=== PATIENT | male | born 1945 | race African-American/Black ===

== ENCOUNTER 2017-07-07 23:46 | Inpatient (IN) | payer MEDICARE, MEDICAID ==
[~2017-07-07] VITALS: Ht 152.4 cm; Wt 49.9 kg
[~2017-07-07 23:46] MED LIST: ACET-868 GT; ACID1TAB12 GT; ALBU18HF2 IH; ASPI-605 GT; BETH25TA10 GT; CA C1TAB70 GT; CHOL4PAC9 PO; FLUT16SP2 NS; FLUT1DIS28 IH; IPRA3AMP23 IH; MAGN400O6 GT; MEGE400O GT; MIDO10TA6 GT; MULT1TAB11 GT; PANT40SU GT; SODI650T GT; TAMS-12 GT; [UNRECOGNIZED DRUG - CODE] PO
[2017-07-07 23:58] VITALS: BP 104/61
[2017-07-08] VITALS (10 sets, daily range): BP systolic 90–140; BP diastolic 50–83
--- NOTE | 2017-07-08 | NUR ---
RT IS AT THE BEDSIDE. PT IS ON VENT WITH THE FOLLOWING SETTINGS: AC14, TV400 FIO2 35% AND PEEP5
--- NOTE | 2017-07-08 | NUR ---
PT BIB [facility] WITH A C/O BRONCHITIS. EMT'S ARE BAGGING. PT IS A TRACH/VENT PT. RT WAS CALLED AND TRIAGE NURSE IS SPEAKING WITH EMS. PT IS AA&O X4. PT IS NON VERBAL DUE TO TRACH. PT HAS BUE AND BLE CONTRACTURES. PILLOWS PLACED BETWEEN BLE. PT HAS PILLOW UNDER LUE. PT IS TACHY ON THE MONITOR WITH HR 122. PT HAS ORAL TEMP OF 100.3F. DR. GARZA IS AWARE.
[2017-07-08] MEDS ORDERED: ACETAMINOPHEN 325 MG TABLET ONE (00:16)
--- NOTE | 2017-07-08 00:20 | NUR ---
CXR IN PROGRESS AT THE BEDSIDE.
--- NOTE | 2017-07-08 00:23 | NUR ---
IN & OUT CATH DONE WITH UROJET. APPROX 100 ML YELLOW URINE OUTPUT NOTED.
[2017-07-08] MEDS ORDERED: ACETAMINOPHEN 325 MG TABLET MC ONE (00:30)
[2017-07-08] MEDS ORDERED: LIDOCAINE 2% JEL UROJET 10 ML MM ONE (00:38)
--- NOTE | 2017-07-08 00:50 | NUR ---
RT AT THE BEDSIDE FOR ABG.
[2017-07-08 00:59] LABS: BASOPHILS # (AUTO) 0.1 /CMM (0.0-0.2); BASOPHILS % (AUTO) 0.8 % (0.0-2.0); EOSINOPHILS % (AUTO) 8.3 % (0.0-6.0); HEMATOCRIT 27 % (39-51); HEMOGLOBIN 9.1 g/dL (13.5-17.5); LYMPHOCYTES # (AUTO) 2.2 /CMM (0.8-4.8); LYMPHOCYTES % (AUTO) 11.9 % (20.0-44.0); MEAN CORPUSCULAR HGB CONC 34 g/dl (31.0-36.0); MEAN CORPUSCULAR VOLUME 81 fL (80-96); MONOCYTES # (AUTO) 0.7 /CMM (0.1-1.30); MONOCYTES % (AUTO) 3.6 % (2.0-12.0); NEUTROPHILS % (AUTO) 75.4 % (43.0-81.0); PLATELET COUNT (AUTO) 440 /CMM (150-450); RDW COEFFICIENT OF VARIATION 19.5 (11.5-15.0); RED BLOOD CELL COUNT(AUTO) 3.34 MIL/uL (4.5-6.0); WHITE BLOOD COUNT (AUTO) 18.5 K/uL (4.3-11.0)
[2017-07-08 01:05] LABS: APPEARANCE,URINE CLEAR (CLEAR); BILIRUBIN,URINE NEGATIVE (NEGATIVE); BLOOD, URINE TRACE Ery/uL (NEGATIVE); COLOR,URINE YELLOW (YELLOW); KETONES,URINE NEGATIVE (NEGATIVE); LEUKOCYTE ESTERASE ,URINE NEGATIVE (NEGATIVE); NITRITE, URINE NEGATIVE (NEGATIVE); PH,URINE 7.5 (5.0-8.0); PROTEIN,URINE TRACE mg/dl (NEGATIVE); UGLUCOSE NEGATIVE (NEGATIVE); UROBILINOGEN,URINE 0.2 EU/dL (0.2)
[2017-07-08 01:13] LABS: INR 1.07 (0.87-1.13)
[2017-07-08 01:15] LABS: ABG BASE EXCESS 4.5 mmol/L; ABG OXYGEN SATURATION 86.8 % (92.0-98.5); ABG PCO2 46.3 mmHg (35.0-45.0); ABG PH 7.423 (7.350-7.450); ABG PO2 55.1 mmHg (75.0-100.0); AaDO2 140.6 mmHg; COHb 0.2 % (0.5-1.5); MetHb 0.6 % (0.0-1.5); O2Hb 86.1 % (94.0-97.0); SITE, ABG Right Brachial
[2017-07-08 01:16] LABS: TROPONIN I < 0.017 ng/mL (0.00-0.056)
--- NOTE | 2017-07-08 01:19 | NUR ---
OFFLOADED PT'S BUTTOCK WITH A PILLOW.
[2017-07-08 01:20] LABS: BACTERIA,URINE Few /HPF (None Seen); SQUAMOUS EPITHELIAL CELL,UR Few /HPF (None Seen); WBC,URINE 0-2 /HPF (0-3)
--- NOTE | 2017-07-08 01:28 | NUR ---
SUCTIONED X3 KASANDRA BLOOD NOTED. DR. GARZA NOTIFIED.
[2017-07-08 01:37] LABS: CALCIUM, SERUM 9.3 mg/dL (8.5-10.1); CARBON DIOXIDE 31 mmol/L (21-32); CHLORIDE 97 mmol/L (98-107); CREATININE 0.9 mg/dL (0.6-1.3); GLUCOSE 109 mg/dL (74-106); POTASSIUM 4.5 mmol/L (3.5-5.1); SODIUM SERUM 133 mmol/L (136-145); UREA NITROGEN, BLOOD 32 mg/dL (7-18)
[2017-07-08 01:40] LABS: ALANINE AMINOTRANSFERASE 31 U/L (12-78); ALBUMIN 2.1 g/dL (3.4-5.0); ALKALINE PHOSPHATASE 86 U/L (46-116); ASPARTATE AMINOTRANSFERASE 22 U/L (15-37); BILIRUBIN,DIRECT 0.1 mg/dL (0.0-0.2); BILIRUBIN,TOTAL 0.3 mg/dL (0.2-1.0); TOTAL PROTEIN, SERUM 7.7 g/dL (6.4-8.2)
--- NOTE | 2017-07-08 01:48 | NUR ---
ORAL TEMP 98.9
[2017-07-08] MEDS ORDERED: PIPERACILLIN /TAZOBACTAM 3.375 G VIAL IV ONE (01:52)
[2017-07-08] MEDS ORDERED: VANCOMYCIN 1 GM VIAL ONE (01:52)
[2017-07-08] MEDS ORDERED: IV NS 0.9% 1,000 ML BAG IV ONE (02:00)
[2017-07-08] MEDS ORDERED: PIPERACILLIN /TAZOBACTAM 3.375 G in IV D5W 50 ML IV ONE (02:00)
[2017-07-08] MEDS ORDERED: VANCOMYCIN 1 GM in IV D5W 250 ML IV ONE ×2 (02:00→05:00)
--- NOTE | 2017-07-08 02:20 | NUR ---
SUCTIONED PT X2. KASANDRA BLOOD NOTED IN TRACH.
--- NOTE | 2017-07-08 02:45 | NUR ---
PT'S DAUGHTER AND ARE AT THE BEDSIDE. PT TO BE ADMITTED. PT'S FAMILY WILL LEAVE SOON.
--- NOTE | 2017-07-08 02:58 | NUR ---
GABRIEL, PT'S DAUGHTER, CAN BE REACHED AT [phone]. PLEASE CALL WITH UPDATES.
--- NOTE | 2017-07-08 03:00 | NUR ---
PT'S FAMILY WENT HOME. WILL CALL GABRIEL WHEN PT IS TRANSFERRED TO THE FLOOR.
--- NOTE | 2017-07-08 03:16 | NUR ---
CALLED [facility] RE: CXR. CXR TO BE READ SHORTLY.
--- NOTE | 2017-07-08 03:46 | NUR ---
PT ASSIGNED ON 103 [facility]
--- NOTE | 2017-07-08 03:46 | NUR ---
CALLED RT. PT TO GO TO [facility].
--- NOTE | 2017-07-08 03:47 | NUR ---
CALLING REPORT TO [facility] NURSE.
--- NOTE | 2017-07-08 04:00 | NUR ---
[facility] RN ADMITTING NOTE RECEIVED PT FROM ER, INITIALLY FROM 4 SEASONS CC BRONCHITIS UNABLE TO OBTAIN VANCO IV, ADMITING DIAGNOSIS; POSSIBLE SEPSIS, SIRS, STAGE 4 PS, TRACHIAL BLEEDING, ANEMIA, PNA AND ACUTE DEHYDRATION, PT GIVEN ZOSYN 3.375 AND VANCO 1GM AND BOLUSED 2000 LT OF NS. ON RH 20#G WELL ERICK NO INFILTRATION OR SIGN OF FLUID VOL EXCESS NOTED, VS STABLE NO EPISODE OF DISTRESS, NOTED WITH SKIN ISSUES PHOTOS TAKEN MD ARMIN URBANO AWARE, SUGGESTS TO SEE PT IN AM, ALL ADMITTING ORDERS ENTERED PER PROTOCOL, WOUND CONSULT, MILL LABORER CONSULT, [employer] MAT ORDERED. KEPT PT CLEAN AND DRY, WELL REPOSITIONED, PRODUCTIVE ENDORSED TO RT IN AM FOR SPUTUM CX COLLECTION. WILL ENDORSE PT TO AM SHIFT NURSE FOR CESAR., ALL SAFETY MEASURES MET.
--- NOTE | 2017-07-08 04:09 | NUR ---
ENDORSED REASSESSMENT OF PT AFTER FLUIDS TO HECTOR BLANCO
[2017-07-08] MEDS ORDERED: MORPHINE SULFATE INJ 2 MG/ML DISP.SYRIN IV PRN (05:00)
[2017-07-08] MEDS ORDERED: ACETAMINOPHEN 325 MG TABLET PO PRN (05:00)
[2017-07-08] MEDS ORDERED: HYDROCODONE/APAP 5/325MG 1 EACH TABLET PO PRN (05:00)
[2017-07-08] MEDS ORDERED: DEXTROSE 50%-WATER 50 ML DISP.SYRIN IV PRN (05:00)
[2017-07-08] MEDS ORDERED: CEFEPIME 1 GM in IV D5W 50 ML IV SCH ×2 (05:00→09:00)
[2017-07-08] MEDS ORDERED: ONDANSETRON HCL/PF 4 MG/2 ML VIAL IV PRN (05:00)
[2017-07-08] MEDS: BLOOD SUGAR DIAGNOSTIC 1 EACH STRIP IN SCH ×4 (07:01→23:49)
[2017-07-08] MEDS: GLYTROL 1,000 ML BAG GT PRN (07:08)
[2017-07-08] MEDS ORDERED: FEE PK DOSING 1 MIN EA MC ONE (08:00)
--- NOTE | 2017-07-08 08:00 | NUR ---
[facility]/RN AM SHIFT INITIAL NOTES RECEIVED PT AWAKE IN BED, NO ACUTE CHANGE OF CONDITION NOTED, PT ALERT, NON-VERBAL, NO GRIMACING NOTED. ON VENTILATOR WITH RATES SET PRESCRIBED, SATURATING @ 100%, CRACKLES NOTED THROUGHOUT, NOTED WITH BLEEDING ON TRACH SITE, SUCTIONED FOR AIRWAY CLEARANCE. ON TELE WITH SINUS TACHY, HR 105. IV SITE PATENT WITH NO S/S OF INFECTION. ON GOING GT FEEDING @ 55CC/HR, FLUSHED, PATENT WITH NO S/S OF INFECTION, SL. PT IS COMFORTABLE, SCHEDULED AM MEDS TO BE GIVEN. CL WITHIN REACHED AND SAFETY MAINTAINED. ON GOING MONITORING.
--- NOTE | 2017-07-08 08:06 | NUR ---
Received male vidya pt on mechanical vent. Pt vidya is secure. Blood tinged secretions noted, RN aware. Vent is plugged into a red outlet, alarms are set and audible, and BVM is at bedside. Addendum: 07/08/17 at 0808 by EDD QUIROS RT Amended: Links added.
[2017-07-08] MEDS ORDERED: FENTANYL PF 100MCG/2ML AMPUL IV PRN (08:30)
[2017-07-08] MEDS ORDERED: FERR325T23 GT (08:56)
[2017-07-08] MEDS ORDERED: NUTR250L61 GT (08:56)
[2017-07-08] MEDS ORDERED: ZINC220C8 GT (08:56)
[2017-07-08] MEDS ORDERED: MIDO2.5T GT ×2 (08:56)
[2017-07-08] MEDS ORDERED: LOPE2CAP GT (08:56)
[2017-07-08] MEDS ORDERED: HYDR-552 GT (08:56)
[2017-07-08] MEDS ORDERED: AMIN30LI4 GT (08:56)
[2017-07-08] MEDS ORDERED: LORA10TA7 GT (08:56)
[2017-07-08] MEDS ORDERED: CALC-494 GT (08:56)
[2017-07-08] MEDS ORDERED: PANT40SU2 GT (08:56)
[2017-07-08] MEDS ORDERED: LACT1CAP94 GT (08:56)
[2017-07-08] MEDS ORDERED: CHOL100044 GT (08:56)
[2017-07-08] MEDS ORDERED: ASCO500T9 GT (08:56)
[2017-07-08] MEDS ORDERED: ZINC SULFATE 220 MG CAPSULE PO SCH (09:00)
[2017-07-08] MEDS: CEFEPIME 1 GM in IV D5W 50 ML IV SCH ×4 (09:05→20:31)
[2017-07-08] MEDS: ASCORBIC ACID 500 MG TABLET PO SCH (09:06)
[2017-07-08] MEDS: MULTIVITAMINS,THERAGRAN 1 UDTAB TABLET PO SCH (09:06)
[2017-07-08] MEDS: PANTOPRAZOLE 40 MG/PACK PACK GT SCH (09:06)
--- NOTE | 2017-07-08 09:09 | NUR ---
WOUND CARE CONSULT: PT PRESENTS WITH INCONTINENCE, STAGE 4 SACRAL ULCER AND RT DORSAL FOOT ESCHAR, PRESENT ON ADMISSION. RECOMMENDATIONS MADE FOR WOUND CARE AND SKIN PROTECTION. DISCUSSED WITH NURSING STAFF. PT ON CORRINE ISOFLEX LOW AIRLOSS BED. CURRENT ADIN SCORE IS 8. WILL SEE PRN. LEON IN AGREEMENT WITH PLAN OF CARE. Addendum: 07/08/17 at 0911 by ESTEBAN DEJESUS WNDNU Amended: Links added.
[2017-07-08] MEDS ORDERED: IV NS 0.9% 250 ML BAG IV ONE (09:30)
[2017-07-08] MEDS: HYDROGEL DRESSING 90 GM TUBE TP SCH ×2 (11:01→20:31)
[2017-07-08] MEDS: Z GUARD REMEDY 2 OZ OINT TP SCH (11:01)
--- NOTE | 2017-07-08 12:00 | NUR ---
TELE1/RN NOON ROUNDS NO CHANGE OF CONDITION. MONITORING CONTINUED.
[2017-07-08] MEDS: VANCOMYCIN 0.75 GM in IV D5W 250 ML IV SCH (14:29)
[2017-07-08] MEDS: METOPROLOL TARTRATE 25 MG TABLET PO SCH ×2 (14:29→20:32)
[2017-07-08] MEDS: ALBUTEROL HALF STRENGTH 1.25 MG/3 ML VIAL.NEB NEB SCH ×4 (14:30→23:49)
[2017-07-08] MEDS ORDERED: LORAZEPAM INJ 2 MG/ML VIAL IVP PRN (14:30)
[2017-07-08] MEDS: PROSOURCE / PROSTAT (PYXIS) 30 ML UDC GT SCH ×2 (14:32→20:33)
[2017-07-08] MEDS: IPRATROPIUM NEB FS 0.5 MG/2.5 ML AMPUL.NEB NEB SCH ×3 (15:04→23:49)
[2017-07-08] MEDS: LACTOBACILLUS RHAMNOSUS GG 1 EACH CAP.SPRINK GT SCH (18:01)
--- NOTE | 2017-07-08 19:20 | NUR ---
BANBURY OPERATOR OPENING NOTES REPORT RECEIVED FROM INDIRA YOUNG. PATIENT A/A/O X1, UNABLE TO VERBALIZE NEEDS. TRACH INTACT W/ MINIMAL PINK TINGED SECRETIONS NOTED. SOME LABORED BREATHING NOTED W/ VENT SETTINGS AC 14, TV 400, FIO2 35%, PEEP 5 & O2 @ 100% & CURRENT O2 SAT 88%. HOB ELEVATED, PATIENT REPOSITIONED & SUCTIONED W/ IMPROVEMENT IN O2 SAT NOTED. ON TELE W/ SINUS RHYTHM-SINUS TACH, HR 130S. RIGHT FOREARM IV #20 INTACT & PATENT W/ DRESSING CDI, TKO. G-TUBE FLUSHING WELL & NO RESIDUAL NOTED W/ GTF GLYTROL @ 55 ML/HR. CONDOM CATH DRAINING YELLOW URINE. MEDICATION INTERVENTION TO BE GIVEN FOR S/S OF PAIN & INCREASED HR. SAFETY MEASURES MAINTAINED. WILL CONTINUE TO MONITOR CLOSELY.
--- NOTE | 2017-07-08 19:30 | NUR ---
TELE1/RN AM SHIFT END NOTES NO ACUTE CHANGE OF CONDITION NOTED DURING THE SHIFT. ALL NEEDS MET. PT ENDORSED TO PM NURSE TO CONTINUE CARE. CL WITHIN REACHED AND SAFETY MAINTAINED.
[2017-07-08] MEDS: FERROUS SULFATE (325 MG) 325 MG/TAB TABLET GT SCH (20:31)
[2017-07-08] MEDS: HYDROCODONE/APAP 5/325MG 1 EACH TABLET GT PRN (20:32)
--- NOTE | 2017-07-08 22:15 | NUR ---
INCOME TAX ANALYST NOTES RT TITRATED O2 TO 60%. O2 SAT CURRENTLY @ 95%. SUCTIONED & KEPT HOB ELEVATED. WILL CONTINUE TO MONITOR.
--- NOTE | 2017-07-08 22:30 | NUR ---
FISH FARMER NOTES PATIENT NOTED TO DESAT TO 88-90% @ 60% O2. CALLED DR FUNEZ W/ NO NEW ORDERS. PER MD, RELAY TO DR DOBBINS. WILL CONTINUE TO MONITOR CLOSELY.
[2017-07-08] MEDS: ACETAMINOPHEN 325 MG TABLET PO PRN (22:44)
--- NOTE | 2017-07-08 23:20 | NUR ---
PSYCHOLOGICAL TESTS SALES AGENT:RECEIVED CHRONIC TRACH TO VENT PT. FROM TELE, ALERT AND AWAKE. ABLE TO FOLLOW SIMPLE COMMANDS. VENT SETTINGS ORDERED WT RR IN THE 30s AND 02 SAT ABOVE 96%. TRACHEAL SITE MINIMAL BLEEDING NOTED. DENIES PAIN AND NO EVIDENCE OF DISCOMFORT. SR ON BLUE SPLIT TRIMMER. AFEBRILE. BP WNL. GT IN PLACE AND WILL CONTINUE TO RUN WT GLYTROL AT 55ML/HR. NO RESIDUAL NOTED. BILAT. HAND MITTENS IN PLACE UPON FOR EPISODES OF PULLING TRACH. SKIN AND CIRCULATION WNL. CONDOM CATH IN PLACE DRAINING YELLOW URINE TO GRAVITY. HOB AT 35 DEGREES. WILL CONTINUE TO MONITOR.
--- NOTE | 2017-07-08 23:40 | NUR ---
Due to respiratory distress pt was transferred to ICU, per DR DOBBINS PEEP was increased from +5 to +8.
--- NOTE | 2017-07-08 23:48 | NUR ---
SPECIAL FORCES OFFICER NOTES PATIENT CONTINUED TO DESAT @ 60% O2, FAMILY REFUSED ABG. SPOKE TO ON-CALL FREIGHT AND PASSENGER AGENT W/ NEW ORDERS TO TRANSFER TO ICU & INCREASE PEEP TO 8. PATIENT TRANSFERRED TO ICU ROOM 257 & BEDSIDE REPORT GIVEN TO ORVILLE YOUNG FOR CESAR.
--- NOTE | 2017-07-08 23:50 | NUR ---
DIRECTOR PRIVATE MUSIC THERAPY AGENCY: FI02 DECREASED TO 80%.
[2017-07-09] VITALS (49 sets, daily range): BP systolic 75–126; BP diastolic 42–70
--- NOTE | 2017-07-09 00:15 | NUR ---
SKID MAN: DAUGHTER AT BEDSIDE AND UPDATED PT CONDITION. PER DAUGHTER, PT NEVER HAD LUNG CA (WAS MISDIAGNOSED FOR LUNG CA AND HAD LUNG SX 5 YRS AGO; BIOPSY WAS DONE AFTER SX BUT WAS TOLD IT WAS JUST A SCAR BUT NOT CA.)
--- NOTE | 2017-07-09 02:00 | NUR ---
CONVERTER SUPERVISOR: FI02 DECREASED TO 60%. WILL CONTINUE TO MONITOR.
[2017-07-09] MEDS: VANCOMYCIN 0.75 GM in IV D5W 250 ML IV SCH ×3 (02:28→21:40)
[2017-07-09 04:39] LABS: BASOPHILS % (AUTO) 0.1 % (0.0-2.0); EOSINOPHILS % (AUTO) 0.7 % (0.0-6.0); HEMATOCRIT 27 % (39-51); HEMOGLOBIN 8.9 g/dL (13.5-17.5); LYMPHOCYTES # (AUTO) 1.2 /CMM (0.8-4.8); LYMPHOCYTES % (AUTO) 5.8 % (20.0-44.0); MEAN CORPUSCULAR HGB CONC 33 g/dl (31.0-36.0); MEAN CORPUSCULAR VOLUME 82 fL (80-96); MONOCYTES # (AUTO) 0.3 /CMM (0.1-1.30); MONOCYTES % (AUTO) 1.5 % (2.0-12.0); NEUTROPHILS # (AUTO) 18.8 /CMM (1.8-8.9); NEUTROPHILS % (AUTO) 91.9 % (43.0-81.0); PLATELET COUNT (AUTO) 389 /CMM (150-450); RDW COEFFICIENT OF VARIATION 20.9 (11.5-15.0); RED BLOOD CELL COUNT(AUTO) 3.33 MIL/uL (4.5-6.0); WHITE BLOOD COUNT (AUTO) 20.4 K/uL (4.3-11.0)
[2017-07-09 04:40] LABS: ABG BASE EXCESS 2.1 mmol/L; ABG OXYGEN SATURATION 91.4 % (92.0-98.5); ABG PO2 65.1 mmHg (75.0-100.0); AaDO2 317.6 mmHg; COHb 0.3 % (0.5-1.5); MetHb 0.6 % (0.0-1.5); O2Hb 90.6 % (94.0-97.0); SITE, ABG Right Brachial; VENT MODE, BG AC 14 400 +8
--- NOTE | 2017-07-09 04:45 | NUR ---
CHIEF ADMINISTRATIVE OFFICER: STAT ABG DONE DUE TO SOB AND HIGH HR IN THE 130s. RESULTED AND FI02 INCREASED BACK TO 80%. WILL CONTINUE TO MONITOR.
[2017-07-09 04:51] LABS: ALANINE AMINOTRANSFERASE 25 U/L (12-78); ALBUMIN 1.9 g/dL (3.4-5.0); ALKALINE PHOSPHATASE 83 U/L (46-116); ASPARTATE AMINOTRANSFERASE 21 U/L (15-37); BILIRUBIN,TOTAL 0.4 mg/dL (0.2-1.0); CALCIUM, SERUM 8.9 mg/dL (8.5-10.1); CARBON DIOXIDE 27 mmol/L (21-32); CHLORIDE 98 mmol/L (98-107); GLUCOSE 136 mg/dL (74-106); POTASSIUM 4.3 mmol/L (3.5-5.1); SODIUM SERUM 131 mmol/L (136-145); TOTAL PROTEIN, SERUM 7.4 g/dL (6.4-8.2); UREA NITROGEN, BLOOD 23 mg/dL (7-18)
[2017-07-09] MEDS: ALBUTEROL HALF STRENGTH 1.25 MG/3 ML VIAL.NEB NEB SCH ×6 (04:51→23:18)
[2017-07-09] MEDS: IPRATROPIUM NEB FS 0.5 MG/2.5 ML AMPUL.NEB NEB SCH ×6 (04:51→23:18)
[2017-07-09] MEDS: CEFEPIME 1 GM in IV D5W 50 ML IV SCH ×3 (05:09→21:01)
[2017-07-09] MEDS: HYDROCODONE/APAP 5/325MG 1 EACH TABLET GT PRN ×2 (05:10→10:46)
[2017-07-09] MEDS: BLOOD SUGAR DIAGNOSTIC 1 EACH STRIP IN SCH ×4 (05:24→23:38)
--- NOTE | 2017-07-09 05:39 | NUR ---
PATIENT RECEIVED ON MECHANICAL VENTILATOR PLUGGED INTO RED OUTLET. VENT ALARMS CHECKED & AUDIBLE THROUGHOUT ICU. CUFF PRESSURE CHECKED. BILATERAL BREATH SOUNDS AUSCULTATED. PT SUCTIONED Q2 + PRN FOR MODERATE AMOUNT OF PALE YELLOW SEMI-THICK SECRETIONS. AMBU BAG AT HOB. Addendum: 07/09/17 at 0539 by TRISHA NYE RT Amended: Links added.
--- NOTE | 2017-07-09 06:45 | NUR ---
DREDGE OR BARGE SHORE HAND: STILL ST WT HR NOW IMPROVED LESS THAN 115. 02 SAT AT 100%. NO EVIDENCE OF DISCOMFORT. ALL NEEDS MET. HOB AT 45 DEGREES AT ALL TIMES.
[2017-07-09] MEDS: GLYTROL 1,000 ML BAG GT PRN (06:53)
--- NOTE | 2017-07-09 08:00 | NUR ---
OVERHEAD WORKER: pt.is awake, with open eyes, eyes contact+, but unable to follow command, trach, rigid extremities, s/p CVA, on B.mittens, rest, no grimacing, O2 sat. over 94%, peep8, FiO2 80%, ABG done at 0500, pO2 65, suctioned/no blood, ST 100-110, T 99.3, SBP 90-100, GTF residual 10ml, got note from lab to get sputum, stool samples, updated RT, sputum sample taken, pt.daughter wants to speak with MD before/debridement consent was not done
--- NOTE | 2017-07-09 08:05 | NUR ---
JANITOR SUPERVISOR: no hemoptysis now, O2 sat. 100%, continue titrate FiO2 , WBC 72074/will s/w , pt.has one L.f/a 20G PIVL
[2017-07-09] MEDS: FERROUS SULFATE (325 MG) 325 MG/TAB TABLET GT SCH ×2 (08:50→21:02)
[2017-07-09] MEDS: ZINC SULFATE 220 MG CAPSULE GT SCH (08:50)
[2017-07-09] MEDS: LACTOBACILLUS RHAMNOSUS GG 1 EACH CAP.SPRINK GT SCH ×2 (08:50→16:48)
[2017-07-09] MEDS: MULTIVITAMINS,THERAGRAN 1 UDTAB TABLET PO SCH (08:50)
[2017-07-09] MEDS: LORATADINE 10 MG TABLET GT SCH (08:51)
[2017-07-09] MEDS: PANTOPRAZOLE 40 MG/PACK PACK GT SCH (08:51)
[2017-07-09] MEDS: ASCORBIC ACID 500 MG TABLET PO SCH (08:51)
[2017-07-09] MEDS: PROSOURCE / PROSTAT (PYXIS) 30 ML UDC GT SCH ×2 (08:53→21:00)
[2017-07-09] MEDS ORDERED: ASCORBIC ACID 500 MG TABLET PO SCH (09:00)
[2017-07-09] MEDS: METOPROLOL TARTRATE 25 MG TABLET PO SCH ×2 (09:00→21:00)
[2017-07-09] MEDS ORDERED: PANTOPRAZOLE 40 MG/PACK PACK GT SCH (09:00)
[2017-07-09] MEDS: CHOLECALCIFEROL 1,000 UNIT TABLET (VIT D3) GT SCH (09:03)
[2017-07-09] MEDS: Z GUARD REMEDY 2 OZ OINT TP PRN (09:04)
[2017-07-09] MEDS: HYDROGEL DRESSING 90 GM TUBE TP SCH ×3 (09:04→21:04)
[2017-07-09] MEDS: Z GUARD REMEDY 2 OZ OINT TP SCH (09:04)
--- NOTE | 2017-07-09 09:10 | NUR ---
LEAD CASE MANAGER: is in room, updated with pt.current condition, VS, ST 100-110, SBP 90-100, O2sat., vent setting FiO2 80%, peep8, last ABG, T, I/O, GTF, Na+131, WBC 20, wounds status, spoke with pt.daughter, ordered: Midodrine, see new orders
[2017-07-09] MEDS: MIDODRINE HCL (5MG) 5 MG TABLET PO SCH ×3 (09:37→16:48)
--- NOTE | 2017-07-09 10:49 | NUR ---
NON CATEGORICAL PRESCHOOL TEACHER: pt.is grimacing, like pain level 5-6/10, ST 110-115, RR 30-32, restless, [place] given
--- NOTE | 2017-07-09 11:00 | NUR ---
PACKING INSPECTOR: is in room, updated with pt.current condition, VS, O2sat. vent.setting, I/O, suction amount, ordered: ABG
--- NOTE | 2017-07-09 11:20 | NUR ---
FURNITURE DETAILER: placed in R.forearm 22G PIVL with good blood return, charge nurse is in room/updated, in AM spoke re pt.was candidate for PICC placement d/t low BP over night(SBP was 90-100), now pt.has 2xPIVLs, ordered Midodrine today, ST 100-115, elizabeth SBP over 100, pt.is generally is in little progress
--- NOTE | 2017-07-09 11:30 | NUR ---
TRIMMER OPERATOR: notified BRITTANI Negron: family wants to speak re debridement details before to sign consent
[2017-07-09 12:35] LABS: ABG BASE EXCESS 0.7 mmol/L; ABG PCO2 43.3 mmHg (35.0-45.0); ABG PH 7.392 (7.350-7.450); ABG PO2 76.9 mmHg (75.0-100.0); AaDO2 267.1 mmHg; COHb 0.3 % (0.5-1.5); MetHb 0.5 % (0.0-1.5); O2Hb 93.2 % (94.0-97.0); PEEP,BG 5 cm H2O; SITE, ABG Right Radial; VENT MODE, BG A/C; VT, ABG 400 mL
[2017-07-09] MEDS: INSULIN REGULAR, HUMAN 100 UNIT/ML 3 ML VIAL SQ PRN ×2 (12:39→23:35)
[2017-07-09] MEDS: ACETAMINOPHEN 325 MG TABLET PO PRN (16:48)
--- NOTE | 2017-07-09 17:30 | NUR ---
SAAS ARCHITECT: pt.is awake/sleepy, eyes contact+, rest now, unable to follow commands well, ST 100-115, SBP over 90, O2 sat. over 96%, FiO2 55%, suctioned well with large secretion amount, GTF residual WNL, keep HOB over 40, wound/PM/skin done, pt.daughter is in room, informed with detailed re pt.condition, VS, orders, POC, MDs visits, wounds condition
--- NOTE | 2017-07-09 20:00 | NUR ---
Received patient awake with eye contact.No signs of pain noted.SR 82.Patient on mechanical vent support via trach.Secretions suction and oral care done.Patient uncooperative with care. With bilateral mittens in place.GT feeding infusing.NO residual noted.Sheets to gravity with clear yellow urine.Bilateral SCD applied.Turned and reposition.Patient with MRSA nares.Contact isolation precaution initiated.
--- NOTE | 2017-07-09 20:06 | NUR ---
PT RECEIVED TRACHED ON THE VENT WITH NOTED SETTINGS. TRACH SIZE OF SHILEY 6. VENT ALARMS ARE SET AND AUDIBLE WITH AMBU BAG @ BEDSIDE. SENIOR INSTRUCTIONAL DESIGNER CUFF PRESSURE NOTED. VENT IS PLUGGED INTO RED OUTLET. BREATHING TX GIVEN, NO ADVERSE REACTION NOTED. PT SX YELLOW THICK SECRETIONS WITH TINGED BLOOD. WILL CONTINUE TO MONITOR.
[2017-07-09] MEDS: HYDROGEL DRESSING 90 GM TUBE TP PRN (21:01)
[2017-07-09] MEDS: MUPIROCIN OINT 2% 22 GM TUBE SCH (21:01)
--- NOTE | 2017-07-09 21:11 | NUR ---
Patient with hypotension BP 82/42 HR 89. notified of patient condition. Orders received and carried out.NS 500 ml bolus x 1 started.Continue to monitor.
[2017-07-09] MEDS ORDERED: IV NS 0.9% 500 ML IV ONE (21:30)
--- NOTE | 2017-07-09 22:10 | NUR ---
Patient BP still 86/51 post bolus. notified with order.To start Levophed gtt if SBP <85.
[2017-07-09] MEDS ORDERED: NOREPINEPHRINE 8 MG in IV D5W 500 ML IV PRN (22:30)
[2017-07-09] MEDS ORDERED: NOREPINEPHRINE 4 MG/4 ML AMPUL IV ONE (23:26)
--- NOTE | 2017-07-09 23:33 | NUR ---
Patient hemodynamically unstable.BP 75/47 Levophed gtt started and to titrate to keep SBP >85.
[2017-07-10] VITALS (113 sets, daily range): BP systolic 72–135; BP diastolic 41–78
[2017-07-10] MEDS: IPRATROPIUM NEB FS 0.5 MG/2.5 ML AMPUL.NEB NEB SCH ×6 (03:13→23:07)
[2017-07-10] MEDS: ALBUTEROL HALF STRENGTH 1.25 MG/3 ML VIAL.NEB NEB SCH ×8 (03:13→23:07)
[2017-07-10 04:33] LABS: BASOPHILS # (AUTO) 0.1 /CMM (0.0-0.2); BASOPHILS % (AUTO) 0.5 % (0.0-2.0); EOSINOPHILS % (AUTO) 5.8 % (0.0-6.0); HEMATOCRIT 23 % (39-51); HEMOGLOBIN 7.5 g/dL (13.5-17.5); LYMPHOCYTES # (AUTO) 1.3 /CMM (0.8-4.8); LYMPHOCYTES % (AUTO) 8.2 % (20.0-44.0); MEAN CORPUSCULAR HGB CONC 33 g/dl (31.0-36.0); MEAN CORPUSCULAR VOLUME 82 fL (80-96); MONOCYTES # (AUTO) 0.5 /CMM (0.1-1.30); MONOCYTES % (AUTO) 3.4 % (2.0-12.0); NEUTROPHILS # (AUTO) 12.7 /CMM (1.8-8.9); NEUTROPHILS % (AUTO) 82.1 % (43.0-81.0); PLATELET COUNT (AUTO) 354 /CMM (150-450); RDW COEFFICIENT OF VARIATION 21.3 (11.5-15.0); RED BLOOD CELL COUNT(AUTO) 2.79 MIL/uL (4.5-6.0); WHITE BLOOD COUNT (AUTO) 15.4 K/uL (4.3-11.0)
[2017-07-10] MEDS: GLYTROL 1,000 ML BAG GT PRN (04:33)
[2017-07-10] MEDS: CEFEPIME 1 GM in IV D5W 50 ML IV SCH ×3 (04:58→20:10)
[2017-07-10 05:00] LABS: CALCIUM, SERUM 8.8 mg/dL (8.5-10.1); CARBON DIOXIDE 27 mmol/L (21-32); CHLORIDE 100 mmol/L (98-107); GLUCOSE 114 mg/dL (74-106); MAGNESIUM 1.8 mg/dL (1.8-2.4); PHOSPHORUS 1.8 mg/dL (2.5-4.9); POTASSIUM 3.9 mmol/L (3.5-5.1); SODIUM SERUM 134 mmol/L (136-145); UREA NITROGEN, BLOOD 21 mg/dL (7-18)
[2017-07-10] MEDS ORDERED: IV NS 0.9% 100 ML BAG IV ONE (05:00)
[2017-07-10] MEDS: BLOOD SUGAR DIAGNOSTIC 1 EACH STRIP IN SCH ×3 (06:00→17:24)
--- NOTE | 2017-07-10 06:00 | NUR ---
Patient resting in no distress.SR/ST-118.BP labile.Tolerating gt feeding.AM care done.Turned and repositioned.FSBS done Q 6 hrs.All due meds given.
--- NOTE | 2017-07-10 07:49 | NUR ---
INITIAL OUTSIDE LABORER NOTE RCVD PT AWAKE AND ALERT TO SELF, ST ON TELE. TOLERATING ORDERED VENT SETTINGS WELL. NO S/O DISTRESS/PAIN OBSERVED. PEG PLACEMENT VERIFIED BY AUSCULTATION/ASPIRATION. NO RESIDUAL OBTAINED. RIZVI TO GRAVITY DRAINING CLOUDY, YELLOW URINE. STAT LOCK RIZVI DEVICE PLACED ON RIGHT THIGH. IV SITES C/D/I/PATENT. NO S/O INFILTRATION/PHLEBITIS OBSERVED UPON FLUSHING. WILL CONTINUE TO MONITOR PT FOR SAFETY AND COMFORT. CALL LIGHT WITHIN REACH. BED IN LOW AND LOCKED POSITION.
[2017-07-10] MEDS: ASCORBIC ACID 500 MG TABLET PO SCH (08:09)
[2017-07-10] MEDS: LACTOBACILLUS RHAMNOSUS GG 1 EACH CAP.SPRINK GT SCH ×2 (08:09→16:42)
[2017-07-10] MEDS: LORATADINE 10 MG TABLET GT SCH (08:09)
[2017-07-10] MEDS: PANTOPRAZOLE 40 MG/PACK PACK GT SCH (08:09)
[2017-07-10] MEDS: PROSOURCE / PROSTAT (PYXIS) 30 ML UDC GT SCH ×2 (08:09→20:10)
[2017-07-10] MEDS: ZINC SULFATE 220 MG CAPSULE GT SCH (08:09)
[2017-07-10] MEDS: MULTIVITAMINS,THERAGRAN 1 UDTAB TABLET PO SCH (08:09)
[2017-07-10] MEDS: MIDODRINE HCL (5MG) 5 MG TABLET PO SCH ×3 (08:10→16:42)
[2017-07-10] MEDS: CHOLECALCIFEROL 1,000 UNIT TABLET (VIT D3) GT SCH (08:10)
[2017-07-10] MEDS: FERROUS SULFATE (325 MG) 325 MG/TAB TABLET GT SCH ×2 (08:10→20:10)
[2017-07-10] MEDS: ACETAMINOPHEN 325 MG TABLET PO PRN (08:10)
[2017-07-10] MEDS: METOPROLOL TARTRATE 25 MG TABLET PO SCH ×2 (08:10→20:06)
[2017-07-10] MEDS: HYDROCODONE/APAP 5/325MG 1 EACH TABLET GT PRN (08:11)
[2017-07-10] MEDS: MUPIROCIN OINT 2% 22 GM TUBE SCH ×2 (08:19→20:12)
[2017-07-10] MEDS: Z GUARD REMEDY 2 OZ OINT TP SCH (08:19)
[2017-07-10] MEDS: HYDROGEL DRESSING 90 GM TUBE TP SCH ×3 (08:20→20:12)
--- NOTE | 2017-07-10 09:07 | NUR ---
BLOOD BANK COORDINATOR NOTE BP MEDICATION HELD THIS AM SINCE SBP 90s, PT ABLE TO COMMUNICATE NEEDS, BUT UPON ASKING HIM TO FOLLOW COMMANDS, PT DOES NOT FOLLOW SIMPLE COMMANDS.
--- NOTE | 2017-07-10 09:16 | NUR ---
MANAGER WATER WASTEWATER NOTE DR. FUNEZ IN UNIT INFORMED OF PT'S ELEVATED TEMP THIS AM, HGB TRENDING DOWN, AND PHOS BEING LOW. AT THIS TIME PT OFF LEVO BUT REQUIRED ON/OFF DURING MANAGER GENERAL. NO PICC LINE INSERTED, HE AGREES WITH PICC. NO STOOL FOR TESTS, AND NO MEDICATIONS ON BOARD. ACKNOWLEDGED AND WILL ORDER NEEDED.
[2017-07-10] MEDS ORDERED: ACETAMINOPHEN 325 MG TABLET PO ONE (10:30)
[2017-07-10] MEDS: Potassium Phosphate meq 11 MEQ in IV NS 0.9% 100 ML IV SCH ×2 (10:55→13:25)
[2017-07-10] MEDS: VANCOMYCIN 0.75 GM in IV D5W 250 ML IV SCH (14:51)
--- NOTE | 2017-07-10 17:21 | NUR ---
FOOTWEAR SALES COORDINATOR NOTE PRBC'S INFUSING NO S/O REACTION OBSERVED. VITAL SIGNS STABLE.
--- NOTE | 2017-07-10 18:55 | NUR ---
AD WRITER NOTE PT STABLE AT THIS TIME, SR ON TELE, PRBC INFUSING. PT ABLE TO FOLLOW COMMANDS AT THIS TIME AND APPEARS MORE COOPERATIVE. TOLERATING ORDERED VENT SETTINGS AND TUBE FEEDING RATE. BED IN LOW AND LOCKED POSITION. CALL LIGHT WITHIN REACH.
--- NOTE | 2017-07-10 19:07 | NUR ---
PT RECEIVED TRACHED ON THE VENT WITH NOTED SETTINGS. TRACH SIZE OF SHILEY 6. VENT ALARMS ARE SET AND AUDIBLE WITH AMBU BAG @ BEDSIDE. CUPOLA MELTER HELPER CUFF PRESSURE NOTED. VENT IS PLUGGED INTO RED OUTLET. BREATHING TX GIVEN, NO ADVERSE REACTION NOTED. SX MODERATE AMOUNT OF YELLOW THICK SECRETIONS WITH TINGED BLOOD.NO RESPIRATORY DISTRESS NOTED AT THIS TIME. WILL CONTINUE TO MONITOR.
[2017-07-11] VITALS (70 sets, daily range): BP systolic 88–137; BP diastolic 49–87
[2017-07-11] MEDS: BLOOD SUGAR DIAGNOSTIC 1 EACH STRIP IN SCH ×5 (00:11→23:29)
[2017-07-11] MEDS: ALBUTEROL HALF STRENGTH 1.25 MG/3 ML VIAL.NEB NEB SCH ×5 (03:42→20:07)
[2017-07-11] MEDS: IPRATROPIUM NEB FS 0.5 MG/2.5 ML AMPUL.NEB NEB SCH ×5 (03:42→20:07)
[2017-07-11 05:22] LABS: BASOPHILS % (AUTO) 0.1 % (0.0-2.0); EOSINOPHILS % (AUTO) 10.4 % (0.0-6.0); HEMATOCRIT 26 % (39-51); HEMOGLOBIN 8.5 g/dL (13.5-17.5); LYMPHOCYTES # (AUTO) 1.8 /CMM (0.8-4.8); LYMPHOCYTES % (AUTO) 13.2 % (20.0-44.0); MEAN CORPUSCULAR HGB CONC 33 g/dl (31.0-36.0); MEAN CORPUSCULAR VOLUME 83 fL (80-96); MONOCYTES # (AUTO) 0.5 /CMM (0.1-1.30); MONOCYTES % (AUTO) 3.7 % (2.0-12.0); NEUTROPHILS # (AUTO) 10.1 /CMM (1.8-8.9); NEUTROPHILS % (AUTO) 72.6 % (43.0-81.0); PLATELET COUNT (AUTO) 377 /CMM (150-450); RDW COEFFICIENT OF VARIATION 20.5 (11.5-15.0); RED BLOOD CELL COUNT(AUTO) 3.07 MIL/uL (4.5-6.0); WHITE BLOOD COUNT (AUTO) 13.9 K/uL (4.3-11.0)
[2017-07-11] MEDS: CEFEPIME 1 GM in IV D5W 50 ML IV SCH ×3 (05:35→21:09)
[2017-07-11 05:52] LABS: CALCIUM, SERUM 9.1 mg/dL (8.5-10.1); CARBON DIOXIDE 29 mmol/L (21-32); CHLORIDE 101 mmol/L (98-107); CREATININE 0.9 mg/dL (0.6-1.3); GLUCOSE 86 mg/dL (74-106); MAGNESIUM 1.9 mg/dL (1.8-2.4); PHOSPHORUS 2.5 mg/dL (2.5-4.9); POTASSIUM 4.4 mmol/L (3.5-5.1); SODIUM SERUM 136 mmol/L (136-145); UREA NITROGEN, BLOOD 24 mg/dL (7-18)
[2017-07-11] MEDS: GLYTROL 1,000 ML BAG GT PRN (06:06)
--- NOTE | 2017-07-11 07:22 | NUR ---
PT. RECEIVED ON [facility] VENT VIA TRACH SIZE 6 SHILEY WITH PARAMETERS BELLOW ORDER: AC 14 VT 400 FIO2 45% PEEP +5 B/S COARSE RHONCHI BILATERAL, SXN LARGE AMNT PINKISH SECRETIONS. VENT ALARMS IS ON AND FUNCTIONING WITH AMBU BAG @ HOB Addendum: 07/11/17 at 1055 by WILL SUNG RT Amended: Links added.
--- NOTE | 2017-07-11 07:41 | NUR ---
INITIAL GILL BOX OPERATOR NOTE RCVD PT AWAKE AND ALERT, SHOWING NO S/O DISTRESS. ST ON TELE. TOLERATING ORDERED VENT SETTINGS. PEG PLACEMENT VERIFIED BY AUSCULTATION/ASPIRATION. NO TUBE FEEDING RESIDUAL OBTAINED UPON ASPIRATING. RIZVI TO GRAVITY DRAINING CLOUDY YELLOW URINE. WILL CONTINUE TO MONITOR PT FOR SAFETY AND COMFORT. CALL LIGHT WITHIN REACH. BED IN LOW AND LOCKED POSITION.
[2017-07-11] MEDS: METOPROLOL TARTRATE 25 MG TABLET PO SCH ×2 (09:00→21:00)
[2017-07-11] MEDS: VANCOMYCIN 0.75 GM in IV D5W 250 ML IV SCH (09:00)
[2017-07-11] MEDS: PROSOURCE / PROSTAT (PYXIS) 30 ML UDC GT SCH ×2 (09:24→21:08)
[2017-07-11] MEDS: CHOLECALCIFEROL 1,000 UNIT TABLET (VIT D3) GT SCH (09:25)
[2017-07-11] MEDS: MULTIVITAMINS,THERAGRAN 1 UDTAB TABLET PO SCH (09:25)
[2017-07-11] MEDS: ASCORBIC ACID 500 MG TABLET PO SCH (09:25)
[2017-07-11] MEDS: FERROUS SULFATE (325 MG) 325 MG/TAB TABLET GT SCH ×2 (09:25→21:08)
[2017-07-11] MEDS: LACTOBACILLUS RHAMNOSUS GG 1 EACH CAP.SPRINK GT SCH ×2 (09:25→18:06)
[2017-07-11] MEDS: MIDODRINE HCL (5MG) 5 MG TABLET PO SCH ×3 (09:25→18:07)
[2017-07-11] MEDS: LORATADINE 10 MG TABLET GT SCH (09:25)
[2017-07-11] MEDS: ZINC SULFATE 220 MG CAPSULE GT SCH (09:25)
[2017-07-11] MEDS: PANTOPRAZOLE 40 MG/PACK PACK GT SCH (09:25)
[2017-07-11] MEDS: COLISTIMETHATE SODIUM 150 MG VIAL NEB SCH ×2 (09:27→21:31)
[2017-07-11] MEDS: MUPIROCIN OINT 2% 22 GM TUBE SCH ×2 (09:27→21:14)
[2017-07-11] MEDS: Z GUARD REMEDY 2 OZ OINT TP SCH (09:27)
[2017-07-11] MEDS: HYDROGEL DRESSING 90 GM TUBE TP SCH ×2 (09:27→21:13)
--- NOTE | 2017-07-11 11:43 | NUR ---
GAS TURBINE ASSEMBLER NOTE PT'S DAUGHTER, GABRIEL AT BEDSIDE UPDATED ON PT'S CONDITION. PER HER REQUEST CALLED WOUND CLINIC TO HAVE RODOLFO EXPLAIN RECOMMENDED DEBRIDEMENT TO HER. UNFORTUNATELY, DR. DIAZ AND RODOLFO DON'T START THE CLINIC UNTIL 1300. GABRIEL INFORMED.
--- NOTE | 2017-07-11 14:48 | NUR ---
CAR SALESPERSON NOTE BRITTANI REYNOLDS IN UNIT INFORMED THAT PT'S DAUGHTER WANTS TO SPEAK WITH HER REGARDING THE DEBRIDEMENT PRIOR TO CONSENTING FOR PROCEDURE.
[2017-07-11] MEDS: HYDROCODONE/APAP 5/325MG 1 EACH TABLET GT PRN (15:01)
[2017-07-11 15:17] LABS: OCCULT BLOOD STOOL NEGATIVE (NEGATIVE)
--- NOTE | 2017-07-11 15:24 | NUR ---
ELECTRICAL LINESWORKER NOTE DR. DIAZ IN UNIT CALLED PT'S DAUGHTER, GABRIEL TO EXPLAIN SACRAL DEBRIDEMENT PROCEDURE. RN SPOKE WITH GABRIEL WHO CONSENTED FOR PT TO PROCEED WITH SACRAL DEBRIDEMENT. PT WAS MEDICATED WITH NORCO ORDERED FOR PAIN POST-DEBRIDEMENT.
--- NOTE | 2017-07-11 18:29 | NUR ---
MARKETING DATABASE COORDINATOR NOTE PT REMAINS STABLE, SR ON TELE. TOLERATING ORDERED VENT SETTINGS AND TUBE FEEDING RATE. RIZVI TO GRAVITY DRAINING YELLOW URINE. IV SITE C/D/I/PATENT. NO S/O INFILTRATION/PHLEBITIS OBSERVED. PT'S CARE WILL BE ENDORSED TO SAUSAGE SMOKER RN FOR CONTINUITY OF CARE. CALL LIGHT WITHIN REACH. BED IN LOW AND LOCKED POSITION.
--- NOTE | 2017-07-11 20:00 | NUR ---
HORSE SHOW MANAGER - NOTES - RECEIVED PT AWAKE AND ALERT, SHOWING NO S/O DISTRESS. ST ON TELE. TOLERATING ORDERED VENT SETTINGS. PEG PLACEMENT VERIFIED BY AUSCULTATION/ASPIRATION. NO TUBE FEEDING RESIDUAL OBTAINED UPON ASPIRATING. RIZVI TO GRAVITY DRAINING CLOUDY YELLOW URINE. WILL CONTINUE TO MONITOR PT FOR SAFETY AND COMFORT. CALL LIGHT WITHIN REACH. BED IN LOW AND LOCKED POSITION.
[2017-07-11] MEDS ORDERED: VANCOMYCIN 0.75 GM in IV NS 0.9% 250 ML IV SCH (21:00)
--- NOTE | 2017-07-11 21:34 | NUR ---
PT RECEIVED ON VENT VIA CHARTED SETTINGS AND ROUTE. ALARMS SET AND AUDIBLE. DISCONNECT ALARMS CHECKED. VENT PLUGGED INTO RED OUTLET. AMBU BAG AT BEDSIDE. TOLERATING VENT SETTINGS AT THIS TIME Addendum: 07/11/17 at 2152 by AKOSUA PEARL RT Amended: Links added.
[2017-07-11] MEDS: INSULIN REGULAR, HUMAN 100 UNIT/ML 3 ML VIAL SQ PRN (23:39)
[2017-07-12] VITALS (12 sets, daily range): BP systolic 89–110; BP diastolic 44–75
[2017-07-12] MEDS: ALBUTEROL HALF STRENGTH 1.25 MG/3 ML VIAL.NEB NEB SCH ×7 (00:04→23:40)
[2017-07-12] MEDS: IPRATROPIUM NEB FS 0.5 MG/2.5 ML AMPUL.NEB NEB SCH ×7 (00:04→23:40)
--- NOTE | 2017-07-12 01:39 | NUR ---
REPORT GIVEN TO DAISY CASSIDY RN IN [facility]
--- NOTE | 2017-07-12 01:59 | NUR ---
PT TRANSFERRED TO [facility] 109-1 WITH RT AND RN VIA ACLS PROTOCOL, IN STABLE CONDITION, NAD, VSS.
--- NOTE | 2017-07-12 02:03 | NUR ---
PT TRANSFERRED TO ROOM 109 Addendum: 07/12/17 at 0204 by AKOSUA PEARL RT Amended: Links added.
--- NOTE | 2017-07-12 02:10 | NUR ---
RN TD NOTES, RECEIVED PATIENT FRO ICU VIA BED ACCOMPANIED BY 2STAFF AND RT, IN STABLE CONDITION AT THIS TIME, SAFELY PLACE PATIENT IN ROOM, ON MECHANICAL VENTILATOR, TOLERATING SETTINGS WELL, BED BATH GIVEN UPON ARRIVAL, ATTACH TO GTF RUNNING WELL PT TOLERATED WELL, F/C DRAINING YELLOW URINE BY GRAVITY, PATENCY INTACT, TX PROVIDED TO SKIN ORDERED, WILL CONTINUE TO MONITOR CLOSELY.
[2017-07-12] MEDS: BLOOD SUGAR DIAGNOSTIC 1 EACH STRIP IN SCH ×4 (05:35→23:40)
[2017-07-12] MEDS: CEFEPIME 1 GM in IV D5W 50 ML IV SCH ×3 (05:35→21:02)
[2017-07-12] MEDS: INSULIN REGULAR, HUMAN 100 UNIT/ML 3 ML VIAL SQ PRN ×2 (05:36→23:44)
[2017-07-12 06:44] LABS: BASOPHILS # (AUTO) 0.1 /CMM (0.0-0.2); BASOPHILS % (AUTO) 0.4 % (0.0-2.0); EOSINOPHILS % (AUTO) 10.8 % (0.0-6.0); HEMATOCRIT 25 % (39-51); HEMOGLOBIN 8.2 g/dL (13.5-17.5); LYMPHOCYTES % (AUTO) 14.7 % (20.0-44.0); MEAN CORPUSCULAR HGB CONC 33 g/dl (31.0-36.0); MEAN CORPUSCULAR VOLUME 83 fL (80-96); MONOCYTES # (AUTO) 0.6 /CMM (0.1-1.30); MONOCYTES % (AUTO) 4.6 % (2.0-12.0); NEUTROPHILS # (AUTO) 9.4 /CMM (1.8-8.9); NEUTROPHILS % (AUTO) 69.5 % (43.0-81.0); PLATELET COUNT (AUTO) 389 /CMM (150-450); RDW COEFFICIENT OF VARIATION 20.7 (11.5-15.0); RED BLOOD CELL COUNT(AUTO) 3.02 MIL/uL (4.5-6.0); WHITE BLOOD COUNT (AUTO) 13.5 K/uL (4.3-11.0)
[2017-07-12 06:48] LABS: CARBON DIOXIDE 28 mmol/L (21-32); CHLORIDE 103 mmol/L (98-107); CREATININE 0.8 mg/dL (0.6-1.3); GLUCOSE 107 mg/dL (74-106); PHOSPHORUS 2.5 mg/dL (2.5-4.9); POTASSIUM 4.9 mmol/L (3.5-5.1); SODIUM SERUM 137 mmol/L (136-145); UREA NITROGEN, BLOOD 23 mg/dL (7-18)
--- NOTE | 2017-07-12 07:30 | NUR ---
STRAWHAT INSPECTOR AND PACKER NOTES PATIENT VENT PER ORDER STABLE. IV SITE CLEAN DRY AND INTACT. FC TO DRAINAGE. PATIENT APPEARS STABLE AT THIS TIME. NO SOB, DIFFICULTY BREATHING AND FLACC 0. PATIENT NEEDS IN REACH AND NEEDS ASSESSED. TELE NSR- SINUS TACH 103. PATIENT SAFETY PRECAUTIONS IN PLACE. WILL ROUND PRN Addendum: 07/12/17 at 1819 by CHANTAL AGUILAR RN PATIENT PRESENTS WITH BILATERAL MITTENS. DAUGHTER AWARE AND AGREEABLE TO MITTENS. WITHOUT MITTENS PATIENT CONTINUES TO REMOVE VENT AND PULL AT TRACH SITE.
[2017-07-12] MEDS: METOPROLOL TARTRATE 25 MG TABLET PO SCH ×2 (08:33→21:00)
[2017-07-12] MEDS: PANTOPRAZOLE 40 MG/PACK PACK GT SCH (08:42)
[2017-07-12] MEDS: CHOLECALCIFEROL 1,000 UNIT TABLET (VIT D3) GT SCH (08:43)
[2017-07-12] MEDS: FERROUS SULFATE (325 MG) 325 MG/TAB TABLET GT SCH ×2 (08:43→21:09)
[2017-07-12] MEDS: Z GUARD REMEDY 2 OZ OINT TP SCH (08:43)
[2017-07-12] MEDS: HYDROGEL DRESSING 90 GM TUBE TP SCH ×2 (08:43→21:10)
[2017-07-12] MEDS: MIDODRINE HCL (5MG) 5 MG TABLET PO SCH ×3 (08:43→17:13)
[2017-07-12] MEDS: GLYTROL 1,000 ML BAG GT PRN ×2 (08:43→23:43)
[2017-07-12] MEDS: ASCORBIC ACID 500 MG TABLET PO SCH (08:43)
[2017-07-12] MEDS: LORATADINE 10 MG TABLET GT SCH (08:43)
[2017-07-12] MEDS: PROSOURCE / PROSTAT (PYXIS) 30 ML UDC GT SCH ×2 (08:43→21:22)
[2017-07-12] MEDS: MULTIVITAMINS,THERAGRAN 1 UDTAB TABLET PO SCH (08:43)
[2017-07-12] MEDS: LACTOBACILLUS RHAMNOSUS GG 1 EACH CAP.SPRINK GT SCH ×2 (08:43→17:12)
[2017-07-12] MEDS: ZINC SULFATE 220 MG CAPSULE GT SCH (08:43)
[2017-07-12] MEDS: MUPIROCIN OINT 2% 22 GM TUBE SCH ×2 (08:48→21:10)
[2017-07-12] MEDS: COLISTIMETHATE SODIUM 150 MG VIAL NEB SCH ×3 (09:19→21:36)
--- NOTE | 2017-07-12 09:21 | NUR ---
TD RN NOTES DR FUNEZ AT BEDSIDE. UPDATED ON PATIENT CONDITION. NO NEW ORDERS
[2017-07-12] MEDS: HYDROCODONE/APAP 5/325MG 1 EACH TABLET GT PRN (11:33)
[2017-07-12] MEDS: Z GUARD REMEDY 2 OZ OINT TP PRN (12:15)
[2017-07-12] MEDS: HYDROGEL DRESSING 90 GM TUBE TP PRN (12:15)
--- NOTE | 2017-07-12 18:34 | NUR ---
SOFTWARE ASSET MANAGER CLOSING PATIENT NEEDS MET ALL DUE MEDS GIVEN AND SAFETY PRECAUTIONS IN PLACE. PATIENT WITHOUT RESIDUAL TUBE FEEDING TOLERATED WELL. RIZVI CATH TO DRAINAGE AND IV SITE CLEAN DRY AND INTACT. HOB ELEVATED. VENT DEPENDENT STABLE. TURNED Q2H AND SKIN CARE ORDERED. CARE WILL BE ENDORSED TO RN FOR CESAR
--- NOTE | 2017-07-12 19:28 | NUR ---
RT NOTE PATIENT RECEIVED IN STABLE CONDITION ON MECHANICAL VENT. PATIENT IS TOLERATING CURRENT ORDERED VENT SETTINGS WELL. NO SIGNS OF RESPIRATORY DISTRESS NOTED. TRACH IS PATENT AND SECURE. ALARMS ARE SET AND AUDIBLE. VENT IS PLUGGED INTO RED OUTLET. EMERGENCY EQUIPMENT IS AT PATIENT BEDSIDE. WILL CONTINUE TO MONITOR. Addendum: 07/12/17 at 2043 by JASON THOMPSON RT Amended: Links added.
[2017-07-12] MEDS: DOXYCYCLINE HYCLATE (100 MG) 100 MG TABLET PO SCH (21:22)
[2017-07-13] VITALS (7 sets, daily range): BP systolic 93–113; BP diastolic 48–64
[2017-07-13] MEDS: ALBUTEROL HALF STRENGTH 1.25 MG/3 ML VIAL.NEB NEB SCH ×6 (03:39→23:49)
[2017-07-13] MEDS: IPRATROPIUM NEB FS 0.5 MG/2.5 ML AMPUL.NEB NEB SCH ×6 (03:39→23:49)
[2017-07-13] MEDS: CEFEPIME 1 GM in IV D5W 50 ML IV SCH ×3 (04:07→20:10)
[2017-07-13] MEDS: BLOOD SUGAR DIAGNOSTIC 1 EACH STRIP IN SCH ×4 (05:11→23:46)
[2017-07-13 06:40] LABS: BASOPHILS % (AUTO) 0.1 % (0.0-2.0); EOSINOPHILS % (AUTO) 9.8 % (0.0-6.0); HEMATOCRIT 27 % (39-51); HEMOGLOBIN 8.7 g/dL (13.5-17.5); LYMPHOCYTES # (AUTO) 2.3 /CMM (0.8-4.8); LYMPHOCYTES % (AUTO) 18.6 % (20.0-44.0); MEAN CORPUSCULAR HGB CONC 33 g/dl (31.0-36.0); MEAN CORPUSCULAR VOLUME 83 fL (80-96); MONOCYTES # (AUTO) 0.7 /CMM (0.1-1.30); MONOCYTES % (AUTO) 5.9 % (2.0-12.0); NEUTROPHILS # (AUTO) 8.1 /CMM (1.8-8.9); NEUTROPHILS % (AUTO) 65.6 % (43.0-81.0); PLATELET COUNT (AUTO) 416 /CMM (150-450); RDW COEFFICIENT OF VARIATION 20.9 (11.5-15.0); RED BLOOD CELL COUNT(AUTO) 3.19 MIL/uL (4.5-6.0); WHITE BLOOD COUNT (AUTO) 12.3 K/uL (4.3-11.0)
[2017-07-13 06:43] LABS: CALCIUM, SERUM 9.1 mg/dL (8.5-10.1); CARBON DIOXIDE 28 mmol/L (21-32); CHLORIDE 103 mmol/L (98-107); CREATININE 0.9 mg/dL (0.6-1.3); GLUCOSE 106 mg/dL (74-106); MAGNESIUM 2.1 mg/dL (1.8-2.4); PHOSPHORUS 2.8 mg/dL (2.5-4.9); POTASSIUM 4.4 mmol/L (3.5-5.1); SODIUM SERUM 138 mmol/L (136-145); UREA NITROGEN, BLOOD 23 mg/dL (7-18)
[2017-07-13] MEDS: ZINC SULFATE 220 MG CAPSULE GT SCH (08:46)
[2017-07-13] MEDS: FERROUS SULFATE (325 MG) 325 MG/TAB TABLET GT SCH ×2 (08:46→20:36)
[2017-07-13] MEDS: MIDODRINE HCL (5MG) 5 MG TABLET PO SCH ×3 (08:46→17:19)
[2017-07-13] MEDS: PROSOURCE / PROSTAT (PYXIS) 30 ML UDC GT SCH ×2 (08:46→20:10)
[2017-07-13] MEDS: ASCORBIC ACID 500 MG TABLET PO SCH (08:46)
[2017-07-13] MEDS: MULTIVITAMINS,THERAGRAN 1 UDTAB TABLET PO SCH (08:46)
[2017-07-13] MEDS: LACTOBACILLUS RHAMNOSUS GG 1 EACH CAP.SPRINK GT SCH ×2 (08:46→17:19)
[2017-07-13] MEDS: HYDROGEL DRESSING 90 GM TUBE TP SCH ×2 (08:46→20:10)
[2017-07-13] MEDS: LORATADINE 10 MG TABLET GT SCH (08:46)
[2017-07-13] MEDS: MUPIROCIN OINT 2% 22 GM TUBE SCH ×2 (08:46→20:10)
[2017-07-13] MEDS: CHOLECALCIFEROL 1,000 UNIT TABLET (VIT D3) GT SCH (08:46)
[2017-07-13] MEDS: Z GUARD REMEDY 2 OZ OINT TP SCH (08:46)
[2017-07-13] MEDS: DOXYCYCLINE HYCLATE (100 MG) 100 MG TABLET PO SCH ×2 (08:46→20:36)
[2017-07-13] MEDS: PANTOPRAZOLE 40 MG/PACK PACK GT SCH (08:46)
[2017-07-13] MEDS: METOPROLOL TARTRATE 25 MG TABLET PO SCH ×2 (08:49→20:36)
[2017-07-13] MEDS: COLISTIMETHATE SODIUM 150 MG VIAL NEB SCH ×2 (09:49→21:23)
[2017-07-13] MEDS: HYDROCODONE/APAP 5/325MG 1 EACH TABLET GT PRN (12:54)
--- NOTE | 2017-07-13 15:06 | NUR ---
PLANT PHYSIOLOGIST NOTES DR FUNEZ AT BEDSIDE. UPDATED ON PATIENT CONDITION, LABS, VS
--- NOTE | 2017-07-13 17:18 | NUR ---
PT MIHAI'D ON MECHANICAL VENT. TX'S GIVEN AND NO ADVERSE REACTION NOTED. SX DONE T/O SHIFT. TRACH PATENT AND SECURE. AMBU BAG AT BEDSIDE. VENT PLUGGED INTO RED OUTLET. ALARMS ARE ON AND AUDIBLE. Addendum: 07/13/17 at 1725 by TRAY HURTADO RT Amended: Links added.
[2017-07-13] MEDS: GLYTROL 1,000 ML BAG GT PRN (17:20)
[2017-07-13] MEDS: Z GUARD REMEDY 2 OZ OINT TP PRN (17:20)
[2017-07-13] MEDS: HYDROGEL DRESSING 90 GM TUBE TP PRN (17:20)
--- NOTE | 2017-07-13 18:55 | NUR ---
TAPERING MACHINE OPERATOR CLOSING PATIENT STABLE. ALL DUE MEDS GIVEN AND ALL NEEDS MET. NO SOB, DIFFICULTY BREATHING.TOLERATING VENT. TUBE FEEDINGS RUNNING ORDERED NO RESIDUAL NOTED. TURNED Q2H SKIN CARE ORDERED/PRN. PATIENT CARE ENDORSED TO RN FOR CESAR
[2017-07-13] MEDS: INSULIN REGULAR, HUMAN 100 UNIT/ML 3 ML VIAL SQ PRN (23:46)
[2017-07-14] VITALS (8 sets, daily range): BP systolic 106–142; BP diastolic 56–96
[2017-07-14] MEDS: IPRATROPIUM NEB FS 0.5 MG/2.5 ML AMPUL.NEB NEB SCH ×5 (03:27→19:24)
[2017-07-14] MEDS: ALBUTEROL HALF STRENGTH 1.25 MG/3 ML VIAL.NEB NEB SCH ×5 (03:27→19:24)
[2017-07-14] MEDS: CEFEPIME 1 GM in IV D5W 50 ML IV SCH ×3 (04:01→22:15)
--- NOTE | 2017-07-14 04:16 | NUR ---
RT NOTE PATIENT RECEIVED TRACHED ON MECHANICAL VENTILATION. SHILEY [address] AMBU BAG @ HOB. CUFF CHECKED VIA AMMUNITION AND EXPLOSIVES HANDLER. TX GIVEN, NO ADVERSE REACTIONS NOTED. SX DONE, MODERATE THICK YELLOW SECRETIONS NOTED. ALARMS ON AND AUDIBLE. HME REPLACED. PATIENT STABLE T/O SHIFT. Addendum: 07/14/17 at 0417 by JANNA MENDOZA RT Amended: Links added.
[2017-07-14] MEDS: BLOOD SUGAR DIAGNOSTIC 1 EACH STRIP IN SCH ×3 (05:38→17:08)
[2017-07-14] MEDS: INSULIN REGULAR, HUMAN 100 UNIT/ML 3 ML VIAL SQ PRN (05:39)
[2017-07-14 06:42] LABS: BASOPHILS # (AUTO) 0.1 /CMM (0.0-0.2); BASOPHILS % (AUTO) 0.4 % (0.0-2.0); EOSINOPHILS % (AUTO) 8.5 % (0.0-6.0); HEMATOCRIT 26 % (39-51); HEMOGLOBIN 8.6 g/dL (13.5-17.5); LYMPHOCYTES # (AUTO) 2.6 /CMM (0.8-4.8); LYMPHOCYTES % (AUTO) 17.1 % (20.0-44.0); MEAN CORPUSCULAR HGB CONC 33 g/dl (31.0-36.0); MEAN CORPUSCULAR VOLUME 82 fL (80-96); MONOCYTES # (AUTO) 0.8 /CMM (0.1-1.30); MONOCYTES % (AUTO) 5.3 % (2.0-12.0); NEUTROPHILS # (AUTO) 10.3 /CMM (1.8-8.9); NEUTROPHILS % (AUTO) 68.7 % (43.0-81.0); PLATELET COUNT (AUTO) 448 /CMM (150-450); RDW COEFFICIENT OF VARIATION 21.2 (11.5-15.0); RED BLOOD CELL COUNT(AUTO) 3.13 MIL/uL (4.5-6.0)
[2017-07-14 07:02] LABS: CALCIUM, SERUM 9.4 mg/dL (8.5-10.1); CARBON DIOXIDE 29 mmol/L (21-32); CHLORIDE 104 mmol/L (98-107); CREATININE 0.9 mg/dL (0.6-1.3); GLUCOSE 115 mg/dL (74-106); PHOSPHORUS 2.8 mg/dL (2.5-4.9); POTASSIUM 4.5 mmol/L (3.5-5.1); SODIUM SERUM 138 mmol/L (136-145); UREA NITROGEN, BLOOD 22 mg/dL (7-18)
--- NOTE | 2017-07-14 07:30 | NUR ---
TEA TASTER NOTES PT IN BED, AWAKE, ALERT TO SELF, ABLE TO NOD HEAD, NO FACIAL GRIMACING OR MOANING, RESPIRATIONS NORMAL, GT FEEDING INFUSING WELL, KEPT HOB ELEVATED, ISOLATION PRECAUTIONS MAINTAINED.
[2017-07-14] MEDS: PANTOPRAZOLE 40 MG/PACK PACK GT SCH (08:32)
[2017-07-14] MEDS: DOXYCYCLINE HYCLATE (100 MG) 100 MG TABLET PO SCH ×2 (08:35→22:14)
[2017-07-14] MEDS: MIDODRINE HCL (5MG) 5 MG TABLET PO SCH ×3 (08:35→17:00)
[2017-07-14] MEDS: MULTIVITAMINS,THERAGRAN 1 UDTAB TABLET PO SCH (08:35)
[2017-07-14] MEDS: CHOLECALCIFEROL 1,000 UNIT TABLET (VIT D3) GT SCH (08:35)
[2017-07-14] MEDS: ZINC SULFATE 220 MG CAPSULE GT SCH (08:35)
[2017-07-14] MEDS: LORATADINE 10 MG TABLET GT SCH (08:35)
[2017-07-14] MEDS: LACTOBACILLUS RHAMNOSUS GG 1 EACH CAP.SPRINK GT SCH ×2 (08:35→17:08)
[2017-07-14] MEDS: ASCORBIC ACID 500 MG TABLET PO SCH (08:35)
[2017-07-14] MEDS: FERROUS SULFATE (325 MG) 325 MG/TAB TABLET GT SCH ×2 (08:35→22:13)
[2017-07-14] MEDS: METOPROLOL TARTRATE 25 MG TABLET PO SCH ×2 (08:38→22:10)
[2017-07-14] MEDS: COLISTIMETHATE SODIUM 150 MG VIAL NEB SCH ×2 (08:41→21:31)
[2017-07-14] MEDS: PROSOURCE / PROSTAT (PYXIS) 30 ML UDC GT SCH ×2 (08:42→22:23)
[2017-07-14] MEDS: MUPIROCIN OINT 2% 22 GM TUBE SCH ×2 (08:43→22:11)
[2017-07-14] MEDS: HYDROGEL DRESSING 90 GM TUBE TP SCH ×2 (08:43→21:00)
[2017-07-14] MEDS: Z GUARD REMEDY 2 OZ OINT TP PRN (08:43)
[2017-07-14] MEDS: Z GUARD REMEDY 2 OZ OINT TP SCH (08:44)
--- NOTE | 2017-07-14 11:59 | NUR ---
DRY MAN NOTES PT IN BED, RESTING, NO SIGN OF PAIN OR DISTRESS, TOLERATING CURRENT DIET WELL, TURNED AND REPOSITIONED Q2 HOURS, KEPT MECHANICAL ASSEMBLY BED.
[2017-07-14] MEDS: GLYTROL 1,000 ML BAG GT PRN (13:13)
--- NOTE | 2017-07-14 17:00 | NUR ---
DIRECTOR OF MEDICAL SERVICES NOTES MIDODRINE HELD, BP 142/96.
--- NOTE | 2017-07-14 19:00 | NUR ---
IT APPLICATIONS DEVELOPER NOTES PT IN BED, ASLEEP, EASY TO AROUSE, ALERT TO SELF, NO SIGN OF PAIN OR DISTRESS, GT FEEDING INFUSING WELL, PM MEDS GIVEN ORDERED, CALL LIGHT WITHIN REACH, PM CARE RENDERED, TURNED AND REPOSITIONED Q2 HOURS, ALL NEEDS ATTENDED.
--- NOTE | 2017-07-14 20:35 | NUR ---
RN NOTES RECEIVED PATIENT AWAKE IN BED WITH NO RESPIRATORY DISTRESS OR SHORTNESS OF BREATH. BREATHING EVEN AND UNLABORED. VENT SETTING WELL TOLERATED. ALERT AND ORIENTED X 2. NOTED WITH EYE CONTACT. NO PHYSICAL MANIFESTTATION OF PAIN OR DISCOMFORT. VITAL SIGNS WNL. KEPT CLEAN AND DRY. WILL CONTINUE TO MONITOR.
[2017-07-14] MEDS: HYDROGEL DRESSING 90 GM TUBE TP PRN ×3 (22:16→22:18)
[2017-07-15] VITALS (8 sets, daily range): BP systolic 115–143; BP diastolic 68–83
[2017-07-15] MEDS: BLOOD SUGAR DIAGNOSTIC 1 EACH STRIP IN SCH ×4 (01:54→17:20)
[2017-07-15] MEDS: ALBUTEROL HALF STRENGTH 1.25 MG/3 ML VIAL.NEB NEB SCH ×7 (03:49→23:33)
[2017-07-15] MEDS: IPRATROPIUM NEB FS 0.5 MG/2.5 ML AMPUL.NEB NEB SCH ×7 (03:49→23:33)
--- NOTE | 2017-07-15 04:36 | NUR ---
RT NOTE PATIENT RECEIVED TRACHED ON MECHANICAL VENTILATION. AMBU BAG @ HOB. VENT PLUGGED INTO RED OUTLET. TX GIVEN, NO ADVERSE REACTIONS NOTED. SX DONE, MODERATE THICK YELLOW SECRETIONS NOTED. ALARMS ON AND AUDIBLE. CONTINUOUS PULSE OX @ BEDSIDE. PATIENT STABLE. MONITORED CLOSELY. Addendum: 07/15/17 at 0437 by JANNA MENDOZA RT Amended: Links added.
[2017-07-15] MEDS: GLYTROL 1,000 ML BAG GT PRN (06:03)
[2017-07-15] MEDS: CEFEPIME 1 GM in IV D5W 50 ML IV SCH ×3 (06:03→21:52)
[2017-07-15] MEDS: INSULIN REGULAR, HUMAN 100 UNIT/ML 3 ML VIAL SQ PRN (06:08)
--- NOTE | 2017-07-15 06:46 | NUR ---
RN CLOSING NOTES PATIENT SLEEPING COMFORTABLY IN BED WITH NO DISTRESS NOTED. NO PHYSICAL MANIFESTATION OF PAIN OR DISCOMFORT. ALERT AND RESPONSIVE. NOTED WITH EYE TRACKING. RIZVI CATH IN PLACE, PATENT DRAINING CLEAR YELLOW WITH NO FOUL ODOR URINE. NO SIGNIFICANT CHANGE OF CONDITION. VITAL SIGNS WNL. KEPT CLEAN AND DRY.
--- NOTE | 2017-07-15 07:30 | NUR ---
BEAD MACHINE OPERATOR INITIAL NOTES RECEIVED PATIENT AWAKE IN BED, AOX2, ABLE TO NOD AND OPEN EYES, ON VENT SETTINGS ORDERED, NO SIGNS OF DISTRESS, ON TELE MONITOR ST 104, GTUBE IN PLACE GLYTROL 55ML/HR, IV R FA 24G TKO, FC TO GRAVITY, LEFT ARM WITH MITTEN DUE TO PULLING OF THE LINES, BED IN LOW AND LOCKED POSITION, CALL LIGHT WITHIN REACH, WILL CONTINUE TO MONITOR AND ISOLATION PRECAUTIONS OBSERVED.
[2017-07-15] MEDS: ASCORBIC ACID 500 MG TABLET PO SCH (08:18)
[2017-07-15] MEDS: PANTOPRAZOLE 40 MG/PACK PACK GT SCH (08:18)
[2017-07-15] MEDS: DOXYCYCLINE HYCLATE (100 MG) 100 MG TABLET PO SCH ×2 (08:18→21:54)
[2017-07-15] MEDS: LACTOBACILLUS RHAMNOSUS GG 1 EACH CAP.SPRINK GT SCH ×2 (08:18→17:28)
[2017-07-15] MEDS: MULTIVITAMINS,THERAGRAN 1 UDTAB TABLET PO SCH (08:18)
[2017-07-15] MEDS: FERROUS SULFATE (325 MG) 325 MG/TAB TABLET GT SCH ×2 (08:18→21:54)
[2017-07-15] MEDS: ZINC SULFATE 220 MG CAPSULE GT SCH (08:18)
[2017-07-15] MEDS: CHOLECALCIFEROL 1,000 UNIT TABLET (VIT D3) GT SCH (08:19)
[2017-07-15] MEDS: MIDODRINE HCL (5MG) 5 MG TABLET PO SCH ×3 (08:19→17:28)
[2017-07-15] MEDS: LORATADINE 10 MG TABLET GT SCH (08:19)
[2017-07-15] MEDS: METOPROLOL TARTRATE 25 MG TABLET PO SCH ×2 (08:20→21:55)
[2017-07-15] MEDS: PROSOURCE / PROSTAT (PYXIS) 30 ML UDC GT SCH ×2 (08:20→21:54)
[2017-07-15] MEDS: HYDROGEL DRESSING 90 GM TUBE TP SCH ×2 (08:21→21:56)
[2017-07-15] MEDS: Z GUARD REMEDY 2 OZ OINT TP SCH (08:21)
[2017-07-15] MEDS: MUPIROCIN OINT 2% 22 GM TUBE SCH ×2 (08:22→21:56)
[2017-07-15] MEDS: COLISTIMETHATE SODIUM 150 MG VIAL NEB SCH ×2 (09:18→21:26)
--- NOTE | 2017-07-15 18:00 | NUR ---
RT NOTE PATIENT RECEIVED TRACHED ON MECHANICAL VENTILATION. SHILEY [address] AMBU BAG @ HOB. CUFF CHECKED VIA SPECIAL LIBRARIAN. TX GIVEN, NO ADVERSE REACTIONS NOTED. SX DONE, MODERATE THICK YELLOW SECRETIONS NOTED. ALARMS ON AND AUDIBLE. HME REPLACED. PATIENT STABLE T/O SHIFT.
--- NOTE | 2017-07-15 19:00 | NUR ---
MANAGER BUSINESS PLANNING END NOTES PATIENT RESTING IN BED, ALL NEEDS ATTENDED TO, CLEANED AND REPOSITIONED, SEEN BY DR FUNEZ. WILL ENDORSE TO CONTRACT PROJECT MANAGER FOR CONTINUITY OF CARE.
--- NOTE | 2017-07-15 20:00 | NUR ---
RN NOTES RECEIVED PATIENT AWAKE IN BED WITH RESPIRATORY DISTRESS OR SHORTNESS OF BREATH. BREATHING EVEN AND UNLABORED. NO PHYSICAL MANIFESTATION OF PAIN OR DISCOMFORT. NOTED WITH EYE TRACKING, ALERT AND RESPONSIVE. VITAL SIGNS WNL. KEPT CLEAN AND DRY. WILL CONTINUE TO MONITOR.
[2017-07-16] VITALS: BP 123/77
[2017-07-16] MEDS: BLOOD SUGAR DIAGNOSTIC 1 EACH STRIP IN SCH ×4 (00:23→17:08)
[2017-07-16] MEDS: INSULIN REGULAR, HUMAN 100 UNIT/ML 3 ML VIAL SQ PRN (00:24)
[2017-07-16] MEDS: GLYTROL 1,000 ML BAG GT PRN (01:48)
[2017-07-16 04:00] VITALS: BP 121/79
[2017-07-16] MEDS: IPRATROPIUM NEB FS 0.5 MG/2.5 ML AMPUL.NEB NEB SCH ×6 (04:02→23:48)
[2017-07-16] MEDS: ALBUTEROL HALF STRENGTH 1.25 MG/3 ML VIAL.NEB NEB SCH ×6 (04:03→23:48)
[2017-07-16] MEDS: CEFEPIME 1 GM in IV D5W 50 ML IV SCH ×3 (05:09→20:36)
[2017-07-16 07:17] LABS: ALANINE AMINOTRANSFERASE 24 U/L (12-78); ALKALINE PHOSPHATASE 74 U/L (46-116); ASPARTATE AMINOTRANSFERASE 20 U/L (15-37); BILIRUBIN,TOTAL 0.3 mg/dL (0.2-1.0); CALCIUM, SERUM 9.4 mg/dL (8.5-10.1); CARBON DIOXIDE 29 mmol/L (21-32); CHLORIDE 102 mmol/L (98-107); CREATININE 0.9 mg/dL (0.6-1.3); GLUCOSE 120 mg/dL (74-106); MAGNESIUM 2.6 mg/dL (1.8-2.4); PHOSPHORUS 2.9 mg/dL (2.5-4.9); POTASSIUM 4.5 mmol/L (3.5-5.1); SODIUM SERUM 136 mmol/L (136-145); TOTAL PROTEIN, SERUM 7.9 g/dL (6.4-8.2); UREA NITROGEN, BLOOD 24 mg/dL (7-18)
[2017-07-16 07:25] LABS: BASOPHILS # (AUTO) 0.1 /CMM (0.0-0.2); BASOPHILS % (AUTO) 0.6 % (0.0-2.0); EOSINOPHILS % (AUTO) 8.4 % (0.0-6.0); HEMATOCRIT 27 % (39-51); HEMOGLOBIN 8.9 g/dL (13.5-17.5); LYMPHOCYTES # (AUTO) 3.8 /CMM (0.8-4.8); LYMPHOCYTES % (AUTO) 29.9 % (20.0-44.0); MEAN CORPUSCULAR HGB CONC 33 g/dl (31.0-36.0); MEAN CORPUSCULAR VOLUME 83 fL (80-96); MONOCYTES # (AUTO) 0.6 /CMM (0.1-1.30); MONOCYTES % (AUTO) 5.1 % (2.0-12.0); PLATELET COUNT (AUTO) 406 /CMM (150-450); RDW COEFFICIENT OF VARIATION 20.8 (11.5-15.0); RED BLOOD CELL COUNT(AUTO) 3.29 MIL/uL (4.5-6.0); WHITE BLOOD COUNT (AUTO) 12.6 K/uL (4.3-11.0)
[2017-07-16 08:00] VITALS: BP 115/70
[2017-07-16] MEDS: LACTOBACILLUS RHAMNOSUS GG 1 EACH CAP.SPRINK GT SCH ×2 (08:24→17:08)
[2017-07-16] MEDS: ZINC SULFATE 220 MG CAPSULE GT SCH (08:25)
[2017-07-16] MEDS: MULTIVITAMINS,THERAGRAN 1 UDTAB TABLET PO SCH (08:25)
[2017-07-16] MEDS: PANTOPRAZOLE 40 MG/PACK PACK GT SCH (08:25)
[2017-07-16] MEDS: ASCORBIC ACID 500 MG TABLET PO SCH (08:25)
[2017-07-16] MEDS: CHOLECALCIFEROL 1,000 UNIT TABLET (VIT D3) GT SCH (08:25)
[2017-07-16] MEDS: FERROUS SULFATE (325 MG) 325 MG/TAB TABLET GT SCH ×2 (08:26→20:36)
[2017-07-16] MEDS: PROSOURCE / PROSTAT (PYXIS) 30 ML UDC GT SCH ×2 (08:26→20:36)
[2017-07-16] MEDS: MIDODRINE HCL (5MG) 5 MG TABLET PO SCH ×3 (08:27→17:08)
[2017-07-16] MEDS: METOPROLOL TARTRATE 25 MG TABLET PO SCH ×2 (08:28→20:36)
[2017-07-16] MEDS: LORATADINE 10 MG TABLET GT SCH (08:41)
[2017-07-16] MEDS: MUPIROCIN OINT 2% 22 GM TUBE SCH ×2 (08:48→20:39)
[2017-07-16] MEDS: Z GUARD REMEDY 2 OZ OINT TP SCH (08:49)
[2017-07-16] MEDS: HYDROGEL DRESSING 90 GM TUBE TP SCH ×2 (08:50→20:41)
[2017-07-16] MEDS: COLISTIMETHATE SODIUM 150 MG VIAL NEB SCH ×2 (09:45→21:00)
--- NOTE | 2017-07-16 10:00 | NUR ---
RN NOTES PT VOMITTED MODERATE AMOUNT OF GASTRIC CONTENT , TF HELD AT THIS TIME .
[2017-07-16] MEDS: DOXYCYCLINE HYCLATE (100 MG) 100 MG TABLET PO SCH ×2 (10:02→20:42)
[2017-07-16 12:00] VITALS: BP 90/60
[2017-07-16 16:00] VITALS: BP 101/66
--- NOTE | 2017-07-16 17:03 | NUR ---
SEEN BY ,MADE HIM AWARE THAT PATIENT HAD AN EPISODE OF VOMITING X1.PRN ZOFRAN GIVEN.NO RESIDUAL NOTICED.NO NEW ORDER AT THOS TIME.
--- NOTE | 2017-07-16 17:30 | NUR ---
RT NOTE PATIENT RECEIVED TRACHED ON MECHANICAL VENTILATION. VENT PLUGGED INTO RED OUTLET. AMBU BAG @ HOB. ALARMS ON AND AUDIBLE. SX DONE, TRACH SECURED AND PATENT AT ALL TIMES. TX GIVEN, NO ADVERSE REACTIONS NOTED. NO SOB NOTED T/O SHIFT. Addendum: 07/16/17 at 1730 by JANNA MENDOZA RT Amended: Links added.
--- NOTE | 2017-07-16 18:48 | NUR ---
TD/RN SHIFT END NOTES RESIDENT IS ALERT ,HAS BILATERAL HAND MITTENS.HE WAS PULLING THE VENT TUBES WITH RIGHT HAND .VITAL SIGNS STABLE .PATIENT HAS VENT TRACH WITH NO SIGNS AND SYMPTOMS OF SOB OR DISTRESS NOTICED.CALL LIGHT IN REACH.SAFETY MAINTAINED ,WILL ENDORSE TO PM NURSE FOR CONTINUITY OF CARE.
--- NOTE | 2017-07-16 19:59 | NUR ---
RN INITIAL NOTES RECEIVED PT ON BED, ALERT/ NONVERBAL , VENT/TRACH DEPENDENT , TRACH SUCTIONING DONE, NO SOB NOTED, TOLERATING CURRENT VENT SETTING WELL, ON TELE HR IN 100'S ST , RIZVI DRAINING TO GRAVITY WITH YELLOW URINE, GLYTROL AT 55CC/HR RUNNING VIA GT TOLERATING WELL, R FA IV SITE G 24 CDI, SR UP x3, CALL LIGHT WITHIN EASY REACH, BED LOCKED AND IN LOWEST POSITION , CONTINUE TO MONITOR.
[2017-07-16 20:00] VITALS: BP 100/58
--- NOTE | 2017-07-16 21:35 | NUR ---
LOPRESSOR 12.5 MG HELD BP LOW 100/58, 109, WILL CONT TO MONITOR.
[2017-07-17] VITALS (7 sets, daily range): BP systolic 95–112; BP diastolic 53–70
[2017-07-17] MEDS: BLOOD SUGAR DIAGNOSTIC 1 EACH STRIP IN SCH ×5 (00:26→23:10)
[2017-07-17] MEDS: GLYTROL 1,000 ML BAG GT PRN ×2 (00:42→20:19)
[2017-07-17] MEDS: ALBUTEROL HALF STRENGTH 1.25 MG/3 ML VIAL.NEB NEB SCH ×6 (03:55→23:48)
[2017-07-17] MEDS: IPRATROPIUM NEB FS 0.5 MG/2.5 ML AMPUL.NEB NEB SCH ×6 (03:55→23:48)
[2017-07-17] MEDS: CEFEPIME 1 GM in IV D5W 50 ML IV SCH ×3 (04:19→20:24)
--- NOTE | 2017-07-17 05:52 | NUR ---
RN CLOSING NOTES ENDORSED PT ON BED, ALERT/ NONVERBAL , VENT/TRACH DEPENDENT , TRACH SUCTIONING DONE, NO SOB NOTED, TOLERATING CURRENT VENT SETTING WELL, ON TELE HR IN 90'S'S ST , RIZVI DRAINING TO GRAVITY WITH YELLOW URINE, GLYTROL AT 55CC/HR RUNNING VIA GT TOLERATING WELL, R FA IV SITE G 24 CDI, SR UP x3, CALL LIGHT WITHIN EASY REACH, BED LOCKED AND IN LOWEST POSITION , CONTINUE TO MONITOR.
[2017-07-17 06:31] LABS: CALCIUM, SERUM 9.5 mg/dL (8.5-10.1); CARBON DIOXIDE 29 mmol/L (21-32); CHLORIDE 102 mmol/L (98-107); GLUCOSE 103 mg/dL (74-106); POTASSIUM 4.4 mmol/L (3.5-5.1); SODIUM SERUM 135 mmol/L (136-145); UREA NITROGEN, BLOOD 29 mg/dL (7-18)
[2017-07-17 07:14] LABS: BASOPHILS # (AUTO) 0.1 /CMM (0.0-0.2); BASOPHILS % (AUTO) 0.5 % (0.0-2.0); EOSINOPHILS % (AUTO) 7.8 % (0.0-6.0); HEMATOCRIT 28 % (39-51); HEMOGLOBIN 9.3 g/dL (13.5-17.5); LYMPHOCYTES # (AUTO) 3.2 /CMM (0.8-4.8); LYMPHOCYTES % (AUTO) 24.5 % (20.0-44.0); MEAN CORPUSCULAR HGB CONC 34 g/dl (31.0-36.0); MEAN CORPUSCULAR VOLUME 82 fL (80-96); MONOCYTES # (AUTO) 0.9 /CMM (0.1-1.30); MONOCYTES % (AUTO) 6.9 % (2.0-12.0); NEUTROPHILS % (AUTO) 60.3 % (43.0-81.0); PLATELET COUNT (AUTO) 454 /CMM (150-450); RDW COEFFICIENT OF VARIATION 19.4 (11.5-15.0); RED BLOOD CELL COUNT(AUTO) 3.38 MIL/uL (4.5-6.0); WHITE BLOOD COUNT (AUTO) 13.2 K/uL (4.3-11.0)
[2017-07-17] MEDS: METOPROLOL TARTRATE 25 MG TABLET PO SCH ×2 (09:00→20:25)
[2017-07-17] MEDS: MIDODRINE HCL (5MG) 5 MG TABLET PO SCH ×3 (09:12→17:35)
[2017-07-17] MEDS: ZINC SULFATE 220 MG CAPSULE GT SCH (09:12)
[2017-07-17] MEDS: LACTOBACILLUS RHAMNOSUS GG 1 EACH CAP.SPRINK GT SCH ×2 (09:12→17:34)
[2017-07-17] MEDS: FERROUS SULFATE (325 MG) 325 MG/TAB TABLET GT SCH ×2 (09:13→20:24)
[2017-07-17] MEDS: CHOLECALCIFEROL 1,000 UNIT TABLET (VIT D3) GT SCH (09:13)
[2017-07-17] MEDS: ASCORBIC ACID 500 MG TABLET PO SCH (09:13)
[2017-07-17] MEDS: MULTIVITAMINS,THERAGRAN 1 UDTAB TABLET PO SCH (09:13)
[2017-07-17] MEDS: DOXYCYCLINE HYCLATE (100 MG) 100 MG TABLET PO SCH ×2 (09:13→20:19)
[2017-07-17] MEDS: LORATADINE 10 MG TABLET GT SCH (09:13)
[2017-07-17] MEDS: PROSOURCE / PROSTAT (PYXIS) 30 ML UDC GT SCH ×2 (09:13→20:24)
[2017-07-17] MEDS: PANTOPRAZOLE 40 MG/PACK PACK GT SCH (09:13)
[2017-07-17] MEDS: MUPIROCIN OINT 2% 22 GM TUBE SCH ×2 (09:14→20:27)
[2017-07-17] MEDS: HYDROGEL DRESSING 90 GM TUBE TP SCH ×2 (09:16→20:26)
[2017-07-17] MEDS: Z GUARD REMEDY 2 OZ OINT TP SCH (09:16)
[2017-07-17] MEDS: COLISTIMETHATE SODIUM 150 MG VIAL NEB SCH ×2 (09:32→21:57)
--- NOTE | 2017-07-17 19:31 | NUR ---
BLOCK SAWYER NOTES RECEIVED PT ON BED. OBTUNDED. ON TELE MONITOR SR HR OF 95. ON [facility] VENT SETTING SATURATING WELL. IV ACCESS ON RIGHT HAND 22G PATENT AND INTACT. HEAD OF BED ELEVATED. SIDE RAILS UP. CALL LIGHT WITHIN REACH. WILL CONTINUE TO MONITOR PT CLOSELY.
[2017-07-18] VITALS: BP_SYST 109; BP_SYST 140; BP_DIAS 67; BP_DIAS 70
[2017-07-18] MEDS: ALBUTEROL HALF STRENGTH 1.25 MG/3 ML VIAL.NEB NEB SCH ×6 (03:24→23:25)
[2017-07-18] MEDS: IPRATROPIUM NEB FS 0.5 MG/2.5 ML AMPUL.NEB NEB SCH ×6 (03:24→23:25)
--- NOTE | 2017-07-18 03:25 | NUR ---
PBX TEACHER NOTES REPORT GIVEN TO ABIODUN YOUNG FOR CESAR.
[2017-07-18 04:00] VITALS: BP_SYST 108; BP_DIAS 53; BP_DIAS 55
[2017-07-18] MEDS: CEFEPIME 1 GM in IV D5W 50 ML IV SCH ×3 (05:20→21:26)
[2017-07-18] MEDS: BLOOD SUGAR DIAGNOSTIC 1 EACH STRIP IN SCH ×3 (05:20→17:35)
--- NOTE | 2017-07-18 05:31 | NUR ---
RT Pt trach remains on [facility] vent on ordered settings. svn treatment given inline. Addendum: 07/18/17 at 0532 by MANSI IBARRA RT Amended: Links added.
[2017-07-18] MEDS: COLISTIMETHATE SODIUM 150 MG VIAL NEB SCH ×2 (07:25→21:00)
--- NOTE | 2017-07-18 07:30 | NUR ---
CINDER BLOCK MASON AM NOTES RECEIVED PT IN BED. AO X 1-2, NON VERBAL, ON SHILEY 6, [facility] ORDERED. SATURATING WELL. TELEMETRY READS SR HR 99, NO SIGNS OF PAIN OR DISCOMFORT. IV ACCESS ON RIGHT HAND 22G PATENT AND INTACT. HEAD OF BED ELEVATED. WITH MITTEN ON LEFT HAND, RELEASED AND CHECKED FOR CIRCULATION, RIZVI CATH IN PLACE, WITH DARK YELLOW URINE OUTPUT, SIDE RAILS UP. ISOLATION PRECAUTION OBSERVED. CALL LIGHT WITHIN REACH. WILL CONTINUE TO MONITOR PT CLOSELY.
[2017-07-18 08:00] VITALS: BP 108/63
--- NOTE | 2017-07-18 08:35 | NUR ---
RT PATIENT REC'D TRACHED ON [facility] VENT WITH NOTED SETTINGS ERICK WELL. FIO2 TITRATED TO 40% ERICK WELL. VENT ALARMS CHECKED + AUDIBLE. CUFF PRESSURE CHECKED SAXOPHONE ASSEMBLER. SX'D WITH ARIANNE LOBOT OF PALE SEMITHICK SECRETIONS. AMBU BAG AT [facility]. Addendum: 07/18/17 at 0838 by IOANA LITTLE RT Amended: Links added.
[2017-07-18] MEDS: PANTOPRAZOLE 40 MG/PACK PACK GT SCH (09:22)
[2017-07-18] MEDS: PROSOURCE / PROSTAT (PYXIS) 30 ML UDC GT SCH ×2 (09:22→21:53)
[2017-07-18] MEDS: CHOLECALCIFEROL 1,000 UNIT TABLET (VIT D3) GT SCH (09:23)
[2017-07-18] MEDS: FERROUS SULFATE (325 MG) 325 MG/TAB TABLET GT SCH ×2 (09:23→21:29)
[2017-07-18] MEDS: LACTOBACILLUS RHAMNOSUS GG 1 EACH CAP.SPRINK GT SCH ×2 (09:23→17:34)
[2017-07-18] MEDS: ZINC SULFATE 220 MG CAPSULE GT SCH (09:24)
[2017-07-18] MEDS: METOPROLOL TARTRATE 25 MG TABLET PO SCH ×2 (09:24→21:00)
[2017-07-18] MEDS: LORATADINE 10 MG TABLET GT SCH (09:24)
[2017-07-18] MEDS: MIDODRINE HCL (5MG) 5 MG TABLET PO SCH ×3 (09:25→17:34)
[2017-07-18] MEDS: Z GUARD REMEDY 2 OZ OINT TP SCH (09:26)
[2017-07-18] MEDS: HYDROGEL DRESSING 90 GM TUBE TP SCH ×2 (09:26→21:00)
[2017-07-18] MEDS: ASCORBIC ACID 500 MG TABLET PO SCH (09:29)
[2017-07-18] MEDS: MULTIVITAMINS,THERAGRAN 1 UDTAB TABLET PO SCH (09:30)
[2017-07-18] MEDS: DOXYCYCLINE HYCLATE (100 MG) 100 MG TABLET PO SCH ×2 (09:30→21:29)
[2017-07-18] MEDS: MUPIROCIN OINT 2% 22 GM TUBE SCH ×2 (09:30→21:46)
--- NOTE | 2017-07-18 09:30 | NUR ---
SUPERVISOR MOTOR VEHICLE ASSEMBLY NOTES DUE MEDS GIVEN.
--- NOTE | 2017-07-18 11:42 | NUR ---
CLIENT SERVICES DIRECTOR NOTES ACCUCHECK DONE. BS 110 MG/DL. NO INSULIN COVERAGE GIVEN.
[2017-07-18 12:00] VITALS: BP 119/64
--- NOTE | 2017-07-18 12:58 | NUR ---
PHP ENGINEER NOTES STARTED MAXIPIME IV.
[2017-07-18 16:00] VITALS: BP 119/63
[2017-07-18] MEDS: GLYTROL 1,000 ML BAG GT PRN (16:02)
--- NOTE | 2017-07-18 17:35 | NUR ---
ASSISTANT PROFESSOR OF NURSING NOTES ACCUCHECK DONE. BS 92 MG/DL. NO INSULIN COVERAGE GIVEN.
--- NOTE | 2017-07-18 18:31 | NUR ---
LAUNCH CHECK OUT CLOSING NOTES PT IN BED. RESTING COMFORTABLY, AO X 1-2, NON VERBAL, ON SHILEY 6, ON MECH VENT SETTING ORDERED. SATURATING WELL. TELEMETRY READS ST HR 106, NO SIGNS OF PAIN OR DISCOMFORT. IV ACCESS ON RIGHT HAND 22G PATENT AND INTACT. HEAD OF BED ELEVATED. WITH MITTEN ON LEFT HAND, RELEASED AND CHECKED FOR CIRCULATION Q 2 HOURS, RIZVI CATH IN PLACE 450 ML OUTPUT, DARK YELLOW, SIDE RAILS UP. ISOLATION PRECAUTION OBSERVED. CALL LIGHT WITHIN REACH. TURNED AND REPOSITIONED Q 2 HOURS. PM CARE DONE. PERFORMED PRESCRIBED WOUND TREATMENT EARLIER. ALL NEEDS MET. NO OTHER SIGNIFICANT CHANGE IN CONDITION. WILL ENDORSE TO NEXT SHIFT FOR CESAR.
[2017-07-18 20:00] VITALS: BP 115/80
--- NOTE | 2017-07-18 20:09 | NUR ---
PT ON VENT A/C MODE PT ERICK VENT SETTINGS WELL WITH NO RESPIRATORY DISTRESS NOTED ATT. PT HAS A TRACH SHILEY 6 TRACH WHICH IS IN PLACE AND SECURE. BREATH SOUNDS COURSE SX PT PRN RETURNING SMALL TO MOD PALE YELLOW SECRETIONS. HHN TX MD ORDERED. VENT ALARMS CHECKED FOUND TO BE FUNCTIONAL, AUDIBLE AND WITHIN RANGE. VENT PLUGGED INOT RED OUTLET. BVM AT BEDSIDE.
--- NOTE | 2017-07-18 21:15 | NUR ---
RN NOTES PATIENT REC'D TRACHED ON [facility] VENT WITH NOTED SETTINGS ERICK WELL. FIO2 TITRATED TO 40% ERICK WELL WITH SUTURATION 100%. IV LINE RIGHT HANR AC #22. BED IN LOWEST, LOCKED POSITION, SIDE RAILS UP X2. RIGHT HAND MITTEN APPLIED,CALL LIGHT IN REACH. WILL CONT. MONITOR.
[2017-07-18] MEDS: HYDROGEL DRESSING 90 GM TUBE TP PRN ×4 (21:50→23:12)
[2017-07-19] VITALS (7 sets, daily range): BP systolic 105–140; BP diastolic 58–78
[2017-07-19] MEDS: BLOOD SUGAR DIAGNOSTIC 1 EACH STRIP IN SCH ×5 (00:49→23:38)
[2017-07-19] MEDS: IPRATROPIUM NEB FS 0.5 MG/2.5 ML AMPUL.NEB NEB SCH ×6 (03:36→23:04)
[2017-07-19] MEDS: ALBUTEROL HALF STRENGTH 1.25 MG/3 ML VIAL.NEB NEB SCH ×6 (03:36→23:04)
[2017-07-19] MEDS: CEFEPIME 1 GM in IV D5W 50 ML IV SCH ×3 (05:46→20:55)
[2017-07-19 06:19] LABS: BASOPHILS # (AUTO) 0.1 /CMM (0.0-0.2); BASOPHILS % (AUTO) 0.5 % (0.0-2.0); EOSINOPHILS % (AUTO) 8.5 % (0.0-6.0); HEMATOCRIT 28 % (39-51); LYMPHOCYTES % (AUTO) 20.7 % (20.0-44.0); MEAN CORPUSCULAR HGB CONC 33 g/dl (31.0-36.0); MEAN CORPUSCULAR VOLUME 82 fL (80-96); MONOCYTES # (AUTO) 0.7 /CMM (0.1-1.30); MONOCYTES % (AUTO) 4.7 % (2.0-12.0); NEUTROPHILS # (AUTO) 9.5 /CMM (1.8-8.9); NEUTROPHILS % (AUTO) 65.6 % (43.0-81.0); PLATELET COUNT (AUTO) 412 /CMM (150-450); RDW COEFFICIENT OF VARIATION 20.7 (11.5-15.0); RED BLOOD CELL COUNT(AUTO) 3.36 MIL/uL (4.5-6.0); WHITE BLOOD COUNT (AUTO) 14.4 K/uL (4.3-11.0)
--- NOTE | 2017-07-19 06:30 | NUR ---
RN NOTES NO ACUTE CHANGES DURING MY SHIFT. PT IS STABLE. ALL MEDS. ADMINISTERED IN TIMELY MANNERS. WILL ENDORSE CESAR TO AM NURSE.
[2017-07-19 06:41] LABS: CALCIUM, SERUM 9.4 mg/dL (8.5-10.1); CARBON DIOXIDE 29 mmol/L (21-32); CHLORIDE 101 mmol/L (98-107); CREATININE 0.9 mg/dL (0.6-1.3); GLUCOSE 108 mg/dL (74-106); POTASSIUM 4.5 mmol/L (3.5-5.1); SODIUM SERUM 136 mmol/L (136-145); UREA NITROGEN, BLOOD 28 mg/dL (7-18)
--- NOTE | 2017-07-19 07:55 | NUR ---
RN NOTE RECEIVED PATIENT IN BED. ALERT AND ORIENTED X 1-2, NON VERBAL BUT IS ABLE TO MOUTH HIS NEEDS, ON VENT/TRACH SHILEY 6 VENT SETTING ORDERED AND SATURATING WELL. NO DISCOMFORT OR DISTRESS NOTED. ON DIRECTOR IMAGING SINUS TACH OF 96, NO SIGNS OF PAIN NOTED. IV ACCESS ON RIGHT HAND INTACT AND PATENT. HEAD OF BED ELEVATED WITH ONGOING TUBE FEEDING WITH NO RESIDUAL NOTED. MITTEN ON LEFT HAND, RELEASED AND CHECKED FOR CIRCULATION, RIZVI CATH WITH ADEQUATE FLOW OF URINE. BED LOW AND LOCKED POSITION. ISOLATION PRECAUTION OBSERVED AND DONE. PLACED CALL LIGHT WITHIN REACH. WILL CONTINUE TO MONITOR
[2017-07-19] MEDS: CHOLECALCIFEROL 1,000 UNIT TABLET (VIT D3) GT SCH (08:43)
[2017-07-19] MEDS: ZINC SULFATE 220 MG CAPSULE GT SCH (08:43)
[2017-07-19] MEDS: MULTIVITAMINS,THERAGRAN 1 UDTAB TABLET PO SCH (08:43)
[2017-07-19] MEDS: DOXYCYCLINE HYCLATE (100 MG) 100 MG TABLET PO SCH ×2 (08:43→20:54)
[2017-07-19] MEDS: ASCORBIC ACID 500 MG TABLET PO SCH (08:43)
[2017-07-19] MEDS: FERROUS SULFATE (325 MG) 325 MG/TAB TABLET GT SCH ×2 (08:43→20:54)
[2017-07-19] MEDS: LORATADINE 10 MG TABLET GT SCH (08:43)
[2017-07-19] MEDS: LACTOBACILLUS RHAMNOSUS GG 1 EACH CAP.SPRINK GT SCH ×2 (08:45→16:33)
[2017-07-19] MEDS: PROSOURCE / PROSTAT (PYXIS) 30 ML UDC GT SCH ×2 (08:45→20:54)
[2017-07-19] MEDS: PANTOPRAZOLE 40 MG/PACK PACK GT SCH (08:45)
[2017-07-19] MEDS: HYDROGEL DRESSING 90 GM TUBE TP SCH ×2 (08:45→20:56)
[2017-07-19] MEDS: Z GUARD REMEDY 2 OZ OINT TP SCH (08:45)
[2017-07-19] MEDS: METOPROLOL TARTRATE 25 MG TABLET PO SCH ×2 (08:46→21:00)
[2017-07-19] MEDS: MIDODRINE HCL (5MG) 5 MG TABLET PO SCH ×3 (08:46→16:33)
[2017-07-19] MEDS: MUPIROCIN OINT 2% 22 GM TUBE SCH ×2 (08:50→20:56)
[2017-07-19] MEDS: COLISTIMETHATE SODIUM 150 MG VIAL NEB SCH ×2 (09:14→20:58)
[2017-07-19] MEDS: GLUCERNA 1.2 1,000 ML BOTTLE GT PRN (12:40)
--- NOTE | 2017-07-19 15:53 | NUR ---
PT RECEIVED TRACHED ON MECHANICAL VENT W/ SETTINGS PER MD ORDER. TRACH TUBE PATENT, CLEAN. BREATH SOUNDS EQUAL DIMINISHED. VENT IN RED OUTLET, VENT ALARMS CHECKED AND AUDIBLE, AMBUBAG AT BEDSIDE. HHN TX GIVEN INLINE PER MD ORDER. PT SX'ED AND LAVAGED PRN. NO RESP DISTRESS NOTED. PLAN IS TO CONTINUE CARE W/ CURRENT MD ORDERS AND MONITOR FOR CHANGE IN STATUS. Addendum: 07/19/17 at 1554 by JUSTO FLOYD RT Amended: Links added.
--- NOTE | 2017-07-19 19:00 | NUR ---
RN NOTE PATIENT REMAINED STABLE THROUGHOUT SHIFT. NO ACUTE CHANGES OR DISTRESS NOTED. WILL ENDORSE TO NEXT SHIFT TO CONTINUE CONTINUITY OF CARE
--- NOTE | 2017-07-19 20:22 | NUR ---
RECEIVED TRACHED PT ON VENT ON NOTED SETTINGS PER MD ORDERS. TUFTING MACHINE OPERATOR DONE AND TRACH IS PATENT AND SECURED. VENT ALARMS SET AND AUDIBLE. AMBU BAG AT BEDSIDE. VENT PLUGGED INTO RED OUTLET. PT GIVEN HHN BREATHING TX ORDERED PER MD. NO ADVERSE REACTION NOTED. SX SMALL AMOUNT OF PALE YELLOW SECRETIONS. WILL CONTINUE TO MONITOR.
[2017-07-19] MEDS: INSULIN REGULAR, HUMAN 100 UNIT/ML 3 ML VIAL SQ PRN (23:38)
[2017-07-20] VITALS: BP 112/61
[2017-07-20] MEDS: ALBUTEROL HALF STRENGTH 1.25 MG/3 ML VIAL.NEB NEB SCH ×6 (03:04→19:59)
[2017-07-20] MEDS: IPRATROPIUM NEB FS 0.5 MG/2.5 ML AMPUL.NEB NEB SCH ×5 (03:05→19:59)
[2017-07-20 04:00] VITALS: BP 121/71
[2017-07-20] MEDS: CEFEPIME 1 GM in IV D5W 50 ML IV SCH ×2 (04:39→12:06)
[2017-07-20] MEDS: BLOOD SUGAR DIAGNOSTIC 1 EACH STRIP IN SCH ×3 (05:29→18:24)
--- NOTE | 2017-07-20 07:40 | NUR ---
RN NOTE RECEIVED PATIENT IN BED. ALERT AND ORIENTED X 1-2, NON VERBAL BUT IS ABLE TO MOUTH HIS NEEDS, ON VENT/TRACH SETTING ORDERED AND SATURATING WELL. NO DISCOMFORT OR DISTRESS NOTED. ON RECORDS MANAGEMENT ENGINEER SINUS TACH OF 105, NO SIGNS OF PAIN NOTED. IV ACCESS ON RIGHT HAND INTACT AND PATENT. HEAD OF BED ELEVATED WITH ONGOING TUBE FEEDING AND WITH NO RESIDUAL NOTED. MITTEN ON LEFT HAND, RELEASED AND CHECKED FOR CIRCULATION, RIZVI CATH WITH ADEQUATE FLOW OF URINE. BED LOW AND LOCKED POSITION. ISOLATION PRECAUTION OBSERVED AND DONE. PLACED CALL LIGHT WITHIN REACH. WILL CONTINUE TO MONITOR
[2017-07-20 08:00] VITALS: BP 120/84
[2017-07-20] MEDS: COLISTIMETHATE SODIUM 150 MG VIAL NEB SCH ×2 (08:10→22:33)
[2017-07-20] MEDS: PANTOPRAZOLE 40 MG/PACK PACK GT SCH (08:27)
[2017-07-20] MEDS: FLUCONAZOLE (100 MG) 100 MG TABLET GT SCH (08:28)
[2017-07-20] MEDS: ASCORBIC ACID 500 MG TABLET PO SCH (08:28)
[2017-07-20] MEDS: LORATADINE 10 MG TABLET GT SCH (08:28)
[2017-07-20] MEDS: LACTOBACILLUS RHAMNOSUS GG 1 EACH CAP.SPRINK GT SCH ×2 (08:28→16:09)
[2017-07-20] MEDS: ZINC SULFATE 220 MG CAPSULE GT SCH (08:28)
[2017-07-20] MEDS: FERROUS SULFATE (325 MG) 325 MG/TAB TABLET GT SCH ×2 (08:28→20:48)
[2017-07-20] MEDS: DOXYCYCLINE HYCLATE (100 MG) 100 MG TABLET PO SCH ×2 (08:28→20:48)
[2017-07-20] MEDS: MULTIVITAMINS,THERAGRAN 1 UDTAB TABLET PO SCH (08:28)
[2017-07-20] MEDS: CHOLECALCIFEROL 1,000 UNIT TABLET (VIT D3) GT SCH (08:28)
[2017-07-20] MEDS: METOPROLOL TARTRATE 25 MG TABLET PO SCH ×2 (08:29→20:48)
[2017-07-20] MEDS: Z GUARD REMEDY 2 OZ OINT TP SCH (08:30)
[2017-07-20] MEDS: MUPIROCIN OINT 2% 22 GM TUBE SCH ×2 (08:30→20:50)
[2017-07-20] MEDS: PROSOURCE / PROSTAT (PYXIS) 30 ML UDC GT SCH ×2 (08:31→20:48)
[2017-07-20] MEDS: HYDROGEL DRESSING 90 GM TUBE TP SCH ×2 (08:31→20:50)
[2017-07-20] MEDS: MIDODRINE HCL (5MG) 5 MG TABLET PO SCH ×3 (09:00→16:09)
[2017-07-20] MEDS: GLUCERNA 1.2 1,000 ML BOTTLE GT PRN (09:53)
[2017-07-20 12:00] VITALS: BP 111/70
[2017-07-20 16:00] VITALS: BP 104/64
[2017-07-20] MEDS: MEROPENEM 1 G in IV NS 0.9% 100 ML IV SCH (16:59)
--- NOTE | 2017-07-20 19:05 | NUR ---
RN NOTE PATIENT REMAINED STABLE THROUGHOUT SHIFT. NO ACUTE CHANGES OR DISTRESS NOTED. WILL ENDORSE TO NEXT SHIFT TO CONTINUE CONTINUITY OF CARE
--- NOTE | 2017-07-20 19:30 | NUR ---
AIRCRAFT RESTORER INITIAL NOTE PT RECEIVED AWAKE IN BED. ON MECH VENT WITH SETTINGS WELL TOLERATED AND NOTED WITH A LOT OF THICK SECRETIONS. HOB ELEVATED AND ON ASPIRATION PRECAUTIONS. ISOLATION PRECAUTIONS OBSERVED. TELE- ST 114. GTF WELL TOLERATED AND NO RESIDUALS NOTED. RIZVI CATHETER IN PLACE AND DRAINING BY GRAVITY. IV R HAND #22 CLEAN, DRY AND FLUSHING WELL. WILL CONTINUE TO MONITOR.
[2017-07-20 20:00] VITALS: BP 126/62
--- NOTE | 2017-07-20 20:07 | NUR ---
ALBUTEROL NOT GIVEN DUE TO TACHYCARDIA. HECTOR MEYER NOTIFIED Addendum: 07/20/17 at 2008 by KATIUSKA MANZANARES RT Amended: Links added.
[2017-07-20] MEDS: HYDROCODONE/APAP 5/325MG 1 EACH TABLET GT PRN (21:47)
[2017-07-21] VITALS (7 sets, daily range): BP systolic 91–109; BP diastolic 48–71
[2017-07-21] MEDS: ALBUTEROL HALF STRENGTH 1.25 MG/3 ML VIAL.NEB NEB SCH ×7 (00:05→23:31)
[2017-07-21] MEDS: IPRATROPIUM NEB FS 0.5 MG/2.5 ML AMPUL.NEB NEB SCH ×7 (00:05→23:31)
[2017-07-21] MEDS: MEROPENEM 1 G in IV NS 0.9% 100 ML IV SCH ×3 (00:18→16:30)
[2017-07-21] MEDS: BLOOD SUGAR DIAGNOSTIC 1 EACH STRIP IN SCH ×4 (00:18→17:40)
[2017-07-21] MEDS: GLUCERNA 1.2 1,000 ML BOTTLE GT PRN ×2 (05:39→22:44)
[2017-07-21 06:43] LABS: CALCIUM, SERUM 9.6 mg/dL (8.5-10.1); CARBON DIOXIDE 29 mmol/L (21-32); CHLORIDE 102 mmol/L (98-107); CREATININE 1.1 mg/dL (0.6-1.3); GLUCOSE 110 mg/dL (74-106); POTASSIUM 4.6 mmol/L (3.5-5.1); SODIUM SERUM 137 mmol/L (136-145); UREA NITROGEN, BLOOD 34 mg/dL (7-18)
--- NOTE | 2017-07-21 07:01 | NUR ---
SALESFORCE CONSULTANT CLOSING NOTE PT REMAINED STABLE DURING SHIFT. NO ACUTE DISTRESS NOTED. VENT SETTINGS WELL TOLERATED. SUCTIONED NEEDED. REPOSITIONED Q2H. ISOLATION PRECAUTIONS OBSERVED. WILL ENDORSE TO NEXT SHIFT FOR CONTINUITY OF CARE.
[2017-07-21 07:03] LABS: BASOPHILS # (AUTO) 0.2 /CMM (0.0-0.2); EOSINOPHILS % (AUTO) 6.1 % (0.0-6.0); HEMATOCRIT 27 % (39-51); LYMPHOCYTES # (AUTO) 2.6 /CMM (0.8-4.8); LYMPHOCYTES % (AUTO) 16.8 % (20.0-44.0); MEAN CORPUSCULAR HGB CONC 33 g/dl (31.0-36.0); MEAN CORPUSCULAR VOLUME 82 fL (80-96); MONOCYTES # (AUTO) 0.7 /CMM (0.1-1.30); MONOCYTES % (AUTO) 4.5 % (2.0-12.0); NEUTROPHILS # (AUTO) 11.1 /CMM (1.8-8.9); NEUTROPHILS % (AUTO) 71.6 % (43.0-81.0); PLATELET COUNT (AUTO) 406 /CMM (150-450); RDW COEFFICIENT OF VARIATION 19.3 (11.5-15.0); RED BLOOD CELL COUNT(AUTO) 3.31 MIL/uL (4.5-6.0); WHITE BLOOD COUNT (AUTO) 15.6 K/uL (4.3-11.0)
--- NOTE | 2017-07-21 07:45 | NUR ---
RN NOTE RECEIVED PATIENT IN BED. ALERT AND ORIENTED X 1-2, NON VERBAL BUT IS ABLE TO MOUTH HIS NEEDS, ON VENT/TRACH SETTING ORDERED AND SATURATING WELL. NO DISCOMFORT OR DISTRESS NOTED. ON TUBE COATER SINUS TACH OF 109. RIGHT FA IV SITE INTACT AND PATENT. HEAD OF BED ELEVATED WITH ONGOING TUBE FEEDING AND WITH NO RESIDUAL NOTED. MITTEN ON LEFT HAND, RELEASED AND CHECKED FOR CIRCULATION, F/C INTACT AND PATENT WITH ADEQUATE FLOW OF URINE. BED LOW AND LOCKED POSITION. ISOLATION PRECAUTION OBSERVED. PLACED CALL LIGHT WITHIN REACH. WILL CONTINUE TO MONITOR
[2017-07-21] MEDS: DOXYCYCLINE HYCLATE (100 MG) 100 MG TABLET PO SCH ×2 (08:18→21:24)
[2017-07-21] MEDS: PANTOPRAZOLE 40 MG/PACK PACK GT SCH (08:18)
[2017-07-21] MEDS: LACTOBACILLUS RHAMNOSUS GG 1 EACH CAP.SPRINK GT SCH ×2 (08:18→16:29)
[2017-07-21] MEDS: LORATADINE 10 MG TABLET GT SCH (08:18)
[2017-07-21] MEDS: ZINC SULFATE 220 MG CAPSULE GT SCH (08:18)
[2017-07-21] MEDS: MULTIVITAMINS,THERAGRAN 1 UDTAB TABLET PO SCH (08:18)
[2017-07-21] MEDS: ASCORBIC ACID 500 MG TABLET PO SCH (08:18)
[2017-07-21] MEDS: MIDODRINE HCL (5MG) 5 MG TABLET PO SCH ×3 (08:19→16:29)
[2017-07-21] MEDS: CHOLECALCIFEROL 1,000 UNIT TABLET (VIT D3) GT SCH (08:19)
[2017-07-21] MEDS: FLUCONAZOLE (100 MG) 100 MG TABLET GT SCH (08:19)
[2017-07-21] MEDS: FERROUS SULFATE (325 MG) 325 MG/TAB TABLET GT SCH ×2 (08:19→21:24)
[2017-07-21] MEDS: MUPIROCIN OINT 2% 22 GM TUBE SCH ×2 (08:20→21:26)
[2017-07-21] MEDS: METOPROLOL TARTRATE 25 MG TABLET PO SCH ×2 (08:20→21:00)
[2017-07-21] MEDS: Z GUARD REMEDY 2 OZ OINT TP SCH (08:21)
[2017-07-21] MEDS: HYDROGEL DRESSING 90 GM TUBE TP SCH ×2 (08:22→21:27)
[2017-07-21] MEDS: COLISTIMETHATE SODIUM 150 MG VIAL NEB SCH ×2 (08:28→21:43)
[2017-07-21] MEDS: PROSOURCE / PROSTAT (PYXIS) 30 ML UDC GT SCH ×2 (08:32→21:24)
[2017-07-21] MEDS: INSULIN REGULAR, HUMAN 100 UNIT/ML 3 ML VIAL SQ PRN (17:39)
--- NOTE | 2017-07-21 19:00 | NUR ---
RN NOTE PATIENT REMAINED STABLE THROUGHOUT SHIFT. NO ACUTE CHANGES OR DISTRESS NOTED. WILL ENDORSE TO NEXT SHIFT TO CONTINUE CONTINUITY OF CARE
--- NOTE | 2017-07-21 19:30 | NUR ---
DIRECTOR MACHINE INITIAL NOTE PT RECEIVED AWAKE IN BED. [facility] WITH [facility]TINGS WELL TOLERATED. HOB ELEVATED AND ON ASPIRATION PRECAUTIONS. ISOLATION PRECAUTIONS OBSERVED. GTF WELL TOLERATED AND NO RESIDUALS NOTED. RIZVI CATHETER IN PLACE AND DRAINING BY GRAVITY. IV R FA #20 CLEAN, DRY AND FLUSHING WELL. WILL CONTINUE TO MONITOR.
[2017-07-22] VITALS (8 sets, daily range): BP systolic 96–126; BP diastolic 52–80
[2017-07-22] MEDS ORDERED: VANCOMYCIN 1 GM VIAL ONE (00:20)
[2017-07-22] MEDS: MEROPENEM 1 G in IV NS 0.9% 100 ML IV SCH ×3 (00:26→17:25)
[2017-07-22] MEDS: BLOOD SUGAR DIAGNOSTIC 1 EACH STRIP IN SCH ×5 (00:27→23:46)
[2017-07-22] MEDS ORDERED: VANCOMYCIN 1 GM in IV D5W 250 ML IV SCH (00:30)
[2017-07-22] MEDS: IPRATROPIUM NEB FS 0.5 MG/2.5 ML AMPUL.NEB NEB SCH ×6 (03:45→23:08)
[2017-07-22] MEDS: ALBUTEROL HALF STRENGTH 1.25 MG/3 ML VIAL.NEB NEB SCH ×6 (03:45→23:08)
[2017-07-22 06:29] LABS: BASOPHILS # (AUTO) 0.1 /CMM (0.0-0.2); BASOPHILS % (AUTO) 0.6 % (0.0-2.0); HEMATOCRIT 26 % (39-51); HEMOGLOBIN 9.1 g/dL (13.5-17.5); LYMPHOCYTES # (AUTO) 3.6 /CMM (0.8-4.8); LYMPHOCYTES % (AUTO) 24.5 % (20.0-44.0); MEAN CORPUSCULAR HGB CONC 34 g/dl (31.0-36.0); MEAN CORPUSCULAR VOLUME 82 fL (80-96); MONOCYTES # (AUTO) 0.6 /CMM (0.1-1.30); MONOCYTES % (AUTO) 4.4 % (2.0-12.0); NEUTROPHILS # (AUTO) 9.2 /CMM (1.8-8.9); NEUTROPHILS % (AUTO) 62.5 % (43.0-81.0); PLATELET COUNT (AUTO) 376 /CMM (150-450); RDW COEFFICIENT OF VARIATION 19.5 (11.5-15.0); RED BLOOD CELL COUNT(AUTO) 3.24 MIL/uL (4.5-6.0); WHITE BLOOD COUNT (AUTO) 14.7 K/uL (4.3-11.0)
[2017-07-22 06:35] LABS: CALCIUM, SERUM 9.4 mg/dL (8.5-10.1); CARBON DIOXIDE 30 mmol/L (21-32); CHLORIDE 102 mmol/L (98-107); CREATININE 1.1 mg/dL (0.6-1.3); GLUCOSE 85 mg/dL (74-106); POTASSIUM 4.8 mmol/L (3.5-5.1); SODIUM SERUM 138 mmol/L (136-145); UREA NITROGEN, BLOOD 30 mg/dL (7-18); VANCOMYCIN,RANDOM 23 ug/ml (18-26)
--- NOTE | 2017-07-22 07:05 | NUR ---
RN NOTE RECEIVED PT ON BED, OBTUNDED , VENT/ TRACH DEPENDENT,TOLERATING CURRENT VENT SETTING WELL, TRACH CARE DONE, ON TELE ST HR IN 100'S , RIZVI DRINING TO GRAVITY WELL, HOB ELEVATED AND ON ASPIRATION PRECAUTIONS. ISOLATION PRECAUTIONS OBSERVED. GLUCERNA RUNNING VIA GT AT 55CC/HR , TOLERATING WELL, R FA IV SITE G 20 CDI, AND FLUSHING WELL. SR UP x3, CALL LIGHT WITHIN EASY REACH, BED LOCKED AND IN LOWEST POSITION , WILL CONTINUE TO MONITOR.
[2017-07-22] MEDS ORDERED: FEE PK DOSING 1 MIN EA MC ONE (08:24)
[2017-07-22] MEDS: ZINC SULFATE 220 MG CAPSULE GT SCH (08:40)
[2017-07-22] MEDS: MIDODRINE HCL (5MG) 5 MG TABLET PO SCH ×3 (08:41→17:24)
[2017-07-22] MEDS: CHOLECALCIFEROL 1,000 UNIT TABLET (VIT D3) GT SCH (08:42)
[2017-07-22] MEDS: FERROUS SULFATE (325 MG) 325 MG/TAB TABLET GT SCH ×2 (08:42→21:47)
[2017-07-22] MEDS: METOPROLOL TARTRATE 25 MG TABLET PO SCH ×2 (08:42→21:49)
[2017-07-22] MEDS: LORATADINE 10 MG TABLET GT SCH (08:42)
[2017-07-22] MEDS: LACTOBACILLUS RHAMNOSUS GG 1 EACH CAP.SPRINK GT SCH ×2 (08:42→17:22)
[2017-07-22] MEDS: MULTIVITAMINS,THERAGRAN 1 UDTAB TABLET PO SCH (08:42)
[2017-07-22] MEDS: FLUCONAZOLE (100 MG) 100 MG TABLET GT SCH (08:42)
[2017-07-22] MEDS: ASCORBIC ACID 500 MG TABLET PO SCH (08:43)
[2017-07-22] MEDS: MUPIROCIN OINT 2% 22 GM TUBE SCH ×2 (08:44→21:56)
[2017-07-22] MEDS: HYDROGEL DRESSING 90 GM TUBE TP SCH ×2 (08:44→21:56)
[2017-07-22] MEDS: Z GUARD REMEDY 2 OZ OINT TP SCH ×2 (08:47→21:56)
[2017-07-22] MEDS: PANTOPRAZOLE 40 MG/PACK PACK GT SCH (09:34)
[2017-07-22] MEDS: PROSOURCE / PROSTAT (PYXIS) 30 ML UDC GT SCH ×2 (09:35→21:46)
[2017-07-22] MEDS ORDERED: VANCOMYCIN 0.75 GM in IV NS 0.9% 250 ML IV SCH (12:00)
--- NOTE | 2017-07-22 12:00 | NUR ---
RN NOTES TOLERATING TF WELL , VSS STABLE , CONTINUE TO MONITOR.
--- NOTE | 2017-07-22 18:40 | NUR ---
RN NOTES PT STABLE , TRACH SUCTIONING DONE , RIZVI DRAINING TO GRAVITY , TOLERATING TF WELL, NO SIGNIFICANT CHANGES NOTED ON THIS SHIFT , SR UP x3, CALL LIGHT WITHIN EASY REACH, WILL ENDOSE TO BULB BRANDER NURSE FOR CESAR.
[2017-07-22] MEDS: VANCOMYCIN 0.75 GM in IV NS 0.9% 250 ML IV SCH (19:11)
--- NOTE | 2017-07-22 20:24 | NUR ---
RN NOTES RECEIVED PATIENT IN BED WITH EYES OPEN. NOTED WITH EYE CONTACT. NO RESPIRATORY DISTRESS. BREATHING EVEN AND UNLABORED. VENT SETTING WELL TOLERATED. NO PHYSICAL MANIFESTATION OF PAIN OR DISCOMFORT. KEPT CLEAN AND DRY. WILL CONTINUE TO MONITOR.
[2017-07-22] MEDS: GLUCERNA 1.2 1,000 ML BOTTLE GT PRN (21:46)
[2017-07-22] MEDS: INSULIN REGULAR, HUMAN 100 UNIT/ML 3 ML VIAL SQ PRN (23:47)
[2017-07-23] VITALS: BP_SYST 104; BP_DIAS 60; BP_DIAS 68
[2017-07-23] MEDS: MEROPENEM 1 G in IV NS 0.9% 100 ML IV SCH ×3 (01:40→17:00)
[2017-07-23] MEDS: IPRATROPIUM NEB FS 0.5 MG/2.5 ML AMPUL.NEB NEB SCH ×6 (03:36→23:21)
[2017-07-23] MEDS: ALBUTEROL HALF STRENGTH 1.25 MG/3 ML VIAL.NEB NEB SCH ×6 (03:36→23:21)
[2017-07-23 04:00] VITALS: BP 102/66
[2017-07-23] MEDS: BLOOD SUGAR DIAGNOSTIC 1 EACH STRIP IN SCH ×4 (05:18→23:15)
[2017-07-23] MEDS: INSULIN REGULAR, HUMAN 100 UNIT/ML 3 ML VIAL SQ PRN ×2 (05:20→23:10)
--- NOTE | 2017-07-23 06:11 | NUR ---
RN NOTES RESTING COMFORTABLY IN BED WITH NO DISTRESS NOTED. BREATHING EVEN AND UNLABORED. NO PHYSICAL MANIFESTATION OF PAIN OR DISCOMFORT. GT IN PLACE, FEEDING WELL TOLERATED. VITAL SIGNS WNL. NO SIGNIFICANT CHANGE OF CONDITION. WILL ENDORSE TO AM CARE FOR CONTINUITY OF CARE
--- NOTE | 2017-07-23 07:10 | NUR ---
RN NOTE RECEIVED PT ON BED, ALERT , NONVERBAL , VENT/ TRACH DEPENDENT, TRACH SUCTIONING DONE , ON TELE SR HR IN 90'S , DMITRI DRINING TO GRAVITY WELL, R FA IV SITE G 20 CDI, SR UP x3, CALL LIGHT WITHIN EASY REACH, BED LOCKED AND IN LOWEST POSITION, WILL CONTINUE TO MONITOR
[2017-07-23 08:00] VITALS: BP_SYST 100; BP_SYST 97; BP_DIAS 60; BP_DIAS 66
[2017-07-23] MEDS: PANTOPRAZOLE 40 MG/PACK PACK GT SCH (08:43)
[2017-07-23] MEDS: ASCORBIC ACID 500 MG TABLET PO SCH (08:43)
[2017-07-23] MEDS: LACTOBACILLUS RHAMNOSUS GG 1 EACH CAP.SPRINK GT SCH ×2 (08:43→16:59)
[2017-07-23] MEDS: FLUCONAZOLE (100 MG) 100 MG TABLET GT SCH (08:43)
[2017-07-23] MEDS: FERROUS SULFATE (325 MG) 325 MG/TAB TABLET GT SCH ×2 (08:43→21:43)
[2017-07-23] MEDS: CHOLECALCIFEROL 1,000 UNIT TABLET (VIT D3) GT SCH (08:43)
[2017-07-23] MEDS: ZINC SULFATE 220 MG CAPSULE GT SCH (08:43)
[2017-07-23] MEDS: METOPROLOL TARTRATE 25 MG TABLET PO SCH ×2 (08:45→21:43)
[2017-07-23] MEDS: LORATADINE 10 MG TABLET GT SCH (08:45)
[2017-07-23] MEDS: MIDODRINE HCL (5MG) 5 MG TABLET PO SCH ×3 (08:45→16:59)
[2017-07-23] MEDS: MULTIVITAMINS,THERAGRAN 1 UDTAB TABLET PO SCH (08:45)
[2017-07-23] MEDS: MUPIROCIN OINT 2% 22 GM TUBE SCH ×2 (08:47→21:45)
[2017-07-23] MEDS: HYDROGEL DRESSING 90 GM TUBE TP SCH ×2 (08:48→21:46)
[2017-07-23] MEDS: PROSOURCE / PROSTAT (PYXIS) 30 ML UDC GT SCH ×2 (08:50→21:48)
[2017-07-23 09:26] LABS: CALCIUM, SERUM 9.6 mg/dL (8.5-10.1); CARBON DIOXIDE 30 mmol/L (21-32); CHLORIDE 104 mmol/L (98-107); CREATININE 1.1 mg/dL (0.6-1.3); GLUCOSE 102 mg/dL (74-106); POTASSIUM 4.8 mmol/L (3.5-5.1); SODIUM SERUM 139 mmol/L (136-145); UREA NITROGEN, BLOOD 31 mg/dL (7-18)
[2017-07-23] MEDS: VANCOMYCIN 0.75 GM in IV NS 0.9% 250 ML IV SCH (11:46)
[2017-07-23 12:00] VITALS: BP 109/68
--- NOTE | 2017-07-23 12:00 | NUR ---
RN NOTE PT AT REST , TOLERATING TF WELL, CONTINUE TO MONITOR
[2017-07-23 16:00] VITALS: BP 100/71
--- NOTE | 2017-07-23 18:45 | NUR ---
RN NOTE TRACH SUCTIONING DONE, SLIGHT SWELLING NOTED AT THER R FA IV SITE . IV SITE REMOVED , NEW IV PLACED ON L HAND G 22, SR UP x3, CALL LIGHT WITHIN EASY REACH, WILL ENDORSE TO SCULLION CHIEF NURSE FOR CESAR .
[2017-07-23] MEDS: GLUCERNA 1.2 1,000 ML BOTTLE GT PRN (18:59)
[2017-07-23 20:00] VITALS: BP 105/67
--- NOTE | 2017-07-23 20:00 | NUR ---
RN NOTES RECEIVED PATIENT IN BED WITH NO DISTRESS NOTED. AWAKE, ALERT AND RESPONSIVE, NON VERBAL. NO PHYSICAL MANIFESTATION OF PAIN OR DISCOMFORT. NEEDS ATTENDED. KEPT CLEAN AND DRY.
[2017-07-24] VITALS: BP_SYST 106; BP_SYST 116; BP_DIAS 62; BP_DIAS 70
[2017-07-24] MEDS: IPRATROPIUM NEB FS 0.5 MG/2.5 ML AMPUL.NEB NEB SCH ×6 (03:33→23:42)
[2017-07-24] MEDS: ALBUTEROL HALF STRENGTH 1.25 MG/3 ML VIAL.NEB NEB SCH ×6 (03:34→23:42)
[2017-07-24 04:00] VITALS: BP 110/69
[2017-07-24] MEDS: MEROPENEM 1 G in IV NS 0.9% 100 ML IV SCH ×3 (04:47→16:00)
[2017-07-24] MEDS: VANCOMYCIN 0.75 GM in IV NS 0.9% 250 ML IV SCH (05:37)
[2017-07-24] MEDS: BLOOD SUGAR DIAGNOSTIC 1 EACH STRIP IN SCH ×4 (06:10→23:18)
[2017-07-24] MEDS: INSULIN REGULAR, HUMAN 100 UNIT/ML 3 ML VIAL SQ PRN ×2 (06:11→23:18)
[2017-07-24 06:35] LABS: BASOPHILS # (AUTO) 0.1 /CMM (0.0-0.2); BASOPHILS % (AUTO) 0.4 % (0.0-2.0); EOSINOPHILS % (AUTO) 9.5 % (0.0-6.0); HEMATOCRIT 30 % (39-51); HEMOGLOBIN 9.6 g/dL (13.5-17.5); LYMPHOCYTES # (AUTO) 2.8 /CMM (0.8-4.8); LYMPHOCYTES % (AUTO) 20.2 % (20.0-44.0); MEAN CORPUSCULAR HGB CONC 33 g/dl (31.0-36.0); MEAN CORPUSCULAR VOLUME 83 fL (80-96); MONOCYTES # (AUTO) 0.7 /CMM (0.1-1.30); NEUTROPHILS # (AUTO) 9.1 /CMM (1.8-8.9); NEUTROPHILS % (AUTO) 64.9 % (43.0-81.0); PLATELET COUNT (AUTO) 360 /CMM (150-450); RDW COEFFICIENT OF VARIATION 20.5 (11.5-15.0); RED BLOOD CELL COUNT(AUTO) 3.55 MIL/uL (4.5-6.0)
[2017-07-24 06:53] LABS: ALANINE AMINOTRANSFERASE 43 U/L (12-78); ALBUMIN 2.2 g/dL (3.4-5.0); ALKALINE PHOSPHATASE 79 U/L (46-116); ASPARTATE AMINOTRANSFERASE 33 U/L (15-37); BILIRUBIN,TOTAL 0.2 mg/dL (0.2-1.0); CALCIUM, SERUM 9.8 mg/dL (8.5-10.1); CARBON DIOXIDE 25 mmol/L (21-32); CHLORIDE 104 mmol/L (98-107); CREATININE 0.9 mg/dL (0.6-1.3); GLUCOSE 107 mg/dL (74-106); MAGNESIUM 2.6 mg/dL (1.8-2.4); PHOSPHORUS 2.5 mg/dL (2.5-4.9); POTASSIUM 4.9 mmol/L (3.5-5.1); SODIUM SERUM 136 mmol/L (136-145); TOTAL PROTEIN, SERUM 8.6 g/dL (6.4-8.2); UREA NITROGEN, BLOOD 34 mg/dL (7-18)
--- NOTE | 2017-07-24 07:45 | NUR ---
CONSERVATION OR HERITAGE ARCHITECT NOTE: RECEIVED PATIENT IN BED, AWAKE, OPEN HIS EYES SPONTANEOUSLY. ON VENT-TRACH DEPENDENT SATURATING 100%. ON BUSINESS PERFORMANCE ANALYST, ST HR= 108. ON GT FEEDING OF GLUCERNA 1.2 @55CC/HR TOLERATING WELL. ON RIZVI CATHETER W/ MUNIRA URINE DRAINING TO GRAVITY. PATIENT WAS OFF THE (L) HAND MITTEN AND NO AGGRESSIVE BEHAVIOR NOTED. HOB ELEVATED. BED ALARMED AND LOCKED AT ALL TIMES. CALL LIGHT WITHIN REACH. NEEDS ANTICIPATED. ON CONTACT ISOLATION FOR MRSA NARES.
[2017-07-24 08:00] VITALS: BP 114/61
[2017-07-24] MEDS: METOPROLOL TARTRATE 25 MG TABLET PO SCH ×2 (09:00→21:50)
[2017-07-24] MEDS: LORATADINE 10 MG TABLET GT SCH (09:22)
[2017-07-24] MEDS: LACTOBACILLUS RHAMNOSUS GG 1 EACH CAP.SPRINK GT SCH ×2 (09:22→16:17)
[2017-07-24] MEDS: FLUCONAZOLE (100 MG) 100 MG TABLET GT SCH (09:23)
[2017-07-24] MEDS: ZINC SULFATE 220 MG CAPSULE GT SCH (09:23)
[2017-07-24] MEDS: CHOLECALCIFEROL 1,000 UNIT TABLET (VIT D3) GT SCH (09:23)
[2017-07-24] MEDS: PANTOPRAZOLE 40 MG/PACK PACK GT SCH (09:23)
[2017-07-24] MEDS: FERROUS SULFATE (325 MG) 325 MG/TAB TABLET GT SCH ×2 (09:23→21:49)
[2017-07-24] MEDS: ASCORBIC ACID 500 MG TABLET PO SCH (09:24)
[2017-07-24] MEDS: Z GUARD REMEDY 2 OZ OINT TP SCH (09:24)
[2017-07-24] MEDS: MUPIROCIN OINT 2% 22 GM TUBE SCH ×2 (09:24→21:50)
[2017-07-24] MEDS: MULTIVITAMINS,THERAGRAN 1 UDTAB TABLET PO SCH (09:24)
[2017-07-24] MEDS: HYDROGEL DRESSING 90 GM TUBE TP SCH ×2 (09:25→21:51)
[2017-07-24] MEDS: MIDODRINE HCL (5MG) 5 MG TABLET PO SCH ×3 (09:25→16:32)
[2017-07-24] MEDS: PROSOURCE / PROSTAT (PYXIS) 30 ML UDC GT SCH ×2 (09:43→21:53)
[2017-07-24 12:00] VITALS: BP 116/74
[2017-07-24 16:00] VITALS: BP_SYST 109; BP_SYST 125; BP_DIAS 65; BP_DIAS 75
[2017-07-24] MEDS: GLUCERNA 1.2 1,000 ML BOTTLE GT PRN (16:17)
--- NOTE | 2017-07-24 17:02 | NUR ---
no vent changes made. Addendum: 07/24/17 at 1703 by WILL SUNG RT Amended: Links added.
[2017-07-24 20:00] VITALS: BP 112/71
--- NOTE | 2017-07-24 20:00 | NUR ---
GIZZARD PEELER NOTE: PATIENT IN BED, AWAKE, OPEN HIS EYES SPONTANEOUSLY. ON VENT-TRACH DEPENDENT SATURATING 100%. ON SENIOR TEST ANALYST, ST HR= 107. ON GT FEEDING OF GLUCERNA 1.2 @55CC/HR TOLERATING WELL. ON RIZVI CATHETER W/ MUNIRA URINE DRAINING TO GRAVITY. DR. FUNEZ WAS INFORMED ABOUT THE PATIENT'S BEHAVIOR OF BEING COOPERATIVE DURING THE WHOLE SHIFT. NO (L) HAND MITTEN WAS PLACED DURING THE SHIFT. DC THE RESTRAINT ORDER. HOB ELEVATED. BED ALARMED AND LOCKED AT ALL TIMES. CALL LIGHT WITHIN REACH. ON CONTACT ISOLATION FOR MRSA NARES. REPORT GIVEN TO PM SHIFT NURSE.
--- NOTE | 2017-07-24 20:03 | NUR ---
RN NOTES RECEIVED PATIENT IN BED WITH NO RESPIRATORY DISTRESS OR SHORTNESS OF BREATH. BREATHING EVEN AND UNLABORED. VENT SETTING TOLERATED WELL. ALERT AND RESPONSIVE X 2. ABLE TO MOUTHWORDS NEEDS. NO COMPLAINT OF PAIN OR DISCOMFORT. RIZVI CATHETER IN PLACE DRAINING CLEAR YELLOW WITH NO FOUL ODOR URINE. GTUBE PATENT, FEEDING WELL TOLERATED. HOB ELEVATED. KEPT CLEAN AND DRY. WILL CONTINUE TO MONITOR.
[2017-07-24] MEDS: VORICONAZOLE 200 MG TABLET PO SCH (21:49)
[2017-07-25] VITALS: BP 116/70
[2017-07-25] MEDS: MEROPENEM 1 G in IV NS 0.9% 100 ML IV SCH ×3 (01:22→16:06)
[2017-07-25 04:00] VITALS: BP 95/55
[2017-07-25] MEDS: IPRATROPIUM NEB FS 0.5 MG/2.5 ML AMPUL.NEB NEB SCH ×6 (04:20→23:54)
[2017-07-25] MEDS: ALBUTEROL HALF STRENGTH 1.25 MG/3 ML VIAL.NEB NEB SCH ×6 (04:20→23:54)
[2017-07-25] MEDS: INSULIN REGULAR, HUMAN 100 UNIT/ML 3 ML VIAL SQ PRN (05:14)
[2017-07-25] MEDS: BLOOD SUGAR DIAGNOSTIC 1 EACH STRIP IN SCH ×3 (05:14→17:20)
--- NOTE | 2017-07-25 06:52 | NUR ---
RN CLOSING NOTES NO SIGNIFICANT CHANGE IN CONDITION. NO DISTRESS NOTED. BREATHING EVEN AND UNLABORED. NO PHYSICAL MANIFESTATION OF PAIN OR DISCOMFORT. VITAL SIGNS WNL. KEPT CLEAN AND DRY. WILL ENDORSE TO AM SHIFT FOR CONTINUITY OF CARE.
[2017-07-25 07:06] LABS: CALCIUM, SERUM 10.3 mg/dL (8.5-10.1); CARBON DIOXIDE 26 mmol/L (21-32); CHLORIDE 104 mmol/L (98-107); GLUCOSE 88 mg/dL (74-106); POTASSIUM 5.1 mmol/L (3.5-5.1); SODIUM SERUM 140 mmol/L (136-145); UREA NITROGEN, BLOOD 36 mg/dL (7-18)
--- NOTE | 2017-07-25 07:24 | NUR ---
RN ANESTHETIST NOTE: RECEIVED PATIENT IN BED, AWAKE, OPEN HIS EYES SPONTANEOUSLY. ON VENT-TRACH DEPENDENT SATURATING 100%. ON BLUEPRINTING MACHINE OPERATOR, ST HR= 101. ON GT FEEDING OF GLUCERNA 1.2 @55CC/HR TOLERATING WELL. ON RIZVI CATHETER W/ MUNIRA URINE DRAINING TO GRAVITY. PATIENT IS COOPERATIVE. NODS HIS HEAD OR SHAKE HIS HEAD WHEN BEING ASKED. HOB ELEVATED. BED ALARMED AND LOCKED AT ALL TIMES. CALL LIGHT WITHIN REACH. NEEDS ANTICIPATED. ON CONTACT ISOLATION FOR MRSA NARES.
[2017-07-25 08:00] VITALS: BP 109/63
[2017-07-25] MEDS: METOPROLOL TARTRATE 25 MG TABLET PO SCH ×2 (09:00→20:37)
[2017-07-25] MEDS: MIDODRINE HCL (5MG) 5 MG TABLET PO SCH ×3 (09:40→16:07)
[2017-07-25] MEDS: ASCORBIC ACID 500 MG TABLET PO SCH (09:40)
[2017-07-25] MEDS: MULTIVITAMINS,THERAGRAN 1 UDTAB TABLET PO SCH (09:40)
[2017-07-25] MEDS: FERROUS SULFATE (325 MG) 325 MG/TAB TABLET GT SCH ×2 (09:40→20:36)
[2017-07-25] MEDS: ZINC SULFATE 220 MG CAPSULE GT SCH (09:40)
[2017-07-25] MEDS: VORICONAZOLE 200 MG TABLET PO SCH (09:40)
[2017-07-25] MEDS: LORATADINE 10 MG TABLET GT SCH (09:40)
[2017-07-25] MEDS: PANTOPRAZOLE 40 MG/PACK PACK GT SCH (09:40)
[2017-07-25] MEDS: Z GUARD REMEDY 2 OZ OINT TP SCH (09:41)
[2017-07-25] MEDS: CHOLECALCIFEROL 1,000 UNIT TABLET (VIT D3) GT SCH (09:41)
[2017-07-25] MEDS: HYDROGEL DRESSING 90 GM TUBE TP SCH ×2 (09:42→20:38)
[2017-07-25] MEDS: MUPIROCIN OINT 2% 22 GM TUBE SCH ×2 (09:42→20:38)
[2017-07-25] MEDS: PROSOURCE / PROSTAT (PYXIS) 30 ML UDC GT SCH ×2 (09:42→20:36)
[2017-07-25] MEDS: LACTOBACILLUS RHAMNOSUS GG 1 EACH CAP.SPRINK GT SCH ×2 (09:44→16:07)
[2017-07-25 12:00] VITALS: BP 110/66
[2017-07-25] MEDS ORDERED: VANCOMYCIN 0.75 GM in IV D5W 250 ML IV SCH (15:30)
[2017-07-25] MEDS: GLUCERNA 1.2 1,000 ML BOTTLE GT PRN (15:46)
[2017-07-25 16:00] VITALS: BP 118/67
--- NOTE | 2017-07-25 19:25 | NUR ---
BILINGUAL CUSTOMER SERVICE SPECIALIST NOTE: PATIENT IN BED, AWAKE, OPEN HIS EYES SPONTANEOUSLY. ON VENT-TRACH DEPENDENT SATURATING 100%. ON SHOPPING INVESTIGATOR, SR HR= 95. ON GT FEEDING OF GLUCERNA 1.2 @55CC/HR TOLERATING WELL. NO RESIDUAL NOTED. ON RIZVI CATHETER W/ DARK URINE DRAINING TO GRAVITY. PATIENT IS COOPERATIVE WITHIN THE SHIFT. HOB ELEVATED. BED ALARMED AND LOCKED AT ALL TIMES. CALL LIGHT WITHIN REACH. ON CONTACT ISOLATION FOR MRSA NARES. REPORT GIVEN TO PM SHIFT NURSE FOR CONTINUITY OF CARE.
--- NOTE | 2017-07-25 19:30 | NUR ---
LEATHER SPONGER INITIAL NOTE PT RECEIVED ASLEEP IN AND EASILY AROUSABLE TO NAME. ON MECH VENT WITH SETTINGS WELL TOLERATED. HOB ELEVATED AND ON ASPIRATION PRECAUTIONS. ISOLATION PRECAUTIONS OBSERVED. NO FACIAL GRIMACE OR DISCOMFORT NOTED. IV R PINKY #22 CLEAN, DRY AND FLUSHING WELL. GTF WELL TOLERATED WITHOUT RESIDUALS NOTED. RIZVI CATHETER IN PLACE AND DRAINING BY GRAVITY. WILL CONTINUE TO MONITOR.
[2017-07-25 20:00] VITALS: BP 99/63
[2017-07-25] MEDS: MICAFUNGIN SODIUM 100 MG in IV NS 0.9% 100 ML IV SCH (20:37)
[2017-07-25] MEDS: VANCOMYCIN 0.75 GM in IV NS 0.9% 250 ML IV SCH (22:08)
[2017-07-26] VITALS: BP 103/67
[2017-07-26] MEDS: BLOOD SUGAR DIAGNOSTIC 1 EACH STRIP IN SCH ×4 (00:03→17:20)
[2017-07-26] MEDS: MEROPENEM 1 G in IV NS 0.9% 100 ML IV SCH ×3 (00:04→16:26)
[2017-07-26] MEDS: ALBUTEROL HALF STRENGTH 1.25 MG/3 ML VIAL.NEB NEB SCH ×6 (03:17→23:44)
[2017-07-26] MEDS: IPRATROPIUM NEB FS 0.5 MG/2.5 ML AMPUL.NEB NEB SCH ×6 (03:17→23:44)
[2017-07-26 04:00] VITALS: BP 110/69
[2017-07-26 06:32] LABS: BASOPHILS # (AUTO) 0.1 /CMM (0.0-0.2); BASOPHILS % (AUTO) 0.8 % (0.0-2.0); EOSINOPHILS % (AUTO) 12.5 % (0.0-6.0); HEMATOCRIT 29 % (39-51); HEMOGLOBIN 9.6 g/dL (13.5-17.5); LYMPHOCYTES # (AUTO) 3.1 /CMM (0.8-4.8); LYMPHOCYTES % (AUTO) 26.3 % (20.0-44.0); MEAN CORPUSCULAR HGB CONC 33 g/dl (31.0-36.0); MEAN CORPUSCULAR VOLUME 83 fL (80-96); MONOCYTES # (AUTO) 0.6 /CMM (0.1-1.30); MONOCYTES % (AUTO) 5.1 % (2.0-12.0); NEUTROPHILS # (AUTO) 6.6 /CMM (1.8-8.9); NEUTROPHILS % (AUTO) 55.3 % (43.0-81.0); PLATELET COUNT (AUTO) 320 /CMM (150-450); RDW COEFFICIENT OF VARIATION 20.8 (11.5-15.0); RED BLOOD CELL COUNT(AUTO) 3.55 MIL/uL (4.5-6.0)
--- NOTE | 2017-07-26 06:47 | NUR ---
LEAD APPLICATION ARCHITECT CLOSING NOTE PT REMAINED STABLE DURING SHIFT. NO ACUTE DISTRESS NOTED. [facility] WELL TOLERATED. ISOLATION PRECAUTIONS OBSERVED. ALL NEEDS ATTENDED TO PROMPTLY. KEPT CLEAN AND DRY. REPOSITIONED Q2H. SUCTIONED NEEDED. HOB ELEVATED. WILL ENDORSE TO NEXT SHIFT FOR CONTINUITY OF CARE.
[2017-07-26 07:12] LABS: CALCIUM, SERUM 9.7 mg/dL (8.5-10.1); CARBON DIOXIDE 26 mmol/L (21-32); CHLORIDE 105 mmol/L (98-107); GLUCOSE 100 mg/dL (74-106); SODIUM SERUM 141 mmol/L (136-145); UREA NITROGEN, BLOOD 36 mg/dL (7-18)
--- NOTE | 2017-07-26 07:35 | NUR ---
RN NOTE RECEIVED PATIENT IN BED. ALERT AND ORIENTED X 1-2, NON VERBAL BUT IS ABLE TO MOUTH HIS NEEDS, ON VENT/TRACH SETTING ORDERED AND SATURATING WELL. NO DISCOMFORT OR DISTRESS NOTED. ON AFFIRMATIVE ACTION SPECIALIST SINUS RHYTHM HR OF 94, NO SIGNS OF PAIN NOTED. IV ACCESS ON RIGHT PINKY INTACT AND PATENT. HEAD OF BED ELEVATED WITH ONGOING TUBE FEEDING AND WITH NO RESIDUAL NOTED. RIZVI CATH WITH ADEQUATE FLOW OF URINE. BED LOW AND LOCKED POSITION. ISOLATION PRECAUTION OBSERVED AND DONE. PLACED CALL LIGHT WITHIN REACH. WILL CONTINUE TO MONITOR
[2017-07-26 08:00] VITALS: BP_SYST 110; BP_SYST 113; BP_DIAS 64; BP_DIAS 74
[2017-07-26] MEDS: MULTIVITAMINS,THERAGRAN 1 UDTAB TABLET PO SCH (08:37)
[2017-07-26] MEDS: FERROUS SULFATE (325 MG) 325 MG/TAB TABLET GT SCH ×2 (08:37→20:13)
[2017-07-26] MEDS: LORATADINE 10 MG TABLET GT SCH (08:37)
[2017-07-26] MEDS: PANTOPRAZOLE 40 MG/PACK PACK GT SCH (08:37)
[2017-07-26] MEDS: CHOLECALCIFEROL 1,000 UNIT TABLET (VIT D3) GT SCH (08:37)
[2017-07-26] MEDS: ZINC SULFATE 220 MG CAPSULE GT SCH (08:37)
[2017-07-26] MEDS: ASCORBIC ACID 500 MG TABLET PO SCH (08:37)
[2017-07-26] MEDS: LACTOBACILLUS RHAMNOSUS GG 1 EACH CAP.SPRINK GT SCH ×2 (08:37→16:27)
[2017-07-26] MEDS: MUPIROCIN OINT 2% 22 GM TUBE SCH ×2 (08:38→20:16)
[2017-07-26] MEDS: METOPROLOL TARTRATE 25 MG TABLET PO SCH ×2 (08:38→20:14)
[2017-07-26] MEDS: MIDODRINE HCL (5MG) 5 MG TABLET PO SCH ×3 (08:38→16:27)
[2017-07-26] MEDS: HYDROGEL DRESSING 90 GM TUBE TP SCH ×2 (08:39→20:15)
[2017-07-26] MEDS: Z GUARD REMEDY 2 OZ OINT TP SCH (08:39)
[2017-07-26] MEDS: GLUCERNA 1.2 1,000 ML BOTTLE GT PRN (08:46)
[2017-07-26] MEDS: PROSOURCE / PROSTAT (PYXIS) 30 ML UDC GT SCH ×2 (08:47→20:17)
[2017-07-26 12:00] VITALS: BP 108/66
[2017-07-26 16:00] VITALS: BP 109/79
--- NOTE | 2017-07-26 19:06 | NUR ---
RN NOTE PATIENT REMAINED STABLE THROUGHOUT SHIFT. NO ACUTE CHANGES OR DISTRESS NOTED. WILL ENDORSE TO NEXT SHIFT TO CONTINUE CONTINUITY OF CARE
[2017-07-26 20:00] VITALS: BP 120/78
[2017-07-26] MEDS: MICAFUNGIN SODIUM 100 MG in IV NS 0.9% 100 ML IV SCH (20:12)
[2017-07-27] VITALS: BP 102/67
[2017-07-27] MEDS: BLOOD SUGAR DIAGNOSTIC 1 EACH STRIP IN SCH ×4 (00:21→17:50)
[2017-07-27] MEDS: MEROPENEM 1 G in IV NS 0.9% 100 ML IV SCH ×3 (00:21→16:43)
[2017-07-27] MEDS: HYDROCODONE/APAP 5/325MG 1 EACH TABLET GT PRN (01:05)
[2017-07-27] MEDS: ALBUTEROL HALF STRENGTH 1.25 MG/3 ML VIAL.NEB NEB SCH ×4 (03:21→15:51)
[2017-07-27] MEDS: IPRATROPIUM NEB FS 0.5 MG/2.5 ML AMPUL.NEB NEB SCH ×4 (03:21→15:51)
[2017-07-27 04:00] VITALS: BP 133/64
[2017-07-27] MEDS: GLUCERNA 1.2 1,000 ML BOTTLE GT PRN (04:08)
--- NOTE | 2017-07-27 06:27 | NUR ---
RN NOTE NO CHANGES ON MY SHIFT, NO RESPIRATORY DISTRESS NOTED, TOLERATED MECHANICAL VENTILATOR SETTING WELL, NO PAIN OR DISCOMFORT NOTED, TOLERATED G-TUBE FEEDING WELL, IV SITE IS INTACT, NO S/S OF INFECTION/INFILTRATION NOTED, SR ON THE MONITOR, TURNED AND REPOSITIONED Q 2 HOURS, WOUND CARE PROVIDED ORDERED, RIZVI CATH IS INTACT, DRAINS URINE WELL, ALL SAFETY MEASURES TAKEN, CALL LIGHT WITHIN REACH, BED IN THE LOWEST POSITION, BELONGINGS WITHIN REACH, WILL ENDORSE TO AM SHIFT FOR CESAR
--- NOTE | 2017-07-27 07:35 | NUR ---
RN NOTE RECEIVED PATIENT IN BED. ALERT AND ORIENTED X 1-2, NON VERBAL BUT IS ABLE TO MOUTH HIS NEEDS, ON VENT/TRACH SETTING ORDERED AND SATURATING WELL. NO DISCOMFORT OR DISTRESS NOTED. ON AUDIOPROSTHOLOGIST SINUS RHYTHM HR OF 81, NO SIGNS OF PAIN NOTED. IV ACCESS ON RIGHT PINKY INTACT AND PATENT. HEAD OF BED ELEVATED WITH ONGOING TUBE FEEDING AND WITH NO RESIDUAL NOTED. RIZVI CATH WITH ADEQUATE FLOW OF URINE. BED LOW AND LOCKED POSITION. ISOLATION PRECAUTION OBSERVED AND DONE. PLACED CALL LIGHT WITHIN REACH. WILL CONTINUE TO MONITOR
[2017-07-27 08:00] VITALS: BP 121/70
[2017-07-27] MEDS: PROSOURCE / PROSTAT (PYXIS) 30 ML UDC GT SCH (08:27)
[2017-07-27] MEDS: FERROUS SULFATE (325 MG) 325 MG/TAB TABLET GT SCH (08:28)
[2017-07-27] MEDS: PANTOPRAZOLE 40 MG/PACK PACK GT SCH (08:28)
[2017-07-27] MEDS: LACTOBACILLUS RHAMNOSUS GG 1 EACH CAP.SPRINK GT SCH ×2 (08:28→16:44)
[2017-07-27] MEDS: ASCORBIC ACID 500 MG TABLET PO SCH (08:28)
[2017-07-27] MEDS: LORATADINE 10 MG TABLET GT SCH (08:28)
[2017-07-27] MEDS: MIDODRINE HCL (5MG) 5 MG TABLET PO SCH ×3 (08:29→16:43)
[2017-07-27] MEDS: METOPROLOL TARTRATE 25 MG TABLET PO SCH (08:29)
[2017-07-27] MEDS: MULTIVITAMINS,THERAGRAN 1 UDTAB TABLET PO SCH (08:29)
[2017-07-27] MEDS: HYDROGEL DRESSING 90 GM TUBE TP SCH (08:29)
[2017-07-27] MEDS: ZINC SULFATE 220 MG CAPSULE GT SCH (08:29)
[2017-07-27] MEDS: CHOLECALCIFEROL 1,000 UNIT TABLET (VIT D3) GT SCH (08:29)
[2017-07-27] MEDS: MUPIROCIN OINT 2% 22 GM TUBE SCH (08:30)
[2017-07-27] MEDS: Z GUARD REMEDY 2 OZ OINT TP SCH (08:30)
[2017-07-27] MEDS: VANCOMYCIN 0.75 GM in IV NS 0.9% 250 ML IV SCH (09:42)
[2017-07-27 12:00] VITALS: BP 114/65
[2017-07-27 12:39] LABS: CALCIUM, SERUM 9.5 mg/dL (8.5-10.1); CARBON DIOXIDE 29 mmol/L (21-32); CHLORIDE 103 mmol/L (98-107); GLUCOSE 92 mg/dL (74-106); POTASSIUM 4.9 mmol/L (3.5-5.1); SODIUM SERUM 138 mmol/L (136-145); UREA NITROGEN, BLOOD 31 mg/dL (7-18)
--- NOTE | 2017-07-27 14:40 | NUR ---
RN NOTE SPOKE TO DR FUNEZ HE STATED TO CONTINUE ALL MEDICATIONS TO THE [facility] AND TO [facility]. CALLED AND FAXED MEDICATION LIST TO MOLINA FROM [facility].
[2017-07-27 16:00] VITALS: BP 129/74
[2017-07-27 16:43] VITALS: BP 97/58
--- NOTE | 2017-07-27 18:50 | NUR ---
RN NOTE 72 YEAR OLD MALE DISCHARGED TO SNF IN STABLE CONDITION. COMPLIANT WITH MEDICATIONS, COOPERATIVE WITH TREATMENT PLANS. MEDICAL TREATMENT PLANS DEFERRED FOR CONTINUAL MONITORING. EDUCATED PATIENT ABOUT AFTER CARE PLAN AND COPIES PROVIDED. RETURNED PERSONAL BELONGINGS TO PATIENT. MEDICATIONS RECONCILED, REPORT GIVEN TO MARCIE AT ALL [facility] CARE FOR CONTINUITY OF CARE. PATIENT UNABLE TO SIGN PAPERWORK BUT SECONDARY RN SIGNED AND COPIES DONE. WOUND PICTURES TAKEN AND DOCUMENTED IN CHART. PATIENT LEFT THE UNIT AT 1850 VIA AMBULANCE
== END 2017-07-27 19:15 | DRG 853 ==
LOC: ER 23:49 → TELE-TD 07-08 04:03 → TELE1 07-08 09:05 → ICU 07-08 23:11 → TELE-TD 07-12 02:01 → TELE1 07-12 11:27
PROVIDERS: ADMIT Internal Medicine; ATTEND Internal Medicine
PROC: 5A1955Z Respiratory Ventilation, Greater than 96 Consecutive Hours (ICD-10-PCS; principal; 2017-07-08)
PROC: 30233N1 Transfusion of Nonautologous Red Blood Cells into Peripheral Vein, Percutaneous Approach (ICD-10-PCS; 2017-07-10)
PROC: 0KBP0ZZ Excision of Left Hip Muscle, Open Approach (ICD-10-PCS; 2017-07-11)
PROC: 0KBN0ZZ Excision of Right Hip Muscle, Open Approach (ICD-10-PCS; 2017-07-11)
DX: A41.9 Sepsis, unspecified organism (principal); E43 Unspecified severe protein-calorie malnutrition; J95.851 Ventilator associated pneumonia; G93.40 Encephalopathy, unspecified; Z99.11 Dependence on respirator [ventilator] status; J96.11 Chronic respiratory failure with hypoxia; J96.12 Chronic respiratory failure with hypercapnia; L89.154 Pressure ulcer of sacral region, stage 4; R53.2 Functional quadriplegia; J44.0 Chronic obstructive pulmonary disease with (acute) lower respiratory infection; R64 Cachexia; R04.2 Hemoptysis; Z93.0 Tracheostomy status; E86.0 Dehydration; Z93.1 Gastrostomy status; D63.8 Anemia in other chronic diseases classified elsewhere; Z86.74 Personal history of sudden cardiac arrest; Z87.891 Personal history of nicotine dependence; Z90.2 Acquired absence of lung [part of]; I10 Essential (primary) hypertension; E11.9 Type 2 diabetes mellitus without complications; J20.9 Acute bronchitis, unspecified; Z68.21 Body mass index [BMI] 21.0-21.9, adult; Z22.322 Carrier or suspected carrier of Methicillin resistant Staphylococcus aureus; S91.301A Unspecified open wound, right foot, initial encounter; X58.XXXA Exposure to other specified factors, initial encounter; Y93.9 Activity, unspecified; Y92.89 Other specified places as the place of occurrence of the external cause; K59.00 Constipation, unspecified; R13.10 Dysphagia, unspecified; B96.1 Klebsiella pneumoniae [K. pneumoniae] as the cause of diseases classified elsewhere; B95.2 Enterococcus as the cause of diseases classified elsewhere; Z16.12 Extended spectrum beta lactamase (ESBL) resistance; Y84.8 Other medical procedures as the cause of abnormal reaction of the patient, or of later complication, without mention of misadventure at the time of the procedure; Z86.73 Personal history of transient ischemic attack (TIA), and cerebral infarction without residual deficits; Z86.19 Personal history of other infectious and parasitic diseases; Z74.01 Bed confinement status
CPT/HCPCS: 31720; 36415; 36600; 71045-TC; 80048-TC; 80053-TC; 80076-TC; 80202-TC; 81000-TC; 82272-TC; 82803-TC; 82962-TC; 83605-TC; 83735-TC; 84100-TC; 84484-TC; 85025-TC; 85652-TC; 85730-TC; 86140-TC; 86850-TC; 86921-TC; 87040-TC; 87070-TC; 87081-TC; 87086-TC; 87186-TC; 93307-TC; 94002-TC; 94003-TC; 94760-TC; 94762-TC; 99082-TC; A4349; A4606; A6248; A6253; A6402; A6403; A7526; C1751; J0692; J0770; J1815; J2185; J2248; J2405; J2543; J3370; J3490; J7030; J7040; J7050; J7060; P9016-BL; Z7610

== ENCOUNTER 2017-08-02 21:53 | Inpatient (IN) | payer MEDICARE, MEDICAID ==
[~2017-08-02] VITALS: Ht 165.1 cm; Wt 55.3 kg
[~2017-08-02 21:53] MED LIST changes: -ACID1TAB12 GT; -ALBU18HF2 IH; +AMIN30LI4 GT; +ASCO500T9 GT; -ASPI-605 GT; -BETH25TA10 GT; -CA C1TAB70 GT; +CALC-494 GT; +CHOL100044 GT; -CHOL4PAC9 PO; +FERR325T23 GT; -FLUT16SP2 NS; -FLUT1DIS28 IH; +HYDR-552 GT; +LACT1CAP94 GT; +LOPE2CAP GT; +LORA10TA7 GT; -MAGN400O6 GT; -MEGE400O GT; -MIDO10TA6 GT; +MIDO2.5T GT; -MULT1TAB11 GT; +NUTR250L61 GT; -PANT40SU GT; +PANT40SU2 GT; -SODI650T GT; -TAMS-12 GT; +ZINC220C8 GT; -[UNRECOGNIZED DRUG - CODE] PO
--- NOTE | 2017-08-02 21:53 | NUR ---
"SOB WITH 88% ON VENT/FROTHY SPUTUM" PLACED ON VENT WITH SETTINGS 16 400 5 AND 40%. WITH TRACH TUBE 6 CUFFED SHILEY. VSS NAD ABLE TO RESPOND AND MOUTH WORDS IN RESPONSE. WILL CONTINUE TO MONITOR FOR ANY CHANGES. FAMILY AT BEDSIDE
[2017-08-02] MEDS ORDERED: LEVOFLOXACIN 750 MG /D5W 150ML 150 ML IV ONE ×2 (22:30→23:40)
[2017-08-02] MEDS ORDERED: VANCOMYCIN 1 GM in IV D5W 250 ML IV ONE (22:30)
[2017-08-02] MEDS ORDERED: CEFTRIAXONE 1GM BAG (ER ONLY) 50 ML IV ONE (22:30)
[2017-08-02] MEDS ORDERED: IV NS 0.9% 1,000 ML BAG IV ONE (22:30)
[2017-08-02] MEDS ORDERED: ALBUTEROL FS 2.5 MG/3 ML VIAL.NEB CONTNEB ONE (22:30)
[2017-08-02] MEDS ORDERED: CEFTRIAXONE 1 G VIAL ONE (22:37)
[2017-08-02 22:40] LABS: BASOPHILS # (AUTO) 0.1 /CMM (0.0-0.2); BASOPHILS % (AUTO) 0.3 % (0.0-2.0); HEMATOCRIT 30 % (39-51); HEMOGLOBIN 9.9 g/dL (13.5-17.5); LYMPHOCYTES # (AUTO) 3.6 /CMM (0.8-4.8); LYMPHOCYTES % (AUTO) 22.4 % (20.0-44.0); MEAN CORPUSCULAR HGB CONC 33 g/dl (31.0-36.0); MEAN CORPUSCULAR VOLUME 81 fL (80-96); MONOCYTES # (AUTO) 0.8 /CMM (0.1-1.30); NEUTROPHILS # (AUTO) 10.4 /CMM (1.8-8.9); NEUTROPHILS % (AUTO) 64.3 % (43.0-81.0); PLATELET COUNT (AUTO) 377 /CMM (150-450); RDW COEFFICIENT OF VARIATION 20.6 (11.5-15.0); RED BLOOD CELL COUNT(AUTO) 3.67 MIL/uL (4.5-6.0); WHITE BLOOD COUNT (AUTO) 16.2 K/uL (4.3-11.0)
[2017-08-02] MEDS ORDERED: ALBUTEROL FS 2.5 MG/3 ML VIAL.NEB ONE (22:49)
[2017-08-02 22:50] LABS: CALCIUM, SERUM 9.5 mg/dL (8.5-10.1); CARBON DIOXIDE 27 mmol/L (21-32); CHLORIDE 98 mmol/L (98-107); GLUCOSE 97 mg/dL (74-106); POTASSIUM 4.4 mmol/L (3.5-5.1); SODIUM SERUM 134 mmol/L (136-145); UREA NITROGEN, BLOOD 26 mg/dL (7-18)
[2017-08-02 22:58] LABS: TROPONIN I < 0.017 ng/mL (0.00-0.056)
[2017-08-02 23:05] LABS: ALANINE AMINOTRANSFERASE 20 U/L (12-78); ALBUMIN 2.5 g/dL (3.4-5.0); ALKALINE PHOSPHATASE 99 U/L (46-116); ASPARTATE AMINOTRANSFERASE 24 U/L (15-37); B-TYPE NATRIURETIC PEPTIDE 197 PG/ML (0-125); BILIRUBIN,DIRECT 0.1 mg/dL (0.0-0.2); BILIRUBIN,TOTAL 0.3 mg/dL (0.2-1.0)
[2017-08-02] MEDS ORDERED: VANCOMYCIN 1 GM VIAL ONE (23:12)
--- NOTE | 2017-08-02 23:38 | NUR ---
CALLED [employer] STRUCTURAL STEEL PAINTER WAS PAGED.
--- NOTE | 2017-08-02 23:38 | NUR ---
RESP AT BED SIDE FOR ABG/SPUTUM CULTURE
[2017-08-02 23:44] LABS: ABG BASE EXCESS 0.2 mmol/L; ABG OXYGEN SATURATION 97.3 % (92.0-98.5); ABG PH 7.418 (7.350-7.450); ABG PO2 119.7 mmHg (75.0-100.0); AaDO2 120.7 mmHg; COHb 0.3 % (0.5-1.5); MetHb 0.4 % (0.0-1.5); O2Hb 96.6 % (94.0-97.0); PEEP,BG 5 cm H2O; SITE, ABG Left Radial; VT, ABG 400 mL
[2017-08-03] MEDS ORDERED: MAGNESIUM HYDROXIDE 30 ML UDC PO PRN (00:30)
[2017-08-03] MEDS ORDERED: Z GUARD REMEDY 2 OZ OINT TP PRN (00:30)
[2017-08-03] MEDS ORDERED: ENOXAPARIN SODIUM 40 MG/0.4 ML DISP.SYRIN SQ SCH (00:30)
[2017-08-03] MEDS ORDERED: IPRATROPIUM NEB FS 0.5 MG/2.5 ML AMPUL.NEB NEB PRN (00:30)
[2017-08-03] MEDS ORDERED: ENOXAPARIN SODIUM 60 MG/0.6 ML DISP.SYRIN SQ ONE ×2 (00:30→00:31)
[2017-08-03] MEDS ORDERED: MAG HYDROX/AL HYDROX/SIMETH 30 ML UDC PO PRN (00:30)
[2017-08-03] MEDS ORDERED: MISCELLANEOUS MED 1 EA EA XX ONE (00:30)
[2017-08-03] MEDS ORDERED: NUTRITIONAL SUPPLEMENT/FIBER 250 ML CAN GT SCH (00:30)
[2017-08-03] MEDS ORDERED: ONDANSETRON HCL/PF 4 MG/2 ML VIAL IVP PRN (00:30)
[2017-08-03] MEDS ORDERED: ALBUTEROL FS 2.5 MG/0.5 ML VIAL.NEB NEB PRN (00:30)
[2017-08-03] MEDS ORDERED: ZOLPIDEM TARTRATE 5 MG TABLET PO PRN (00:30)
[2017-08-03] MEDS ORDERED: HYDROCODONE/APAP 10/325MG 1 EA TABLET PO PRN (00:30)
[2017-08-03] MEDS ORDERED: HYDROCODONE/APAP 5/325MG 1 EACH TABLET PO PRN (00:30)
[2017-08-03] MEDS ORDERED: ONDANSETRON HCL/PF 4 MG/2 ML VIAL ONE (00:34)
[2017-08-03 00:50] VITALS: BP 117/71
--- NOTE | 2017-08-03 00:50 | NUR ---
APRON CLEANER OPENING NOTES: RECEIVED PT FROM ED. DAUGHTER AND SON AT BEDSIDE. PT ON MECHANICAL VENT AND SETTINGS ARE TV 400, FI02 40%, PEEP 5, AND IS ON TRACH CUFFED SHILEY #6. PT IS A/OX2-3. ABLE TO MAKE NEEDS KNOWN BY GESTURES ALTHOUGH PT IS NON-VERBAL. PT TO BE PLACED ON TELE BOX. PT HAS G TUBE AND HAS BEEN FLUSHED. PT HAS IV ON R FOOT #20G AND IS PATENT AND INTACT. PT ALSO HAS IV ON R HAND #20G AND IS PATENT AND INTACT. CALL LIGHT WITHIN PT'S REACH. BED KEPT IN LOW, LOCKED POSITION, AND SIDE RAILS X 2UP. WILL CONTINUE TO MONITOR PT.
[2017-08-03] MEDS ORDERED: PIPERACILLIN /TAZOBACTAM 3.375 G VIAL IV ONE ×2 (00:53→05:38)
[2017-08-03] MEDS: PIPERACILLIN /TAZOBACTAM 3.375 G in IV NS 0.9% 100 ML IV SCH ×4 (01:27→17:52)
[2017-08-03] MEDS: IV NS 0.9% 1,000 ML IV PRN ×2 (01:28→18:28)
[2017-08-03 01:42] VITALS: BP 117/71
--- NOTE | 2017-08-03 01:43 | NUR ---
PORTABLE SAWYER NOTES: LOVENOX 60 WAS ALREADY GIVEN AT ER. BEFORE PT ARRIVED AT FLOOR, I HAD ASKED DR. TOLENTINO IF LOVENOX 60 OR LOVENOX 40 WAS TO BE GIVEN. HE SAID LOVENOX 40 ONLY. HOWEVER, ER ALREADY GAVE LOVENOX 60. CHARGE NURSE AWARE WELL.
[2017-08-03] MEDS: JEVITY 1.2 CAL 1,000 ML BOTTLE GT PRN (02:51)
[2017-08-03 04:00] VITALS: BP 109/76
--- NOTE | 2017-08-03 05:53 | NUR ---
VETERINARY PATHOLOGIST NOTES: HAD TO MANUALLY ADMINISTER ZOSYN IT WAS OVERRODE BY CHARGE NURSE.
--- NOTE | 2017-08-03 06:47 | NUR ---
ARCHITECTURAL DESIGNER CLOSING NOTES: ALL NEEDS WERE ATTENDED AND ANTICIPATED FOR. PT ON MECHANICAL VENT AND SETTINGS REMAIN THE SAME. PT IS AWAKE AND IS IN HIGH MARTINEZ'S POSITION. PT IS ALERT AND ABLE TO MOUTH AND RESPOND TO QUESTIONS. PT ON IV FLUIDS AND IS ON NS AT 75ML/HR. CALL LIGHT WITHIN PT'S REACH. PT ON G TUBE JEVITY FEEDING AND IS AT THE RATE OF 35ML/HR. PT ON TELE BOX AND READING SHOWS SR-ST. BED KEPT IN LOW, LOCKED POSITION, AND SIDE RAILS X 2UP. WILL ENDORSE TO AM NURSE FOR CESAR.
[2017-08-03 08:00] VITALS: BP 107/64
--- NOTE | 2017-08-03 08:05 | NUR ---
ms rn received on bed, awake,alert,oriented x2,a vent dependent patient,g tube feeding ,tolerated well at 35ml/hr.lungs have ronchis, abdomen soft,positive bowel sounds w/ no residual noted w/ g tube feeding, denies pain at this time.all needs attended.
[2017-08-03] MEDS ORDERED: FEE PK DOSING 1 MIN EA MC ONE (08:29)
[2017-08-03] MEDS ORDERED: FERROUS SULFATE (325 MG) 325 MG/TAB TABLET GT SCH (09:00)
--- NOTE | 2017-08-03 09:10 | NUR ---
ms rn due medreddy gicvmiguel a,via g tube, all needs attended.
[2017-08-03] MEDS: ASCORBIC ACID 500 MG TABLET PO SCH (09:26)
[2017-08-03] MEDS: PANTOPRAZOLE 40 MG TABLET.DR PO SCH (09:26)
[2017-08-03] MEDS: CHOLECALCIFEROL 1,000 UNIT TABLET (VIT D3) GT SCH (09:26)
[2017-08-03] MEDS: ZINC SULFATE 220 MG CAPSULE GT SCH (09:26)
--- NOTE | 2017-08-03 09:30 | NUR ---
ms rn was seen by dr. lawrence,no order at this time.
[2017-08-03] MEDS: VANCOMYCIN 0.75 GM in IV D5W 250 ML IV SCH ×2 (13:30→22:03)
[2017-08-03 16:00] VITALS: BP 104/71
--- NOTE | 2017-08-03 17:36 | NUR ---
PATIENT RECEIVED TRACHED ON MECHANICAL VENTILATION. VENT PLUGGED INTO RED OUTLET. AMBU BAG @ HOB. SUCTION DONE, T/O SHIFT. MODERATE THICK YELLOW SECRETIONS NOTED. ALARMS ON AND AUDIBLE. NO SOB NOTED T/O SHIFT. MONITORED CLOSELY. Addendum: 08/03/17 at 1739 by JANNA MENDOZA RT Amended: Links added.
--- NOTE | 2017-08-03 18:41 | NUR ---
ms rn on bed, no change of condition.
--- NOTE | 2017-08-03 19:30 | NUR ---
POSITION DESCRIPTION MANAGER OPENING NOTES RECEIVED PT SITTING UPRIGHT IN BED. PT IS AWAKE AND RESPONSIVE. PT IS CURRENTLY ON VENT, TOLERATING WELL. NOT IN ANY ACUTE DISTRESS NOTED. NO FACIAL GRIMACING NOTED. IV SITE INTACT, NO INFILTRATION NOTED. DRESSING KEPT CLEAN AND DRY. GT IN PLACE, NO RESIDUAL NOTED. TOLERATING GT FEEDING. SAFETY MEASURES ARE IN PLACE. CALL LIGHT IS LEFT WITHIN REACH. WILL MONITOR PT THROUGHOUT SHIFT.
[2017-08-03 20:00] VITALS: BP 122/64
[2017-08-03] MEDS: ENOXAPARIN SODIUM 40 MG/0.4 ML DISP.SYRIN SQ SCH (21:00)
[2017-08-03] MEDS: FERROUS SULFATE UDC 300 MG/5 ML UDC GT SCH (22:03)
[2017-08-04] VITALS: BP 138/72
[2017-08-04] MEDS: PIPERACILLIN /TAZOBACTAM 3.375 G in IV NS 0.9% 100 ML IV SCH ×5 (00:02→23:51)
--- NOTE | 2017-08-04 00:15 | NUR ---
tele/rn notes received endorsement for johnathan from natasha Alvarado,
[2017-08-04] MEDS: VANCOMYCIN 500 MG in IV D5W 100 ML IV SCH (00:30)
--- NOTE | 2017-08-04 01:01 | NUR ---
PUBLICATIONS DESIGNER NOTES NOTIFIED DR. RANDA CARROLL RE: ADMINISTRATION OF LOVENOX AND ORDER TO WITHHOLD D/T WOUND DEBRIDEMENT IN AM. NO S/SX OF BLEEDING AT THIS TIME. WILL CONTINUE MONITOR.
--- NOTE | 2017-08-04 01:02 | NUR ---
SUPERVISOR INSULATION NOTES PT IS AWAKE AND RESPONSIVE. NOT IN ANY APPARENT DISTRESS AT THIS TIME. PT ASSIGNED TO HECTOR ORONA. REPORT GIVEN FOR CONTINUITY OF CARE.
[2017-08-04 04:00] VITALS: BP 134/70
--- NOTE | 2017-08-04 06:00 | NUR ---
VERBAL CONSENT OVER THE PHONE BY DAUGHTER GABRIEL, CONSENT FOR PROCEDURE SACRAL WOUND DEBRIDEMENT WITH WITNESS BY ANOTHER RN, JOURDAN.
--- NOTE | 2017-08-04 06:30 | NUR ---
TELE/RN NOTES PATIENT IN BED, HOB ELEVATE, ON VENT, WITH SETTINGS ORDERED, REQUIRE NEEDED SUCTION, SKINWARM TO TOUCH, REQUIRE EXTENSIVE ASSISTANCE, REPOSITION FOR COMFORT, WILL CONTINUE TO MONITOR. CALL LIGHTS WITHIN TEJA, BED IN LOCK POSIITON. WILL ENDORSE TO AM RN FOR
[2017-08-04 06:46] LABS: BASOPHILS # (AUTO) 0.1 /CMM (0.0-0.2); BASOPHILS % (AUTO) 0.6 % (0.0-2.0); HEMATOCRIT 26 % (39-51); HEMOGLOBIN 8.6 g/dL (13.5-17.5); LYMPHOCYTES # (AUTO) 2.8 /CMM (0.8-4.8); LYMPHOCYTES % (AUTO) 18.2 % (20.0-44.0); MEAN CORPUSCULAR HGB CONC 33 g/dl (31.0-36.0); MEAN CORPUSCULAR VOLUME 82 fL (80-96); MONOCYTES % (AUTO) 6.7 % (2.0-12.0); NEUTROPHILS # (AUTO) 10.3 /CMM (1.8-8.9); NEUTROPHILS % (AUTO) 66.5 % (43.0-81.0); PLATELET COUNT (AUTO) 290 /CMM (150-450); RDW COEFFICIENT OF VARIATION 20.9 (11.5-15.0); WHITE BLOOD COUNT (AUTO) 15.4 K/uL (4.3-11.0)
[2017-08-04 07:06] LABS: CARBON DIOXIDE 24 mmol/L (21-32); CHLORIDE 101 mmol/L (98-107); CREATININE 0.8 mg/dL (0.6-1.3); GLUCOSE 87 mg/dL (74-106); MAGNESIUM 1.9 mg/dL (1.8-2.4); PHOSPHORUS 2.7 mg/dL (2.5-4.9); POTASSIUM 3.7 mmol/L (3.5-5.1); SODIUM SERUM 134 mmol/L (136-145); UREA NITROGEN, BLOOD 10 mg/dL (7-18)
--- NOTE | 2017-08-04 07:36 | NUR ---
MERCHANDISING MANAGER NOTES PATIENT RECEIVED RESTING INSIDE ROOM, AWAKE, ALERT, NON-VERBAL BUT RESPONS BY NODDING/SHAKING HEAD AND HAND GESTURES. PATIENT ON VENT, NO SOB OR ACUTE DISTRESS NOTED. O2 SAT 95%. PATIENT CALM AND RELAXED. ABLE TO MAKE NEEDS KNOWN AND FOLLOW SIMPLE INSTRUCTIONS. VICE PRESIDENT OF MARKETING PRESENT AT UNIT TO DRAW BLOOD FOR LABS BUT PATIENT REFUSED. RISK AND BENEFITS EXPLAINED BUT TO NO AVAIL, OFFERED X 3 BUT PATIENT STRONGLY REFUSED. WILL CONTINUE TO MONITOR. MAINTAINED ISOLATION PRECAUTION. MAINTAINED ASPIRATION PRECAUTION, MAINTAINED HOB ELEVATION AT 45. BED LOCKED AND IN LOW POSITION. CALL LIGHT WITHIN EASY REACH
[2017-08-04 08:00] VITALS: BP 126/77
--- NOTE | 2017-08-04 08:34 | NUR ---
WOUND CARE CONSULT WOUND CARE RECEIVED CONSULT FOR SACRAL AREA OPEN AND RIGHT FOOT OPEN WOUND. WOUND CARE WILL DEFER CONSULT AND ALL TREATMENT PLANS TO SURGICAL TEAM THEY ARE CURRENTLY FOLLOWING. ALL PRESSURE ULCER PREVENTION MEASURES NOTED TO BE IN PLACE. PATIENT WITH CURRENT ADIN AT 12.
[2017-08-04] MEDS: ASCORBIC ACID 500 MG TABLET PO SCH (09:01)
[2017-08-04] MEDS: PANTOPRAZOLE 40 MG TABLET.DR PO SCH (09:01)
[2017-08-04] MEDS: ZINC SULFATE 220 MG CAPSULE GT SCH (09:01)
[2017-08-04] MEDS: CHOLECALCIFEROL 1,000 UNIT TABLET (VIT D3) GT SCH (09:01)
[2017-08-04] MEDS: FERROUS SULFATE UDC 300 MG/5 ML UDC GT SCH ×2 (09:01→21:07)
[2017-08-04 10:32] LABS: CHOLESTEROL 78 mg/dL (<200); HDL CHOLESTEROL 37 mg/dL (40-60); TRIGLYCERIDES 60 mg/dL (30-150)
[2017-08-04 10:33] LABS: LDL 30 mg/dL (0-99); THYROID STIMULATING HORMONE 1.883 uIU/mL (0.358-3.74)
[2017-08-04] MEDS: VANCOMYCIN 0.75 GM in IV D5W 250 ML IV SCH (11:00)
[2017-08-04] MEDS: IV NS 0.9% 1,000 ML IV PRN (11:25)
--- NOTE | 2017-08-04 12:05 | NUR ---
LAW REPORTER NOTES RECEIVED LAB RESULTS WITH VANCO TROUGH LEVEL OF 23. PHARAMCY MADE AWARE AND GAVE OK TO HOLD VANCOMYCIN ORDERED TO HOLE IF VANCO TROUGH >20. PATIENT MADE AWARE AND NODDED. MD AWARE. WILL CONTINUE TO MONITOR
[2017-08-04 12:20] LABS: IRON, SERUM 33 ug/dl (50-175); TOTAL IRON BINDING CAPACITY 166 ug/dl (250-450)
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
--- NOTE | 2017-08-04 15:51 | NUR ---
CHANNEL SPECIALIST NOTES PATIENT SEEN BY DR. GARCIA, DEBRIDEMENT DONE TO RIGHT FOOT. MINIMAL BLEEDING NOTED, NO FACIAL GRIMACE NOTED DURING PROCEDURE. SITE CLEANSED WITH NS, PATTED DRY AND COVERED WITH DRY DRESSING. WILL CONTINUE TO MONITOR
[2017-08-04] MEDS: LACTOBACILLUS RHAMNOSUS GG 1 EACH CAP.SPRINK GT SCH (16:40)
--- NOTE | 2017-08-04 16:58 | NUR ---
WINDOW FRAMER NOTES PATIENT SEEN AND EXAMINED BY DR. CLAROS, DEBRIDEMENT DONE TO SACRAL ULCER. NO FACIAL GRIMACE OR INDICATION OF PAIN DURING PROCEDURE. SITE CLEANSED, PATTED DRY AND COVERED WITH DRY DRESSING. WILL CONTINUE TO MONITOR
--- NOTE | 2017-08-04 17:22 | NUR ---
RT PATIENT RECEIVED TRACHED ON MECHANICAL VENTILATION. VENT PLUGGED INTO RED OUTLET. AMBU BAG @ HOB. SUCTION DONE, T/O SHIFT. MODERATE THICK YELLOW SECRETIONS NOTED. ALARMS ON AND AUDIBLE. NO SOB NOTED T/O SHIFT. MONITORED CLOSELY.
--- NOTE | 2017-08-04 19:14 | NUR ---
BRISTLE MACHINE OPERATOR NOTES PATIENT RESTING INSIDE ROOM, AWAKE, ALERT, RESPONDS TO VERBAL AND TACTILE STIMULI. PATIENT ABLE TO FOLLOW SIMPLE COMMANDS. PATIENT AFEBRILE, SKIN DRY AND WARM TO TOUCH. NO CHANGES IN LOC NOTED. CONTINUE WITH VENT. NO SOB OR ACUTE DISTRESS AT THIS TIME. PATIENT REMAINS CALM AND RELAXED. IV SITE INTACT AND PATENT, NO SWELLING OR BLEEDING NOTED. ENDORSED TO INCOMING SHIFT FOR CESAR. BED LOCKED AND IN LOW POSITION. BILATERAL UPPER SIDE RAILS UP AND LOCKED. DUE MEDICATIONS GIVEN AND TOLERATED WELL. MAINTAINED ASPIRATION PRECAUTION, MAINTAINED HOB ELEVATION AT 45. MAINTAINED ISOLATION PRECAUTION. CALL LIGHT WITHIN EASY REACH
[2017-08-04 19:28] VITALS: BP 157/73
[2017-08-04 20:00] VITALS: BP 141/76
--- NOTE | 2017-08-04 20:03 | NUR ---
RECIEVED MR. HILLS ALERT AND ORIENTATED. ANSWEREING SIMLE QUESTION APPRIOP. USING GESTORS AND HIS EYES. HE DOES SMILE AND IS COOPERATIVE AT THIS TIME. ON THE TELEMONITOR HE IS SR HR 98 ON THE VENT AND CONTACT ISOLATION D/T MRSA NARES. IV INFUSING RIGHT ANKLE SITE W/O SWELLING TUBE FEEDING RATE AT 35 ML AT THIS TIME NO RESIDUAL
[2017-08-04 20:46] VITALS: BP 141/76
[2017-08-04] MEDS: ENOXAPARIN SODIUM 40 MG/0.4 ML DISP.SYRIN SQ SCH (21:06)
[2017-08-05] VITALS: BP 130/67
[2017-08-05] MEDS ORDERED: VANCOMYCIN 1 GM VIAL ONE (00:32)
[2017-08-05] MEDS: JEVITY 1.2 CAL 1,000 ML BOTTLE GT PRN (01:56)
--- NOTE | 2017-08-05 02:00 | NUR ---
mr. rojas's vanco trought came back [place], late d/t difficulty getting blood to run the trough. Trough level at [place] was 15, order to give Vancomycin 500mg, given. Md Cross noted to give 1000mg after the 500 mg already infusing. Call made to MD Lo as what to do. He stated order a trough level for the AM 5/11 and we can decide on the dosage needed for the next dose.
[2017-08-05 04:00] VITALS: BP 112/72
[2017-08-05 04:44] VITALS: BP 112/72
--- NOTE | 2017-08-05 05:04 | NUR ---
CLOSING NOTES: MR. MARAINO WAS AWAKE MOST OF THE NIGHT WATCHING TV, UNTIL 4:30 am. GOOD ABOUT BEING REPOSITIONED. REMAINS NONVERBAL BUT COMMUNICATES WITH IS EYES AND GESTERS. ASP PRECAUTIONS THIS 12 HOURS CONTINUED. GT FEEDING RESIDUAL 5 ML RATE INCREASED TO 40 ML HR..
[2017-08-05] MEDS: PIPERACILLIN /TAZOBACTAM 3.375 G in IV NS 0.9% 100 ML IV SCH ×3 (05:47→17:01)
--- NOTE | 2017-08-05 07:30 | NUR ---
SECOND HELPER NOTES PATIENT RECEIVED RESTING INSIDE ROOM, AWAKE, ALERT, NON-VERBAL BUT ABLE TO NOD/SHAKE HIS HEAD AND MAKE GESTURES TO COMMUNICATE. CONTINUE ON VENT, NO SOB OR DISTRESS NOTED AT THIS TIME. ONGOING GTF AND TOLERATING WELL. GT REMAINS PATENT AND IN PLACE. MAINTAINED ASPIRATION PRECAUTION, MAINTAINED HOB ELEVATION AT 45. IV SITE INTACT AND PATENT, NO SWELLING OR BLEEDING AT THIS TIME. WILL CONTINUE TO MONITOR. BED LOCKED AND IN LOW POSITION. BILATERAL UPPER SIDE RAILS UP AND LOCKED. CALL LIGHT WITHIN EASY REACH
[2017-08-05 08:00] VITALS: BP 110/69
[2017-08-05] MEDS: FERROUS SULFATE UDC 300 MG/5 ML UDC GT SCH ×2 (08:46→21:48)
[2017-08-05] MEDS: LACTOBACILLUS RHAMNOSUS GG 1 EACH CAP.SPRINK GT SCH ×2 (08:47→17:01)
[2017-08-05] MEDS: ASCORBIC ACID 500 MG TABLET PO SCH (08:47)
[2017-08-05] MEDS: ZINC SULFATE 220 MG CAPSULE GT SCH (08:47)
[2017-08-05] MEDS: CHOLECALCIFEROL 1,000 UNIT TABLET (VIT D3) GT SCH (08:47)
[2017-08-05] MEDS: PANTOPRAZOLE 40 MG TABLET.DR PO SCH (08:47)
--- NOTE | 2017-08-05 09:00 | NUR ---
GENERAL CAR SUPERVISOR YARD NOTES DEPARTMENTAL SECRETARY CAME TO DRAW BLOOD FROM PATIENT FOR AM LABS BUT PATIENT REFUSED. RISK AND BENEFITS EXPLAINED BUT TO NO AVAIL. OFFERED X 3, PATIENT STRONGLY REFUSED. WILL CONTINUE TO MONITOR
[2017-08-05] MEDS: IV NS 0.9% 1,000 ML IV PRN (09:37)
--- NOTE | 2017-08-05 11:04 | NUR ---
CLERICAL RECEPTIONIST NOTES RECEIVED CALL FROM PHARMACY, SPOKE WITH OZZIE, REGARDING VANCOMYCIN. NOTIFIED THAT PATIENT HAS BEEN REFUSING BLOOD DRAW FROM LAB. VERIFIED VANCOMYCIN DOSE AND PER OZZIE, IF PATIENT STILL REFUSED BLOOD DRAW AT THIS TIME, OK TO GIVE VANCOMYCIN 500MG ORDERED. AWARE.
[2017-08-05 12:00] VITALS: BP 123/69
[2017-08-05] MEDS: VANCOMYCIN 500 MG in IV D5W 100 ML IV SCH ×2 (12:17→22:15)
[2017-08-05 16:00] VITALS: BP 152/84
[2017-08-05] MEDS: HYDROGEL DRESSING 90 GM TUBE TP SCH (17:01)
--- NOTE | 2017-08-05 18:27 | NUR ---
MS RN NOTES PATIENT RESTING INSIDE ROOM, AWAKE, ALERT, NON-VERBAL BUT ABLE TO NOD OR SHAKE HEAD AND ABLE TO MAKE GESTURES WHEN SPOKEN TO. ABLE TO FOLLOW INSTRUCTIONS. CONTINUE WITH VENTILATOR, SUCTIONED PRN. MAINTAINED ASPIRATION PRECAUTION, MAINTAINED HEAD ELEVATION AT 45. CONTINUE WITH GTF FIBERSOURCE 1.2, GT REMAINS PATENT AND IN PLACE. IV SITE INTACT AND PATENT, NO SWELLING OR BLEEDING NOTED. WOUND TX DONE ORDERED, KEPT SITES CLEAN, DRY AND COVERED. WILL ENDORSE TO INCOMING SHIFT FOR ECSAR. BED LOCKED AND IN LOW POSITION. BILATERAL UPPER SIDE RAILS UP AND LOCKED. CALL LIGHT WITHIN EASY REACH
--- NOTE | 2017-08-05 19:13 | NUR ---
RT NOTE: PATIENT RECEIVED ON MECHANICAL VENTILATION ON NOTED SETTINGS. TRACH IS PATENT AND WELL SECURED. FORMAT PROOFREADER DONE. VENT PLUGGED INTO RED OUTLET. ALARMS ARE AUDIBLE. AMBU BAG @ HOB. SUCTIONED MODERATE AMOUNT OF THICK WHITE YELLOW SECRETIONS. NO RESP DISTRESS NOTED. WILL CONT TO MONITOR PATIENT.
--- NOTE | 2017-08-05 19:50 | NUR ---
INBOUND SALES REPRESENTATIVE NOTE: PATIENT RESTING IN BED, NO ACUTE DISTRESS NOTED. BREATHING EVEN AND UNLABORED, NO SOB NOTED, VENT SETTING IN PLACE. TELE READING SR 60. IV TO RIGHT HAND IN PLACE, IV TO RIGHT FOOT IN PLACE, INFUSING NS AT 75ML/HR. G-TUBE IN PLACE, INFUSING JEVITY 1.2 AT 55 ML/HR, TO INCREASE TO GOAL OF 65 ML/HR, WITH 5 ML OF RESIDUAL. ISOLATION PRECAUTION OBSERVED. BED LOCKED AND IN LOWEST POSITION, CALL LIGHT IN REACH. WILL CONTINUE TO MONITOR.
[2017-08-05] MEDS: ENOXAPARIN SODIUM 40 MG/0.4 ML DISP.SYRIN SQ SCH (21:49)
--- NOTE | 2017-08-05 23:00 | NUR ---
LOCOMOTIVE LUBRICATING SYSTEMS CLERK NOTE: PATIENT REFUSED LAB DRAW EARLIER DURING DAY, CONTINUES TO REFUSE LAB DRAW THIS EVENING. TRIED TO EXPLAIN RISK AND BENEFITS, BUT CONTINUES TO REFUSE. WILL CONTINUE TO MONITOR.
[2017-08-06] VITALS: BP 119/65
[2017-08-06] MEDS: PIPERACILLIN /TAZOBACTAM 3.375 G in IV NS 0.9% 100 ML IV SCH ×2 (00:12→05:40)
[2017-08-06] MEDS: IV NS 0.9% 1,000 ML IV PRN (05:40)
[2017-08-06] MEDS: JEVITY 1.2 CAL 1,000 ML BOTTLE GT PRN ×2 (05:41→18:06)
--- NOTE | 2017-08-06 06:30 | NUR ---
SUPERINTENDENT DRILLING AND PRODUCTION NOTE: PATIENT RESTING IN BED, NO ACUTE DISTRESS NOTED. BREATHING EVEN AND UNLABORED, NO SOB NOTED, VENT SETTING IN PLACE. TELE READING SR 80. IV TO RIGHT HAND IN PLACE, IV TO RIGHT FOOT IN PLACE, INFUSING NS AT 75ML/HR. G-TUBE IN PLACE, INFUSING JEVITY 1.2 AT 65 ML/HR, WITH 5 ML OF RESIDUAL. G-TUBE FEEDING GOAL MET AT 65ML/HR WITHOUT COMPLICATIONS OR INCREASE IN RESIDUAL. ISOLATION PRECAUTION OBSERVED. BED LOCKED AND IN LOWEST POSITION, CALL LIGHT IN REACH. WILL ENDORSE TO DAY NURSE TO CONTINUE WITH PLAN OF CARE.
--- NOTE | 2017-08-06 07:30 | NUR ---
RECEIVED PT. VENT SETTINGS UNCHANGED.SUCTIONED FREQ. FOR THIN FAINT YELLOWISH SECRETIONS.
[2017-08-06 07:32] LABS: CALCIUM, SERUM 8.9 mg/dL (8.5-10.1); CARBON DIOXIDE 25 mmol/L (21-32); CHLORIDE 103 mmol/L (98-107); CREATININE 0.9 mg/dL (0.6-1.3); GLUCOSE 126 mg/dL (74-106); POTASSIUM 3.4 mmol/L (3.5-5.1); SODIUM SERUM 138 mmol/L (136-145); UREA NITROGEN, BLOOD 9 mg/dL (7-18)
[2017-08-06 08:00] VITALS: BP 96/53
[2017-08-06] MEDS: FERROUS SULFATE UDC 300 MG/5 ML UDC GT SCH ×2 (09:15→21:08)
[2017-08-06] MEDS: CHOLECALCIFEROL 1,000 UNIT TABLET (VIT D3) GT SCH (09:16)
[2017-08-06] MEDS: PANTOPRAZOLE 40 MG TABLET.DR PO SCH (09:16)
[2017-08-06] MEDS: ASCORBIC ACID 500 MG TABLET PO SCH (09:16)
[2017-08-06] MEDS: LACTOBACILLUS RHAMNOSUS GG 1 EACH CAP.SPRINK GT SCH ×2 (09:16→18:06)
[2017-08-06] MEDS: ZINC SULFATE 220 MG CAPSULE GT SCH (09:16)
--- NOTE | 2017-08-06 10:30 | NUR ---
DR. ANGELES AWARE OF PSEUDOMONAS RESP. CULTURE.
[2017-08-06] MEDS: HYDROGEL DRESSING 90 GM TUBE TP SCH (10:31)
[2017-08-06 10:53] LABS: BASOPHILS # (AUTO) 0.1 /CMM (0.0-0.2); BASOPHILS % (AUTO) 0.6 % (0.0-2.0); EOSINOPHILS % (AUTO) 11.2 % (0.0-6.0); HEMATOCRIT 24 % (39-51); HEMOGLOBIN 7.9 g/dL (13.5-17.5); LYMPHOCYTES # (AUTO) 2.8 /CMM (0.8-4.8); LYMPHOCYTES % (AUTO) 20.1 % (20.0-44.0); MEAN CORPUSCULAR HGB CONC 33 g/dl (31.0-36.0); MEAN CORPUSCULAR VOLUME 82 fL (80-96); MONOCYTES % (AUTO) 6.9 % (2.0-12.0); NEUTROPHILS # (AUTO) 8.5 /CMM (1.8-8.9); NEUTROPHILS % (AUTO) 61.2 % (43.0-81.0); PLATELET COUNT (AUTO) 331 /CMM (150-450); RDW COEFFICIENT OF VARIATION 20.6 (11.5-15.0); RED BLOOD CELL COUNT(AUTO) 2.93 MIL/uL (4.5-6.0); WHITE BLOOD COUNT (AUTO) 13.9 K/uL (4.3-11.0)
[2017-08-06] MEDS ORDERED: FEE PK DOSING 1 MIN EA MC ONE (11:06)
[2017-08-06 12:00] VITALS: BP 122/67
[2017-08-06] MEDS ORDERED: POTASSIUM CHLORIDE 20 MEQ POWDER PACKET GT SCH (12:00)
[2017-08-06] MEDS: CEFEPIME 1 GM in IV D5W 50 ML IV SCH ×2 (12:19→21:14)
--- NOTE | 2017-08-06 12:30 | NUR ---
KLOR CON POWDER GIVEN FOR LOW POTASSIUM LEVEL.
[2017-08-06] MEDS: TOBRAMYCIN 100 MG in IV D5W 100 ML IV SCH (13:02)
[2017-08-06 16:00] VITALS: BP 95/57
--- NOTE | 2017-08-06 18:30 | NUR ---
NO CHANGE IN STATUS.
[2017-08-06 20:00] VITALS: BP 129/74
[2017-08-06 20:30] VITALS: BP 129/74
[2017-08-06] MEDS: ENOXAPARIN SODIUM 40 MG/0.4 ML DISP.SYRIN SQ SCH (21:10)
--- NOTE | 2017-08-06 23:30 | NUR ---
MD CARROLL MADE AWRE OF THE HR 128 - 133 ORDERED STAT CBC AND TO CALL HIM IF BELOW 7.9
[2017-08-07] VITALS (7 sets, daily range): BP systolic 101–144; BP diastolic 60–87
[2017-08-07 00:09] LABS: BASOPHILS # (AUTO) 0.1 /CMM (0.0-0.2); BASOPHILS % (AUTO) 0.5 % (0.0-2.0); EOSINOPHILS % (AUTO) 8.7 % (0.0-6.0); HEMATOCRIT 28 % (39-51); HEMOGLOBIN 9.1 g/dL (13.5-17.5); LYMPHOCYTES # (AUTO) 1.6 /CMM (0.8-4.8); LYMPHOCYTES % (AUTO) 10.9 % (20.0-44.0); MEAN CORPUSCULAR HGB CONC 33 g/dl (31.0-36.0); MEAN CORPUSCULAR VOLUME 82 fL (80-96); MONOCYTES # (AUTO) 0.7 /CMM (0.1-1.30); NEUTROPHILS % (AUTO) 74.9 % (43.0-81.0); PLATELET COUNT (AUTO) 349 /CMM (150-450); RDW COEFFICIENT OF VARIATION 20.3 (11.5-15.0); RED BLOOD CELL COUNT(AUTO) 3.38 MIL/uL (4.5-6.0); WHITE BLOOD COUNT (AUTO) 14.7 K/uL (4.3-11.0)
--- NOTE | 2017-08-07 01:06 | NUR ---
HBG 9..1 HR 109 AT THIS TIME NO NEED TO CALL MD CARROLL PATIENT'S EYES CLOSED APPEARS COMFORTABLE.
[2017-08-07] MEDS: IV NS 0.9% 1,000 ML IV PRN ×2 (02:19→12:28)
[2017-08-07] MEDS: ACETAMINOPHEN 325 MG TABLET PO PRN (05:26)
--- NOTE | 2017-08-07 05:31 | NUR ---
CALLED MD GLEN VARGHESE TOOK THE MESSAGE PATIENT WITH TEMP 101.4 WAITING FOR CALL BACK FROM THE
--- NOTE | 2017-08-07 05:32 | NUR ---
TEMP. 101.4 TYLENOL VIA THE GT GIVEN AND COOLING MEASURE HR 128
--- NOTE | 2017-08-07 05:40 | NUR ---
Patient received trached on mechanical ventilation, remained stable with no distress. Suctioned for moderate, frothy, secretions. Changed plaza and HME. Vent plugged into red outlet and alarms are audible and visible. Ambu bag at bedside. Continue to monitor patient's progress. Addendum: 08/07/17 at 0544 by AADN WALLER RT Amended: Links added.
[2017-08-07] MEDS: TOBRAMYCIN 100 MG in IV D5W 100 ML IV SCH ×2 (05:41→23:57)
--- NOTE | 2017-08-07 06:29 | NUR ---
CALL RETURNED FROM MD. CARROLL MADE HIM AWARE OF TEMP WAS 101'4 NOW 98.1 AFTER TYLENOL. NO MEW ORDERS. HR.97/MIN. REMAINS IN ISOLATION MRSA OF THE NARES. AROUSES EASILY AND ALERT AND SMILES WHEN SPOKEN TO. TWO LARGE SOFT BM'S THIS 12 HOURS.SUCTION DURING THE NIGHT MUCOUS WHITE . GT RESIDUAL UNDER 5 ML THIS 12 HOURS TOLERATING THE FEEDING, ASP PRECAUTIONS.
--- NOTE | 2017-08-07 07:29 | NUR ---
CHRONOMETER ADJUSTER OPENING NOTES RECEIVED PATIENT IN STABLE CONDITION. IN NO APPARENT DISTRESS. BEDSIDE RAILS ARE UPX2. BED IS LOCKED AND LOWERED. CALL LIGHT IS WITHIN REACH. IV LINE IS INTACT AND PATENT. WILL CONTINUE TO MONITOR.
[2017-08-07] MEDS: LACTOBACILLUS RHAMNOSUS GG 1 EACH CAP.SPRINK GT SCH ×2 (08:44→16:55)
[2017-08-07] MEDS: FERROUS SULFATE UDC 300 MG/5 ML UDC GT SCH ×2 (08:44→21:41)
[2017-08-07] MEDS: ASCORBIC ACID 500 MG TABLET PO SCH (08:44)
[2017-08-07] MEDS: PANTOPRAZOLE 40 MG TABLET.DR PO SCH (08:44)
[2017-08-07] MEDS: ZINC SULFATE 220 MG CAPSULE GT SCH (08:44)
[2017-08-07] MEDS: CEFEPIME 1 GM in IV D5W 50 ML IV SCH ×2 (08:44→21:51)
[2017-08-07] MEDS: CHOLECALCIFEROL 1,000 UNIT TABLET (VIT D3) GT SCH (08:44)
[2017-08-07] MEDS: HYDROGEL DRESSING 90 GM TUBE TP SCH (08:45)
[2017-08-07 09:48] LABS: BASOPHILS % (AUTO) 0.2 % (0.0-2.0); EOSINOPHILS % (AUTO) 9.1 % (0.0-6.0); HEMATOCRIT 25 % (39-51); HEMOGLOBIN 8.3 g/dL (13.5-17.5); LYMPHOCYTES # (AUTO) 1.9 /CMM (0.8-4.8); LYMPHOCYTES % (AUTO) 11.8 % (20.0-44.0); MEAN CORPUSCULAR HGB CONC 34 g/dl (31.0-36.0); MEAN CORPUSCULAR VOLUME 81 fL (80-96); MONOCYTES # (AUTO) 0.8 /CMM (0.1-1.30); MONOCYTES % (AUTO) 4.7 % (2.0-12.0); NEUTROPHILS # (AUTO) 11.9 /CMM (1.8-8.9); NEUTROPHILS % (AUTO) 74.2 % (43.0-81.0); PLATELET COUNT (AUTO) 315 /CMM (150-450); RED BLOOD CELL COUNT(AUTO) 3.04 MIL/uL (4.5-6.0)
[2017-08-07 09:59] LABS: CALCIUM, SERUM 8.9 mg/dL (8.5-10.1); CARBON DIOXIDE 26 mmol/L (21-32); CHLORIDE 104 mmol/L (98-107); CREATININE 0.8 mg/dL (0.6-1.3); GLUCOSE 121 mg/dL (74-106); POTASSIUM 3.8 mmol/L (3.5-5.1); SODIUM SERUM 137 mmol/L (136-145); UREA NITROGEN, BLOOD 13 mg/dL (7-18)
[2017-08-07] MEDS: JEVITY 1.2 CAL 1,000 ML BOTTLE GT PRN (12:34)
--- NOTE | 2017-08-07 14:30 | NUR ---
SAS PROGRAMMER ANALYST NOTES RECEIVED REPORT FROM CHANCE YOUNG. PATIENT IN BED VENT DEPENDENT. VENT SETTINGS NOTED. PATIENT IN STABLE CONDITION. PERIPHERAL IV INTACT PATENT RUNNING PRESCRIBED FLUIDS. BED IN LOW LOCKED POSITION. CALL LIGHT WITHIN REACH. WILL CONTINUE TO MONITOR.
--- NOTE | 2017-08-07 19:30 | NUR ---
2 YEAR OLDS PRESCHOOL TEACHER OPENING NOTES: PATIENT IN BED, NON VERBAL, BUT AWAKE, GESTURES, AND FOLLOWS COMMANDS. ON [facility] VENTILATION WITH THE FF SETTINGS: AC: 16, TV: 400, FIO2: 40% PEEP: 5, WITH TRACHE TUBE: TAMANNA #6. BREATHING EVEN AND UNLABORED, RHONCHI HEARD OVER UPPER LUNG STEPHEN. PT APPEARS CALM AND IN NO DISTRESS, SHAKES HEAD WHEN ASKED IF HE HAS ANY PAIN. PIV OVER R FOOT G 20 INTACT AND INFUSING WELL WITH NS RUNNING AT 75 ML/HR. GT TUBE IN PLACE, RUNNING WITH FEEDING OF JEVITY 1.2 AT 65 ML/HR, WITH MINIMAL RESIDUALS .MAINTAINED HOB ELEVATED. PROVIDED FOR COMFORT AND SAFETY. BED IN LOWEST AND LOCKED POSITION, SIDERAILS UP X 3, CALL LIGHT WITHIN REACH. WILL CONT TO MONITOR.
--- NOTE | 2017-08-07 19:48 | NUR ---
NAIL SPECIALIST NOTES PATIENT IN BED RESTING NO SOB OR ACUTE DISTRESS NOTED. ALL DUE MEDICATIONS ADMINISTER. ALL NEEDS MET. ENDORSED CARE TO PM SHIFT.
[2017-08-07] MEDS: ENOXAPARIN SODIUM 40 MG/0.4 ML DISP.SYRIN SQ SCH (21:49)
[2017-08-08] VITALS: BP 115/68
[2017-08-08] MEDS: IV NS 0.9% 1,000 ML IV PRN ×2 (02:42→17:39)
[2017-08-08 04:00] VITALS: BP 109/50
[2017-08-08] MEDS: JEVITY 1.2 CAL 1,000 ML BOTTLE GT PRN ×2 (04:16→22:53)
--- NOTE | 2017-08-08 05:36 | NUR ---
PATIENT RECEIVED ON VENT SUPPORT. PATIENT STABLE AND TOLERATED CURRENT VENT SETTINGS.TRACH TUBE PATENT AND SECURED. WILL CONTINUE TO MONITOR. Addendum: 08/08/17 at 0537 by PATITO KING RT Amended: Links added.
--- NOTE | 2017-08-08 06:47 | NUR ---
MEAT TRIMMER CLOSING NOTES: PATIENT IN BED, AWAKE, ABLE TO MAKE NEEDS KNOWN BY GESTURING/ MOUTHING WORDS. ON MECH VENTILATION, BREATHING EVEN AND UNLABORED. SUCTIONED SECRETIONS PRN. GT FEEDING OF JEVITY 1.2 RUNNING WELL AT RATE OF 65 ML/HR, PATIENT TOLERATING FEEDING WELL. DUE MEDS GIVEN. PROVIDED FOR COMFORT AND SAFETY. MORNING CARE RENDERED. WOUND TREATMENT DONE. ON TELE MONITORING: SINUS RHYTHM 90S. NO ACUTE CHANGE IN CONDITION NOTED THROUGH SHIFT. WILL ENDORSE TO AM RN FOR CESAR.
[2017-08-08 08:00] VITALS: BP 119/72
[2017-08-08] MEDS: CEFEPIME 1 GM in IV D5W 50 ML IV SCH ×2 (08:40→21:00)
[2017-08-08] MEDS: ZINC SULFATE 220 MG CAPSULE GT SCH (08:47)
[2017-08-08] MEDS: PANTOPRAZOLE 40 MG TABLET.DR PO SCH (08:47)
[2017-08-08] MEDS: LACTOBACILLUS RHAMNOSUS GG 1 EACH CAP.SPRINK GT SCH ×2 (08:47→17:25)
[2017-08-08] MEDS: CHOLECALCIFEROL 1,000 UNIT TABLET (VIT D3) GT SCH (08:47)
[2017-08-08] MEDS: ASCORBIC ACID 500 MG TABLET PO SCH (08:47)
[2017-08-08] MEDS: FERROUS SULFATE UDC 300 MG/5 ML UDC GT SCH ×2 (08:51→21:00)
--- NOTE | 2017-08-08 09:00 | NUR ---
POLICEMAN PATIENT IS A/O X3, TRACH INTACT. ON VENT WITH SETTINGS AC 16 TV 400 PEEP5 FiO2 40%, NO SOB. SINUS RHYTHM HR 90 ON THE TELE MONITOR. ABDOMEN PRESENCE OF GTUBE, GASTRIC RESIDUAL 5CC, ON JEVITY 1.2 AT 65ML/HR, TOLERATING WELL. MAINTAIN HOB ELEVATED. IVC IN RIGHT FOOT PATENT AND INTACT, IVF INFUSING AT 75ML/HR. DENIES PAIN. CONTACT ISOLATION MAINTAINED. SAFETY MEASURES IN PLACE. WILL CONT TO MONITOR.
[2017-08-08] MEDS: HYDROGEL DRESSING 90 GM TUBE TP SCH (09:39)
[2017-08-08 10:11] LABS: BASOPHILS # (AUTO) 0.1 /CMM (0.0-0.2); BASOPHILS % (AUTO) 0.6 % (0.0-2.0); EOSINOPHILS % (AUTO) 16.9 % (0.0-6.0); HEMATOCRIT 27 % (39-51); HEMOGLOBIN 8.9 g/dL (13.5-17.5); LYMPHOCYTES # (AUTO) 2.5 /CMM (0.8-4.8); LYMPHOCYTES % (AUTO) 19.5 % (20.0-44.0); MEAN CORPUSCULAR HGB CONC 33 g/dl (31.0-36.0); MEAN CORPUSCULAR VOLUME 82 fL (80-96); MONOCYTES # (AUTO) 0.8 /CMM (0.1-1.30); MONOCYTES % (AUTO) 5.9 % (2.0-12.0); NEUTROPHILS # (AUTO) 7.3 /CMM (1.8-8.9); NEUTROPHILS % (AUTO) 57.1 % (43.0-81.0); PLATELET COUNT (AUTO) 316 /CMM (150-450); RDW COEFFICIENT OF VARIATION 20.9 (11.5-15.0); RED BLOOD CELL COUNT(AUTO) 3.31 MIL/uL (4.5-6.0); WHITE BLOOD COUNT (AUTO) 12.9 K/uL (4.3-11.0)
[2017-08-08 10:19] LABS: CALCIUM, SERUM 9.2 mg/dL (8.5-10.1); CARBON DIOXIDE 26 mmol/L (21-32); CHLORIDE 100 mmol/L (98-107); CREATININE 0.7 mg/dL (0.6-1.3); GLUCOSE 98 mg/dL (74-106); POTASSIUM 3.8 mmol/L (3.5-5.1); SODIUM SERUM 134 mmol/L (136-145); UREA NITROGEN, BLOOD 12 mg/dL (7-18)
[2017-08-08 12:00] VITALS: BP 130/95
[2017-08-08 16:00] VITALS: BP 127/71
--- NOTE | 2017-08-08 18:33 | NUR ---
SERVICE UNIT OPERATOR VS REMAINS STABLE, AFEBRILE DURING THE SHIFT. SINUS RHYTHM HR 110 ON THE TELE MONITOR. TRACH INTACT, VENT SETTINGS REMAINS THE SAME. SUCTION PRN. TOLERATING CURRENT FEEDING JEVITY 1.2 AT 65ML/HR, GASTRIC RESIDUAL 10CC. MAINTAIN HOB ELEVATED. IVC PERIPHERAL LINE IN RIGHT FOOT, NURSERY TECHNICIAN-MIRTA IS AWARE OF THE IV SITE. TURNED AND REPOSITIONED IN BED EVERY 2 HOURS, ON [employer] LOW AIR LOSS MATTRESS FOR SKIN WOUND MANAGEMENT. CONTACT ISOLATION MAINTAINED, SAFETY MEASURES IN PLACE. WILL ENDORSE TO ONCOMING RN.
[2017-08-08] MEDS: TOBRAMYCIN 100 MG in IV D5W 100 ML IV SCH (18:45)
[2017-08-08 20:00] VITALS: BP 123/68
[2017-08-08] MEDS: ENOXAPARIN SODIUM 40 MG/0.4 ML DISP.SYRIN SQ SCH (21:04)
[2017-08-09] VITALS: BP 150/68
[2017-08-09 04:00] VITALS: BP 112/66
[2017-08-09 08:00] VITALS: BP 112/70
[2017-08-09] MEDS: HYDROGEL DRESSING 90 GM TUBE TP SCH (09:19)
[2017-08-09] MEDS: IV NS 0.9% 1,000 ML IV PRN ×2 (09:19→23:49)
[2017-08-09] MEDS: ZINC SULFATE 220 MG CAPSULE GT SCH (09:20)
[2017-08-09] MEDS: CHOLECALCIFEROL 1,000 UNIT TABLET (VIT D3) GT SCH (09:20)
[2017-08-09] MEDS: CEFEPIME 1 GM in IV D5W 50 ML IV SCH ×2 (09:20→20:46)
[2017-08-09] MEDS: LACTOBACILLUS RHAMNOSUS GG 1 EACH CAP.SPRINK GT SCH ×2 (09:20→17:45)
[2017-08-09] MEDS: ASCORBIC ACID 500 MG TABLET PO SCH (09:21)
[2017-08-09] MEDS: PANTOPRAZOLE 40 MG TABLET.DR PO SCH (09:21)
[2017-08-09] MEDS: FERROUS SULFATE UDC 300 MG/5 ML UDC GT SCH ×2 (09:24→20:46)
[2017-08-09 11:04] LABS: BASOPHILS # (AUTO) 0.1 /CMM (0.0-0.2); BASOPHILS % (AUTO) 0.5 % (0.0-2.0); HEMATOCRIT 25 % (39-51); HEMOGLOBIN 8.4 g/dL (13.5-17.5); LYMPHOCYTES # (AUTO) 2.8 /CMM (0.8-4.8); LYMPHOCYTES % (AUTO) 20.3 % (20.0-44.0); MEAN CORPUSCULAR HGB CONC 34 g/dl (31.0-36.0); MEAN CORPUSCULAR VOLUME 81 fL (80-96); MONOCYTES % (AUTO) 7.2 % (2.0-12.0); NEUTROPHILS # (AUTO) 8.1 /CMM (1.8-8.9); PLATELET COUNT (AUTO) 329 /CMM (150-450); RDW COEFFICIENT OF VARIATION 20.5 (11.5-15.0); RED BLOOD CELL COUNT(AUTO) 3.06 MIL/uL (4.5-6.0); WHITE BLOOD COUNT (AUTO) 13.7 K/uL (4.3-11.0)
[2017-08-09 11:21] LABS: CALCIUM, SERUM 9.2 mg/dL (8.5-10.1); CARBON DIOXIDE 28 mmol/L (21-32); CHLORIDE 99 mmol/L (98-107); CREATININE 0.8 mg/dL (0.6-1.3); GLUCOSE 111 mg/dL (74-106); POTASSIUM 4.1 mmol/L (3.5-5.1); SODIUM SERUM 131 mmol/L (136-145); UREA NITROGEN, BLOOD 15 mg/dL (7-18)
[2017-08-09] MEDS: TOBRAMYCIN 100 MG in IV D5W 100 ML IV SCH (12:58)
[2017-08-09 16:00] VITALS: BP 115/67
[2017-08-09] MEDS: JEVITY 1.2 CAL 1,000 ML BOTTLE GT PRN (16:49)
--- NOTE | 2017-08-09 17:37 | NUR ---
PATIENT RECEIVED ON MECHANICAL VENTILATION. VENT PLUGGED INTO RED OUTLET. AMBU BAG @ HOB. ALARMS ON AND AUDIBLE. SUCTION DONE T/O SHIFT. PATIENT STABLE. MONITORED CLOSELY. TRACH CARE DONE. HME REPLACED. Addendum: 08/09/17 at 1737 by JANNA MENDOZA RT Amended: Links added.
--- NOTE | 2017-08-09 18:00 | NUR ---
SUCTIONED FREQ. FOR THIN FAINT YELLOWISH TINGED SECRETIONS.COOPERATIVE AND ALERT.VENT SETTINGS UNCHANGED.VS STABLE. NO COMPLAINTS.LIMBS RIGID AND CONTRACTION OF BOTH ARMS.WD. CARE DONE PER ORDERS.
--- NOTE | 2017-08-09 19:35 | NUR ---
FIRE RANGER OPENING NOTES: RECEIVED PATIENT IN BED, NON VERBAL, NODS HEAD TO ANSWER. AWAKE, GESTURES, AND FOLLOWS COMMANDS. ON [facility] VENT WITH THE FF SETTINGS: AC: 16, TV: 400, FIO2: 40% PEEP: 5, WITH TRACH TUBE: HENRRYLEY #6. BREATHING EVEN AND UNLABORED, PT APPEARS CALM AND IN NO DISTRESS. ON TELE MONITORING WITH SINUS TACHYCARDIA 102/MIN. PIV INFUSING WELL WITH NS RUNNING AT 75 ML/HR. GT TUBE IN PLACE, RUNNING WITH FEEDING OF JEVITY @ 65 ML/HR, WITH MINIMAL RESIDUALS, FLUSHING WELL. HOB ELEVATED. BED IN LOWEST AND LOCKED POSITION, SIDE RAILS UP X 3, CALL LIGHT WITHIN REACH. WILL CONT TO MONITOR CLOSELY.
--- NOTE | 2017-08-09 19:36 | NUR ---
PATIENT RECEIVED TRACH PORTEX 8 [facility] WITH NOTED SETTINGS. TRACH IS PATENT AND WELL SECURED. PLASTER BLOCK LAYER DONE. VENT PLUGGED INTO RED OUTLET. ALARMS ON AND AUDIBLE. AMBU BAG @ HOB. SUCTIONED MODERATE AMOUNT OF THICK PALE YELLOW SECRETIONS. NO RESP DISTRESS NOTED. WILL CONT TO MONITOR PATIENT.
[2017-08-09 20:00] VITALS: BP 125/67
[2017-08-09 20:47] VITALS: BP 125/67
[2017-08-09] MEDS: ENOXAPARIN SODIUM 40 MG/0.4 ML DISP.SYRIN SQ SCH (20:58)
[2017-08-09] MEDS: ACETAMINOPHEN 325 MG TABLET PO PRN (23:55)
--- NOTE | 2017-08-09 23:55 | NUR ---
PRN TYLENOL GIVEN PT'S BODY TEMP NOTED TO BE 99.8, PRN TYLENOL GIVEN VIA GT. REMOVED EXTRA BLANKETS, NO SOCKS ON. PT COMPLETELY REFUSED COLD SPONGING, GETS VERY RESTLESS. WILL RECHECK TEPM AGAIN. MONITORING VERY CLOSELY.
[2017-08-10 00:46] VITALS: BP 124/75
--- NOTE | 2017-08-10 01:10 | NUR ---
RECHECKED BODY TEMP PRN TYLENOL WAS GIVEN TO THE PT FOR INCREASED BODY TEMP, RECHECKED BODY TEMP, NOTED TO BE 97.4. WILL CONTINUE TO MONITOR.
[2017-08-10 05:03] VITALS: BP 114/56
[2017-08-10] MEDS: TOBRAMYCIN 100 MG in IV D5W 100 ML IV SCH (06:09)
[2017-08-10] MEDS: JEVITY 1.2 CAL 1,000 ML BOTTLE GT PRN (06:09)
--- NOTE | 2017-08-10 06:46 | NUR ---
HAND LEATHER TRIMMER CLOSING NOTES: PATIENT SLEPT INTERMITTENTLY @ NIGHT, AWAKE, NON VERBAL, ABLE TO MAKE NEEDS KNOWN BY GESTURING. [facility], BREATHING EVEN AND UNLABORED. SUCTIONED SECRETIONS PRN. GT FEEDING OF JEVITY 1.2 RUNNING WELL AT RATE OF 65 ML/HR, PATIENT TOLERATING FEEDING WELL. IV ACCESS TO RIGHT FOOT WITH IVF ORDERED. TURNED/REPOSITIONED PER PROTOCOL. DUE MEDS GIVEN. PROVIDED FOR COMFORT AND SAFETY. MORNING CARE RENDERED. WOUND TREATMENT DONE. ON TELE MONITORING, SINUS RHYTHM 90S. NO ACUTE CHANGE IN CONDITION NOTED THROUGH SHIFT. WILL ENDORSE TO AM RN FOR CESAR.
[2017-08-10 07:21] LABS: BASOPHILS # (AUTO) 0.1 /CMM (0.0-0.2); BASOPHILS % (AUTO) 0.7 % (0.0-2.0); EOSINOPHILS % (AUTO) 20.2 % (0.0-6.0); HEMATOCRIT 24 % (39-51); HEMOGLOBIN 8.1 g/dL (13.5-17.5); LYMPHOCYTES # (AUTO) 2.5 /CMM (0.8-4.8); LYMPHOCYTES % (AUTO) 23.8 % (20.0-44.0); MEAN CORPUSCULAR HGB CONC 34 g/dl (31.0-36.0); MEAN CORPUSCULAR VOLUME 81 fL (80-96); MONOCYTES # (AUTO) 0.8 /CMM (0.1-1.30); MONOCYTES % (AUTO) 7.2 % (2.0-12.0); NEUTROPHILS % (AUTO) 48.1 % (43.0-81.0); PLATELET COUNT (AUTO) 335 /CMM (150-450); RDW COEFFICIENT OF VARIATION 21.1 (11.5-15.0); RED BLOOD CELL COUNT(AUTO) 2.98 MIL/uL (4.5-6.0); WHITE BLOOD COUNT (AUTO) 10.4 K/uL (4.3-11.0)
--- NOTE | 2017-08-10 07:30 | NUR ---
PHOTOGRAPHIC ENLARGER OPERATOR NOTES PATIENT AWAKE, ABLE TO "MOUTH WORDS". TRACH INTACT. ON VENT. SR HR 78 ON TELE MONITOR. NO SOB NOTED. ABDOMEN: PRESENCE OF G-TUBE, GASTRIC RESIDUAL OF 5cc, GTUBE FEEDING OF JEVITY 1.2 @65ML/HR. MAINTAIN HOB ELEVATED. IVC ON RIGHT FOOT W/ IV FLUIDS NS INFUSING AT 75ML/HR. MAINTAIN CONTACT ISOLATION, SAFETY MEASURES IN PLACE. CALL WITHIN REACH. WILL CONTINUE TO MONITOR.
[2017-08-10 07:41] LABS: CALCIUM, SERUM 9.3 mg/dL (8.5-10.1); CARBON DIOXIDE 30 mmol/L (21-32); CHLORIDE 100 mmol/L (98-107); CREATININE 0.8 mg/dL (0.6-1.3); GLUCOSE 96 mg/dL (74-106); POTASSIUM 4.1 mmol/L (3.5-5.1); SODIUM SERUM 133 mmol/L (136-145); UREA NITROGEN, BLOOD 14 mg/dL (7-18)
[2017-08-10 08:00] VITALS: BP 123/61
[2017-08-10 08:37] LABS: EOSINOPHILS % (MANUAL) 21 % (0-4); LYMPHOCYTES % (MANUAL) 23 % (16-48); MONOCYTES % (MANUAL) 6 % (0-11.0); NEUTROPHILS % (MANUAL) 50 (42-76)
[2017-08-10] MEDS: CEFEPIME 1 GM in IV D5W 50 ML IV SCH (09:11)
[2017-08-10] MEDS: FERROUS SULFATE UDC 300 MG/5 ML UDC GT SCH ×2 (09:12→21:06)
[2017-08-10] MEDS: CHOLECALCIFEROL 1,000 UNIT TABLET (VIT D3) GT SCH (09:12)
[2017-08-10] MEDS: ZINC SULFATE 220 MG CAPSULE GT SCH (09:12)
[2017-08-10] MEDS: LACTOBACILLUS RHAMNOSUS GG 1 EACH CAP.SPRINK GT SCH ×2 (09:12→17:31)
[2017-08-10] MEDS: ASCORBIC ACID 500 MG TABLET PO SCH (09:12)
[2017-08-10] MEDS: HYDROGEL DRESSING 90 GM TUBE TP SCH (09:24)
[2017-08-10] MEDS: PANTOPRAZOLE 40 MG TABLET.DR PO SCH (09:26)
[2017-08-10 16:00] VITALS: BP 125/68
--- NOTE | 2017-08-10 18:57 | NUR ---
MICROARRAY ANALYST CLOSING NOTES VS REMAINS STABLE, AFEBRILE DURING THE SHIFT. TRACH INTACT, VENT SETTINGS REMAINS THE SAME, TOLERATED WELL. SINUS RHYTHM HR 84 IN THE TELE MONITOR. FRANCY MIDLINE INSERTED TODAY BY MIDLINE NURSE. WOUND DRESSING CHANGED, TURNED AND REPOSITIONED Q 2HR. GTUBE FEEDING AT 65ML/HR, TOLERATING WELL, NO EPISODE OF VOMITING, DENIES NAUSEA. PATIENT TO BE DISCHARGED TO SNF TODAY ORDERED, CALLED SPOKE TO HECTOR ALTAMIRANO FOR REPORT. FRANCY MIDLINE WILL REMAIN IN PLACE UPON DISCHARGE, PATIENT WILL CONT. IV ANTIBIOTIC AT SNF ORDERED. MAINTAINED ISOLATION PRECAUTION. SAFETY MEASURES IN PLACE. WILL ENDORSE TO ONCOMING RN.
--- NOTE | 2017-08-10 19:30 | NUR ---
SECURITY COMPLIANCE SPECIALIST OPENING NOTES: PATIENT IN BED, AWAKE BUT NON VERBAL, ON [facility] VENTILATION WITH THE FF SETTINGS: AC: 16, TV: 400, FIO2: 40%, PEEP:5, BREATHING EVEN AND UNLABORED. RHONCHI AUSCULTATED OVER UPPER LUNG STEPHEN, SUCTIONED PRN. APPEARS CALM AND IN NO DISTRESS. PATIENT HAS LFA G20 MIDLINE, INTACT AND PATENT, WITH GOOD BLOOD RETURN. GTUBE IN PLACE WITH FEEDING OF JEVITY 1.2 RUNNING AT 65 ML/HR, TOLERATING WELL, WITH MINIMAL RESIDUALS. PROVIDED FOR COMFORT AND SAFETY. BED IN LOWEST NAD LOCKED POSITION, SIDERAILS UP X 3, BED ALARMS ON. WILL CONT TO MONITOR.
[2017-08-10 20:00] VITALS: BP 110/71
--- NOTE | 2017-08-10 20:09 | NUR ---
RN NOTES: BRAKESHOE REPAIRER, NOELLE, CALLED CHARGE NURSE JOSE, INFORMED HER THAT SHE WAS UNABLE TO INFORM PATIENT'S DAUGHTER ABOUT THE DISCHARGE TO [facility], SO PATIENT WILL BE DISCHARGED TOMORROW AM INSTEAD.
[2017-08-10] MEDS: CEFEPIME 2 GM in IV D5W 100 ML IV SCH (21:06)
[2017-08-10] MEDS: ENOXAPARIN SODIUM 40 MG/0.4 ML DISP.SYRIN SQ SCH (21:12)
[2017-08-11] VITALS: BP 127/69
[2017-08-11] MEDS: TOBRAMYCIN 100 MG in IV D5W 100 ML IV SCH (00:08)
[2017-08-11] MEDS: JEVITY 1.2 CAL 1,000 ML BOTTLE GT PRN (01:17)
[2017-08-11] MEDS: IV NS 0.9% 1,000 ML IV PRN (01:17)
[2017-08-11 04:00] VITALS: BP 134/72
--- NOTE | 2017-08-11 06:19 | NUR ---
RN NOTES: PATIENT VOMITED APPROX 30 ML OF PALE YELLOWISH EMESIS. PATIENT'S HOB IS ELEVATED. SUCTIONED PATIENT, BUT TRACHE SECRETIONS ARE CLEAR, THICK, DIFFERENT IN APPEARANCE FROM THE VOMITUS. GT FEEDING RECHECKED FOR RESIDUALS, NONE NOTED. HELD FEEDING FOR NOW A PRECAUTION, ADMINISTERED ZOFRAN 4 MG IV. WILL CONT TO MONITOR.
--- NOTE | 2017-08-11 06:48 | NUR ---
CAT SKINNER CLOSING NOTES: PATIENT IN BED, AWAKE, ABLE TO MAKE NEEDS KNOWN BY GESTURING/ MOUTHING WORDS. ON MECH VENTILATION, BREATHING EVEN AND UNLABORED. SUCTIONED SECRETIONS PRN. GT FEEDING ON HOLD FOR NOW, WILL RESTART AN HOUR AFTER ZOFRAN WAS ADMINISTERED (0720 AM). DUE MEDS GIVEN. PROVIDED FOR COMFORT AND SAFETY. MORNING CARE RENDERED. WOUND TREATMENT DONE. ON TELE MONITORING: SINUS RHYTHM 90S. NO ACUTE CHANGE IN CONDITION NOTED THROUGH SHIFT. WILL ENDORSE TO AM RN FOR CESAR.
--- NOTE | 2017-08-11 07:25 | NUR ---
APPLIED RESEARCH DIRECTOR OPENING NOTES: PATIENT IN BED, AWAKE. NO ACUTE DISTRESS NOTED. [facility], BREATHING EVEN AND UNLABORED. GT FEEDING INTACT. ON TELE MONITORING: SINUS RHYTHM 90S. SAFETY MEASURES IN PLACE. CALL LIGHT WITHIN REACH. WILL CONTINUE TO MONITOR ACCORDINGLY.
[2017-08-11 07:33] LABS: BASOPHILS % (AUTO) 0.4 % (0.0-2.0); EOSINOPHILS % (AUTO) 15.4 % (0.0-6.0); HEMATOCRIT 24 % (39-51); HEMOGLOBIN 8.1 g/dL (13.5-17.5); LYMPHOCYTES # (AUTO) 2.9 /CMM (0.8-4.8); LYMPHOCYTES % (AUTO) 24.8 % (20.0-44.0); MEAN CORPUSCULAR HGB CONC 33 g/dl (31.0-36.0); MEAN CORPUSCULAR VOLUME 81 fL (80-96); MONOCYTES # (AUTO) 0.9 /CMM (0.1-1.30); MONOCYTES % (AUTO) 7.6 % (2.0-12.0); NEUTROPHILS % (AUTO) 51.8 % (43.0-81.0); PLATELET COUNT (AUTO) 348 /CMM (150-450); RDW COEFFICIENT OF VARIATION 20.8 (11.5-15.0); WHITE BLOOD COUNT (AUTO) 11.6 K/uL (4.3-11.0)
[2017-08-11 07:52] LABS: CARBON DIOXIDE 28 mmol/L (21-32); CHLORIDE 94 mmol/L (98-107); CREATININE 0.8 mg/dL (0.6-1.3); GLUCOSE 101 mg/dL (74-106); SODIUM SERUM 128 mmol/L (136-145); UREA NITROGEN, BLOOD 14 mg/dL (7-18)
[2017-08-11 08:00] VITALS: BP 130/65
[2017-08-11] MEDS: PANTOPRAZOLE 40 MG TABLET.DR PO SCH (08:24)
[2017-08-11] MEDS: ZINC SULFATE 220 MG CAPSULE GT SCH (08:25)
[2017-08-11] MEDS: FERROUS SULFATE UDC 300 MG/5 ML UDC GT SCH (08:25)
[2017-08-11] MEDS: ASCORBIC ACID 500 MG TABLET PO SCH (08:25)
[2017-08-11] MEDS: CHOLECALCIFEROL 1,000 UNIT TABLET (VIT D3) GT SCH (08:25)
[2017-08-11] MEDS: LACTOBACILLUS RHAMNOSUS GG 1 EACH CAP.SPRINK GT SCH (08:25)
[2017-08-11] MEDS: HYDROGEL DRESSING 90 GM TUBE TP SCH (08:26)
[2017-08-11] MEDS: CEFEPIME 2 GM in IV D5W 100 ML IV SCH (08:42)
--- NOTE | 2017-08-11 14:20 | NUR ---
NURSERY TECHNICIAN NOTES' PATIENT DISCHARGED IN STABLE CONDITION WITH TRACH. NO ACUTE DISTRESS NOTED. BREATHING UNLABORED. DISCHARGE INSTRUCTIONS GIVEN AND HANDED OVER TO EMT PERSONNEL. REPORT GIVEN TO [facility]. DAUGHTER GABRIEL IS AWARE OF THE TRANSFER. FRANCY MIDLINE PATENT AND INTACT,SECURED WITH TRANSPARENT DRESSING, NO BLEEDING OR SWELLING NOTED. GT INTACT. WOUND DRESSING CLEAN AND INTACT. NO MISSING BELONGING. PICKED UP BY 3 EMT PERSONNEL WITH RT IN A [facility] VIA AMBULANCE. DUE MEDICATIONS GIVEN, NO ASE NOTED. NEEDS ATTENDED AND ANTICIPATED.
--- NOTE | 2017-08-11 14:41 | NUR ---
PATIENT WAS SENT OUT AT 1415 TO A LOCAL SUB ACUTE FACILITY.GAVE REPORT TO RT TRANSPORT FOR VENT SETTINGS. Addendum: 08/11/17 at 1447 by PATITO KING RT Amended: Links added.
== END 2017-08-11 14:20 | DRG 166 ==
LOC: ER 21:54 → TELE 08-03 00:11
PROC: 5A1955Z Respiratory Ventilation, Greater than 96 Consecutive Hours (ICD-10-PCS; principal; 2017-08-02)
PROC: 0JBQ0ZZ Excision of Right Foot Subcutaneous Tissue and Fascia, Open Approach (ICD-10-PCS; 2017-08-04)
PROC: 0KBN0ZZ Excision of Right Hip Muscle, Open Approach (ICD-10-PCS; 2017-08-04)
PROC: 0KBP0ZZ Excision of Left Hip Muscle, Open Approach (ICD-10-PCS; 2017-08-04)
PROC: 05H633Z Insertion of Infusion Device into Left Subclavian Vein, Percutaneous Approach (ICD-10-PCS; 2017-08-10)
PROC: B547ZZA Ultrasonography of Left Subclavian Vein, Guidance (ICD-10-PCS; 2017-08-10)
DX: J95.851 Ventilator associated pneumonia (principal); N17.0 Acute kidney failure with tubular necrosis; J96.21 Acute and chronic respiratory failure with hypoxia; G93.40 Encephalopathy, unspecified; Z99.11 Dependence on respirator [ventilator] status; J90 Pleural effusion, not elsewhere classified; L89.154 Pressure ulcer of sacral region, stage 4; R53.2 Functional quadriplegia; J44.0 Chronic obstructive pulmonary disease with (acute) lower respiratory infection; J44.1 Chronic obstructive pulmonary disease with (acute) exacerbation; E11.65 Type 2 diabetes mellitus with hyperglycemia; R62.7 Adult failure to thrive; D64.9 Anemia, unspecified; K21.9 Gastro-esophageal reflux disease without esophagitis; Z86.73 Personal history of transient ischemic attack (TIA), and cerebral infarction without residual deficits; Z86.74 Personal history of sudden cardiac arrest; Z93.0 Tracheostomy status; I10 Essential (primary) hypertension; F09 Unspecified mental disorder due to known physiological condition; R13.10 Dysphagia, unspecified; S91.301A Unspecified open wound, right foot, initial encounter; X58.XXXA Exposure to other specified factors, initial encounter; Y93.9 Activity, unspecified; Y92.129 Unspecified place in nursing home as the place of occurrence of the external cause; D72.829 Elevated white blood cell count, unspecified; Z16.24 Resistance to multiple antibiotics; B96.5 Pseudomonas (aeruginosa) (mallei) (pseudomallei) as the cause of diseases classified elsewhere; Y84.8 Other medical procedures as the cause of abnormal reaction of the patient, or of later complication, without mention of misadventure at the time of the procedure; Y82.8 Other medical devices associated with adverse incidents; R79.1 Abnormal coagulation profile; J40 Bronchitis, not specified as acute or chronic
CPT/HCPCS: 31720; 36415; 36569; 36600; 71045-TC; 80048-TC; 80061-TC; 80076-TC; 80202-TC; 82746; 82803-TC; 83540-TC; 83605-TC; 83735-TC; 83880; 84100-TC; 84443-TC; 84484-TC; 85025-TC; 85378-TC; 87040-TC; 87070-TC; 87081-TC; 87186-TC; 87400; 94002; 94002-TC; 94003-TC; 94640-TC; 94760-TC; 99082-TC; A4216; A4606; A6248; A6253; A6402; A6403; J0692; J0696; J1650; J1956; J2405; J2543; J3260; J3370; J7030; J7060; Z7610

== ENCOUNTER 2017-09-10 00:12 | Inpatient (IN) | payer MEDICARE, MEDICAID ==
[~2017-09-10] VITALS: Ht 177.8 cm; Wt 68.9 kg
[2017-09-10] VITALS (7 sets, daily range): BP systolic 99–119; BP diastolic 49–58
--- NOTE | 2017-09-10 00:15 | NUR ---
TO BED 8 BIB PARAMEDICS C/O FEVER, CONGEATION TACHYCARDIA. PT CHRONIC TRACHE, VENT DEPENDENT. PT AAOX1, PT TACHYPNEIC. PLACEPT ON CARDIAC MONITORING, CONTINUOUS POX. RT AT BEDSIDE TO PLACE PT ON VENT. ER MD AT [facility] TO EVAL PT WITH ORDERS RECEIVED. WILL CARRY OUT ORDERS.
--- NOTE | 2017-09-10 00:27 | NUR ---
PT RECEIVED TRACHED PORTEX 7 VIA AMBU BAG BY FIRE DEPARTMENT. PT PLACED ON MECHANICAL VENT ON NOTED SETTINGS GIVEN FROM FIRE DEPARTMENT. PT IS TACHYCARDIC AND SHOWS NO SIGNS OF RESP DISTRESS. PT ALERT & ORIENTATED. VENT PLUGGED INTO RED OUTLET. ALARMS ARE SET AND AUDIBLE. AMBU BAG IS AT BEDSIDE. WILL CONT TO MONITOR. Addendum: 09/10/17 at 0029 by CHA NORMAN RT Amended: Links added.
[2017-09-10] MEDS ORDERED: IV NS 0.9% 1,000 ML BAG IV ONE (00:30)
[2017-09-10] MEDS ORDERED: ACETAMINOPHEN 650 MG/SUPP.RECT RC ONE (00:30)
[2017-09-10 00:39] LABS: BASOPHILS % (AUTO) 0.3 % (0.0-2.0); EOSINOPHILS % (AUTO) 7.9 % (0.0-6.0); HEMATOCRIT 25 % (39-51); HEMOGLOBIN 8.3 g/dL (13.5-17.5); LYMPHOCYTES # (AUTO) 1.1 /CMM (0.8-4.8); LYMPHOCYTES % (AUTO) 6.6 % (20.0-44.0); MEAN CORPUSCULAR HEMOGLOBIN 28 PG (26.0-33.0); MEAN CORPUSCULAR HGB CONC 33 g/dl (31.0-36.0); MEAN CORPUSCULAR VOLUME 85 fL (80-96); MONOCYTES # (AUTO) 0.9 /CMM (0.1-1.30); MONOCYTES % (AUTO) 5.1 % (2.0-12.0); NEUTROPHILS # (AUTO) 13.5 /CMM (1.8-8.9); NEUTROPHILS % (AUTO) 80.1 % (43.0-81.0); PLATELET COUNT (AUTO) 381 /CMM (150-450); RDW COEFFICIENT OF VARIATION 20.4 (11.5-15.0); RED BLOOD CELL COUNT(AUTO) 2.95 MIL/uL (4.5-6.0); WHITE BLOOD COUNT (AUTO) 16.9 K/uL (4.3-11.0)
[2017-09-10] MEDS ORDERED: ACETAMINOPHEN 650 MG/20.3 ML UDC ONE ×2 (00:42→00:43)
[2017-09-10 00:51] LABS: CALCIUM, SERUM 8.9 mg/dL (8.5-10.1); CARBON DIOXIDE 28 mmol/L (21-32); CHLORIDE 94 mmol/L (98-107); CREATININE 0.9 mg/dL (0.6-1.3); GLUCOSE 139 mg/dL (74-106); POTASSIUM 5.1 mmol/L (3.5-5.1); SODIUM SERUM 128 mmol/L (136-145); UREA NITROGEN, BLOOD 25 mg/dL (7-18)
[2017-09-10 00:53] LABS: INR 1.03 (0.87-1.13)
[2017-09-10 00:57] LABS: TROPONIN I < 0.017 ng/mL (0.00-0.056)
[2017-09-10] MEDS ORDERED: ACETAMINOPHEN 325 MG TABLET MC ONE (01:00)
[2017-09-10 01:04] LABS: ALANINE AMINOTRANSFERASE 25 U/L (12-78); ALBUMIN 2.1 g/dL (3.4-5.0); ALKALINE PHOSPHATASE 84 U/L (46-116); ASPARTATE AMINOTRANSFERASE 19 U/L (15-37); B-TYPE NATRIURETIC PEPTIDE 386 PG/ML (0-125); BILIRUBIN,DIRECT 0.1 mg/dL (0.0-0.2); BILIRUBIN,TOTAL 0.4 mg/dL (0.2-1.0); TOTAL PROTEIN, SERUM 8.4 g/dL (6.4-8.2)
[2017-09-10] MEDS ORDERED: IPRA3AMP23 IH (01:12)
[2017-09-10] MEDS ORDERED: ENOX40DI SUBCUT (01:12)
[2017-09-10] MEDS ORDERED: SACC250C GT (01:12)
[2017-09-10] MEDS ORDERED: LEVO50TA8 GT (01:12)
[2017-09-10 01:39] LABS: APPEARANCE,URINE CLEAR (CLEAR); BILIRUBIN,URINE NEGATIVE (NEGATIVE); BLOOD, URINE TRACE-INTA Ery/uL (NEGATIVE); COLOR,URINE YELLOW (YELLOW); KETONES,URINE NEGATIVE (NEGATIVE); LEUKOCYTE ESTERASE ,URINE NEGATIVE (NEGATIVE); NITRITE, URINE NEGATIVE (NEGATIVE); PROTEIN,URINE TRACE mg/dl (NEGATIVE); UGLUCOSE NEGATIVE (NEGATIVE)
[2017-09-10 01:45] LABS: BACTERIA,URINE None seen /HPF (None Seen); SQUAMOUS EPITHELIAL CELL,UR Few /HPF (None Seen); WBC,URINE 0-2 /HPF (0-3)
[2017-09-10] MEDS ORDERED: PIPERACILLIN /TAZOBACTAM 3.375 G in IV D5W 50 ML IV ONE (02:00)
[2017-09-10] MEDS ORDERED: MAG HYDROX/AL HYDROX/SIMETH 30 ML UDC PO PRN (02:00)
[2017-09-10] MEDS ORDERED: MAGNESIUM HYDROXIDE 30 ML UDC GT PRN (02:00)
[2017-09-10] MEDS ORDERED: ONDANSETRON HCL/PF 4 MG/2 ML VIAL IVP PRN (02:00)
[2017-09-10] MEDS ORDERED: PIPERACILLIN /TAZOBACTAM 3.375 G VIAL IV ONE ×2 (02:19→04:57)
--- NOTE | 2017-09-10 02:34 | NUR ---
REPORT CALLED TO TELE 1 HECTOR DUVAL. WILL TRANSPORT PT VIA ACLS PROTOCOL.
--- NOTE | 2017-09-10 03:15 | NUR ---
ULISES RN ADMITTING NOTES RECEIVED REPORT FROM ED RN. PATIENT ADMITTED TO ROOM 107 UNDER CARE OF SIDNEY BRAUN W/ DIAGNOSIS SEPSIS D/T PNEUMONIA. PATIENT A/A/O X1-2, NON-VERBAL BUT NODS HEADS YES AND NO. BREATHING EVEN & UNLABORED W/ TRACH INTACT & VENT SETTINGS AC 16, TV 400, FIO2 50%, PEEP 5. O2 SAT 100%. ON TELE W/ SINUS RHYTHM-SINUS TACH, HR 107. NO RESPIRATORY OR CARDIAC DISTRESS NOTED. RIGHT FOREARM IV #18 INTACT & PATENT W/ DRESSING CDI. SKIN WARM, DRY & INTACT. BODY/SKIN ASSESSMENT DONE W/ SKIN ISSUES IDENTIFIED, PICTURES TAKEN & RECORDED. DENIES ANY PAIN OR DISCOMFORT @ THIS TIME. AFEBRILE. SAFETY MEASURES IN PLACE. AWAITING ADMITTING ORDERS. WILL CONTINUE TO MONITOR CLOSELY.
[2017-09-10] MEDS ORDERED: TWOCAL HN 1,000 ML LIQUID GT PRN (03:30)
[2017-09-10] MEDS: IV NS 0.9% 1,000 ML IV PRN (04:30)
[2017-09-10] MEDS ORDERED: PIPERACILLIN /TAZOBACTAM 3.375 G in IV D5W 100 ML IV SCH (05:00)
--- NOTE | 2017-09-10 06:07 | NUR ---
PT WAS TRANSFERRED FROM ER BED 8 TO ROOM 107. VENT PLUGGED INTO RED OUTLET, ALARMS ARE ON AND AUDIBLE. NO RESP DISTRESS NOTED. Addendum: 09/10/17 at 0609 by CHA NORMAN RT Amended: Links added.
[2017-09-10 07:10] LABS: MAGNESIUM 1.7 mg/dL (1.8-2.4); PHOSPHORUS 3.2 mg/dL (2.5-4.9)
[2017-09-10] MEDS ORDERED: BISA10SU8 RC (07:37)
[2017-09-10] MEDS ORDERED: MULT-24 GT (07:37)
[2017-09-10] MEDS ORDERED: NA P133E RC (07:37)
[2017-09-10] MEDS ORDERED: MAGN400O6 GT (07:37)
[2017-09-10] MEDS ORDERED: DOCU50LI GT (07:37)
[2017-09-10] MEDS ORDERED: ACET-2605 GT (07:37)
[2017-09-10] MEDS ORDERED: LACT-209 GT (07:37)
[2017-09-10] MEDS ORDERED: ACET-868 GT (07:37)
--- NOTE | 2017-09-10 08:00 | NUR ---
TD/RN AM SHIFT INITIAL NOTES RECEIVED PT AWAKE IN BED, PT A/O X 1-2, ABLE MAKE NEEDS KNOWN BY NODDING, DENIES ANY SYMPTOMS, NO ACUTE CHANGE OF CONDITION, NO GRIMACING OR FEVER. VENT DEPENDENT WITH RATES SET PRESCRIBED, SATURATING @ 100%, LUNG SOUNDS CLEAR, SUCTIONED [place] CLEARANCE, ON TELE MONITORING WITH SINUS RHYTHM, HR 93. ON GOING IV INFUSION OF NS @ 75CC/HR, IV SITE PATENT WITH NO S/S OF INFECTION, ALSO ON GOING GTF @ 52CC/HR, NO GASTRIC RESIDUAL, FLUSHED AND PATENT. PT IS COMFORTABLE, SCHEDULED AM MEDS TO BE GIVEN. CL WITHIN REACHED, SAFETY MAINTAINED AND ISOLATION OBSERVED FOR HX OF MRSA. ON GOING MONITORING.
[2017-09-10] MEDS: PANTOPRAZOLE 40 MG/PACK PACK GT SCH (08:37)
[2017-09-10] MEDS: ENOXAPARIN SODIUM 40 MG/0.4 ML DISP.SYRIN SQ SCH (08:37)
[2017-09-10] MEDS ORDERED: Z GUARD REMEDY 4 OZ OINT TP PRN (09:00)
[2017-09-10] MEDS ORDERED: FEE PK DOSING 1 MIN EA MC ONE (10:13)
[2017-09-10] MEDS: VANCOMYCIN 0.75 GM in IV D5W 250 ML IV SCH ×2 (11:04→22:20)
[2017-09-10] MEDS: Magnesium 1GM/D5W 100ML PREMIX 100 ML IV SCH ×2 (11:59→14:14)
--- NOTE | 2017-09-10 12:00 | NUR ---
TD/RN NOON ROUNDS PT SUCTIONED AND REPOSITIONED. NO ACUTE CHANGE OF CONDITION. MONITORING CONTINUED.
[2017-09-10] MEDS ORDERED: GLUCERNA 1.2 1,000 ML BOTTLE NG PRN (12:30)
[2017-09-10] MEDS: PIPERACILLIN /TAZOBACTAM 3.375 G in IV D5W 50 ML IV SCH ×2 (13:10→17:01)
[2017-09-10] MEDS: GLUCERNA 1.2 1,000 ML BOTTLE GT PRN (13:19)
--- NOTE | 2017-09-10 17:30 | NUR ---
TD/RN AFTERNOON ROUNDS PM CARE PROVIDED. NO CHANGE OF CONDITION. ON GOING MONITORING.
--- NOTE | 2017-09-10 19:18 | NUR ---
TD/RN AM SHIFT END NOTES ALL NEEDS MET. NO ACUTE CHANGE OF CONDITION NOTED DURING THE SHIFT. PT ENDORSED TO PM NURSE TO CONTINUE CARE. CL WITHIN REACHED, SAFETY MAINTAINED AND ISOLATION OBSERVED.
[2017-09-10] MEDS: ACETAMINOPHEN 325 MG TABLET MC PRN (20:00)
[2017-09-11] VITALS: BP 99/43
[2017-09-11] MEDS: PIPERACILLIN /TAZOBACTAM 3.375 G in IV D5W 50 ML IV SCH ×5 (01:05→23:54)
[2017-09-11] MEDS: IV NS 0.9% 1,000 ML IV PRN ×2 (02:33→21:45)
[2017-09-11 04:00] VITALS: BP 98/46
[2017-09-11] MEDS: GLUCERNA 1.2 1,000 ML BOTTLE GT PRN (05:49)
--- NOTE | 2017-09-11 05:52 | NUR ---
PT RECEIVED TRACHED PORTEX 7. PT ON MECHANICAL VENT ON NOTED SETTINGS. PT SHOWS NO SIGNS OF RESP DISTRESS. PT ALERT & ORIENTATED. PT WAS SUCTIONED T/O SHIFT, MODERATE THIN YELLOW SECRETIONS. VENT PLUGGED INTO RED OUTLET. ALARMS ARE SET AND AUDIBLE. AMBU BAG IS AT BEDSIDE. WILL CONT TO MONITOR. Addendum: 09/11/17 at 0553 by CHA NORMAN RT Amended: Links added.
[2017-09-11 08:00] VITALS: BP 97/55
--- NOTE | 2017-09-11 08:00 | NUR ---
TD/RN AM SHIFT INITIAL NOTES RECEIVED PT AWAKE IN BED, PT ALERT, ABLE TO MAKE NEEDS KNOWN BY NODDING, NO ACUTE RESPIRATORY DISTRESS OR ACUTE CHANGE OF CONDITION, PT DENIES ANY SYMPTOMS. VENT DEPENDENT WITH RATES SET PRESCRIBED, SATURATING @ 100%, LUNG SOUNDS DIMINISHED, SUCTIONED [place] CLEARANCE, ON TELE MONITORING WITH SINUS TACHY, HR 103. ON GOING IV INFUSION OF NS @ 75CC/HR, IV SITE PATENT WITH NO S/S OF INFECTION, ALSO ON GOING GTF @ 65CC/HR, NO GASTRIC RESIDUAL, FLUSHED AND PATENT. PT IS COMFORTABLE, SCHEDULED AM MEDS TO BE GIVEN. CL WITHIN REACHED, SAFETY MAINTAINED AND ISOLATION OBSERVED. ON GOING MONITORING.
[2017-09-11] MEDS: VANCOMYCIN 0.75 GM in IV D5W 250 ML IV SCH ×2 (09:19→21:08)
[2017-09-11] MEDS: PANTOPRAZOLE 40 MG/PACK PACK GT SCH (09:19)
[2017-09-11] MEDS: ACETAMINOPHEN 325 MG TABLET MC PRN (09:19)
[2017-09-11] MEDS: ENOXAPARIN SODIUM 40 MG/0.4 ML DISP.SYRIN SQ SCH (09:20)
[2017-09-11] MEDS ORDERED: IV NS 0.9% 250 ML BAG IV ONE (10:00)
[2017-09-11 12:00] VITALS: BP 98/56
--- NOTE | 2017-09-11 15:03 | NUR ---
RT SHIFT REPORT, PT. 72 Y OLD MALE REMAIN TRACHED PORTEX # 7 WITH NOTED SETTINGS, VENT ALARMS ARE SET AND AUDIBLE WITH AMBU BAG AT THE BEDSIDE. 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 VENT IS PLUGGED INTO RED OUTLET. B/S BILATERALLY RALES EQUAL CHEST RISE NOTED. SX MODERATE THICK YELLOW SECRETIONS. NO RESPIRATORY DISTRESS NOTED T/O SHIFT, WILL CONTINUE TO MONITOR. REPORT WILL BE GIVEN TO PM SHIFT. PT REMAIN STABLE. Addendum: 09/11/17 at 1504 by BREN TORRES RT Amended: Links added.
[2017-09-11 16:00] VITALS: BP 107/62
[2017-09-11 20:00] VITALS: BP 103/49
[2017-09-11] MEDS: MUPIROCIN OINT 2% 22 GM TUBE SCH (20:42)
[2017-09-11] MEDS ORDERED: MUPIROCIN OINT 2% 22 GM TUBE SCH (21:00)
[2017-09-11 23:32] LABS: BASOPHILS % (AUTO) 0.3 % (0.0-2.0); EOSINOPHILS % (AUTO) 15.2 % (0.0-6.0); HEMATOCRIT 23 % (39-51); HEMOGLOBIN 7.5 g/dL (13.5-17.5); LYMPHOCYTES # (AUTO) 2.3 /CMM (0.8-4.8); LYMPHOCYTES % (AUTO) 17.1 % (20.0-44.0); MEAN CORPUSCULAR HEMOGLOBIN 28 PG (26.0-33.0); MEAN CORPUSCULAR HGB CONC 33 g/dl (31.0-36.0); MEAN CORPUSCULAR VOLUME 85 fL (80-96); MONOCYTES # (AUTO) 0.7 /CMM (0.1-1.30); MONOCYTES % (AUTO) 5.6 % (2.0-12.0); NEUTROPHILS # (AUTO) 8.2 /CMM (1.8-8.9); NEUTROPHILS % (AUTO) 61.8 % (43.0-81.0); PLATELET COUNT (AUTO) 361 /CMM (150-450); RDW COEFFICIENT OF VARIATION 20.8 (11.5-15.0); RED BLOOD CELL COUNT(AUTO) 2.69 MIL/uL (4.5-6.0); WHITE BLOOD COUNT (AUTO) 13.2 K/uL (4.3-11.0)
[2017-09-11 23:45] LABS: CALCIUM, SERUM 8.7 mg/dL (8.5-10.1); CARBON DIOXIDE 28 mmol/L (21-32); CHLORIDE 100 mmol/L (98-107); CREATININE 0.9 mg/dL (0.6-1.3); GLUCOSE 93 mg/dL (74-106); POTASSIUM 4.8 mmol/L (3.5-5.1); SODIUM SERUM 134 mmol/L (136-145); UREA NITROGEN, BLOOD 12 mg/dL (7-18)
[2017-09-12] VITALS: BP 114/52
--- NOTE | 2017-09-12 03:31 | NUR ---
RT NOTE: RECEIVED TRACH PT ON VENT WITH NOTED SETTINGS . PT TOLERATING VENT SETTINGS. NO ADVERSE REACTION NOTED. SUCTIONED MODERATE AMOUNT OF THICK YELLOW SECRETIONS. NO RESP DISTRESS NOTED. VENT ALARMS SET AND AUDIBLE. AMBU BAG AT BEDSIDE. VENT PLUGGED INTO RED OUTLET. WILL CONTINUE TO MONITOR.
[2017-09-12 04:00] VITALS: BP 105/58
[2017-09-12] MEDS: PIPERACILLIN /TAZOBACTAM 3.375 G in IV D5W 50 ML IV SCH ×3 (06:17→17:23)
[2017-09-12] MEDS: GLUCERNA 1.2 1,000 ML BOTTLE GT PRN (06:58)
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
[2017-09-12 08:00] VITALS: BP 106/57
--- NOTE | 2017-09-12 08:00 | NUR ---
TD/RN AM SHIFT INITIAL NOTES RECEIVED PT AWAKE IN BED, PT ALERT, ABLE TO MAKE NEEDS KNOWN BY NODDING, NO ACUTE RESPIRATORY DISTRESS OR ACUTE CHANGE OF CONDITION, PT DENIES ANY SYMPTOMS. VENT DEPENDENT WITH RATES SET PRESCRIBED, SATURATING @ 100%, LUNG SOUNDS CLEAR, PT REFUSED SUCTIONING. ON TELE MONITORING WITH SINUS RHYTHM, HR 98. ON GOING IV INFUSION OF NS @ 75CC/HR, IV SITE PATENT WITH NO S/S OF INFECTION, ALSO ON GOING GTF @ 65CC/HR, NO GASTRIC RESIDUAL, FLUSHED AND PATENT. PER PM NURSE REPORT PT REFUSED AM BLOOD DRAW. I AGAIN EXPLAINED TO PT THE BENEFITS TO PT, STILL REFUSED, WILL TRY AGAIN LATER. PT IS COMFORTABLE, SCHEDULED AM MEDS TO BE GIVEN. CL WITHIN REACHED, SAFETY MAINTAINED AND ISOLATION OBSERVED. ON GOING MONITORING.
[2017-09-12] MEDS: ENOXAPARIN SODIUM 40 MG/0.4 ML DISP.SYRIN SQ SCH (09:15)
[2017-09-12] MEDS: PANTOPRAZOLE 40 MG/PACK PACK GT SCH (09:16)
[2017-09-12] MEDS: FLUCONAZOLE (100 MG) 100 MG TABLET PO SCH (09:16)
[2017-09-12] MEDS: VANCOMYCIN 0.75 GM in IV D5W 250 ML IV SCH ×2 (09:16→22:10)
[2017-09-12] MEDS: MUPIROCIN OINT 2% 22 GM TUBE SCH ×2 (09:18→20:17)
--- NOTE | 2017-09-12 09:30 | NUR ---
TD/RN AM LAB DRAW - REFUSED AVIONICS MANAGER CAME IN TRYING AGAIN TO DRAW AM LABS. I AGAIN TALKED TO PT REGARDING THE NEED FOR BLOOD DRAW AGAIN REFUSED. WILL NOTIFY PRIMARY. ON GOING MONITORING.
[2017-09-12 12:00] VITALS: BP_SYST 106; BP_SYST 120; BP_DIAS 57; BP_DIAS 58
[2017-09-12 16:00] VITALS: BP 117/60
[2017-09-12] MEDS: IV NS 0.9% 1,000 ML IV PRN (16:23)
[2017-09-12] MEDS: LACTOBACILLUS RHAMNOSUS GG 1 EACH CAP.SPRINK PO SCH (17:23)
--- NOTE | 2017-09-12 19:24 | NUR ---
TD/RN AM SHIFT END NOTES ALL NEEDS MET. NO ACUTE CHANGE OF CONDITION NOTED DURING THE SHIFT. PT ENDORSED TO PM NURSE TO CONTINUE CARE. VENOUS DOPPLER ON GOING AT BEDSIDE. CL WITHIN REACHED, SAFETY MAINTAINED AND ISOLATION OBSERVED.
--- NOTE | 2017-09-12 19:34 | NUR ---
RN NOTE RECEIVED PATIENT DURING US ON RIGHT ARM, NO RESPIRATORY DISTRESS NOTED, AWAKE, ALERT/ORIENTED X 2, NO PAIN OR DISCOMFORT NOTED, CALLED DAUGHTER GABRIEL LEFT MESSAGE TO OBTAIN CONSENT FOR RIGHT FOOT DEBRIDMENT, AWAITING FOR CALL BACK, ALL SAFETY MEASURES TAKEN, WILL CONTINUE TO MONITOR PATIENT Addendum: 09/12/17 at 2300 by KRISTYN WRIGHT RN RIGHT ARM, BLISTERS NOTED, WOUND CARE CONSULT ORDERED PER MD ORDER, CHARGE NURSE IS AWARE
[2017-09-12 20:00] VITALS: BP 121/51
[2017-09-12] MEDS: ACETAMINOPHEN 325 MG TABLET MC PRN (20:33)
--- NOTE | 2017-09-12 21:32 | NUR ---
RN NOTE LAB CAME TO DRAW BLOOD, PATIENT IS ALERT/ORIENTED X2, PATIENT REFUSED, EXPLAINED ALL RISKS AND BENEFITS STILL REFUSED
[2017-09-12] MEDS: HYDROCODONE/APAP 5/325MG 1 EACH TABLET GT PRN (22:11)
[2017-09-12 22:28] LABS: BASOPHILS % (AUTO) 0.2 % (0.0-2.0); EOSINOPHILS % (AUTO) 6.8 % (0.0-6.0); HEMATOCRIT 23 % (39-51); HEMOGLOBIN 7.5 g/dL (13.5-17.5); LYMPHOCYTES # (AUTO) 2.1 /CMM (0.8-4.8); MEAN CORPUSCULAR HEMOGLOBIN 28 PG (26.0-33.0); MEAN CORPUSCULAR HGB CONC 33 g/dl (31.0-36.0); MEAN CORPUSCULAR VOLUME 85 fL (80-96); MONOCYTES % (AUTO) 7.1 % (2.0-12.0); NEUTROPHILS # (AUTO) 9.9 /CMM (1.8-8.9); NEUTROPHILS % (AUTO) 70.9 % (43.0-81.0); PLATELET COUNT (AUTO) 368 /CMM (150-450); RDW COEFFICIENT OF VARIATION 20.5 (11.5-15.0); WHITE BLOOD COUNT (AUTO) 13.9 K/uL (4.3-11.0)
[2017-09-12 22:41] LABS: CALCIUM, SERUM 8.5 mg/dL (8.5-10.1); CARBON DIOXIDE 27 mmol/L (21-32); CHLORIDE 96 mmol/L (98-107); GLUCOSE 125 mg/dL (74-106); MAGNESIUM 1.7 mg/dL (1.8-2.4); PHOSPHORUS 2.9 mg/dL (2.5-4.9); POTASSIUM 4.5 mmol/L (3.5-5.1); SODIUM SERUM 129 mmol/L (136-145); UREA NITROGEN, BLOOD 13 mg/dL (7-18)
[2017-09-13] VITALS: BP 102/56
[2017-09-13] MEDS: PIPERACILLIN /TAZOBACTAM 3.375 G in IV D5W 50 ML IV SCH ×4 (00:58→17:00)
--- NOTE | 2017-09-13 01:13 | NUR ---
RN NOTE REPORTED TO SIDNEY BRAUN NP, MG 1.7, NO NEW ORDERS GIVEN
[2017-09-13 04:00] VITALS: BP 123/67
--- NOTE | 2017-09-13 07:00 | NUR ---
RN NOTE PATIENT RESTED WELL AT NIGHT, NO ACUTE CHANGES NOTED, TURNED AND REPOSITION Q 2 HOURS, SR ON THE MONITOR, TOLERATED G-TUBE FEEDING WELL, ALL SAFETY MEASURES TAKEN, WILL ENDORSE TO AM SHIFT FOR CESAR
--- NOTE | 2017-09-13 07:10 | NUR ---
RN INITIAL NOTES: REC'D PT AWAKE ON BED, NOT IN ANY DISTRESS, A/O X 1-2, COMMUNICATES VIA GESTURES. ON MV VIA TRACH, SATING AT 100%. ON TELEMONITOR, SR W/ HR 91 BPM. ON GTF GLUCERNA 1.2 X 65 CC/HR INFUSING WELL, NO RESIDUAL NOTED UPON CHECKING. HAS L HAND G22, PL PATENT & INTACT W/ NO S/SX OF INFECTION/INFILTRATION NOTED, W/ NS X 75 CC/HR INFUSING WELL. PROVIDED COMFORT & SAFETY MEASURES. BED KEPT LOW & IN LOCKED POS. CALL LIGHT PLACED W/IN REACH. WILL CONT TO MONITOR & ATTEND PT NEEDS.
--- NOTE | 2017-09-13 07:30 | NUR ---
RT PT RECEIVED TRACHED WITH A PORTEX 7 ON THE VENT WITH NOTED SETTINGS. PT IS AWAKE AND APPEARS TO BE ALERT. VENT ALARMS ARE SET AND AUDIBLE WITH BVM BY BEDSIDE. OVERLOCK COLLAR SETTER CUFF PRESSURE NOTED. VENT IS PLUGGED INTO RED OUTLET. PT SX'D SMALL THICK PALE YELLOW SECRETIONS. NO RESPIRATORY DISTRESS NOTED AT THIS TIME, WILL CONTINUE TO MONITOR. Addendum: 09/13/17 at 0929 by JORGE LAFLEUR RT Amended: Links added.
[2017-09-13 08:00] VITALS: BP 106/46
[2017-09-13] MEDS: PANTOPRAZOLE 40 MG/PACK PACK GT SCH (08:03)
[2017-09-13] MEDS: FLUCONAZOLE (100 MG) 100 MG TABLET PO SCH (08:03)
[2017-09-13] MEDS: LACTOBACILLUS RHAMNOSUS GG 1 EACH CAP.SPRINK PO SCH ×2 (08:03→17:00)
[2017-09-13] MEDS: ENOXAPARIN SODIUM 40 MG/0.4 ML DISP.SYRIN SQ SCH (08:04)
[2017-09-13] MEDS: Z GUARD REMEDY 2 OZ OINT TP PRN (08:05)
[2017-09-13] MEDS: MUPIROCIN OINT 2% 22 GM TUBE SCH ×2 (08:05→21:52)
[2017-09-13 09:30] LABS: MAGNESIUM 1.7 mg/dL (1.8-2.4); PHOSPHORUS 2.9 mg/dL (2.5-4.9)
[2017-09-13 09:40] LABS: CALCIUM, SERUM 8.6 mg/dL (8.5-10.1); CARBON DIOXIDE 24 mmol/L (21-32); CHLORIDE 97 mmol/L (98-107); GLUCOSE 118 mg/dL (74-106); POTASSIUM 4.6 mmol/L (3.5-5.1); SODIUM SERUM 129 mmol/L (136-145); UREA NITROGEN, BLOOD 13 mg/dL (7-18)
[2017-09-13 09:42] LABS: THYROID STIMULATING HORMONE 0.925 uIU/mL (0.358-3.74); URIC ACID 2.1 mg/dL (2.6-7.2)
[2017-09-13] MEDS: VANCOMYCIN 0.75 GM in IV D5W 250 ML IV SCH ×2 (10:00→21:53)
--- NOTE | 2017-09-13 10:17 | NUR ---
RN NOTES: SID FROM PHARMACY, INFORMED RE: BRENDA TROUGH 26. DUE BRENDA TODAY HELD.
--- NOTE | 2017-09-13 11:08 | NUR ---
WOUND CARE CONSULT WOUND CARE RECEIVED CONSULT FOR EVALUATE SACRAL, ABDOMINAL AND LOWER EXTREMITY WOUNDS. WOUND CARE ALSO RECEIVED SECOND CONSULT FOR RIGHT ARM BLISTERS. WOUND CARE WILL DEFER BOTH CONSULT TO SURGICAL TEAM WHO ARE CURRENTLY FOLLOWING. PATIENT WITH ADIN AT 12, ALL PRESSURE ULCER PREVENTION MEASURES NOTED TO BE IN PLACE. PATIENT ON ISOFLEX LOW AIRLOSS SPECIALTY BED PER NURSING STAFF. WILL SEE PRN.
--- NOTE | 2017-09-13 11:30 | NUR ---
RN NOTES: PT SEEN & EXAMINED BY BRITTANI REYNOLDS & DR. PALOMO. WOUND DEBRIDEMENT DONE ON SACRAL & R FOOT. PT TOLERATED WELL THE PROCEDURE.
[2017-09-13 12:00] VITALS: BP 111/45
[2017-09-13] MEDS: ACETAMINOPHEN 325 MG TABLET MC PRN ×2 (12:02→18:18)
[2017-09-13] MEDS: HYDROGEL DRESSING 90 GM TUBE TP SCH (12:03)
[2017-09-13] MEDS: IV NS 0.9% 1,000 ML IV PRN (13:30)
[2017-09-13 16:00] VITALS: BP 98/51
--- NOTE | 2017-09-13 19:00 | NUR ---
RN CLOSING NOTES: PT IS FEBRILE TMAX 101.6, TECHNICIAN BIOLOGICAL HEALTH ABNER & DR. ANGELES MADE AWARE W/ ORDERS TO DO PANCULTURE & CXR. PT SEEN & EXAMINED BY ABNER. FIO2 TITRATED DOWN TO FIO2 30%, SATING >92%. ON TELEMONITOR, STKatarina MALONE GLUCERNA 1.2 X 65 CC/HR TOLERATING WELL, NO RESIDUAL W/IN SHIFT. HAS L HAND G22, PL KEPT PATENT & INTACT W/ NO S/SX OF INFECTION/INFILTRATION NOTED, W/ NS X 75 CC/HR INFUSING WELL. CONDOM CATH KEPT PATENT & INTACT DRAINING TO BSB, YELLOWISH OUTPUT. KEPT WELL RESTED. COOLING MEASURES RENDERED & PRN TYLENOL GIVEN. SUCTIONED SECRETIONS. BED KEPT LOW & IN LOCKED POS. CALL LIGHT PLACED W/IN REACH. ENDORSED TO PM RN FOR CESAR.
[2017-09-13 20:00] VITALS: BP 103/43
[2017-09-13 20:25] LABS: URINE SODIUM, RANDOM 131 mmol/l (40-220)
[2017-09-13 20:34] LABS: OSMOLALITY,URINE 390 mOS/kg (340-1090)
[2017-09-13] MEDS: GLUCERNA 1.2 1,000 ML BOTTLE GT PRN (21:52)
[2017-09-13] MEDS: MEROPENEM 500 MG in IV NS 0.9% 50 ML IV SCH (21:53)
[2017-09-13] MEDS: HYDROCODONE/APAP 5/325MG 1 EACH TABLET GT PRN (23:44)
[2017-09-14] VITALS: BP 121/66
[2017-09-14] MEDS ORDERED: LEVALBUTEROL HCL NEB 1.25 MG/0.5 ML VIAL.NEB NEB PRN (01:00)
[2017-09-14] MEDS: TEMAZEPAM 15 MG CAPSULE GT PRN (01:12)
[2017-09-14] MEDS: IPRATROPIUM NEB FS 0.5 MG/2.5 ML AMPUL.NEB NEB SCH ×6 (03:36→23:19)
[2017-09-14 04:00] VITALS: BP 107/58
[2017-09-14] MEDS: MEROPENEM 500 MG in IV NS 0.9% 50 ML IV SCH ×3 (05:54→21:05)
[2017-09-14] MEDS: IV NS 0.9% 1,000 ML IV PRN ×2 (05:54→21:40)
[2017-09-14 06:31] LABS: CALCIUM, SERUM 8.7 mg/dL (8.5-10.1); CARBON DIOXIDE 30 mmol/L (21-32); CHLORIDE 101 mmol/L (98-107); GLUCOSE 109 mg/dL (74-106); POTASSIUM 4.7 mmol/L (3.5-5.1); SODIUM SERUM 135 mmol/L (136-145); UREA NITROGEN, BLOOD 14 mg/dL (7-18)
--- NOTE | 2017-09-14 06:51 | NUR ---
RN CLOSING NOTES PATIENT NOTED WITH LARGE AMOUNT OF COPIOUS YELLOW SPUTUM. PATIENT SUCTIONED FREQUENTLY. TMAX OF 101.4 OVERNIGHT. COOLING MEASURES RENDERED. PATIENT IS RESTLESS. PATIENT ALSO OBSERVED TO BE TACHYPNEIC, 30s. EPISODE OF TACHYCARDIA AT 130s WITH FEVER. PANCULTURES SENT AND PENDING. CXR SHOWS SLIGHT INTERVAL INCREASE IN VASCULAR CONGESTION. MEDS REVIEWED. SPOKE WITH THOMPSON CHRISTOPHER NP. ORDER FOR BREATHING TREATMENT OBTAINED. PATIENT ALSO MEDICATED WITH NORCO AND RESTORIL TO HELP CALM THE PATIENT WITH GOOD HELP. PATIENT NOW IS SR-ST AT 90-110s. SATURATING WELL WITH VENT SETTINGS AND FiO2 BACK AT 30%. AFEBRILE. TOLERATED GTF WELL, NO GASTRIC RESIDUAL. IVF AND ATB ORDERED. WOUND CARE RENDERED. TURNED AND REPOSITIONED. SAFETY AND COMFORT ENSURED. BED IN LOW AND LOCKED POSITION. ISOLATION PRECAUTION OBSERVED AT ALL TIMES.
[2017-09-14] MEDS: ACETYLCYSTEINE 20% SOLN 800 MG/4 ML VIAL NEB SCH ×3 (07:14→23:19)
--- NOTE | 2017-09-14 07:19 | NUR ---
RT RECEIVED PT TRACH ON VENT WITH NOTED SETTINGS, PT TRACH SIZE IS PORTEX # 7. NET C DEVELOPER DONE AND TRACH IS SECURE. VENT ALARMS CHECKED AND AUDIBLE. VENT PLUGGED IN RED OUTLET. AMBU BAG NOTED HOB. PT RECEIVES BREATHING TX Q4/Q8. SX WITH MOD TO LRG THK PINA SECRETIONS. NO SOB OR DISTRESS NOTED, WILL CONTINUE TO MONITOR T/O SHIFT.
[2017-09-14 07:48] LABS: BASOPHILS # (AUTO) 0.1 /CMM (0.0-0.2); BASOPHILS % (AUTO) 0.3 % (0.0-2.0); EOSINOPHILS % (AUTO) 1.2 % (0.0-6.0); HEMATOCRIT 21 % (39-51); LYMPHOCYTES # (AUTO) 1.7 /CMM (0.8-4.8); LYMPHOCYTES % (AUTO) 10.6 % (20.0-44.0); MEAN CORPUSCULAR HEMOGLOBIN 28 PG (26.0-33.0); MEAN CORPUSCULAR HGB CONC 33 g/dl (31.0-36.0); MEAN CORPUSCULAR VOLUME 86 fL (80-96); MONOCYTES # (AUTO) 1.1 /CMM (0.1-1.30); MONOCYTES % (AUTO) 7.2 % (2.0-12.0); NEUTROPHILS # (AUTO) 12.7 /CMM (1.8-8.9); NEUTROPHILS % (AUTO) 80.7 % (43.0-81.0); PLATELET COUNT (AUTO) 297 /CMM (150-450); RDW COEFFICIENT OF VARIATION 20.5 (11.5-15.0); WHITE BLOOD COUNT (AUTO) 15.7 K/uL (4.3-11.0)
[2017-09-14 08:00] VITALS: BP 128/50
--- NOTE | 2017-09-14 08:00 | NUR ---
TD/RN AM SHIFT INITIAL NOTES RECEIVED PT AWAKE IN BED, PT ALERT, ABLE TO MAKE NEEDS KNOWN BY NODDING, DENIES ANY SYMPTOMS, NO ACUTE RESPIRATORY DISTRESS OR ACUTE CHANGE OF CONDITION, VENT DEPENDENT WITH RATES SET PRESCRIBED, SATURATING @ 100%, LUNG SOUNDS RHONCHI, PT REFUSED SUCTIONING. ON TELE MONITORING WITH SINUS TACHY, HR 110. ON GOING IV INFUSION OF NS @ 75CC/HR, IV SITE PATENT WITH NO S/S OF INFECTION, ALSO ON GOING GTF @ 65CC/HR, NO GASTRIC RESIDUAL, FLUSHED AND PATENT. CONDOM CATHETER INTACT NOTED WITH CLEAR, YELLOW URINE OUTPUT. DR. ANGELES ROUNDING, UPDATED PT'S CONDITION WELL CRITICAL LAB VALUES REPORTED, NO NEW ORDERS RECEIVED AT THIS TIME. PT NOTED WITH WARM RIGHT UPPER EXTREMITIES, BUT NO REDNESS, ALSO NOTED MULTIPLE CLOSED BLISTER. PT IS COMFORTABLE, SCHEDULED AM MEDS TO BE GIVEN. CL WITHIN REACHED, SAFETY MAINTAINED AND ISOLATION OBSERVED. ON GOING MONITORING.
[2017-09-14] MEDS: MUPIROCIN OINT 2% 22 GM TUBE SCH ×2 (08:17→21:06)
[2017-09-14] MEDS: ENOXAPARIN SODIUM 40 MG/0.4 ML DISP.SYRIN SQ SCH (08:17)
[2017-09-14] MEDS: HYDROGEL DRESSING 90 GM TUBE TP SCH (08:18)
[2017-09-14] MEDS: LACTOBACILLUS RHAMNOSUS GG 1 EACH CAP.SPRINK PO SCH ×2 (08:18→17:14)
[2017-09-14] MEDS: PANTOPRAZOLE 40 MG/PACK PACK GT SCH (08:18)
[2017-09-14] MEDS: FLUCONAZOLE (100 MG) 100 MG TABLET PO SCH (08:18)
[2017-09-14 12:00] VITALS: BP 113/49
--- NOTE | 2017-09-14 12:00 | NUR ---
TD/RN NOON ROUNDS - FEVER PT NOTED WITH TEMP 101.1, COOLING MEASURES BEING RENDERED AT THIS TIME. ON GOING MONITORING.
[2017-09-14] MEDS: GLUCERNA 1.2 1,000 ML BOTTLE GT PRN (12:25)
[2017-09-14] MEDS: ACETAMINOPHEN 325 MG TABLET MC PRN ×2 (12:49→19:56)
[2017-09-14 16:00] VITALS: BP 128/61
--- NOTE | 2017-09-14 17:30 | NUR ---
TD/RN AFTERNOON ROUNDS TEMP CHECK ORALLY 99.2. PM CARE PROVIDED. NO ACUTE CHANGE OF CONDITION. ON GOING MONITORING.
[2017-09-14] MEDS ORDERED: DOSING PER PHARMACY-TOBRA INHALATION 1 EA XX PRN (19:00)
--- NOTE | 2017-09-14 19:12 | NUR ---
TD/RN AM SHIFT END NOTES ALL NEEDS MET. NO FEVER AT END OF SHIFT. PT ENDORSED TO PM NURSE TO CONTINUE CARE. CL WITHIN REACHED, SAFETY MAINTAINED AND ISOLATION OBSERVED.
[2017-09-14] MEDS: HALOPERIDOL 1 MG TABLET PO PRN (19:55)
[2017-09-14 20:00] VITALS: BP_SYST 117; BP_SYST 128; BP_DIAS 60; BP_DIAS 61
[2017-09-14 20:24] LABS: ABG BASE EXCESS -0.9 mmol/L; ABG OXYGEN SATURATION 82.7 % (92.0-98.5); ABG PCO2 45.6 mmHg (35.0-45.0); ABG PH 7.351 (7.350-7.450); ABG PO2 51.5 mmHg (75.0-100.0); AaDO2 181.3 mmHg; COHb 0.3 % (0.5-1.5); MetHb 1.4 % (0.0-1.5); O2Hb 81.3 % (94.0-97.0); PEEP,BG 5 cm H2O; SITE, ABG Left Radial
--- NOTE | 2017-09-14 20:26 | NUR ---
PT ON VENT, 40% FIO2. O2 SAT IN LOW 80's. STAT ABG DONE. RN NOTIFIED WITH THE RESULT. PH 7.35, CO2 45, PaO2 51, HCO3 24.
--- NOTE | 2017-09-14 20:39 | NUR ---
FIO2 INCREASED TO 50%. RN NOTIFIED. WILL CONTINUE TO MONITOR.
--- NOTE | 2017-09-14 21:00 | NUR ---
ULISES RN PT RCD WITH HR 130 RR 40 SPO2 80s; PT APPEARS IN DISTRESS; MULTIPLE O2 SENSORS NOTED ON PT NONE WITH CORRECT READING. RT AND RN EVAL PT; SENSOR WORKING PROPERLY. ABG DONE PH 7.35, CO2 45, PaO2 51, HCO3 24; FIO2 INCREASED FROM 30% TO 50% GRADUALLY. PT GIVEN HALDOL AND TYLENOL. CANDI VERTICAL MILL OPERATOR NOTIFIED WITH ORDERS TO NOTIFY RT AND REPEAT ABG POST VENT CHANGES. CONTINUE TO MONITOR PT.
[2017-09-14] MEDS: TOBRAMYCIN 80 MG/2 ML VIAL INH SCH (21:10)
[2017-09-14] MEDS: VANCOMYCIN 0.75 GM in IV D5W 250 ML IV SCH (21:40)
--- NOTE | 2017-09-14 21:40 | NUR ---
PT REFUSED SECOND ABG. RN NOTIFIED AND MITER GRINDER OPERATOR. NO DISTRESS. O2 SAT 99% ON 50% FIO2.
--- NOTE | 2017-09-14 21:40 | NUR ---
ULISES RN PT DECLINED SECOND ABG; EXPLAINED TO PT THE NEED FOR ADDITIONAL BLOOD WORK. PT WOULD NOT ALLOW TREATMENT. NO DISTRESS NOTED AT THIS TIME. CONTINUE TO MONITOR. CANDI PETER PAGED TO NOTIFY.
--- NOTE | 2017-09-14 23:00 | NUR ---
ULISES RN VSS; PT DENIES PAIN. CONTINUE TO MONITOR.
[2017-09-15] VITALS (9 sets, daily range): BP systolic 93–137; BP diastolic 55–76
[2017-09-15] MEDS: IPRATROPIUM NEB FS 0.5 MG/2.5 ML AMPUL.NEB NEB SCH ×6 (03:26→23:54)
[2017-09-15] MEDS: GLUCERNA 1.2 1,000 ML BOTTLE GT PRN (04:54)
[2017-09-15] MEDS: MEROPENEM 500 MG in IV NS 0.9% 50 ML IV SCH ×3 (04:55→21:04)
[2017-09-15 06:22] LABS: CALCIUM, SERUM 8.3 mg/dL (8.5-10.1); CARBON DIOXIDE 28 mmol/L (21-32); CHLORIDE 101 mmol/L (98-107); GLUCOSE 102 mg/dL (74-106); POTASSIUM 4.7 mmol/L (3.5-5.1); SODIUM SERUM 134 mmol/L (136-145); UREA NITROGEN, BLOOD 21 mg/dL (7-18)
--- NOTE | 2017-09-15 07:00 | NUR ---
RN NOTES RECEIVED PT ON BED, ALERT/ ABLE TO MAKE NEEDS KNOWN BY NODDING, VENT/TRACH DEPENDENT , TOLERATING CURRENT VENT SETTING WELL, O2 SAT 100%, TRACH SUCTIONING DONE , ON TELE ST , HR IN 100'S. NS @ 75CC/HR RUNNING VIA L HAND IV SIT G 22, SIT CDI, IV SITE PATENT WITH NO S/S OF INFECTION, TF @ 65CC/HR RUNNING VIA GT , TOLERATING WELL, NO GASTRIC RESIDUAL NOTED, CONDOM CATHETER INTACT, WITH CLEAR, YELLOW URINE OUTPUT, MULTIPLE CLOSED BLISTER NOTED ON R UPPER EXTREMITY, CALL LIGHT WITHIN EASY REACH, SR UPx3, BED LOCKED AND IN LOWEST POSITION, CONTINUE TO MONITOR
[2017-09-15] MEDS: ACETYLCYSTEINE 20% SOLN 800 MG/4 ML VIAL NEB SCH ×3 (07:26→23:54)
[2017-09-15] MEDS: LACTOBACILLUS RHAMNOSUS GG 1 EACH CAP.SPRINK PO SCH ×2 (08:23→16:24)
[2017-09-15] MEDS: FLUCONAZOLE (100 MG) 100 MG TABLET PO SCH (08:23)
[2017-09-15] MEDS: PANTOPRAZOLE 40 MG/PACK PACK GT SCH (08:25)
[2017-09-15] MEDS: Z GUARD REMEDY 2 OZ OINT TP PRN (08:26)
[2017-09-15] MEDS: MUPIROCIN OINT 2% 22 GM TUBE SCH ×2 (08:27→21:41)
[2017-09-15] MEDS: HYDROGEL DRESSING 90 GM TUBE TP SCH (08:27)
[2017-09-15 08:43] LABS: BASOPHILS % (AUTO) 0.2 % (0.0-2.0); EOSINOPHILS % (AUTO) 1.7 % (0.0-6.0); LYMPHOCYTES # (AUTO) 1.9 /CMM (0.8-4.8); LYMPHOCYTES % (AUTO) 9.9 % (20.0-44.0); MEAN CORPUSCULAR HEMOGLOBIN 28 PG (26.0-33.0); MEAN CORPUSCULAR HGB CONC 33 g/dl (31.0-36.0); MEAN CORPUSCULAR VOLUME 85 fL (80-96); MONOCYTES # (AUTO) 1.2 /CMM (0.1-1.30); MONOCYTES % (AUTO) 6.1 % (2.0-12.0); NEUTROPHILS # (AUTO) 16.2 /CMM (1.8-8.9); NEUTROPHILS % (AUTO) 82.1 % (43.0-81.0); PLATELET COUNT (AUTO) 333 /CMM (150-450); RDW COEFFICIENT OF VARIATION 20.5 (11.5-15.0); WHITE BLOOD COUNT (AUTO) 19.7 K/uL (4.3-11.0)
[2017-09-15 08:46] LABS: HEMATOCRIT 20 % (39-51); HEMOGLOBIN 6.5 g/dL (13.5-17.5)
--- NOTE | 2017-09-15 09:00 | NUR ---
RN NOTES DR ANGELES NOTIFED REGARDING H/H 6.08/14, CONTINUE TO MONITOR .
[2017-09-15] MEDS: TOBRAMYCIN 80 MG/2 ML VIAL INH SCH (09:27)
[2017-09-15 10:26] LABS: BAND % (MANUAL) 3 % (0.0-5.0); EOSINOPHILS % (MANUAL) 2 % (0-4); LYMPHOCYTES % (MANUAL) 13 % (16-48); MONOCYTES % (MANUAL) 5 % (0-11.0); NEUTROPHILS % (MANUAL) 77 (42-76)
[2017-09-15] MEDS: ACETAMINOPHEN 325 MG TABLET MC PRN ×2 (12:29→23:38)
--- NOTE | 2017-09-15 17:00 | NUR ---
RN NOTES PT DAUGHTER WANTS TO TALK TO DR KARTHIK MD NOTIFIED .
--- NOTE | 2017-09-15 17:27 | NUR ---
Pt tolerated current vent settings well. Pt trach is secure. Vent is plugged into a red outlet, alarms are set and audible, and BVM is at bedside. Addendum: 09/15/17 at 1728 by EDD QUIROS RT Amended: Links added.
--- NOTE | 2017-09-15 18:53 | NUR ---
RN NOTES PT STABLE, TRACH SUCTIONING DONE, TOLERATING TF WELL, SR UP x3, CALL LIGHT WITHIN EASY REACH, WILL ENDOSE TO REFINERY OPERATOR HELPER CRUDE UNIT NURSE FOR CESAR.
[2017-09-15] MEDS ORDERED: FUROSEMIDE 40 MG/4 ML VIAL IV ONE (19:34)
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
[2017-09-15] MEDS: VANCOMYCIN 0.75 GM in IV D5W 250 ML IV SCH (21:37)
[2017-09-15] MEDS ORDERED: FUROSEMIDE 40 MG/4 ML VIAL ONE (22:49)
[2017-09-16] VITALS (11 sets, daily range): BP systolic 98–133; BP diastolic 52–76
[2017-09-16] MEDS: IPRATROPIUM NEB FS 0.5 MG/2.5 ML AMPUL.NEB NEB SCH ×6 (03:48→23:35)
[2017-09-16] MEDS: MEROPENEM 500 MG in IV NS 0.9% 50 ML IV SCH ×3 (04:38→20:00)
[2017-09-16] MEDS: ACETAMINOPHEN 325 MG TABLET MC PRN ×2 (05:33→19:59)
[2017-09-16 06:07] LABS: BASOPHILS # (AUTO) 0.1 /CMM (0.0-0.2); BASOPHILS % (AUTO) 0.4 % (0.0-2.0); HEMATOCRIT 27 % (39-51); HEMOGLOBIN 9.1 g/dL (13.5-17.5); LYMPHOCYTES # (AUTO) 2.6 /CMM (0.8-4.8); LYMPHOCYTES % (AUTO) 14.4 % (20.0-44.0); MEAN CORPUSCULAR HEMOGLOBIN 29 PG (26.0-33.0); MEAN CORPUSCULAR HGB CONC 33 g/dl (31.0-36.0); MEAN CORPUSCULAR VOLUME 87 fL (80-96); MONOCYTES # (AUTO) 1.1 /CMM (0.1-1.30); NEUTROPHILS % (AUTO) 77.2 % (43.0-81.0); PLATELET COUNT (AUTO) 385 /CMM (150-450); RDW COEFFICIENT OF VARIATION 19.2 (11.5-15.0); RED BLOOD CELL COUNT(AUTO) 3.13 MIL/uL (4.5-6.0); WHITE BLOOD COUNT (AUTO) 18.2 K/uL (4.3-11.0)
[2017-09-16 06:14] LABS: CALCIUM, SERUM 9.6 mg/dL (8.5-10.1); CARBON DIOXIDE 29 mmol/L (21-32); CHLORIDE 102 mmol/L (98-107); CREATININE 1.1 mg/dL (0.6-1.3); GLUCOSE 87 mg/dL (74-106); SODIUM SERUM 139 mmol/L (136-145); UREA NITROGEN, BLOOD 16 mg/dL (7-18)
--- NOTE | 2017-09-16 06:26 | NUR ---
RN ULISES CLOSING NOTE PT CONT ON VENT SETTING ORDERED, WELL ERICK, WITH EPISODE OF ST, VERY PRODUCTIVE, SUCTIONED QS AND PRN, LASIX DOSE X 1 GIVEN ORDERED, S/P BLD TRANFUSION 1 UNIT PRBC, WELL ERICK NO A/R, THOUGH WITH FEBRILE EPISODE THROUGH SHIFT TEMP 99 @ THIS TIME. SCHEDULED FOR CT ABD AND PELVIC WITH CONTRAST, KEPT NPO,GT FLUSHED AND WOUND TX DONE, NEW IV ACCESS RUH # 20G, WELL SECURED. KEPT CLEAN AND DRY WELL REPOSITIONED, WILL ENDORSE TO AM SHIFT RN FOR CESAR.
[2017-09-16] MEDS: ACETYLCYSTEINE 20% SOLN 800 MG/4 ML VIAL NEB SCH ×3 (07:42→23:35)
[2017-09-16] MEDS ORDERED: FUROSEMIDE 40 MG/4 ML VIAL IV SCH (09:00)
[2017-09-16] MEDS ORDERED: IOHEXOL-300 100 ML VIAL IV ONE (09:04)
[2017-09-16] MEDS: PANTOPRAZOLE 40 MG/PACK PACK GT SCH (09:49)
[2017-09-16] MEDS: LACTOBACILLUS RHAMNOSUS GG 1 EACH CAP.SPRINK PO SCH ×2 (09:49→16:30)
[2017-09-16] MEDS: FLUCONAZOLE (100 MG) 100 MG TABLET PO SCH (09:49)
[2017-09-16] MEDS: FUROSEMIDE 40 MG/4 ML VIAL IV SCH (09:49)
[2017-09-16] MEDS: MUPIROCIN OINT 2% 22 GM TUBE SCH ×2 (09:50→21:21)
[2017-09-16] MEDS: HYDROGEL DRESSING 90 GM TUBE TP SCH (09:50)
[2017-09-16] MEDS: GLUCERNA 1.2 1,000 ML BOTTLE GT PRN (09:51)
[2017-09-16] MEDS: HYDROCODONE/APAP 5/325MG 1 EACH TABLET GT PRN (12:55)
--- NOTE | 2017-09-16 19:30 | NUR ---
RN/TELE NOTES: RECEIVED PT. IN BED W/ HOB ELEVATED. ALERT AND FOLLOWS COMMAND. W/ MECHANICAL VENTILATOR TOLERATING VENT SETTINGS WELL. ON ASPIRATION PRECAUTION. ON CONTACT ISOLATION. ON TELE MONITOR W/ ST @ 116. W/ GTF OF GLUCERNA TOLERATING WELL W/ NO RESIDUAL NOTED. W/ F/C IN PLACE PATENT AND INTACT W/ NO S/S OF INFECTION/INFILTRATION NOTED. NO FACIAL GRIMACES OR MOANING NOTED. CALL LIGHT W/ REACH. BEDS LOCKED AND IN LOW POSITION. CALL LIGHT W/ REACH. WILL CONTINUE TO MONITOR.
--- NOTE | 2017-09-16 19:55 | NUR ---
RT PATIENT REC'D TRACHED ON [facility] VENT WITH ORDERED SETTINGS ERICK WELL. VENT ALARMS CHECKED + AUDIBLE. CUFF PRESSURE CHECKED BEEF BREAKER. PATIENT RESPONSIVE TO VERBAL COMMANDS, NO SOB NOTED. PATIENT SUCTIONED WITH MOD AMT OF PALE SEMITHICK SECRETIONS. B/S DEVANTE. ALISSONU BAG AT HOB Addendum: 09/16/17 at 2224 by IOANA LITTLE RT Amended: Links added.
[2017-09-16] MEDS: VANCOMYCIN 0.75 GM in IV D5W 250 ML IV SCH (21:07)
[2017-09-17] VITALS: BP 116/63
[2017-09-17] MEDS: GLUCERNA 1.2 1,000 ML BOTTLE GT PRN ×2 (01:19→18:37)
[2017-09-17] MEDS: IPRATROPIUM NEB FS 0.5 MG/2.5 ML AMPUL.NEB NEB SCH ×5 (02:33→20:08)
[2017-09-17 04:00] VITALS: BP 122/72
[2017-09-17] MEDS: MEROPENEM 500 MG in IV NS 0.9% 50 ML IV SCH ×3 (04:38→21:08)
[2017-09-17 06:30] LABS: BASOPHILS % (AUTO) 0.1 % (0.0-2.0); EOSINOPHILS % (AUTO) 0.5 % (0.0-6.0); HEMATOCRIT 25 % (39-51); HEMOGLOBIN 8.5 g/dL (13.5-17.5); LYMPHOCYTES # (AUTO) 1.8 /CMM (0.8-4.8); LYMPHOCYTES % (AUTO) 7.7 % (20.0-44.0); MEAN CORPUSCULAR HEMOGLOBIN 29 PG (26.0-33.0); MEAN CORPUSCULAR HGB CONC 34 g/dl (31.0-36.0); MEAN CORPUSCULAR VOLUME 86 fL (80-96); MONOCYTES # (AUTO) 0.7 /CMM (0.1-1.30); MONOCYTES % (AUTO) 2.8 % (2.0-12.0); NEUTROPHILS # (AUTO) 20.9 /CMM (1.8-8.9); NEUTROPHILS % (AUTO) 88.9 % (43.0-81.0); PLATELET COUNT (AUTO) 412 /CMM (150-450); RDW COEFFICIENT OF VARIATION 19.5 (11.5-15.0); RED BLOOD CELL COUNT(AUTO) 2.95 MIL/uL (4.5-6.0); WHITE BLOOD COUNT (AUTO) 23.5 K/uL (4.3-11.0)
[2017-09-17 06:56] LABS: CALCIUM, SERUM 9.3 mg/dL (8.5-10.1); CARBON DIOXIDE 34 mmol/L (21-32); CHLORIDE 98 mmol/L (98-107); CREATININE 1.2 mg/dL (0.6-1.3); GLUCOSE 141 mg/dL (74-106); POTASSIUM 4.6 mmol/L (3.5-5.1); SODIUM SERUM 133 mmol/L (136-145); UREA NITROGEN, BLOOD 24 mg/dL (7-18)
--- NOTE | 2017-09-17 07:23 | NUR ---
RN/TELE NOTES: NO ACUTE CHANGES NOTED DURING THIS SHIFT. REPORT GIVEN TO AM NURSE FOR CESAR.
[2017-09-17] MEDS: ACETYLCYSTEINE 20% SOLN 800 MG/4 ML VIAL NEB SCH ×2 (07:41→15:53)
[2017-09-17 08:00] VITALS: BP 91/56
[2017-09-17] MEDS: PANTOPRAZOLE 40 MG/PACK PACK GT SCH (08:50)
[2017-09-17] MEDS: LACTOBACILLUS RHAMNOSUS GG 1 EACH CAP.SPRINK PO SCH ×2 (08:50→16:02)
[2017-09-17] MEDS: FLUCONAZOLE (100 MG) 100 MG TABLET PO SCH (08:50)
[2017-09-17] MEDS: FUROSEMIDE 40 MG/4 ML VIAL IV SCH (08:51)
[2017-09-17] MEDS: MUPIROCIN OINT 2% 22 GM TUBE SCH ×2 (08:51→21:09)
[2017-09-17] MEDS: HYDROGEL DRESSING 90 GM TUBE TP SCH (08:51)
[2017-09-17 08:59] LABS: BAND % (MANUAL) 2 % (0.0-5.0); EOSINOPHILS % (MANUAL) 1 % (0-4); LYMPHOCYTES % (MANUAL) 10 % (16-48); MONOCYTES % (MANUAL) 2 % (0-11.0); NEUTROPHILS % (MANUAL) 85 (42-76)
[2017-09-17 12:00] VITALS: BP 93/45
[2017-09-17] MEDS: ASCORBIC ACID 500 MG TABLET GT SCH (12:25)
[2017-09-17] MEDS: MULTIVITAMINS,THERAGRAN 1 UDTAB TABLET GT SCH (12:25)
[2017-09-17] MEDS: HYDROCODONE/APAP 5/325MG 1 EACH TABLET GT PRN (12:26)
[2017-09-17 16:00] VITALS: BP 96/49
--- NOTE | 2017-09-17 19:55 | NUR ---
ULISES RN NOTES RECEIVED BEDSIDE REPORT FROM AM NURSE. PT. IN BED W/ HOB ELEVATED. ALERT AND FOLLOWS COMMAND. W/ MECHANICAL VENTILATOR TOLERATING VENT SETTINGS WELL. ON ASPIRATION PRECAUTION. ON CONTACT ISOLATION. ON TELE MONITOR W/ ST @ 115. W/ GTF OF GLUCERNA 1.2 @65ML/HR TOLERATING WELL W/ NO RESIDUAL NOTED.SHANI 20G IV LINE NOTED, INTACT, PATIENT. W/ C/C IN PLACE PATENT AND INTACT W/ NO S/S OF INFECTION. NO FACIAL GRIMACES OR MOANING NOTED. CALL LIGHT W/ REACH. BEDS LOCKED AND IN LOW POSITION. CALL LIGHT W/ REACH. WILL CONTINUE TO MONITOR.
[2017-09-17 20:00] VITALS: BP 119/69
[2017-09-17] MEDS: VANCOMYCIN 0.75 GM in IV D5W 250 ML IV SCH (21:44)
[2017-09-18] VITALS: BP 110/58
[2017-09-18] MEDS: ACETYLCYSTEINE 20% SOLN 800 MG/4 ML VIAL NEB SCH ×4 (00:27→23:55)
[2017-09-18] MEDS: IPRATROPIUM NEB FS 0.5 MG/2.5 ML AMPUL.NEB NEB SCH ×8 (00:27→23:55)
[2017-09-18 04:00] VITALS: BP 105/60
[2017-09-18] MEDS: MEROPENEM 500 MG in IV NS 0.9% 50 ML IV SCH ×3 (05:31→20:00)
[2017-09-18 06:02] LABS: BASOPHILS # (AUTO) 0.1 /CMM (0.0-0.2); BASOPHILS % (AUTO) 0.3 % (0.0-2.0); EOSINOPHILS % (AUTO) 1.3 % (0.0-6.0); HEMATOCRIT 30 % (39-51); HEMOGLOBIN 9.9 g/dL (13.5-17.5); LYMPHOCYTES # (AUTO) 2.6 /CMM (0.8-4.8); LYMPHOCYTES % (AUTO) 10.5 % (20.0-44.0); MEAN CORPUSCULAR HEMOGLOBIN 29 PG (26.0-33.0); MEAN CORPUSCULAR HGB CONC 33 g/dl (31.0-36.0); MEAN CORPUSCULAR VOLUME 87 fL (80-96); MONOCYTES # (AUTO) 1.2 /CMM (0.1-1.30); MONOCYTES % (AUTO) 4.8 % (2.0-12.0); NEUTROPHILS # (AUTO) 20.3 /CMM (1.8-8.9); NEUTROPHILS % (AUTO) 83.1 % (43.0-81.0); PLATELET COUNT (AUTO) 446 /CMM (150-450); RDW COEFFICIENT OF VARIATION 19.6 (11.5-15.0); RED BLOOD CELL COUNT(AUTO) 3.46 MIL/uL (4.5-6.0); WHITE BLOOD COUNT (AUTO) 24.4 K/uL (4.3-11.0)
[2017-09-18 06:07] LABS: CALCIUM, SERUM 9.3 mg/dL (8.5-10.1); CARBON DIOXIDE 31 mmol/L (21-32); CHLORIDE 97 mmol/L (98-107); CREATININE 1.2 mg/dL (0.6-1.3); GLUCOSE 108 mg/dL (74-106); SODIUM SERUM 132 mmol/L (136-145); UREA NITROGEN, BLOOD 29 mg/dL (7-18)
[2017-09-18 07:14] LABS: EOSINOPHILS % (MANUAL) 2 % (0-4); LYMPHOCYTES % (MANUAL) 10 % (16-48); MONOCYTES % (MANUAL) 4 % (0-11.0); NEUTROPHILS % (MANUAL) 84 (42-76)
--- NOTE | 2017-09-18 07:55 | NUR ---
RN NOTE RECEIVED PATIENT IN BED AWAKE WATCHING T.V WITH HOB ELEVATED. ALERT AND ORIENTED X2, HE IS ABLE TO FOLLOW COMMANDS. ON MECHANICAL VENTILATOR WITH APPROPRIATE SETTINGS. NO DISTRESS NOTED. ON CONTACT ISOLATION WITH ALL SAFETY PRECAUTIONS DONE. ON PROFESSOR OF SOCIAL WORK OF SINUS TACHY HR OF 117. GT SITE INTACT AND PATENT WITH ONGOING FEEDINGS OF GLUCERNA 1.2 @65ML/HR WELL TOLERATED. RIGHT UA IV SITE INTACT AND PATENT. BED LOW AND LOCKED POSITION. ALL SAFETY MEASURES DONE. PLACED CALL LIGHT WITHIN REACH. WILL CONTINUE TO MONITOR.
[2017-09-18 08:00] VITALS: BP 98/57
[2017-09-18] MEDS: ASCORBIC ACID 500 MG TABLET GT SCH (08:10)
[2017-09-18] MEDS: MULTIVITAMINS,THERAGRAN 1 UDTAB TABLET GT SCH (08:10)
[2017-09-18] MEDS: FLUCONAZOLE (100 MG) 100 MG TABLET PO SCH (08:10)
[2017-09-18] MEDS: PANTOPRAZOLE 40 MG/PACK PACK GT SCH (08:10)
[2017-09-18] MEDS: LACTOBACILLUS RHAMNOSUS GG 1 EACH CAP.SPRINK PO SCH ×2 (08:10→16:43)
[2017-09-18] MEDS: HYDROGEL DRESSING 90 GM TUBE TP SCH (08:11)
--- NOTE | 2017-09-18 08:21 | NUR ---
RT PATIENT REC'D TRACHED ON [facility] VENT WITH ORDERED SETTINGS ERICK WELL. VENT ALARMS CHECKED + AUDIBLE. CUFF PRESSURE CHECKED ARTIFICIAL FOLIAGE ARRANGER. PATIENT AWAKE RESPONSIVE TO VERBAL COMMANDS, NO SOB NOTED. PATIENT SUCTIONED WITH MOD AMT OF PALE SEMITHICK SECRETIONS. B/S DEVANTE. AMBU BAG AT HOB Addendum: 09/18/17 at 0849 by IOANA LITTLE RT Amended: Links added.
[2017-09-18] MEDS: MUPIROCIN OINT 2% 22 GM TUBE SCH ×2 (10:40→20:45)
[2017-09-18 12:00] VITALS: BP 99/57
[2017-09-18] MEDS: GLUCERNA 1.2 1,000 ML BOTTLE GT PRN (12:00)
[2017-09-18 16:00] VITALS: BP 94/62
[2017-09-18] MEDS: ACETAMINOPHEN 325 MG TABLET MC PRN (16:52)
--- NOTE | 2017-09-18 18:53 | NUR ---
RN NOTE PATIENT REMAINED STABLE THROUGHOUT SHIFT. NO ACUTE CHANGES OR DISTRESS NOTED. WILL ENDORSE TO NEXT SHIFT TO CONTINUE TO MONITOR CONTINUITY OF CARE
[2017-09-18 20:00] VITALS: BP 91/53
[2017-09-18] MEDS: VANCOMYCIN 0.75 GM in IV D5W 250 ML IV SCH (20:45)
[2017-09-19] VITALS: BP 104/62
[2017-09-19] MEDS: ACETAMINOPHEN 325 MG TABLET MC PRN (02:35)
[2017-09-19 04:00] VITALS: BP 105/58
[2017-09-19] MEDS: IPRATROPIUM NEB FS 0.5 MG/2.5 ML AMPUL.NEB NEB SCH ×6 (04:26→23:44)
[2017-09-19] MEDS: MEROPENEM 500 MG in IV NS 0.9% 50 ML IV SCH ×3 (05:02→21:36)
[2017-09-19 06:10] LABS: BASOPHILS # (AUTO) 0.1 /CMM (0.0-0.2); BASOPHILS % (AUTO) 0.4 % (0.0-2.0); EOSINOPHILS % (AUTO) 5.4 % (0.0-6.0); HEMATOCRIT 25 % (39-51); HEMOGLOBIN 8.2 g/dL (13.5-17.5); LYMPHOCYTES # (AUTO) 1.7 /CMM (0.8-4.8); LYMPHOCYTES % (AUTO) 9.3 % (20.0-44.0); MEAN CORPUSCULAR HEMOGLOBIN 29 PG (26.0-33.0); MEAN CORPUSCULAR HGB CONC 33 g/dl (31.0-36.0); MEAN CORPUSCULAR VOLUME 86 fL (80-96); MONOCYTES # (AUTO) 0.7 /CMM (0.1-1.30); NEUTROPHILS % (AUTO) 80.9 % (43.0-81.0); PLATELET COUNT (AUTO) 416 /CMM (150-450); RDW COEFFICIENT OF VARIATION 19.9 (11.5-15.0); RED BLOOD CELL COUNT(AUTO) 2.86 MIL/uL (4.5-6.0); WHITE BLOOD COUNT (AUTO) 18.5 K/uL (4.3-11.0)
[2017-09-19] MEDS: GLUCERNA 1.2 1,000 ML BOTTLE GT PRN ×2 (06:18→21:36)
[2017-09-19 06:36] LABS: CALCIUM, SERUM 9.4 mg/dL (8.5-10.1); CARBON DIOXIDE 31 mmol/L (21-32); CHLORIDE 100 mmol/L (98-107); CREATININE 1.1 mg/dL (0.6-1.3); GLUCOSE 99 mg/dL (74-106); POTASSIUM 5.1 mmol/L (3.5-5.1); SODIUM SERUM 135 mmol/L (136-145); UREA NITROGEN, BLOOD 32 mg/dL (7-18)
--- NOTE | 2017-09-19 07:13 | NUR ---
RN NOTE PATIENT WAS STABLE DURING MY SHIFT, NO DISTRESS NOTED, TOLERATED MECHANICAL VENTILATOR WELL, TOLERATED FEEDING WELL, ALL SAFETY MEASURES TAKEN, ENDORSED TO AM SHIFT FOR CESAR
--- NOTE | 2017-09-19 07:36 | NUR ---
RN NOTE RECEIVED PATIENT ON BED, A/O X2, ABLE TO FOLLOW COMMANDS. VENT/TRACH DEPENDENT, TRACH CARE DONE, TOLERATING CURRENT VENT SETTING WELL, ON TELE SR HR IN 90'S , TF, GLUCERNA AT 65CC/HR RUNNING VIA GT , TOLERATING WELL, NO RESIDUAL NOTED, RIGHT UA IV SITE INTACT AND PATENT. SR UP X2, BED LOW AND LOCKED POSITION. ALL SAFETY MEASURES DONE. CALL LIGHT WITHIN EASY REACH. WILL CONTINUE TO MONITOR.
[2017-09-19] MEDS: ACETYLCYSTEINE 20% SOLN 800 MG/4 ML VIAL NEB SCH ×3 (07:58→23:44)
--- NOTE | 2017-09-19 07:58 | NUR ---
RT PATIENT REC'D TRACHED ON [facility] VENT WITH ORDERED SETTINGS ERICK WELL. VENT ALARMS CHECKED + AUDIBLE. CUFF PRESSURE CHECKED RN FAMILY. PATIENT RESPONSIVE TO VERBAL COMMANDS, NO SOB NOTED. PATIENT SUCTIONED WITH MOD AMT OF PALE SEMITHICK SECRETIONS. B/S DEVANTE. ALISSONU BAG AT HOB Addendum: 09/19/17 at 1546 by IOANA LITTLE RT Amended: Links added.
[2017-09-19 08:00] VITALS: BP 103/82
[2017-09-19] MEDS: MULTIVITAMINS,THERAGRAN 1 UDTAB TABLET GT SCH (08:33)
[2017-09-19] MEDS: ASCORBIC ACID 500 MG TABLET GT SCH (08:33)
[2017-09-19] MEDS: PANTOPRAZOLE 40 MG/PACK PACK GT SCH (08:33)
[2017-09-19] MEDS: LACTOBACILLUS RHAMNOSUS GG 1 EACH CAP.SPRINK PO SCH ×2 (08:33→17:25)
[2017-09-19] MEDS: FLUCONAZOLE (100 MG) 100 MG TABLET PO SCH (08:34)
[2017-09-19] MEDS: HYDROGEL DRESSING 90 GM TUBE TP SCH (08:37)
[2017-09-19] MEDS: MUPIROCIN OINT 2% 22 GM TUBE SCH ×2 (08:37→21:21)
--- NOTE | 2017-09-19 11:41 | NUR ---
WOUND CARE CONSULT WOUND CARE RECEIVED CONSULT FOR RIGHT INNER THIGH. WOUND CARE WILL DEFER CONSULT AND TREATMENT PLAN TO SURGICAL TEAM WHO ARE ALREADY FOLLOWING. DR. CLAROS NOTIFIED.
[2017-09-19 12:00] VITALS: BP 108/61
--- NOTE | 2017-09-19 14:00 | NUR ---
RN NOTES SLIGHT REDNESS NOTED TO R UPPER ARM IV SITE , H/L D/JAZZY , NEW IV PLACED ON THE R HAND G 22.
[2017-09-19 16:00] VITALS: BP 117/64
--- NOTE | 2017-09-19 18:00 | NUR ---
RN NOTES VSS STABLE , TRACH SUCTIONING DONE, TOLERATING TF WELL , NO RESIDUAL NOTED, SR UP x3, CALL LIGHT WITHIN EASY REACH, BED LOCKED AND IN LOWEST POSITION , WILL ENDOSE TO FOLDER SEAMER NURSE FOR CESAR
--- NOTE | 2017-09-19 19:20 | NUR ---
RN NOTE PATIENT HAS INCREASED SECRETIONS AND SECRETIONS ARE BLOOD TINGED, HEMOGLOBIN DROPPED FROM 9.9 TO 8.2, NOTIFIED JEAN Jauregui TAPE RECORDER MECHANIC, NO NEW ORDERS GIVEN AT THIS TIME, WILL CONTINUE TO MONITOR
[2017-09-19 20:00] VITALS: BP_SYST 101; BP_SYST 106; BP_SYST 113; BP_DIAS 62; BP_DIAS 63
[2017-09-19] MEDS: LORAZEPAM INJ 2 MG/ML VIAL IV PRN (20:23)
[2017-09-19] MEDS: VANCOMYCIN 0.75 GM in IV D5W 250 ML IV SCH (21:19)
[2017-09-20] VITALS: BP 103/59
[2017-09-20] MEDS: HYDROCODONE/APAP 5/325MG 1 EACH TABLET GT PRN (01:54)
[2017-09-20] MEDS: IPRATROPIUM NEB FS 0.5 MG/2.5 ML AMPUL.NEB NEB SCH ×5 (03:41→20:12)
[2017-09-20 04:00] VITALS: BP 95/58
[2017-09-20] MEDS: MEROPENEM 500 MG in IV NS 0.9% 50 ML IV SCH ×3 (05:34→21:42)
--- NOTE | 2017-09-20 07:00 | NUR ---
RN NOTES RECEIVED PT ON BED, ALERT , VENT/ TRACH DEPENDENT , TOLERATING CURRENT VENT SETTING WELL, NO SOB NOTED, TRACH CARE AND SUCTION DONE, ON TELE , SR HR IN 80'S , TF GLUCERNA AT 65CC/HR RUNNING VIA GT , NO RESIDUAL NOTED, TOLERATING WELL, R HAND IV SITE G 22 CDI, SR UP x3, CALL LIGHT WITHIN EASY REACH , BED LOCKED AND IN LOWEST POSITION , SR UP x3, CONTINUE TO MONITOR .
[2017-09-20 07:01] LABS: CALCIUM, SERUM 9.4 mg/dL (8.5-10.1); CARBON DIOXIDE 32 mmol/L (21-32); CHLORIDE 100 mmol/L (98-107); CREATININE 1.1 mg/dL (0.6-1.3); GLUCOSE 100 mg/dL (74-106); POTASSIUM 5.5 mmol/L (3.5-5.1); SODIUM SERUM 135 mmol/L (136-145); UREA NITROGEN, BLOOD 28 mg/dL (7-18)
[2017-09-20 07:05] LABS: BASOPHILS # (AUTO) 0.1 /CMM (0.0-0.2); BASOPHILS % (AUTO) 0.3 % (0.0-2.0); EOSINOPHILS % (AUTO) 6.5 % (0.0-6.0); HEMATOCRIT 25 % (39-51); HEMOGLOBIN 8.3 g/dL (13.5-17.5); LYMPHOCYTES # (AUTO) 2.3 /CMM (0.8-4.8); LYMPHOCYTES % (AUTO) 13.7 % (20.0-44.0); MEAN CORPUSCULAR HEMOGLOBIN 29 PG (26.0-33.0); MEAN CORPUSCULAR HGB CONC 33 g/dl (31.0-36.0); MEAN CORPUSCULAR VOLUME 87 fL (80-96); MONOCYTES # (AUTO) 0.8 /CMM (0.1-1.30); MONOCYTES % (AUTO) 4.7 % (2.0-12.0); NEUTROPHILS # (AUTO) 12.5 /CMM (1.8-8.9); NEUTROPHILS % (AUTO) 74.8 % (43.0-81.0); PLATELET COUNT (AUTO) 458 /CMM (150-450); RDW COEFFICIENT OF VARIATION 19.9 (11.5-15.0); RED BLOOD CELL COUNT(AUTO) 2.89 MIL/uL (4.5-6.0); WHITE BLOOD COUNT (AUTO) 16.7 K/uL (4.3-11.0)
[2017-09-20] MEDS: ACETYLCYSTEINE 20% SOLN 800 MG/4 ML VIAL NEB SCH ×2 (07:18→14:49)
--- NOTE | 2017-09-20 07:21 | NUR ---
RN NOTE NO RESPIRATORY DISTRESS NOTED, TOLERATED MECHANICAL VENTILATOR WELL, TOLERATED TUBE FEEDING WELL, NO PAIN OR DISCOMFORT AT THIS TIME, ALL SAFETY MEASURES TAKEN, ENDORSED TO AM SHIFT FOR CESAR
[2017-09-20 08:00] VITALS: BP_SYST 109; BP_SYST 142; BP_DIAS 55; BP_DIAS 73
[2017-09-20] MEDS: PANTOPRAZOLE 40 MG/PACK PACK GT SCH (08:26)
[2017-09-20] MEDS: MULTIVITAMINS,THERAGRAN 1 UDTAB TABLET GT SCH (08:26)
[2017-09-20] MEDS: LACTOBACILLUS RHAMNOSUS GG 1 EACH CAP.SPRINK PO SCH ×2 (08:26→17:08)
[2017-09-20] MEDS: FLUCONAZOLE (100 MG) 100 MG TABLET PO SCH (08:26)
[2017-09-20] MEDS: MUPIROCIN OINT 2% 22 GM TUBE SCH ×2 (08:28→20:31)
[2017-09-20] MEDS: HYDROGEL DRESSING 90 GM TUBE TP SCH (08:28)
[2017-09-20] MEDS: ASCORBIC ACID 500 MG TABLET GT SCH (08:29)
[2017-09-20 10:42] LABS: EOSINOPHILS % (MANUAL) 4 % (0-4); LYMPHOCYTES % (MANUAL) 10 % (16-48); MONOCYTES % (MANUAL) 6 % (0-11.0); NEUTROPHILS % (MANUAL) 80 (42-76)
[2017-09-20 12:00] VITALS: BP 127/87
--- NOTE | 2017-09-20 13:36 | NUR ---
RN NOTES DR Katarina TOLENTINO NOTIFED REGARDING K=5.5 , NOW NEW ORDER GIVEN .
--- NOTE | 2017-09-20 14:00 | NUR ---
RN NOTES CALL RECEIVED FROM PT DAUGHTER , SHE STATED THAT WANTS TO TALK TO MD BEFORE PT GET DISCHARGE TO SNF, DR TOLENTINO NOTIFED .
[2017-09-20 16:00] VITALS: BP 106/61
[2017-09-20] MEDS: GLUCERNA 1.2 1,000 ML BOTTLE GT PRN (17:09)
--- NOTE | 2017-09-20 18:00 | NUR ---
RN NOTES PT STABLE , TRACH SUCTIONING DONE, TOLERATING TF WELL, SR UP x3, CALL LIGHT WITHIN EASY REACH, BED LOCKED AND IN LOWEST POSITION , NO SIGNIFICANT CHANGES NOTED ON THIS SHIFT , WILL ENDOSE TO TOBACCO STRIPPING MACHINE OPERATOR NURSE FOR CESAR .
[2017-09-20 20:00] VITALS: BP 113/62
[2017-09-20] MEDS: VANCOMYCIN 0.75 GM in IV D5W 250 ML IV SCH (20:30)
[2017-09-20] MEDS: LORAZEPAM INJ 2 MG/ML VIAL IV PRN (21:03)
[2017-09-21] VITALS (7 sets, daily range): BP systolic 96–150; BP diastolic 55–74
[2017-09-21] MEDS: IPRATROPIUM NEB FS 0.5 MG/2.5 ML AMPUL.NEB NEB SCH ×7 (00:24→23:58)
[2017-09-21] MEDS: ACETYLCYSTEINE 20% SOLN 800 MG/4 ML VIAL NEB SCH ×4 (00:24→23:59)
[2017-09-21] MEDS: MEROPENEM 500 MG in IV NS 0.9% 50 ML IV SCH ×3 (04:37→21:07)
[2017-09-21] MEDS: HYDROCODONE/APAP 5/325MG 1 EACH TABLET GT PRN ×2 (04:37→13:07)
--- NOTE | 2017-09-21 06:33 | NUR ---
RN NOTE NO ACUTE CHANGES ON MY SHIFT, NO RESPIRATORY DISTRESS NOTED, PAIN IS WELL CONTROLLED WITH THE PAIN MEDICATION, TOLERATED G-TUBE FEEDING WELL, TURNED AND REPOSITION Q 2 HOURS, WOUND CARE PROVIDED ORDERED, ALL SAFETY MEASURES TAKEN, WILL ENDORSE TO AM SHIFT FOR CESAR
[2017-09-21 06:40] LABS: BASOPHILS # (AUTO) 0.1 /CMM (0.0-0.2); BASOPHILS % (AUTO) 0.5 % (0.0-2.0); EOSINOPHILS % (AUTO) 8.2 % (0.0-6.0); HEMATOCRIT 25 % (39-51); HEMOGLOBIN 8.3 g/dL (13.5-17.5); LYMPHOCYTES # (AUTO) 2.2 /CMM (0.8-4.8); LYMPHOCYTES % (AUTO) 16.7 % (20.0-44.0); MEAN CORPUSCULAR HEMOGLOBIN 29 PG (26.0-33.0); MEAN CORPUSCULAR HGB CONC 33 g/dl (31.0-36.0); MEAN CORPUSCULAR VOLUME 87 fL (80-96); MONOCYTES # (AUTO) 0.7 /CMM (0.1-1.30); MONOCYTES % (AUTO) 5.1 % (2.0-12.0); NEUTROPHILS # (AUTO) 9.4 /CMM (1.8-8.9); NEUTROPHILS % (AUTO) 69.5 % (43.0-81.0); PLATELET COUNT (AUTO) 484 /CMM (150-450); RDW COEFFICIENT OF VARIATION 20.4 (11.5-15.0); RED BLOOD CELL COUNT(AUTO) 2.89 MIL/uL (4.5-6.0); WHITE BLOOD COUNT (AUTO) 13.5 K/uL (4.3-11.0)
[2017-09-21 06:58] LABS: CARBON DIOXIDE 29 mmol/L (21-32); CHLORIDE 99 mmol/L (98-107); CREATININE 1.1 mg/dL (0.6-1.3); GLUCOSE 102 mg/dL (74-106); POTASSIUM 5.6 mmol/L (3.5-5.1); SODIUM SERUM 133 mmol/L (136-145); UREA NITROGEN, BLOOD 30 mg/dL (7-18)
--- NOTE | 2017-09-21 07:55 | NUR ---
RN OPENING NOTES RECEIVED PT. PT IS STABLE AND RESTING IN BED. PT RR BETWEEN 30-35, HOWEVER PER ARTIFICIAL LIMB FITTER REPORT THIS IS PT'S CURRENT BASE LINE. IN ADDITION, PT IS OFTEN ST BETWEEN 90-110 BPM. PT CURRENTLY APPEALING D/C, WILL F/U WITH CASE MANAGEMENT. SAFETY MEASURES IN PLACE, CALL LIGHT IN REACH. WILL CONTINUE TO MONITOR.
[2017-09-21] MEDS: PANTOPRAZOLE 40 MG/PACK PACK GT SCH (08:25)
[2017-09-21] MEDS: MULTIVITAMINS,THERAGRAN 1 UDTAB TABLET GT SCH (08:25)
[2017-09-21] MEDS: LACTOBACILLUS RHAMNOSUS GG 1 EACH CAP.SPRINK PO SCH ×2 (08:25→16:27)
[2017-09-21] MEDS: ASCORBIC ACID 500 MG TABLET GT SCH (08:25)
[2017-09-21] MEDS: FLUCONAZOLE (100 MG) 100 MG TABLET PO SCH (08:25)
[2017-09-21] MEDS: MUPIROCIN OINT 2% 22 GM TUBE SCH ×2 (08:35→21:00)
[2017-09-21] MEDS: HYDROGEL DRESSING 90 GM TUBE TP SCH (08:36)
[2017-09-21] MEDS: GLUCERNA 1.2 1,000 ML BOTTLE GT PRN ×2 (11:02→21:22)
[2017-09-21] MEDS ORDERED: FUROSEMIDE 40 MG/4 ML VIAL IV ONE (11:30)
[2017-09-21] MEDS: ACETAMINOPHEN 325 MG TABLET MC PRN (13:42)
[2017-09-21] MEDS: LORAZEPAM INJ 2 MG/ML VIAL IV PRN (14:21)
--- NOTE | 2017-09-21 14:24 | NUR ---
PT. STILL TACHY PRN ATIVAN GIVEN.
--- NOTE | 2017-09-21 19:04 | NUR ---
SURVEILLANCE SYSTEMS ENGINEER NOTE PT DISCHARGED TO [facility]. VSS, NO S/S OF SOB OR RESP DISTRESS. NO C/O PAIN. IV ACCESS REMOVED. CONDOM CATH REMOVED. PT UNABLE TO SIGN DC PAPERWORK. COSIGNED BY ADDITIONAL RN. REPORT GIVEN TO [facility]. PHOTOS TAKEN OF WOUNDS AND PLACED IN CHART. PT LEFT HOSPITAL WITH PARAMEDICS AND RT.
--- NOTE | 2017-09-21 20:07 | NUR ---
TELE-1/STRAW HAT BRIM CUTTER OPERATOR DISCHARGE HELD PER DR. GILL. I WILL CONTINUE TO MONITOR THE PT.
[2017-09-21] MEDS: VANCOMYCIN 0.75 GM in IV D5W 250 ML IV SCH (21:06)
--- NOTE | 2017-09-21 21:28 | NUR ---
1999 Dr. Garland was notified of pt.'s low blood pressure 88/50 and RR in the 40s with order to cancel pt.'s discharge order. Order noted and carried out. Pt.'s daughter Jillian was notified also of cancelled of discharge order.
--- NOTE | 2017-09-21 21:35 | NUR ---
2100 counselor manager Falguni notified of cancellation of transfer order.
[2017-09-22] VITALS: BP_SYST 110; BP_SYST 154; BP_DIAS 68; BP_DIAS 74
[2017-09-22] MEDS: LORAZEPAM INJ 2 MG/ML VIAL IV PRN ×2 (03:19→20:49)
[2017-09-22] MEDS: IPRATROPIUM NEB FS 0.5 MG/2.5 ML AMPUL.NEB NEB SCH ×6 (03:31→23:48)
[2017-09-22 04:00] VITALS: BP_SYST 166; BP_SYST 95; BP_DIAS 61; BP_DIAS 76
[2017-09-22 06:37] LABS: BASOPHILS # (AUTO) 0.1 /CMM (0.0-0.2); BASOPHILS % (AUTO) 0.3 % (0.0-2.0); EOSINOPHILS % (AUTO) 2.9 % (0.0-6.0); HEMATOCRIT 26 % (39-51); HEMOGLOBIN 8.5 g/dL (13.5-17.5); LYMPHOCYTES # (AUTO) 2.2 /CMM (0.8-4.8); LYMPHOCYTES % (AUTO) 8.3 % (20.0-44.0); MEAN CORPUSCULAR HEMOGLOBIN 28 PG (26.0-33.0); MEAN CORPUSCULAR HGB CONC 33 g/dl (31.0-36.0); MEAN CORPUSCULAR VOLUME 86 fL (80-96); MONOCYTES # (AUTO) 1.1 /CMM (0.1-1.30); MONOCYTES % (AUTO) 4.3 % (2.0-12.0); NEUTROPHILS # (AUTO) 21.9 /CMM (1.8-8.9); NEUTROPHILS % (AUTO) 84.2 % (43.0-81.0); PLATELET COUNT (AUTO) 576 /CMM (150-450); RDW COEFFICIENT OF VARIATION 20.1 (11.5-15.0); RED BLOOD CELL COUNT(AUTO) 3.03 MIL/uL (4.5-6.0)
[2017-09-22] MEDS: ACETYLCYSTEINE 20% SOLN 800 MG/4 ML VIAL NEB SCH ×3 (07:10→23:48)
--- NOTE | 2017-09-22 07:15 | NUR ---
MEDICAL INSURANCE BILLER INITIAL NOTES RECEIVED REPORT AND PT FROM PM NURSE, PT RESTING IN BED, A&O X 1 EYES OPEN, NONVERBAL VENT TRACH SETTINGS ORDERED BY MD SAT ABOVE 97%, NO SOB OR ACUTE DISTRESS NOTED, ON TELE TUE ST WITH HR 104, GTUBE INTACT FEEDING RUNNING GLUCERNA AT 65 ML/HR NO RESIDUAL NOTED TOLERATING WELL, RT HAND 24G IV INTACT AND PATENT NO INFILTRATION NOTED, ALL SAFETY MEASURES INITIATED, SIDE RAILS X2, BED LOW AND LOCKED, CALL LIGHT WITHIN REACH, WILL CONTINUE TO MONITOR.
[2017-09-22 08:00] VITALS: BP 92/50
[2017-09-22 08:08] LABS: CALCIUM, SERUM 9.1 mg/dL (8.5-10.1); CARBON DIOXIDE 30 mmol/L (21-32); CHLORIDE 98 mmol/L (98-107); CREATININE 1.2 mg/dL (0.6-1.3); GLUCOSE 114 mg/dL (74-106); POTASSIUM 5.8 mmol/L (3.5-5.1); SODIUM SERUM 133 mmol/L (136-145); UREA NITROGEN, BLOOD 34 mg/dL (7-18)
[2017-09-22 08:44] LABS: BAND % (MANUAL) 1 % (0.0-5.0); EOSINOPHILS % (MANUAL) 2 % (0-4); LYMPHOCYTES % (MANUAL) 8 % (16-48); MONOCYTES % (MANUAL) 8 % (0-11.0); NEUTROPHILS % (MANUAL) 81 (42-76)
[2017-09-22] MEDS: ASCORBIC ACID 500 MG TABLET GT SCH (09:05)
[2017-09-22] MEDS: LACTOBACILLUS RHAMNOSUS GG 1 EACH CAP.SPRINK PO SCH ×2 (09:05→16:46)
[2017-09-22] MEDS: PANTOPRAZOLE 40 MG/PACK PACK GT SCH (09:05)
[2017-09-22] MEDS: FLUCONAZOLE (100 MG) 100 MG TABLET PO SCH (09:05)
[2017-09-22] MEDS: MEROPENEM 500 MG in IV NS 0.9% 50 ML IV SCH ×2 (09:05→20:49)
[2017-09-22] MEDS: MULTIVITAMINS,THERAGRAN 1 UDTAB TABLET GT SCH (09:05)
[2017-09-22] MEDS: MUPIROCIN OINT 2% 22 GM TUBE SCH ×2 (09:06→20:50)
[2017-09-22] MEDS: HYDROGEL DRESSING 90 GM TUBE TP SCH (09:06)
[2017-09-22] MEDS ORDERED: SODIUM POLYSTYRENE SULFONATE 15 G/60 ML BOTTLE PO ONE (10:30)
[2017-09-22 12:00] VITALS: BP_SYST 97; BP_DIAS 52; BP_DIAS 55
[2017-09-22 16:00] VITALS: BP_SYST 100; BP_SYST 128; BP_DIAS 49; BP_DIAS 73
--- NOTE | 2017-09-22 16:10 | NUR ---
RT NOTE: PATIENT RECEIVED TRACHED ON MECHANICAL VENT. ALARM VERIFIED AND AUDIBLE. SUCTIONED AND LAVAGED LARGE AMOUNT OF THICK PINA BLOOD TINGED SECRETIONS. VENT PLUGGED INTO A RED OUTLET. AMBU BAG AT [facility].
[2017-09-22] MEDS: GLUCERNA 1.2 1,000 ML BOTTLE GT PRN (16:48)
--- NOTE | 2017-09-22 18:24 | NUR ---
NETSUITE CONSULTANT ENDING NOTES NO ACUTE CHANGES NOTED, ALL DUE MEDS GIVEN, ALL NEEDS MET, BED BATH PROVIDED, WOUND TX PROVIDED MD ORDERED, GTUBE FEEDING INTACT, IV SITE INTACT, ALL SAFETY MEASURES INITIATED, WILL ENDORSE TO PM NURSE.
[2017-09-22 20:00] VITALS: BP 98/54
[2017-09-22] MEDS: VANCOMYCIN 0.75 GM in IV D5W 250 ML IV SCH (20:49)
[2017-09-22] MEDS: TEMAZEPAM 15 MG CAPSULE GT PRN (23:14)
[2017-09-22] MEDS: ACETAMINOPHEN 325 MG TABLET MC PRN (23:14)
[2017-09-23] VITALS: BP 109/62
[2017-09-23] MEDS: HYDROCODONE/APAP 5/325MG 1 EACH TABLET GT PRN (00:14)
[2017-09-23] MEDS: IPRATROPIUM NEB FS 0.5 MG/2.5 ML AMPUL.NEB NEB SCH ×6 (03:31→23:13)
[2017-09-23 04:00] VITALS: BP 129/70
[2017-09-23 06:16] LABS: BASOPHILS # (AUTO) 0.1 /CMM (0.0-0.2); BASOPHILS % (AUTO) 0.4 % (0.0-2.0); EOSINOPHILS % (AUTO) 0.8 % (0.0-6.0); HEMATOCRIT 27 % (39-51); HEMOGLOBIN 9.1 g/dL (13.5-17.5); LYMPHOCYTES # (AUTO) 2.2 /CMM (0.8-4.8); LYMPHOCYTES % (AUTO) 9.6 % (20.0-44.0); MEAN CORPUSCULAR HEMOGLOBIN 29 PG (26.0-33.0); MEAN CORPUSCULAR HGB CONC 33 g/dl (31.0-36.0); MEAN CORPUSCULAR VOLUME 87 fL (80-96); MONOCYTES # (AUTO) 1.2 /CMM (0.1-1.30); MONOCYTES % (AUTO) 5.1 % (2.0-12.0); NEUTROPHILS # (AUTO) 18.9 /CMM (1.8-8.9); NEUTROPHILS % (AUTO) 84.1 % (43.0-81.0); PLATELET COUNT (AUTO) 521 /CMM (150-450); RDW COEFFICIENT OF VARIATION 19.7 (11.5-15.0); RED BLOOD CELL COUNT(AUTO) 3.15 MIL/uL (4.5-6.0); WHITE BLOOD COUNT (AUTO) 22.5 K/uL (4.3-11.0)
[2017-09-23 06:24] LABS: CHLORIDE,URINE RANDOM 49 mmol/L (55-125); POTASSIUM RNDM,URINE 58 mmol/L (25-125); URINE SODIUM, RANDOM 54 mmol/l (40-220)
[2017-09-23 06:27] LABS: OSMOLALITY,URINE 592 mOS/kg (340-1090)
[2017-09-23 06:30] LABS: ALANINE AMINOTRANSFERASE 25 U/L (12-78); ALBUMIN 1.9 g/dL (3.4-5.0); ALKALINE PHOSPHATASE 96 U/L (46-116); ASPARTATE AMINOTRANSFERASE 25 U/L (15-37); BILIRUBIN,TOTAL 0.3 mg/dL (0.2-1.0); CALCIUM, SERUM 9.2 mg/dL (8.5-10.1); CARBON DIOXIDE 34 mmol/L (21-32); CHLORIDE 101 mmol/L (98-107); CREATININE 1.2 mg/dL (0.6-1.3); GLUCOSE 134 mg/dL (74-106); MAGNESIUM 2.3 mg/dL (1.8-2.4); PHOSPHORUS 4.4 mg/dL (2.5-4.9); POTASSIUM 4.1 mmol/L (3.5-5.1); SODIUM SERUM 140 mmol/L (136-145); UREA NITROGEN, BLOOD 33 mg/dL (7-18)
--- NOTE | 2017-09-23 06:49 | NUR ---
RN CLOSING NOTE Received patient with HR in the 120-130s, and tachypneic at 35-40s. Tmax at 99.4, cooling measures rendered. PRN medications to help keep patient calm given; patient able to sleep for approximately 4-5hours, HR now in the 90s. Patient's airway suctioned as needed and kept airway clear and patent. GTF tolerated well with no gastric residual, flushed as ordered. HOB elevated. wound care rendered. AM care done. Condom catheter placed for skin management. Safety and comfort ensured. bed in low and locked position. will endorse accordingly for continuity of care.
--- NOTE | 2017-09-23 07:30 | NUR ---
ANIMAL CARE SPECIALIST INITIAL NOTES RECEIVED PATIENT IN BED, AOX1, NONVERBAL, ON TRACH SETTINGS ORDERED, NO SIGNS OF DISTRESS, SATURATING WELL, ON TELE MONITORING SR 95, AFEBRILE, ON GTUBE FEEDINGS ORDERED, NO RESIDUAL NOTED, HOB ELEVATED, IV SHANI 24 G, CLEAN AND PATENT, BED IN LOW AND LOCKED CALL LIGHT WITHIN REACH, MRSA PRECAUTIONS OBSERVED.
[2017-09-23] MEDS: ACETYLCYSTEINE 20% SOLN 800 MG/4 ML VIAL NEB SCH ×3 (07:45→23:13)
[2017-09-23 08:00] VITALS: BP 105/53
[2017-09-23] MEDS: PANTOPRAZOLE 40 MG/PACK PACK GT SCH (09:01)
[2017-09-23] MEDS: FLUCONAZOLE (100 MG) 100 MG TABLET PO SCH (09:01)
[2017-09-23] MEDS: MULTIVITAMINS,THERAGRAN 1 UDTAB TABLET GT SCH (09:01)
[2017-09-23] MEDS: LACTOBACILLUS RHAMNOSUS GG 1 EACH CAP.SPRINK PO SCH ×2 (09:01→16:51)
[2017-09-23] MEDS: ASCORBIC ACID 500 MG TABLET GT SCH (09:01)
[2017-09-23] MEDS: MEROPENEM 500 MG in IV NS 0.9% 50 ML IV SCH ×2 (09:01→21:04)
[2017-09-23] MEDS: HYDROGEL DRESSING 90 GM TUBE TP SCH (09:02)
[2017-09-23] MEDS: MUPIROCIN OINT 2% 22 GM TUBE SCH ×2 (09:02→21:04)
[2017-09-23 12:00] VITALS: BP 93/48
--- NOTE | 2017-09-23 15:02 | NUR ---
HOSPICE PATIENT CARE SECRETARY NOTES PATIENT REPORT GIVEN TO WILLI YOUNG FOR CONTINUITY OF CARE. ALL NEEDS MET NO DISTRESS NOTED.
[2017-09-23 16:00] VITALS: BP 103/58
[2017-09-23] MEDS: GLUCERNA 1.2 1,000 ML BOTTLE GT PRN (17:42)
--- NOTE | 2017-09-23 19:32 | NUR ---
RECEIVED PT TRACH PORTEX 7 ON MECH VENT WITH NOTED SETTINGS. VENT ALARM SET AND AUDIBLE. VENT PLUGGED INTO RED OUTLET, AMU BAG AT BEDSIDE. BREATHING TX GIVEN PER MD'S ORDERED. NO ADVERSE REACTION NOTED. SX'D COPIOUS AMT OF BLOODY THICK SECRETIONS. NO RESPIRATORY DISTRESS NOTED, WILL CONTINUE TO MONITOR.
[2017-09-23 20:00] VITALS: BP 114/53
--- NOTE | 2017-09-23 20:00 | NUR ---
ULISES RN NOTES RECEIVED BEDSIDE REPORT.PATIENT IN BED, AOX1, NONVERBAL, ON TRACH SETTINGS ORDERED, NO SIGNS OF DISTRESS, SATURATING WELL, ON TELE MONITORING SR 94, AFEBRILE, ON GTUBE FEEDINGS ORDERED, NO RESIDUAL NOTED, HOB ELEVATED, IV R LEG 22G, CLEAN AND PATENT, BED IN LOW AND LOCKED POSITION, CALL LIGHT WITHIN REACH, MRSA PRECAUTIONS OBSERVED. WILL CONT. TO MONITOR.
[2017-09-23] MEDS: VANCOMYCIN 0.75 GM in IV D5W 250 ML IV SCH (21:03)
[2017-09-24] VITALS: BP 103/52
[2017-09-24] MEDS: IPRATROPIUM NEB FS 0.5 MG/2.5 ML AMPUL.NEB NEB SCH ×6 (03:14→23:35)
[2017-09-24] MEDS: HYDROCODONE/APAP 5/325MG 1 EACH TABLET GT PRN (03:15)
--- NOTE | 2017-09-24 03:15 | NUR ---
ULISES RN NOTES PT HAS FEVER OF 103.0 AND HR 130'S. TYLENOL, ATIVAN AND NORCO ADMINISTERED. WILL CONT. TO MONITOR.
[2017-09-24] MEDS: LORAZEPAM INJ 2 MG/ML VIAL IV PRN (03:17)
[2017-09-24] MEDS: ACETAMINOPHEN 325 MG TABLET MC PRN (03:19)
[2017-09-24 04:00] VITALS: BP 96/51
[2017-09-24] MEDS: Z GUARD REMEDY 2 OZ OINT TP PRN (04:57)
[2017-09-24] MEDS: HYDROGEL DRESSING 90 GM TUBE TP SCH (04:57)
--- NOTE | 2017-09-24 05:30 | NUR ---
ULISES RN NOTES PT'S T- 98.3 AND HR 106 ON CEMENT BREAKER. PT IS RESTING IN BED COMFORTABLY.
[2017-09-24 06:17] LABS: CALCIUM, SERUM 9.2 mg/dL (8.5-10.1); CARBON DIOXIDE 31 mmol/L (21-32); CHLORIDE 101 mmol/L (98-107); CREATININE 1.2 mg/dL (0.6-1.3); GLUCOSE 121 mg/dL (74-106); POTASSIUM 4.2 mmol/L (3.5-5.1); SODIUM SERUM 139 mmol/L (136-145); UREA NITROGEN, BLOOD 36 mg/dL (7-18)
[2017-09-24 06:18] LABS: BASOPHILS % (AUTO) 0.2 % (0.0-2.0); EOSINOPHILS % (AUTO) 2.1 % (0.0-6.0); HEMATOCRIT 26 % (39-51); HEMOGLOBIN 8.5 g/dL (13.5-17.5); LYMPHOCYTES # (AUTO) 0.9 /CMM (0.8-4.8); LYMPHOCYTES % (AUTO) 4.1 % (20.0-44.0); MEAN CORPUSCULAR HEMOGLOBIN 28 PG (26.0-33.0); MEAN CORPUSCULAR HGB CONC 33 g/dl (31.0-36.0); MEAN CORPUSCULAR VOLUME 87 fL (80-96); MONOCYTES # (AUTO) 0.9 /CMM (0.1-1.30); MONOCYTES % (AUTO) 4.1 % (2.0-12.0); NEUTROPHILS # (AUTO) 18.8 /CMM (1.8-8.9); NEUTROPHILS % (AUTO) 89.5 % (43.0-81.0); PLATELET COUNT (AUTO) 506 /CMM (150-450); RED BLOOD CELL COUNT(AUTO) 2.99 MIL/uL (4.5-6.0)
[2017-09-24] MEDS: ACETYLCYSTEINE 20% SOLN 800 MG/4 ML VIAL NEB SCH ×3 (07:35→23:35)
[2017-09-24 08:00] VITALS: BP 136/63
[2017-09-24] MEDS: ASCORBIC ACID 500 MG TABLET GT SCH (09:21)
[2017-09-24] MEDS: LACTOBACILLUS RHAMNOSUS GG 1 EACH CAP.SPRINK PO SCH ×2 (09:21→17:39)
[2017-09-24] MEDS: MULTIVITAMINS,THERAGRAN 1 UDTAB TABLET GT SCH (09:21)
[2017-09-24] MEDS: FLUCONAZOLE (100 MG) 100 MG TABLET PO SCH (09:21)
[2017-09-24] MEDS: MEROPENEM 500 MG in IV NS 0.9% 50 ML IV SCH ×2 (09:21→21:07)
[2017-09-24] MEDS: PANTOPRAZOLE 40 MG/PACK PACK GT SCH (09:21)
[2017-09-24] MEDS: GLUCERNA 1.2 1,000 ML BOTTLE GT PRN (09:26)
[2017-09-24] MEDS: MUPIROCIN OINT 2% 22 GM TUBE SCH ×2 (09:31→21:07)
[2017-09-24 12:00] VITALS: BP 102/57
[2017-09-24 16:00] VITALS: BP 103/49
--- NOTE | 2017-09-24 17:24 | NUR ---
RECEIVED PT TRACH ON MECHANICAL VENTILATOR. SX'D MODERATE AMT OF THICK PINK/ PINA SECRETIONS. VENT ALARMS SET AND AUDIBLE. AMBU BAG AT BEDSIDE. VENT PLUGGED INTO RED OUTLET. WILL CONTINUE TO MONITOR.
[2017-09-24 20:00] VITALS: BP_SYST 102; BP_SYST 90; BP_DIAS 49; BP_DIAS 53
[2017-09-24] MEDS: VANCOMYCIN 0.75 GM in IV D5W 250 ML IV SCH (21:10)
[2017-09-25] VITALS (8 sets, daily range): BP systolic 106–124; BP diastolic 58–75
[2017-09-25] MEDS: IPRATROPIUM NEB FS 0.5 MG/2.5 ML AMPUL.NEB NEB SCH ×6 (03:55→23:37)
[2017-09-25] MEDS: GLUCERNA 1.2 1,000 ML BOTTLE GT PRN (06:23)
--- NOTE | 2017-09-25 06:30 | NUR ---
OPERATOR TECHNICIAN - REC'D PT. IN ISOLATION FOR +MRSA/NARES. PT.HAS REFUSED ANY PAIN MEDS WHEN ASKED. PT.IS NONVERBAL, BUT CAN NOD HEAD "YES" OR "NO". AFEBRILE. VSS. COMPLETE BEDBATH ADM. AT 2AM, ORAL,MIRELLA,TRACH/VENT,PEG & SKIN/WOUND CARE GIVEN. PT.HAS GLUCERNA INFUSING IN AT 65 CC/HR. PT.IS CACHETIC/NO EDEMA NOTED. ALL PULSES PALPABLE X 4 EXT.WEAK. RLE-22G IS PATENT TO FLUSH. PT.HAS SEVERAL SKIN/WOUND CARE ISSUES. NOTED. VERBAL REPORT ENDORSED TO ANDRY ANDERSEN CONT. POC.
[2017-09-25 06:49] LABS: BASOPHILS # (AUTO) 0.1 /CMM (0.0-0.2); BASOPHILS % (AUTO) 0.4 % (0.0-2.0); EOSINOPHILS % (AUTO) 4.5 % (0.0-6.0); HEMATOCRIT 25 % (39-51); HEMOGLOBIN 8.1 g/dL (13.5-17.5); LYMPHOCYTES # (AUTO) 2.4 /CMM (0.8-4.8); LYMPHOCYTES % (AUTO) 12.1 % (20.0-44.0); MEAN CORPUSCULAR HEMOGLOBIN 28 PG (26.0-33.0); MEAN CORPUSCULAR HGB CONC 33 g/dl (31.0-36.0); MEAN CORPUSCULAR VOLUME 86 fL (80-96); MONOCYTES # (AUTO) 0.8 /CMM (0.1-1.30); MONOCYTES % (AUTO) 4.2 % (2.0-12.0); NEUTROPHILS # (AUTO) 15.7 /CMM (1.8-8.9); NEUTROPHILS % (AUTO) 78.8 % (43.0-81.0); PLATELET COUNT (AUTO) 550 /CMM (150-450); RDW COEFFICIENT OF VARIATION 20.3 (11.5-15.0); RED BLOOD CELL COUNT(AUTO) 2.86 MIL/uL (4.5-6.0); WHITE BLOOD COUNT (AUTO) 19.9 K/uL (4.3-11.0)
[2017-09-25 06:57] LABS: CALCIUM, SERUM 9.5 mg/dL (8.5-10.1); CARBON DIOXIDE 31 mmol/L (21-32); CHLORIDE 101 mmol/L (98-107); GLUCOSE 103 mg/dL (74-106); MAGNESIUM 2.2 mg/dL (1.8-2.4); PHOSPHORUS 2.9 mg/dL (2.5-4.9); POTASSIUM 5.1 mmol/L (3.5-5.1); SODIUM SERUM 137 mmol/L (136-145); UREA NITROGEN, BLOOD 32 mg/dL (7-18)
[2017-09-25] MEDS: ACETYLCYSTEINE 20% SOLN 800 MG/4 ML VIAL NEB SCH ×3 (07:33→23:37)
[2017-09-25] MEDS: LORAZEPAM INJ 2 MG/ML VIAL IV PRN (07:41)
[2017-09-25] MEDS: ACETAMINOPHEN 325 MG TABLET MC PRN (07:48)
--- NOTE | 2017-09-25 07:52 | NUR ---
BOX STORAGE WORKER NOTE RECEIVED PATIENT IN BED ,NONVERBAL BUT ABLE TO UNDERSTAND QUESTIONS. ON TELE MONITOR SR 128. RT AT 102..2 TYLENOL VIA G TUBE GIVEN , ON G TUBE FEEDING ORDERED , WITH TRACH TO VENT SETTING ORDERED, WITH CONDOM CATH ORDERED WITH YELLOW COLOR URINE , BED IN LOWEST AND LOCKED POSITION, RT LE HL INTACT WILL CONT TO MONITOR CLOSELY
[2017-09-25] MEDS: PANTOPRAZOLE 40 MG/PACK PACK GT SCH (08:53)
[2017-09-25] MEDS: FLUCONAZOLE (100 MG) 100 MG TABLET PO SCH (08:53)
[2017-09-25] MEDS: LACTOBACILLUS RHAMNOSUS GG 1 EACH CAP.SPRINK PO SCH ×2 (08:53→16:28)
[2017-09-25] MEDS: MULTIVITAMINS,THERAGRAN 1 UDTAB TABLET GT SCH (08:53)
[2017-09-25] MEDS: MEROPENEM 500 MG in IV NS 0.9% 50 ML IV SCH (08:53)
[2017-09-25] MEDS: ASCORBIC ACID 500 MG TABLET GT SCH (08:53)
[2017-09-25] MEDS: MUPIROCIN OINT 2% 22 GM TUBE SCH ×2 (08:54→20:26)
[2017-09-25] MEDS: HYDROGEL DRESSING 90 GM TUBE TP SCH (08:54)
[2017-09-25] MEDS: Z GUARD REMEDY 2 OZ OINT TP PRN (08:54)
--- NOTE | 2017-09-25 10:15 | NUR ---
MAINTENANCE PLUMBER NOTE SPOKE WITH DR TOLENTINO NOTIFIED THAT T 10.2.2 EARLIER WILL RECHECK SOON , ALSO TYLENOL AND ATIVAN GIVEN STATED THAT ID DOCTOR WILL CHECK ON HIM, WILL CONT TO MONITOR CLOSELY, SAT 97% NOW AND HR 110
--- NOTE | 2017-09-25 13:00 | NUR ---
STUMP BLOWER NOTE SEEN BY DR HENDRIX FLOW MACHINE OPERATOR NOTIFIED THAT EARLIER T 102.2 AND NOW T 98.8 TYLENOL AND ATIVAN WAS GIVEN EARLIER BREATHING TX BY RT DONE, WILL CONT TO MONITOR CLOSELY
--- NOTE | 2017-09-25 15:17 | NUR ---
PROCUREMENT OFFICER NOTE TACH SUCTION DONE, ,OBTAINED MOD AMT OF YELLOW THICK SECRETION , KEEP CLEAN DRY ,WILL CONT TO MONITOR CLOSELY ,CALL LIGHT WITHIN REACH
--- NOTE | 2017-09-25 17:38 | NUR ---
COBBLER APPRENTICE NOTE SEEN BY ABNER SALCEDO RN NO AWARE THAT EARLIER T 102.2 AND NOW 99.3 .STATED THAT WILL CHECK PATIENT. WILL F\U TRACH SUCTION DONE ,KEEP CLEAN DRY WILL CONT TO MONITOR CLOSELY
--- NOTE | 2017-09-25 18:26 | NUR ---
ONCOLOGY PHYSICIAN ASSISTANT NOTE TRACH SUCTION DONE , KEEP CLEAN DRY ,CONT ON G TUBE FEEDING ORDERED, KEEP HOB ELEVATED. WILL CONT TO MONITOR CLOSELY
[2017-09-26] VITALS: BP 111/62
[2017-09-26] MEDS: GLUCERNA 1.2 1,000 ML BOTTLE GT PRN ×2 (02:37→21:17)
[2017-09-26] MEDS: IPRATROPIUM NEB FS 0.5 MG/2.5 ML AMPUL.NEB NEB SCH ×6 (03:08→23:58)
[2017-09-26] MEDS: LORAZEPAM INJ 2 MG/ML VIAL IV PRN (03:30)
[2017-09-26] MEDS: HYDROCODONE/APAP 5/325MG 1 EACH TABLET GT PRN (03:39)
[2017-09-26 04:00] VITALS: BP 125/72
[2017-09-26] MEDS: ACETAMINOPHEN 325 MG TABLET MC PRN (05:36)
[2017-09-26 06:34] LABS: CALCIUM, SERUM 9.9 mg/dL (8.5-10.1); CARBON DIOXIDE 31 mmol/L (21-32); CHLORIDE 99 mmol/L (98-107); CREATININE 1.1 mg/dL (0.6-1.3); GLUCOSE 95 mg/dL (74-106); MAGNESIUM 2.3 mg/dL (1.8-2.4); POTASSIUM 5.5 mmol/L (3.5-5.1); SODIUM SERUM 135 mmol/L (136-145); UREA NITROGEN, BLOOD 31 mg/dL (7-18)
[2017-09-26 06:41] LABS: BASOPHILS # (AUTO) 0.1 /CMM (0.0-0.2); BASOPHILS % (AUTO) 0.4 % (0.0-2.0); EOSINOPHILS % (AUTO) 3.3 % (0.0-6.0); HEMATOCRIT 28 % (39-51); HEMOGLOBIN 9.5 g/dL (13.5-17.5); LYMPHOCYTES % (AUTO) 12.5 % (20.0-44.0); MEAN CORPUSCULAR HEMOGLOBIN 28 PG (26.0-33.0); MEAN CORPUSCULAR HGB CONC 34 g/dl (31.0-36.0); MEAN CORPUSCULAR VOLUME 83 fL (80-96); MONOCYTES # (AUTO) 0.8 /CMM (0.1-1.30); MONOCYTES % (AUTO) 3.3 % (2.0-12.0); NEUTROPHILS # (AUTO) 19.2 /CMM (1.8-8.9); NEUTROPHILS % (AUTO) 80.5 % (43.0-81.0); PLATELET COUNT (AUTO) 629 /CMM (150-450); RDW COEFFICIENT OF VARIATION 19.4 (11.5-15.0); RED BLOOD CELL COUNT(AUTO) 3.33 MIL/uL (4.5-6.0)
--- NOTE | 2017-09-26 07:30 | NUR ---
WANT AD RECEIVER INITIAL NOTES RECEIVED PATIENT IN BED, AOX1, NONVERBAL, ON TRACH SETTINGS ORDERED, NO SIGNS OF DISTRESS, SATURATING WELL, ON TELE MONITORING SR 82, AFEBRILE, ON GTUBE FEEDINGS ORDERED, NO RESIDUAL NOTED, HOB ELEVATED, IV SHANI 22 G, CLEAN AND PATENT, BED IN LOW AND LOCKED CALL LIGHT WITHIN REACH, MRSA PRECAUTIONS OBSERVED.
[2017-09-26] MEDS: ACETYLCYSTEINE 20% SOLN 800 MG/4 ML VIAL NEB SCH ×3 (07:37→23:58)
--- NOTE | 2017-09-26 07:45 | NUR ---
RT PATIENT REC'D TRACHED ON [facility] VENT WITH ORDERED SETTINGS TOLERATED WELL. VENT ALARMS CHECKED + AUDIBLE. VENT PLUGGED INTO RED OUTLET. CUFF PRESSURE CHECKED ZINC PLATING MACHINE OPERATOR. TRACH SECURE AND IN PROPER POSITION VIA FOAM TRACH TIE. PATIENT APPEARS COMFORTABLE AND IN NO DISTRESS AT THIS TIME. PATIENT SUCTIONED WITH SMALL TO MODERATE AMOUNT OF PALE SEMI-THICK SECRETIONS. B/S DIM COARSE. AMBU BAG AT [facility]. CONTINUE CURRENT PLAN OF RESPIRATORY CARE. Addendum: 09/26/17 at 0845 by IOANA LITTLE RT Amended: Links added.
[2017-09-26 08:00] VITALS: BP 120/67
[2017-09-26] MEDS: PANTOPRAZOLE 40 MG/PACK PACK GT SCH (08:13)
[2017-09-26] MEDS: MULTIVITAMINS,THERAGRAN 1 UDTAB TABLET GT SCH (08:13)
[2017-09-26] MEDS: LACTOBACILLUS RHAMNOSUS GG 1 EACH CAP.SPRINK PO SCH ×2 (08:13→16:58)
[2017-09-26] MEDS: ASCORBIC ACID 500 MG TABLET GT SCH (08:13)
[2017-09-26] MEDS: HYDROGEL DRESSING 90 GM TUBE TP SCH ×2 (08:14→23:49)
[2017-09-26] MEDS: MUPIROCIN OINT 2% 22 GM TUBE SCH ×2 (08:14→21:17)
[2017-09-26 09:52] LABS: EOSINOPHILS % (MANUAL) 8 % (0-4); LYMPHOCYTES % (MANUAL) 6 % (16-48); MONOCYTES % (MANUAL) 8 % (0-11.0); NEUTROPHILS % (MANUAL) 78 (42-76)
[2017-09-26 12:00] VITALS: BP 135/60
[2017-09-26] MEDS ORDERED: SODIUM POLYSTYRENE SULFONATE 15 G/60 ML BOTTLE PO ONE (12:00)
[2017-09-26 16:00] VITALS: BP 119/67
--- NOTE | 2017-09-26 18:38 | NUR ---
SWITCH INSPECTOR END NOTES PATIENT RESTING IN BED, ALL NEEDS MET, NO ACUTE CHANGES DURING SHIFT, REMAINS AFEBRILE.
[2017-09-26 20:00] VITALS: BP 110/64
--- NOTE | 2017-09-26 20:00 | NUR ---
ULISES RN NOTES RECEIVED BEDSIDE REPORT FROM AM NURSE.PATIENT IN BED, AOX1, NONVERBAL, ON TRACH SETTINGS ORDERED, NO SIGNS OF DISTRESS, SATURATING WELL, ON TELE MONITORING SR 86,V/S WNL, AFEBRILE, ON GTUBE FEEDINGS AT 65ML/HR, NO RESIDUAL NOTED, HOB ELEVATED, IV SHANI 22G SL NOTED, CLEAN AND PATENT, BED IN LOW AND LOCKED POSITION, CALL LIGHT WITHIN REACH, MRSA PRECAUTIONS OBSERVED. WILL CONT. TO MONITOR.
[2017-09-26] MEDS: Z GUARD REMEDY 2 OZ OINT TP PRN (23:49)
[2017-09-27] VITALS: BP 116/66
[2017-09-27 04:00] VITALS: BP 119/73
[2017-09-27] MEDS: IPRATROPIUM NEB FS 0.5 MG/2.5 ML AMPUL.NEB NEB SCH ×6 (04:22→23:44)
[2017-09-27 06:31] LABS: BASOPHILS # (AUTO) 0.1 /CMM (0.0-0.2); BASOPHILS % (AUTO) 0.3 % (0.0-2.0); EOSINOPHILS % (AUTO) 2.1 % (0.0-6.0); HEMATOCRIT 24 % (39-51); LYMPHOCYTES # (AUTO) 1.5 /CMM (0.8-4.8); LYMPHOCYTES % (AUTO) 7.3 % (20.0-44.0); MEAN CORPUSCULAR HEMOGLOBIN 28 PG (26.0-33.0); MEAN CORPUSCULAR HGB CONC 33 g/dl (31.0-36.0); MEAN CORPUSCULAR VOLUME 85 fL (80-96); MONOCYTES # (AUTO) 0.5 /CMM (0.1-1.30); MONOCYTES % (AUTO) 2.7 % (2.0-12.0); NEUTROPHILS # (AUTO) 18.1 /CMM (1.8-8.9); NEUTROPHILS % (AUTO) 87.6 % (43.0-81.0); PLATELET COUNT (AUTO) 547 /CMM (150-450); RDW COEFFICIENT OF VARIATION 20.7 (11.5-15.0); RED BLOOD CELL COUNT(AUTO) 2.85 MIL/uL (4.5-6.0); WHITE BLOOD COUNT (AUTO) 20.7 K/uL (4.3-11.0)
[2017-09-27 06:57] LABS: CALCIUM, SERUM 9.8 mg/dL (8.5-10.1); CARBON DIOXIDE 32 mmol/L (21-32); CHLORIDE 99 mmol/L (98-107); GLUCOSE 149 mg/dL (74-106); POTASSIUM 4.4 mmol/L (3.5-5.1); SODIUM SERUM 136 mmol/L (136-145); UREA NITROGEN, BLOOD 29 mg/dL (7-18)
--- NOTE | 2017-09-27 07:30 | NUR ---
DIRECTOR OF MEDICAL EDUCATION NOTE PATIENT IN BED ,AWAKE ,ALERT X1 WITH CONFUSION , ON TELE MONITOR SR 83 , WITH TRACH TO VENT SETTING ORDERED, RT AT BEDSIDE NOTED PINK TINGE SECRETION MOD ANT, WILL CONT TO MONITOR CLOSELY AND INFORM DR DOBBINS, AMBU BAG AT HOB AT ALL TIME ASLO NOTED PATIENT VOMITING BY G TUBE FEEDING CONTENTS ,G TUBE FEEDING STOPPED AT THIS TIME, KEEP HOB ELEVATED , RT UPPER ARM HL INTACT , BED IN LOWEST AND LOCKED POSITION
[2017-09-27] MEDS: ACETYLCYSTEINE 20% SOLN 800 MG/4 ML VIAL NEB SCH ×3 (07:31→23:44)
[2017-09-27 08:00] VITALS: BP 114/65
[2017-09-27] MEDS: LACTOBACILLUS RHAMNOSUS GG 1 EACH CAP.SPRINK PO SCH ×2 (09:00→16:13)
[2017-09-27] MEDS: ASCORBIC ACID 500 MG TABLET GT SCH (09:00)
[2017-09-27] MEDS: MULTIVITAMINS,THERAGRAN 1 UDTAB TABLET GT SCH (09:00)
[2017-09-27] MEDS: PANTOPRAZOLE 40 MG/PACK PACK GT SCH (09:00)
[2017-09-27] MEDS: MUPIROCIN OINT 2% 22 GM TUBE SCH ×2 (09:22→21:17)
--- NOTE | 2017-09-27 09:29 | NUR ---
RT RECEIVED PT TRACH ON VENT WITH NOTED SETTINGS AND TOLERATING IT WELL. PT AWAKE AND ALERT BUT NON-VERBAL, VENT ALARMS CHECKED AND AUDIBLE. VENT PLUGGED IN RED OUTLET. AMBU BAG NOTED HOB. DB2 SYSTEMS PROGRAMMER DONE AND TRACH IS SECURE. SX WITH MOD PINK FROTHY SECRETIONS WITH MINIMAL BLOOD. RN ANDRY AWARE OF SECRETIONS. NO SOB OR DISTRESS NOTED, WILL CONTINUE TO MONITOR T/O SHIFT.
--- NOTE | 2017-09-27 09:30 | NUR ---
CONSULTING PROPERTY MANAGER NOTE SEEN BY DR DOBBINS NOTIFIED THAT PATIENT HAS PINK TING SECRETION FROM TRACH MOD ANT ALSO NOTIFIED THAT WAS VOMITING BEFORE EARLIER AND G TUBE FEEDING STOPPED AT THIS TIME , STATED THAT WILL CHECK IT Addendum: 09/27/17 at 1132 by ANDRY COSBY RN HOLD MEDS BY G TUBE FEEDING DUE TO VOMITING , DR DOBBINS AWARE ,WILL CONT TO MONITOR CLOSELY
[2017-09-27 12:00] VITALS: BP 133/80
[2017-09-27] MEDS: LORAZEPAM INJ 2 MG/ML VIAL IV PRN (13:02)
--- NOTE | 2017-09-27 13:05 | NUR ---
PUBLIC HEALTH TRAINING ASSISTANT NOTE RESTLESS HR 119 ATIVAN GIVEN ORDERED ALSO TYLENOL FOR GENERAL BODY PAIN GIVEN WILL CONT TO MONITOR CLOSELY, RT AT BEDSIDE UNABLE TO INSERT HL, PER SIDNEY RN ANDROID SOFTWARE ENGINEER OK TO PLACE MID LINE WILL F\U NURSING SEISMIC OBSERVER NOTIFIED
[2017-09-27] MEDS: ACETAMINOPHEN 325 MG TABLET MC PRN ×2 (13:12→19:37)
[2017-09-27] MEDS ORDERED: MORPHINE SULFATE INJ 4 MG/ML DISP.SYRIN IV STA (15:13)
--- NOTE | 2017-09-27 15:32 | NUR ---
HEALTH SUPPORT SPECIALIST NOTE SID PIRES DNP AT BEDSIDE INSERTING MID LINE ON LT UPPER ARM NOTIFY THAT HR STILL 128 ORDERED MORPHINE 2 MG IVP TIME ONE ORDER, CARRIED OUT
--- NOTE | 2017-09-27 15:57 | NUR ---
PHARMACY INTAKE TECHNICIAN NOTE SPOKE WITH SIDNEY RN FULL STACK WEB DEVELOPER NOTIFY THAT EARLIER WAS VOMITING STARTED SLOWLY ON G TUBE FEEDING ALSO AWARE THAT EARLIER MORPHINE WAS GIVEN FOR HR 128 AND NOW 114 , KEEP CLEAN DRY , ALSO AWARE THAT TRACH NOTED WITH BLOODY TINGE SECRETION DR DOBBINS AWARE
[2017-09-27 16:00] VITALS: BP 128/69
--- NOTE | 2017-09-27 17:53 | NUR ---
HYDROGRAPHIC ENGINEER NOTE SPOKE WITH SIDNEY RN STEM DRYER MAINTAINER NOTIFY THAT PAINT STILL TACHICARSIA HR 128 STATED CONT TO GIVE ATIVAN Q6 HOUR PRN
--- NOTE | 2017-09-27 17:59 | NUR ---
MEDICAL PARASITOLOGIST NOTE SPOKE WITH ABNER RN NOTIFIED THAT HR 138 STATED WILL CHECK IT OUT SIDNEY YOUNG PATIENT SERVICES SPECIALIST NOTIFIED AGAIN STATED ITS OK MONITOR CLOSELY
--- NOTE | 2017-09-27 18:20 | NUR ---
TECHNOLOGIES DIVISION CHAIR NOTE SPOKE WITH SIDNEY RN ELECTRIC SCOOP OPERATOR S NOTIFIED THAT HR STILL 131 -145 STATED CONT TO MONITOR , SPOKE WITH DAUGHTER STATED DONT GIVE ATIVAN AT THIS TIME TILL SHE WILL CALL BACK
[2017-09-27] MEDS ORDERED: IV NS 0.9% 250 ML IV ONE (18:30)
--- NOTE | 2017-09-27 18:30 | NUR ---
MARTIN YOUNG NOTE PER SIDNEY YOUNG ORGAN INSTALLER OK TO GIVE 500 ML BOLUS IVF BUT PER ABNER YOUNG ORGAN INSTALLER ID STATED GIVE 250 ML NS BOLUS ,WILL CONT TO MONITOR, RT AT BEDSIDE TRACH SUCTION GIVEN Addendum: 09/27/17 at 1903 by ANDRY COSBY RN MARTIN YOUNG NOTE SPOKE AGAIN WITH SIDNEY NOTIFIED THAT HR 145 STATED CONT TO MONITOR NO NEW ORDER GIVEN AT THIS TIME
--- NOTE | 2017-09-27 19:10 | NUR ---
HOME TEACHING GRADES 7 AND 8 TEACHER NOTE RECHECKED T NOW T 102.2 SPOKE WITH ABNER YOUNG ,OK TO MERRILL CX ALSO COOLING MEASURE PROVIDED, WILL GIVE TYLENOL AFTER BLOOD CX WILL BE DONE, WILL CONT TO MONITOR. ENDORSED CARE TO NEXT SHIFT EDEN YOUNG
--- NOTE | 2017-09-27 19:14 | NUR ---
RN NOTE RECEIVED PATIENT IN THE BED, HR RATE 145 BEATS/MIN
--- NOTE | 2017-09-27 19:17 | NUR ---
RN NOTE RECEIVED PATIENT IN THE BED, HR RATE 145 BEATS/MIN, TEMPERATURE OF 102.3 F WAS NOTED, ICE PACK IN PLACE, [facility], NEW ORDERS OF ANTIBIOTICS AND MERRILL CULTURE IS GIVEN AND CARRIED OUT, WILL CONTINUE TO MONITOR PATIENT
[2017-09-27] MEDS ORDERED: VANCOMYCIN 1 GM in IV NS 0.9% 250 ML IV SCH (19:30)
[2017-09-27 20:00] VITALS: BP 119/82
[2017-09-27] MEDS ORDERED: FEE PK DOSING 1 MIN EA MC ONE (20:04)
[2017-09-27] MEDS ORDERED: VANCOMYCIN 1 GM in IV D5W 250 ML IV ONE (21:00)
[2017-09-28] VITALS: BP 110/57
[2017-09-28] MEDS: PIPERACILLIN /TAZOBACTAM 3.375 G in IV D5W 50 ML IV SCH ×4 (00:30→17:00)
[2017-09-28] MEDS: GLUCERNA 1.2 1,000 ML BOTTLE GT PRN ×2 (02:37→20:36)
[2017-09-28] MEDS: ACETAMINOPHEN 325 MG TABLET MC PRN ×4 (02:37→22:16)
[2017-09-28] MEDS: IPRATROPIUM NEB FS 0.5 MG/2.5 ML AMPUL.NEB NEB SCH ×6 (03:30→19:50)
[2017-09-28 04:00] VITALS: BP 113/54
[2017-09-28 06:51] LABS: CALCIUM, SERUM 9.4 mg/dL (8.5-10.1); CARBON DIOXIDE 32 mmol/L (21-32); CHLORIDE 99 mmol/L (98-107); CREATININE 1.1 mg/dL (0.6-1.3); GLUCOSE 107 mg/dL (74-106); POTASSIUM 5.1 mmol/L (3.5-5.1); SODIUM SERUM 134 mmol/L (136-145); UREA NITROGEN, BLOOD 28 mg/dL (7-18)
--- NOTE | 2017-09-28 06:59 | NUR ---
RN NOTE PATIENT IS AWAKE, ALERT/ORIENTED X 1, NO RESPIRATORY DISTRESS NOTED, ALL SAFETY MEASURES TAKEN
--- NOTE | 2017-09-28 07:15 | NUR ---
PROPERTY MAINTENANCE TECHNICIAN INITIAL NOTES RECIEIVED REPORT AND PT FROM PM NURSE, PT RESTING IN BED, ALL SAFETY MEASURES INITIATED, SIDE RAILS X2, BED LOW AND LOCKED, CALL LIGHT WITHIN REACH, A&O X1 NONVERBAL OBTUNDED, ON VENT MANAGEMENT SETTINGS ORDERED BY MD SAT ABOVE 97%, NO SOB OR ACUTE DISTRESS AT THIS TIME, ON TELE Tue WITH HR 111, GTUBE INTACT RUNNING GLUCERNA @ 65 ML/HR NO RESIDUAL NOTED, LT UPPER MIDLINE 18G INTACT/PATENT, RT UPPER 22G SALINE LOCK, ALL NEEDS MET AT THIS TIME, WILL CONTINUE TO MONITOR.
[2017-09-28] MEDS: ACETYLCYSTEINE 20% SOLN 800 MG/4 ML VIAL NEB SCH ×2 (07:33→15:30)
--- NOTE | 2017-09-28 07:33 | NUR ---
RT PT RECEIVED WITH A PORTEX 7 TRACH ON THE VENT WITH NOTED SETTINGS. PT IS AWAKE AND ALERT. VENT ALARMS ARE SET AND AUDIBLE WITH BVM BY BEDSIDE. MANAGER EMPLOYMENT CUFF PRESSURE NOTED. VENT IS PLUGGED INTO RED OUTLET. PT SX'D MODERATE THICK PALE YELLOW SECRETIONS. NO RESPIRATORY DISTRESS NOTED AT THIS TIME, WILL CONTINUE TO MONITOR. Addendum: 09/28/17 at 1046 by JORGE LAFLEUR RT Amended: Links added.
[2017-09-28 08:00] VITALS: BP 111/54
[2017-09-28] MEDS: PANTOPRAZOLE 40 MG/PACK PACK GT SCH (08:39)
[2017-09-28] MEDS: MULTIVITAMINS,THERAGRAN 1 UDTAB TABLET GT SCH (08:39)
[2017-09-28] MEDS: LACTOBACILLUS RHAMNOSUS GG 1 EACH CAP.SPRINK PO SCH ×2 (08:39→16:55)
[2017-09-28] MEDS: ASCORBIC ACID 500 MG TABLET GT SCH (08:39)
[2017-09-28] MEDS: HYDROGEL DRESSING 90 GM TUBE TP SCH (08:40)
[2017-09-28] MEDS: MUPIROCIN OINT 2% 22 GM TUBE SCH ×2 (08:40→20:44)
--- NOTE | 2017-09-28 08:54 | NUR ---
FAMILY SOCIOLOGIST NOTES PTS TEMP 101.9, GAVE TYLENOL VIA GTUBE PER MD ORDER, WILL CONTINUE TO MONITOR, FAN IN ROOM, WILL GIVE PER MD ORDER
[2017-09-28 12:00] VITALS: BP 122/71
--- NOTE | 2017-09-28 12:00 | NUR ---
CNA PER DIEM NOTES PTS TEMP 101.9, ICE PACKS PROVIDED WELL FAN INSIDE ROOM, WILL MONITOR
[2017-09-28 16:00] VITALS: BP 127/58
--- NOTE | 2017-09-28 18:34 | NUR ---
SUPPORT MANAGER ENDING NOTES PTS STABLE WITH NO ACUTE CHANGES NOTED, ALL DUE MEDS GIVEN, ALL NEEDS MET, BED BATH PROVIDED WITH WOUND TX ORDERED, WILL CONTINUE TO MONITOR HR AND TEMP IF NEEDED TYLENOL PRN., WILL ENDORSE TO PM NURSE.
--- NOTE | 2017-09-28 19:51 | NUR ---
CHIEF FUNDRAISING OFFICER NOTES RECEIVED REPORT FROM MANJINDER YOUNG. PATIENT A/A/O X1, NON-VERBAL BUT RESPONDS TO VERBAL & TACTILE STIMULI. BREATHING EVEN & UNLABORED W/ TRACH INTACT & TOLERATING VENT SETTINGS AC 16, TV 400, FIO2 30%, PEEP 5. ON TELE W/ SINUS TACH, HR 110S. NO RESPIRATORY OR CARDIAC DISTRESS NOTED. RIGHT UPPER ARM IV #22 & LEFT UPPER ARM MIDLINE INTACT & PATENT W/ DRESSING CDI, SALINE LOCKED. G-TUBE FLUSHING WELL W/ GTF GLUCERNA RUNNING @ 65 ML/HR. NO RESIDUAL NOTED @ THIS TIME. NO S/S OF PAIN OR DISCOMFORT @ THIS TIME. SAFETY MEASURES IN PLACE W/ BED ALARM ON. FAMILY @ BEDSIDE. WILL CONTINUE TO MONITOR.
[2017-09-28 20:00] VITALS: BP 108/58
[2017-09-28] MEDS ORDERED: VANCOMYCIN 0.75 GM in IV D5W 250 ML IV SCH (21:00)
[2017-09-29] VITALS (9 sets, daily range): BP systolic 95–134; BP diastolic 55–69
[2017-09-29] MEDS: IPRATROPIUM NEB FS 0.5 MG/2.5 ML AMPUL.NEB NEB SCH ×7 (00:05→23:47)
[2017-09-29] MEDS: ACETYLCYSTEINE 20% SOLN 800 MG/4 ML VIAL NEB SCH ×4 (00:06→23:47)
[2017-09-29] MEDS: PIPERACILLIN /TAZOBACTAM 3.375 G in IV D5W 50 ML IV SCH ×4 (00:11→18:06)
[2017-09-29] MEDS: ACETAMINOPHEN 325 MG TABLET MC PRN ×3 (04:12→21:16)
[2017-09-29 06:33] LABS: CALCIUM, SERUM 9.5 mg/dL (8.5-10.1); CARBON DIOXIDE 32 mmol/L (21-32); CHLORIDE 98 mmol/L (98-107); CREATININE 1.3 mg/dL (0.6-1.3); GLUCOSE 129 mg/dL (74-106); POTASSIUM 4.5 mmol/L (3.5-5.1); SODIUM SERUM 134 mmol/L (136-145); UREA NITROGEN, BLOOD 30 mg/dL (7-18)
[2017-09-29 06:39] LABS: BASOPHILS % (AUTO) 0.1 % (0.0-2.0); EOSINOPHILS % (AUTO) 0.1 % (0.0-6.0); HEMATOCRIT 24 % (39-51); HEMOGLOBIN 7.7 g/dL (13.5-17.5); LYMPHOCYTES # (AUTO) 1.2 /CMM (0.8-4.8); LYMPHOCYTES % (AUTO) 3.9 % (20.0-44.0); MEAN CORPUSCULAR HEMOGLOBIN 27 PG (26.0-33.0); MEAN CORPUSCULAR HGB CONC 32 g/dl (31.0-36.0); MEAN CORPUSCULAR VOLUME 86 fL (80-96); MONOCYTES # (AUTO) 1.5 /CMM (0.1-1.30); MONOCYTES % (AUTO) 4.9 % (2.0-12.0); NEUTROPHILS # (AUTO) 28.3 /CMM (1.8-8.9); PLATELET COUNT (AUTO) 482 /CMM (150-450); RDW COEFFICIENT OF VARIATION 20.8 (11.5-15.0); RED BLOOD CELL COUNT(AUTO) 2.82 MIL/uL (4.5-6.0)
[2017-09-29 06:49] LABS: WHITE BLOOD COUNT (AUTO) 31.1 K/uL (4.3-11.0)
--- NOTE | 2017-09-29 07:19 | NUR ---
BRINEYARD SUPERVISOR NOTES RECEIVED CALL FROM LAB FOR WBC = 31.1. WILL ENDORSE TO ONCOMING TO NURSE TO F/U W/ MD.
--- NOTE | 2017-09-29 07:20 | NUR ---
TELE/RN INITIAL NOTES RECEIVED PT IN BED, ALERT, NON VERBAL BUT AROUSABLE TO VERBAL AND LIGHT TOUCH. NO SIGNS OF PAIN, NO SOB NOTED, WITH TRACH INTACT, TOLERATING CURRENT VENT SETTINGS, AC16, TV400, FI02:30%,PEEP5. SINUS TACHY ON TELEMONITOR, WITH ONGOING GTF GLUCERNA 1.2 AT 65 ML/HR, TOLERATING WELL, NO RESIDUE NOTED AT THIS TIME. FRANCY MIDLINE AND SHANI SL INTACT, WITH NO SIGNS OF INFECTION NOTED. CURRENT TEMPT 99.1, COOLING MEASURES PROVIDED. NO CHILLS NOTED. SAFETY MEASURES AND ASPIRATION PRECAUTION OBSERVED. WILL CONT TO MONITOR
[2017-09-29] MEDS: ASCORBIC ACID 500 MG TABLET GT SCH (08:45)
[2017-09-29] MEDS: PANTOPRAZOLE 40 MG/PACK PACK GT SCH (08:45)
[2017-09-29] MEDS: LACTOBACILLUS RHAMNOSUS GG 1 EACH CAP.SPRINK PO SCH ×2 (08:46→17:30)
[2017-09-29] MEDS: MULTIVITAMINS,THERAGRAN 1 UDTAB TABLET GT SCH (08:46)
[2017-09-29] MEDS: HYDROGEL DRESSING 90 GM TUBE TP SCH (08:46)
[2017-09-29] MEDS: MUPIROCIN OINT 2% 22 GM TUBE SCH ×2 (09:02→21:00)
[2017-09-29 09:13] LABS: BAND % (MANUAL) 1 % (0.0-5.0); LYMPHOCYTES % (MANUAL) 4 % (16-48); MONOCYTES % (MANUAL) 7 % (0-11.0); NEUTROPHILS % (MANUAL) 88 (42-76)
--- NOTE | 2017-09-29 10:15 | NUR ---
RN NOTES SEEN AND EXAMINED BY DR. BRAUN. NOTIFIED MD RE: CURRENT TELE READING OF SINUS TACHY RANGING FROM 120-130, SODIUM AND WBC LEVEL, AND FEVER SINCE LAST NIGHT. AWAITING FOR NEW ORDER
--- NOTE | 2017-09-29 11:48 | NUR ---
HECTOR NOTES CURRENT TEMPT = 101.7, PRN TYLENOL GIVEN, COOLING MEASURES PROVIDED. WILL CONT TO MONITOR Addendum: 09/29/17 at 1256 by EMELY EAST RN ICE PACKS AND FAN IN ROOM PROVIDED
[2017-09-29] MEDS ORDERED: IV NS 0.9% 500 ML IV ONE (12:00)
--- NOTE | 2017-09-29 13:00 | NUR ---
RN NOTES RECEIVED CALL BACK FROM MERRILL MURRAY), INFORMED HER THAT PT WAS D/C TO SNF ([facility]), PER SO, THEY DON'T AGREE PT TO BE SENT TO SNF. SPOKE WITH PT, STATED, "I WANT TO BE DISCHARGE TO MY HOME, WHERE I CAME FROM." BRITTANI BRAUN MADE AWARE AND AGREED TO D/C TO HOME. GIFT SHOP MANAGER, JARON FIERRO Addendum: 09/29/17 at 1407 by EMELY EAST RN WRONG ENTRY
--- NOTE | 2017-09-29 13:30 | NUR ---
RN NOTES NOTIFIED MERRILL THAT MD AGREED TO D/C PT TO HOME AND P/U WILL BE AT 1400
--- NOTE | 2017-09-29 19:15 | NUR ---
RN NOTES PT IN STABLE CONDITION. AFEBRILE. NO ACUTE DISTRESS NOTED. IN NO SIGNS OF PAIN NOTED. SAFETY MEASURES AND ASPIRATION PRECAUTION OBSERVED AT ALL TIMES. ENDORSED TO PM SHIFT NURSE FOR CESAR
--- NOTE | 2017-09-29 20:00 | NUR ---
TELE/RN INITIAL NOTES RECEIVED PT IN BED, ALERT, NON VERBAL BUT AROUSABLE TO VERBAL AND LIGHT TOUCH. NO SIGNS OF PAIN, NO SOB NOTED, WITH TRACH INTACT, TOLERATING CURRENT VENT SETTINGS, AC16, TV400, FI02:30%,PEEP5. SINUS TACHY ON TELEMONITOR, 118 ATIVAN 0.5 MG IV PUSH PRN FOR SCHEDULE TO GIVE. WITH ONGOING GTF GLUCERNA 1.2 AT 65 ML/HR, TOLERATING WELL, NO RESIDUE NOTED AT THIS TIME. FRANCY MIDLINE AND SHNAI SL INTACT, WITH NO SIGNS OF INFECTION NOTED. CURRENT TEMPT 99.1, COOLING MEASURES PROVIDED. NO CHILLS NOTED. SAFETY MEASURES AND ASPIRATION PRECAUTION OBSERVED. WILL CONT TO MONITOR
[2017-09-29] MEDS: COLISTIMETHATE SODIUM 75 MG in IV NS 0.9% 50 ML IV SCH (21:00)
[2017-09-29] MEDS: LINEZOLID 600 MG TABLET PO SCH (21:16)
[2017-09-29] MEDS: LORAZEPAM INJ 2 MG/ML VIAL IV PRN (21:17)
[2017-09-30] VITALS (8 sets, daily range): BP systolic 91–132; BP diastolic 52–66
[2017-09-30] MEDS: GLUCERNA 1.2 1,000 ML BOTTLE GT PRN ×2 (00:50→20:48)
[2017-09-30] MEDS: IPRATROPIUM NEB FS 0.5 MG/2.5 ML AMPUL.NEB NEB SCH ×6 (03:01→23:27)
--- NOTE | 2017-09-30 03:29 | NUR ---
RT Pt remains on [facility] vent on ordered settings. svn given inline. sx prn. trach secure and patent. Addendum: 09/30/17 at 0330 by MANSI IBARRA RT Amended: Links added.
[2017-09-30] MEDS: LORAZEPAM INJ 2 MG/ML VIAL IV PRN (06:25)
[2017-09-30 06:28] LABS: BASOPHILS % (AUTO) 0.1 % (0.0-2.0); EOSINOPHILS % (AUTO) 0.2 % (0.0-6.0); HEMATOCRIT 22 % (39-51); HEMOGLOBIN 7.2 g/dL (13.5-17.5); LYMPHOCYTES # (AUTO) 3.2 /CMM (0.8-4.8); LYMPHOCYTES % (AUTO) 10.5 % (20.0-44.0); MEAN CORPUSCULAR HEMOGLOBIN 28 PG (26.0-33.0); MEAN CORPUSCULAR HGB CONC 33 g/dl (31.0-36.0); MEAN CORPUSCULAR VOLUME 86 fL (80-96); MONOCYTES # (AUTO) 1.4 /CMM (0.1-1.30); MONOCYTES % (AUTO) 4.6 % (2.0-12.0); NEUTROPHILS # (AUTO) 25.5 /CMM (1.8-8.9); NEUTROPHILS % (AUTO) 84.6 % (43.0-81.0); PLATELET COUNT (AUTO) 494 /CMM (150-450); RDW COEFFICIENT OF VARIATION 20.6 (11.5-15.0); RED BLOOD CELL COUNT(AUTO) 2.54 MIL/uL (4.5-6.0)
--- NOTE | 2017-09-30 06:30 | NUR ---
TELE/RN closing NOTES endorsed PT IN BED, ALERT, NON VERBAL BUT AROUSABLE TO VERBAL AND LIGHT TOUCH. NO SIGNS OF PAIN, NO SOB NOTED, WITH TRACH INTACT, TOLERATING CURRENT VENT SETTINGS, AC16, TV400, FI02:30%,PEEP5. SINUS TACHY ON TELEMONITOR, 123 ATIVAN 0.5 MG IV PUSH PRN FOR SCHEDULE TO GIVE. WITH ONGOING GTF GLUCERNA 1.2 AT 65 ML/HR, TOLERATING WELL, NO RESIDUE NOTED AT THIS TIME. FRANCY MIDLINE AND SHANI SL INTACT, WITH NO SIGNS OF INFECTION NOTED. CURRENT TEMPT 99.0, COOLING MEASURES PROVIDED. NO CHILLS NOTED. SAFETY MEASURES AND ASPIRATION PRECAUTION OBSERVED. WILL CONT TO MONITOR
[2017-09-30 06:54] LABS: CALCIUM, SERUM 9.5 mg/dL (8.5-10.1); CARBON DIOXIDE 31 mmol/L (21-32); CHLORIDE 102 mmol/L (98-107); CREATININE 1.3 mg/dL (0.6-1.3); GLUCOSE 74 mg/dL (74-106); POTASSIUM 4.4 mmol/L (3.5-5.1); SODIUM SERUM 136 mmol/L (136-145); UREA NITROGEN, BLOOD 27 mg/dL (7-18)
[2017-09-30 07:01] LABS: WHITE BLOOD COUNT (AUTO) 30.2 K/uL (4.3-11.0)
--- NOTE | 2017-09-30 07:15 | NUR ---
CLEANER OPENING NOTES GOT REPORT FROM PM NURSE.PT IN BED, ALERT, NON VERBAL BUT.AROUSABLE TO VERBAL AND LIGHT TOUCH. NO SIGNS OF PAIN, NO SOB NOTED, WITH TRACH INTACT, TOLERATING CURRENT VENT SETTINGS, AC16, TV400, FI02:30%,PEEP5. SINUS TACHY ON TELEMONITOR 126. . WITH ONGOING GTF GLUCERNA 1.2 AT 65 ML/HR. FRANCY MIDLINE AND SHANI SL INTACT, WITH NO SIGNS OF INFECTION NOTED. SAFETY MEASURES AND ASPIRATION PRECAUTIONS MAINTAINED. BED IS LOCKED AND IN LOW POSITION.CALL LIGHT IN REACH.WILL CONT TO MONITOR
[2017-09-30] MEDS: ACETYLCYSTEINE 20% SOLN 800 MG/4 ML VIAL NEB SCH ×3 (07:22→23:27)
[2017-09-30 08:00] LABS: LYMPHOCYTES % (MANUAL) 9 % (16-48); MONOCYTES % (MANUAL) 4 % (0-11.0); NEUTROPHILS % (MANUAL) 87 (42-76)
[2017-09-30] MEDS: COLISTIMETHATE SODIUM 75 MG in IV NS 0.9% 50 ML IV SCH (08:46)
[2017-09-30] MEDS: HYDROCODONE/APAP 5/325MG 1 EACH TABLET GT PRN ×2 (08:47→23:11)
[2017-09-30] MEDS: MULTIVITAMINS,THERAGRAN 1 UDTAB TABLET GT SCH (08:47)
[2017-09-30] MEDS: PANTOPRAZOLE 40 MG/PACK PACK GT SCH (08:47)
[2017-09-30] MEDS: LINEZOLID 600 MG TABLET PO SCH ×2 (08:47→20:47)
[2017-09-30] MEDS: LACTOBACILLUS RHAMNOSUS GG 1 EACH CAP.SPRINK PO SCH ×2 (08:47→16:50)
[2017-09-30] MEDS: ASCORBIC ACID 500 MG TABLET GT SCH (08:47)
[2017-09-30] MEDS: HYDROGEL DRESSING 90 GM TUBE TP SCH (08:49)
[2017-09-30] MEDS: MUPIROCIN OINT 2% 22 GM TUBE SCH ×2 (08:50→20:49)
--- NOTE | 2017-09-30 09:00 | NUR ---
WHITE SIDEWALL TIRE BUFFER NOTES SEEN BY MADE AWARE ABOUT THE TACHYCARDIA OF 104S,AND ABOUT THE WBC ELEVATED.ORDERED TO CONTINUE WITH ATB AND IVF.ELEVATED TEMP.COOLING MEASURES APPLIED.MEDICATION GIVEN.
--- NOTE | 2017-09-30 09:10 | NUR ---
DIRECTOR OF ANALYTICAL DEVELOPMENT NOTES SEEN BY NUCLEAR MEDICINE ,TOLD THAT WBC TEST WITH ISOTOPE WILL BE DONE ON TUESDAY.NO PREP NEEDED.WILL ENDORSE TO PM NURSE.
[2017-09-30] MEDS: IV NS 0.9% 1,000 ML IV PRN ×2 (09:11→18:44)
[2017-09-30 09:27] LABS: IRON, SERUM 17 ug/dl (50-175); TOTAL IRON BINDING CAPACITY 66 ug/dl (250-450)
[2017-09-30 10:02] LABS: FERRITIN 4021 ng/mL (8-388)
[2017-09-30] MEDS: ACETAMINOPHEN 325 MG TABLET MC PRN ×2 (10:06→20:47)
--- NOTE | 2017-09-30 11:52 | NUR ---
UROLOGY SURGEON NOTES SEEN BY SIDNEY MADE AWARE ABOUT ALL ABNORMAL LABS WBC,FERRITIN LEVEL IRON,HB,PROCALCITONIN ... AND ELEVATED TEMP.GOT NEW ORDERS.
[2017-09-30 12:17] LABS: ALBUMIN 1.5 g/dL (3.4-5.0); BILIRUBIN,DIRECT 0.1 mg/dL (0.0-0.2); BILIRUBIN,TOTAL 0.5 mg/dL (0.2-1.0); TOTAL PROTEIN, SERUM 8.6 g/dL (6.4-8.2)
[2017-09-30] MEDS: PANTOPRAZOLE 40 MG VIAL IV SCH ×2 (13:21→16:50)
--- NOTE | 2017-09-30 16:00 | NUR ---
LIBRARY ASSOCIATE NOTES CALL MADE TO LAB AND ASKED ABOUT TYPE AND SCREEN AND BLOOD ,THEY TOLD TYPE AND SCREEN DONE.TOLD THEM TO LET US KNOW ONCE BLOOD IS READY.
--- NOTE | 2017-09-30 18:55 | NUR ---
COOKIE MIXER HELPER SHIFT END NOTES PT IN BED, ALERT, NON VERBAL BUT.AROUSABLE TO VERBAL AND LIGHT TOUCH. NO SIGNS OF PAIN, NO SOB NOTED, WITH TRACH INTACT, TOLERATING CURRENT VENT SETTINGS, AC16, TV400, FI02:40 %,PEEP5. SINUS RHYTHM ON TELEMONITOR 96. WITH ONGOING GTF GLUCERNA 1.2 AT 70 ML/HR. FRANCY MIDLINE AND SHANI SL INTACT WITH NS AT 125CC/HR, WITH NO SIGNS OF INFECTION NOTED. SAFETY MEASURES AND ASPIRATION PRECAUTIONS MAINTAINED. BED IS LOCKED AND IN LOW POSITION.CALL LIGHT IN REACH.AWAITING CALL FROM BLOOD BANK FOR BLOOD TRANSFUSION.ENDORSED TO PM NURSE FOR CESAR.
--- NOTE | 2017-09-30 19:15 | NUR ---
TELE/RN OPENING NOTES PT RECEIVED WITH EYES CLOSED. OPENS EYES SPONTANEOUSLY, NON VERBAL. MECH. VENT WITH SETTINGS AC=16, HI=243, FIO2=40%, PEEP=5. ON TELE MONITOR, ST 115. PT WITH SPO2 NOTED AT 86%, HOB ELEVATED AND SUCTIONED PT. SPO2 INCREASED TO 94%. THICK PINA SECRETIONS NOTED. IV TO FRANCY PATENT AND INTACT RUNNING IVF ORDERED. GT FEEEDING RUNNING ORDERED WITH NO RESIDUALS. PT WITH ORDER FOR 1 UNIT PRBC. WILL F/U WITH LAB. BED IN LOW/LOCKED POSITION WITH CALL LIGHT IN REACH. SIDE RAILS UPX2. WILL CONTINUE TO MONITOR.
[2017-09-30 19:30] LABS: OCCULT BLOOD STOOL NEGATIVE (NEGATIVE)
--- NOTE | 2017-09-30 20:00 | NUR ---
TELE/RN NOTES PT SEEN BY DR. REDD. WITH VERBAL ORDERS TO INSERT RIZVI AND NOTE RESIDUAL. PER MD, SHE WILL PUT IN ORDERS. WILL CARRY OUT.
--- NOTE | 2017-09-30 20:13 | NUR ---
TELE/RN NOTES RIZVI INSERTED PER DR. REDD. AT BEDSIDE TO ASSESS PT AND AWARE OF URINE OUTPUT. NO NEW ORDERS AT THIS TIME.
--- NOTE | 2017-09-30 21:03 | NUR ---
TELE/RN NOTES COOLING MEASURES AND PRN TYLENOL ADMINISTERED FOR TEMP 101.1F AXILLARY. WILL CONTINUE TO MONITOR
[2017-09-30] MEDS: CEFEPIME 1 GM in IV D5W 50 ML IV SCH (21:32)
[2017-10-01] VITALS (7 sets, daily range): BP systolic 115–148; BP diastolic 55–64
--- NOTE | 2017-10-01 03:15 | NUR ---
TELE/RN NOTES 1 UNIT OF PRBC'S TRANSFUSED WITH NO ADVERSE REACTIONS NOTED.
[2017-10-01] MEDS: IPRATROPIUM NEB FS 0.5 MG/2.5 ML AMPUL.NEB NEB SCH ×5 (03:35→20:02)
[2017-10-01 06:31] LABS: BASOPHILS % (AUTO) 0.2 % (0.0-2.0); HEMATOCRIT 25 % (39-51); HEMOGLOBIN 7.9 g/dL (13.5-17.5); LYMPHOCYTES # (AUTO) 2.3 /CMM (0.8-4.8); LYMPHOCYTES % (AUTO) 9.2 % (20.0-44.0); MEAN CORPUSCULAR HEMOGLOBIN 27 PG (26.0-33.0); MEAN CORPUSCULAR HGB CONC 32 g/dl (31.0-36.0); MEAN CORPUSCULAR VOLUME 85 fL (80-96); MONOCYTES # (AUTO) 1.1 /CMM (0.1-1.30); MONOCYTES % (AUTO) 4.3 % (2.0-12.0); NEUTROPHILS # (AUTO) 21.6 /CMM (1.8-8.9); NEUTROPHILS % (AUTO) 85.3 % (43.0-81.0); PLATELET COUNT (AUTO) 379 /CMM (150-450); RDW COEFFICIENT OF VARIATION 20.4 (11.5-15.0); RED BLOOD CELL COUNT(AUTO) 2.89 MIL/uL (4.5-6.0); WHITE BLOOD COUNT (AUTO) 25.3 K/uL (4.3-11.0)
[2017-10-01 06:56] LABS: HDL CHOLESTEROL 11 mg/dL (40-60); LDL 13 mg/dL (0-99); TRIGLYCERIDES 77 mg/dL (30-150)
--- NOTE | 2017-10-01 07:00 | NUR ---
TELE/RN CLOSING NOTES PT WITH EYES CLOSED. MECH VENT DEPENDENT. NONVERBAL. LABORED BREATHING AT THIS TIME. ST WITH HR 130'S. RIZVI IN PLACE AND DRAINING TO GRAVITY. FRANCY MIDLINE RUNNING IVF ORDERED. GT FEEDING RUNNING WITH NO RESIDUALS NOTED DURING SHIFT. S/P 1 UNIT OF PRBC'S, TOLERATED WELL. NO ADVERSE REACTIONS NOTED. BED IN LOW/LOCKED POSITION WITH CALL LIGHT IN REACH. SIDE RAILS UPX3. PINK TINGED SECRETIONS NOTED WITH SUCTIONING. WILL ENDORSE TO DAY SHIFT RN CESAR
[2017-10-01 07:02] LABS: ALANINE AMINOTRANSFERASE 14 U/L (12-78); ALKALINE PHOSPHATASE 111 U/L (46-116); ASPARTATE AMINOTRANSFERASE 19 U/L (15-37); BILIRUBIN,TOTAL 0.3 mg/dL (0.2-1.0); CALCIUM, SERUM 8.7 mg/dL (8.5-10.1); CARBON DIOXIDE 29 mmol/L (21-32); CHLORIDE 106 mmol/L (98-107); CREATININE 1.4 mg/dL (0.6-1.3); GLUCOSE 91 mg/dL (74-106); PHOSPHORUS 3.2 mg/dL (2.5-4.9); POTASSIUM 4.6 mmol/L (3.5-5.1); SODIUM SERUM 140 mmol/L (136-145); TOTAL PROTEIN, SERUM 7.8 g/dL (6.4-8.2); UREA NITROGEN, BLOOD 35 mg/dL (7-18)
--- NOTE | 2017-10-01 07:10 | NUR ---
RETAIL SUPPORT MANAGER OPENING NOTES PT IN BED, ALERT, NON VERBAL BUT.AROUSABLE TO VERBAL AND LIGHT TOUCH. NO SIGNS OF PAIN, MILD SOB NOTED,SUCTION DONE. WITH TRACH INTACT, TOLERATING CURRENT VENT SETTINGS, AC16, TV400, FI02:40%,PEEP5. SINUS TACHY ON TELEMONITOR 136. WITH ONGOING GTF GLUCERNA 1.2 AT 70 ML/HR. FRANCY MIDLINE AND SHANI SL INTACT WITH NS AT 125CC/HR, WITH NO SIGNS OF INFECTION NOTED. SAFETY MEASURES AND ASPIRATION PRECAUTIONS MAINTAINED.RIZVI CATHETER IS DRAINING CLEAR YELLOW URINE. BED IS LOCKED AND IN LOW POSITION.CALL LIGHT IN REACH.WILL CONTINUE TO MONITOR.
[2017-10-01 07:34] LABS: ALBUMIN 1.4 g/dL (3.4-5.0)
[2017-10-01] MEDS: ACETYLCYSTEINE 20% SOLN 800 MG/4 ML VIAL NEB SCH ×2 (07:51→15:48)
[2017-10-01 08:10] LABS: CHOLESTEROL 51 mg/dL (<200)
[2017-10-01] MEDS: PANTOPRAZOLE 40 MG VIAL IV SCH ×2 (08:11→16:40)
[2017-10-01] MEDS: ASCORBIC ACID 500 MG TABLET GT SCH (08:11)
[2017-10-01] MEDS: ACETAMINOPHEN 325 MG TABLET MC PRN ×2 (08:11→17:44)
[2017-10-01] MEDS: LACTOBACILLUS RHAMNOSUS GG 1 EACH CAP.SPRINK PO SCH ×2 (08:11→16:40)
[2017-10-01] MEDS: LINEZOLID 600 MG TABLET PO SCH ×2 (08:11→21:27)
[2017-10-01] MEDS: MULTIVITAMINS,THERAGRAN 1 UDTAB TABLET GT SCH (08:11)
[2017-10-01] MEDS: IV NS 0.9% 1,000 ML IV PRN ×2 (08:12→17:38)
[2017-10-01] MEDS: CEFEPIME 1 GM in IV D5W 50 ML IV SCH ×2 (08:13→21:30)
[2017-10-01] MEDS: MUPIROCIN OINT 2% 22 GM TUBE SCH ×2 (08:14→21:28)
[2017-10-01] MEDS: HYDROGEL DRESSING 90 GM TUBE TP SCH (08:14)
--- NOTE | 2017-10-01 10:00 | NUR ---
BANANA GRADER NOTES SEEN BYB GOT NEW ORDER FOR C XRAY TOMORROW.
[2017-10-01 10:01] LABS: EOSINOPHILS % (MANUAL) 2 % (0-4); LYMPHOCYTES % (MANUAL) 11 % (16-48); MONOCYTES % (MANUAL) 4 % (0-11.0); NEUTROPHILS % (MANUAL) 83 (42-76)
--- NOTE | 2017-10-01 12:00 | NUR ---
FIRE EXTINGUISHER CHARGER NOTES SEEN BY SIDNEY UPDATED ABOUT PATIENT CONDITION AND MADE AWARE ABOUT LAB RESULTS AND ALBUMIN LEVEL.ASKED TO FOLLOW UP WITH DIETARY CONSULTATION.CALL MADE TO DIETITIAN LEFT MESSAGE .WILL ENDORSE TO PM NURSE FOR FOLLOW UP TOMORROW.
[2017-10-01] MEDS: HYDROCODONE/APAP 5/325MG 1 EACH TABLET GT PRN (12:05)
--- NOTE | 2017-10-01 15:00 | NUR ---
PROPERTY TECHNICIAN NOTES SEEN BY DR JACKSON WITH NEW ORDERERS
[2017-10-01] MEDS: GLUCERNA 1.2 1,000 ML BOTTLE GT PRN (16:44)
--- NOTE | 2017-10-01 17:10 | NUR ---
RT NOTE: PATIENT RECEIVED TACHYPNEIC WITH A FEVER(NURSE AWARE). PATIENT HAS A #[address] ON PB 840 VENT. ALARMS VERIFIED AND AUDIBLE. SUCTIONED AND LAVAGED LARGE AMOUNT OF THICK PINA BLOOD TINGED SECRETIONS. VENT PLUGGED INTO RED OUTLET. AMBU BAG AT [facility].
[2017-10-01 18:14] LABS: CREATININE, URINE 37.8 MG/DL (30.0-125.0)
[2017-10-01 18:15] LABS: APPEARANCE,URINE CLEAR (CLEAR); BILIRUBIN,URINE NEGATIVE (NEGATIVE); BLOOD, URINE 1+ Ery/uL (NEGATIVE); COLOR,URINE YELLOW (YELLOW); KETONES,URINE NEGATIVE (NEGATIVE); LEUKOCYTE ESTERASE ,URINE NEGATIVE (NEGATIVE); NITRITE, URINE NEGATIVE (NEGATIVE); PH,URINE 6.5 (5.0-8.0); PROTEIN,URINE 1+ mg/dl (NEGATIVE); UGLUCOSE NEGATIVE (NEGATIVE); UROBILINOGEN,URINE 0.2 EU/dL (0.2)
[2017-10-01 18:36] LABS: BACTERIA,URINE Few /HPF (None Seen); SQUAMOUS EPITHELIAL CELL,UR Few /HPF (None Seen); WBC,URINE 0-2 /HPF (0-3)
[2017-10-01 19:17] LABS: EOSINOPHIL,URINE Few
--- NOTE | 2017-10-01 19:30 | NUR ---
ASSISTANT FOOD SERVICE MANAGER SHIFT END NOTES PT IN BED, ALERT, NON VERBAL BUT.AROUSABLE TO VERBAL AND LIGHT TOUCH. NO SIGNS OF PAIN, NO SOB NOTED, WITH TRACH INTACT, TOLERATING CURRENT VENT SETTINGS, AC16, TV400, FI02:40 %,PEEP5. SINUS RHYTHM ON TELEMONITOR 115. WITH ONGOING GTF GLUCERNA 1.2 AT 70 ML/HR. FRANCY MIDLINE AND SHANI SL INTACT WITH NS AT 125CC/HR, WITH NO SIGNS OF INFECTION NOTED. SAFETY MEASURES AND ASPIRATION PRECAUTIONS MAINTAINED. BED IS LOCKED AND IN LOW POSITION.CALL LIGHT IN REACH..ENDORSED TO PM NURSE FOR CESAR AND FOR DIETARY FOLLOW UP TOMORROW.
[2017-10-01] MEDS: LORAZEPAM INJ 2 MG/ML VIAL IV PRN (23:00)
[2017-10-02] VITALS (36 sets, daily range): BP systolic 89–162; BP diastolic 41–84
[2017-10-02] MEDS: ACETYLCYSTEINE 20% SOLN 800 MG/4 ML VIAL NEB SCH ×4 (00:13→23:12)
[2017-10-02] MEDS: IPRATROPIUM NEB FS 0.5 MG/2.5 ML AMPUL.NEB NEB SCH ×7 (00:13→23:12)
[2017-10-02] MEDS: IV NS 0.9% 1,000 ML IV PRN ×3 (02:04→21:19)
--- NOTE | 2017-10-02 02:43 | NUR ---
RN NOTES RECEIVED PATIENT AWAKE IN BED, NOTED WITH RAPID SHALLOW BREATHING WITH ELEVATED HEART RATE OF 120BPM AND RESPIRATORY RATE OF 28BPM. ALERT AND RESPONSIVE WITH EYE CONTACT. ATIVAN 0.5MG FOR ANXIETY, WITH HELP. PATIENT WITH EPISODES OF DESATURATION TO A LOW OF 75%. SUCTIONED LARGE AMOUNT OF SEMI LOOSE WITH BLOODY SECRETION, LARGE AMOUNT. WILL CONTINUE TO MONITOR.
[2017-10-02] MEDS: LORAZEPAM INJ 2 MG/ML VIAL IV PRN (03:22)
[2017-10-02] MEDS: HYDROCODONE/APAP 5/325MG 1 EACH TABLET GT PRN (03:22)
--- NOTE | 2017-10-02 04:06 | NUR ---
PARACHUTE ACCESSORIES ATTACHER NOTE RECEIVED REPORT FROM ULISES NURSE TEO
--- NOTE | 2017-10-02 04:06 | NUR ---
RN NOTES PATIENT HR ST 150-160'S, NOTED TO HAVE SATURATION OF 70-80% ON VENT WITH FIO2 OF 40%; SHALLOW BREATHING NOTED INCREASE O2 SAT WHEN AT 100%FIO2. MEDS GIVEN; SUCTIONED SECRETIONS. RT, ED AT BEDSIDE. PER PRIMARY RN, CELWYN PATIENT HAS BEEN ON 100% ON AND OFF ALL NIGHT DUE TO DESATURATION. HIGHEST TEMPERATURE 99.8. PRIMARY RN PAGED COLLEGE SPECIALIST
--- NOTE | 2017-10-02 04:20 | NUR ---
GEOTECHNICAL ENGINEERING TECHNICIAN INITIAL NOTE RECEIVED PATIENT VIA BED. WITH LABORED BREATHING. VENT DEPENDENT. PATIENT AROUSABLE TO TOUCH AND PAIN. NO S/S OF PAIN OR DISCOMFORT. VENT SETTINGS AC 16, TV 400, FIO2 100%, PEEP 5, SPO2 100%. GT PATENT, INTACT, IN PLACE, WITH MINIMAL RESIDUAL NOTED. F/C PATENT, INTACT, DRAINING BY GRAVITY. ON TELE MONITOR SINUS TACH 126. ISOLATION PRECAUTIONS NOTED. WITH FRANCY MIDLINE PATENT, INTACT WITH IVF RUNNING. HOB ELEVATED. SIDE RAILS UP AND LOCKED. BED KEPT AT LOWEST POSITION. WILL CONTINUE TO MONITOR.
[2017-10-02 04:32] LABS: ABG BASE EXCESS 1.6 mmol/L; ABG OXYGEN SATURATION 98.5 % (92.0-98.5); ABG PCO2 48.8 mmHg (35.0-45.0); ABG PH 7.365 (7.350-7.450); ABG PO2 235.9 mmHg (75.0-100.0); AaDO2 428.3 mmHg; COHb 0.3 % (0.5-1.5); MetHb 0.9 % (0.0-1.5); O2Hb 97.3 % (94.0-97.0); PEEP,BG 5 cm H2O; SITE, ABG Right Radial; VT, ABG 400 mL
[2017-10-02] MEDS: ACETAMINOPHEN 325 MG TABLET MC PRN ×2 (04:54→22:27)
--- NOTE | 2017-10-02 04:57 | NUR ---
CEMENT MASON HIGHWAYS AND STREETS NOTE NOTED PATIENT WITH 100.4 AX TEMPERATURE. COOLING MEASURES RENDERED. PRN TYLENOL GIVEN. WILL CONTINUE TO MONITOR.
--- NOTE | 2017-10-02 05:30 | NUR ---
RN NOTES PATIENT'S CONDITION KEPT ON DECLINING. O2 SAT GOES DOWN UP TO 75%, HEART RATE WENT UP TO 164BPM. SUCTIONED PRN. 100% OXYGENATION ADMINISTERED, WITH HELP O2SAT WENT UP TO 99% AND HEART RATE WENT DOWN TO 134BPM. ATIVAN AND NORCO ADMINISTERED AND GIVEN. NOT EFFECTIVE. CALLED ROSE GRADING SUPERVISOR, SPOKE WITH DOCTOR KUO WITH ORDERS FOR STAT ABG AND CHEST XRAY AND TRANSFER PATIENT TO ICU AND CALL DR. WORKMAN HIGHER EDUCATION ADMINISTRATOR. ASKED PERMISSION FROM FIELD CANE SCALER HELPER IF WE CAN CALL DR JONES AND SHE ANSWERED YES BECAUSE THE DOCTOR MIGHT GET ANGRY. CALLED AND SPOKE WITH DR JONES AND RELAYED PATIENT'S CONDITION. NO NEW ORDER NOTED. TRANSFERED TO ICU AND REPORT GIVEN TO ICU NURSE. Addendum: 10/02/17 at 0753 by TEO SHERIFF RN BEFORE CALLING DR WORKMAN, I ASKED THE CHARGE NURSE IF I NEED TO CALL THE HIGHER EDUCATION ADMINISTRATOR (DR WORKMAN). CHARGE NURSE TOLD ME TO CALL AFTER SHE SPOKE WITH THE FIELD CANE SCALER HELPER. CALLED DR WORKMAN, RELAYED PATIENTS CONDITION AND ORDERS FROM DR KUO STAT ABG AND STAT CHEST XRAY AND TO CALL HIM (DR WORKMAN). WHEN TALKING TO DR JONES HE ASKED IF PATIENT IS AFIB OR TACHY, TOLD HIM PATIENT WAS SINUS TACHY. HE SAID IT IS MORE OF A RESPIRATORY PROBLEM THAN A CIRCULATORY PROBLEM. GAVE NO ORDERS.
[2017-10-02 05:58] LABS: BASOPHILS # (AUTO) 0.1 /CMM (0.0-0.2); BASOPHILS % (AUTO) 0.2 % (0.0-2.0); EOSINOPHILS % (AUTO) 1.1 % (0.0-6.0); HEMATOCRIT 21 % (39-51); LYMPHOCYTES # (AUTO) 0.7 /CMM (0.8-4.8); LYMPHOCYTES % (AUTO) 3.2 % (20.0-44.0); MEAN CORPUSCULAR HEMOGLOBIN 27 PG (26.0-33.0); MEAN CORPUSCULAR HGB CONC 32 g/dl (31.0-36.0); MEAN CORPUSCULAR VOLUME 84 fL (80-96); MONOCYTES # (AUTO) 1.1 /CMM (0.1-1.30); MONOCYTES % (AUTO) 4.7 % (2.0-12.0); NEUTROPHILS # (AUTO) 20.5 /CMM (1.8-8.9); NEUTROPHILS % (AUTO) 90.8 % (43.0-81.0); PLATELET COUNT (AUTO) 339 /CMM (150-450); RDW COEFFICIENT OF VARIATION 20.9 (11.5-15.0); RED BLOOD CELL COUNT(AUTO) 2.45 MIL/uL (4.5-6.0); WHITE BLOOD COUNT (AUTO) 22.6 K/uL (4.3-11.0)
[2017-10-02 06:03] LABS: HEMOGLOBIN 6.6 g/dL (13.5-17.5)
[2017-10-02 06:05] LABS: CALCIUM, SERUM 8.9 mg/dL (8.5-10.1); CARBON DIOXIDE 27 mmol/L (21-32); CHLORIDE 109 mmol/L (98-107); CREATININE 1.3 mg/dL (0.6-1.3); GLUCOSE 107 mg/dL (74-106); POTASSIUM 4.7 mmol/L (3.5-5.1); SODIUM SERUM 141 mmol/L (136-145); UREA NITROGEN, BLOOD 29 mg/dL (7-18)
--- NOTE | 2017-10-02 06:11 | NUR ---
CRYSTAL LAPPER NOTE RELAYED CRITICAL LAB VALUE HGB 6.[address] KUO WITH NEW ORDERS TO TRANSFUSE ONE UNIT PRBC AND STOOL FOR OCCULT.
--- NOTE | 2017-10-02 06:15 | NUR ---
PRINCIPAL EXAMINER NOTE RT AT BEDSIDE, FIO2 TITRATED TO 80%. WILL CONTINUE TO MONITOR.
[2017-10-02 06:17] LABS: BAND % (MANUAL) 2 % (0.0-5.0); LYMPHOCYTES % (MANUAL) 5 % (16-48); MONOCYTES % (MANUAL) 3 % (0-11.0); NEUTROPHILS % (MANUAL) 88 (42-76)
[2017-10-02 06:18] LABS: EOSINOPHILS % (MANUAL) 2 % (0-4)
--- NOTE | 2017-10-02 07:30 | NUR ---
FAN BALANCER AM NOTE RECEIVED PATIENT IN BED, OPENS EYE, SHALLOW AND FAST BREATHING. AFEBRILE.WITH PORTEX 7 TO MECHANICAL VENT, SETTINGS AC 16, TV 400, FIO2 50%, PEEP 5. SINUS TACH HR 105 ON MONITOR. NO SIGNS OF PAIN, SHANI G22 FLUSHES WELL AND FRANCY MIDLINE G 18 WITH NS AT 125 ML/HR INFUSING, BOTH SITES CLEAR. ONGOING GTF, CHECKED, 0 RESIDUAL, F/C PATENT, INTACT, DRAINING BY GRAVITY. ISOLATION PRECAUTIONS NOTED. HOB ELEVATED. SIDE RAILS UP AND LOCKED. BED KEPT AT LOWEST POSITION. SEE NURSING FLOWSHEET FOR SKIN ISSUES. WILL CONTINUE TO MONITOR.
--- NOTE | 2017-10-02 07:37 | NUR ---
METAL CABINET FINISHER CLOSING NOTE NO SIGNIFICANT CHANGE OVERNIGHT. NO RESPIRATORY DISTRESS AT THIS TIME. TOLERATING CURRENT VENT SETTINGS, SPO2 100%. ORAL TEMP 98.0. SKIN WARM AND DRY TO TOUCH. TOLERATING GTF, SINUS TACH ON MONITOR 104. F/C PATENT, INTACT, DRAINING. HOB ELEVATED. TURNED AND REPOSITIONED. SIDE RAILS UP AND LOCKED. BED KEPT AT LOWEST POSITION. CONTINUITY OF CARE ENDORSED TO AM NURSE.
[2017-10-02 08:07] LABS: IMMUNOGLOBULIN A, SERUM 370 mg/dL (61-437); IMMUNOGLOBULIN G, SERUM 2266 mg/dL (700-1600); IMMUNOGLOBULIN M, SERUM 163 mg/dL (15-143)
[2017-10-02] MEDS: LACTOBACILLUS RHAMNOSUS GG 1 EACH CAP.SPRINK PO SCH ×2 (09:22→16:44)
[2017-10-02] MEDS: ASCORBIC ACID 500 MG TABLET GT SCH (09:22)
[2017-10-02] MEDS: MULTIVITAMINS,THERAGRAN 1 UDTAB TABLET GT SCH (09:23)
[2017-10-02] MEDS: LINEZOLID 600 MG TABLET PO SCH ×2 (09:23→20:51)
[2017-10-02] MEDS: CEFEPIME 1 GM in IV D5W 50 ML IV SCH ×2 (09:23→20:51)
[2017-10-02] MEDS: PANTOPRAZOLE 40 MG VIAL IV SCH ×2 (09:23→16:44)
[2017-10-02] MEDS: HYDROGEL DRESSING 90 GM TUBE TP SCH (09:24)
--- NOTE | 2017-10-02 09:30 | NUR ---
RN NOTES DUE MEDS GIVE. MAXIPIME IV 1 GM STARTED.
[2017-10-02] MEDS: MUPIROCIN OINT 2% 22 GM TUBE SCH ×2 (09:42→20:52)
--- NOTE | 2017-10-02 10:11 | NUR ---
RN NOTES 1 UNIT PRBC STARTED.
--- NOTE | 2017-10-02 11:41 | NUR ---
RN NOTES 1 UNIT PRBC COMPETED. NO ADVERSE REACTION NOTED.
[2017-10-02 12:39] LABS: HEMOGLOBIN 8.1 g/dL (13.5-17.5)
[2017-10-02] MEDS: GLUCERNA 1.2 1,000 ML BOTTLE GT PRN (14:10)
--- NOTE | 2017-10-02 17:56 | NUR ---
RN NOTES SIDNEY BRAUN SUPERVISOR CAPACITOR PROCESSING NOTIFIED ABOUT PATIENT'S HR OF 130'S TO 140'S. O2 SAT DROPS LOW 85%. PER HIM TO DO ABG AND NS BOLUS 500ML. DO NOT DOWNGRADE PATIENT.
--- NOTE | 2017-10-02 17:57 | NUR ---
RT PATIENT BECAME TACHYCARDIC AND SPO2 DROPPED. FIO2 INCREASED TO 100% RN DEBRA AWARE Addendum: 10/02/17 at 1758 by IOANA LITTLE RT Amended: Links added.
[2017-10-02] MEDS ORDERED: IV NS 0.9% 500 ML IV ONE (18:00)
[2017-10-02 18:16] LABS: ABG BASE EXCESS 2.5 mmol/L; ABG OXYGEN SATURATION 98.3 % (92.0-98.5); ABG PCO2 45.9 mmHg (35.0-45.0); ABG PH 7.399 (7.350-7.450); ABG PO2 163.1 mmHg (75.0-100.0); COHb 0.3 % (0.5-1.5); MetHb 0.7 % (0.0-1.5); O2Hb 97.3 % (94.0-97.0); SITE, ABG Right Radial
--- NOTE | 2017-10-02 18:48 | NUR ---
BACON SKINNER CLOSING NOTE PT RESTING IN BED COMFORTABLY. OPENS EYE, SHALLOW AND FAST BREATHING. AFEBRILE.WITH PORTEX 7 TO MECHANICAL VENT, SETTINGS ORDERED AND ADJUSTED PRN. SINUS TACH HR 120s TO 130s. NO SIGNS OF PAIN, SHANI G22 FLUSHES WELL AND FRANCY MIDLINE G 18 WITH NS AT 125 ML/HR INFUSING, BOTH SITES CLEAR. ONGOING GTF, CHECKED, 0 RESIDUAL, F/C PATENT, INTACT, DRAINING BY GRAVITY, 1375 OUTPUT. ISOLATION PRECAUTIONS NOTED. HOB ELEVATED. SIDE RAILS UP AND LOCKED. BED KEPT AT LOWEST POSITION. PM CARE DONE. TURNED AND REPOSITIONED Q 2HOURS MOSTLY TO RIGHT SIDE. SUCTIONED PRN. PRESCRIBED WOUND CARE DONE. ALL NEED MET. NO OTHER SIGNIFICANT CHANGE IN CONDITION. WILL ENDORSE TO NEXT SHIFT FOR CESAR.
--- NOTE | 2017-10-02 20:32 | NUR ---
PT RECEIVED TRACHED PTX 7 ON [facility] VENT. PT TOLERATING VENT SETTINGS. SX'D FOR MOD AMT OF THICK PINA SECRETIONS. VENT ALARMS SET AND AUDIBLE. AMBU BAG AT BEDSIDE. VENT PLUGGED INTO RED OUTLET. TRACH SECURED, CUFF SALESPERSON CHILDREN'S SHOES. WILL CONTINUE TO MONITOR. Addendum: 10/02/17 at 2032 by BART DARNELL RT Amended: Links added.
--- NOTE | 2017-10-02 21:32 | NUR ---
ICU/CONVERTER SUPERVISOR TEMP. WAS 100.1 AXILLARY, STARTED COOLING MEASURES WITH ICE PACKS TO AXILLARY AND GROIN. PT WAS THEN TURNED AND REPOSITIONED FOR COMFORT AND CARE. WILL CONTINUE TO MONITOR THIS PT AND HIS TEMPERATURE.
[2017-10-02] MEDS: HALOPERIDOL 1 MG TABLET PO PRN (22:28)
--- NOTE | 2017-10-02 23:35 | NUR ---
ICU/CRUDE UNIT OPERATOR TYLENOL 650MG AND HALDOL WAS GIVEN PO VIA G/TUBE FOR PT'S HEART RATE AT 120'S AND PT'S TEMP AT 100.1. PT WAS TURNED AND REPOSITIONED FOR COMFORT AND CARE. WILL CONTINUE TO MONITOR THIS PT.
[2017-10-03] VITALS (37 sets, daily range): BP systolic 95–166; BP diastolic 46–80
--- NOTE | 2017-10-03 00:40 | NUR ---
ICU/COMPUTER HARDWARE ENGINEER PT HAS GOOD RESULTS WITH THE TYLENOL AND HALDOL, PT'S HEART RATE CAME DOWN TO 90'S FROM 130'S. PT APPEARS TO BE MORE COMFORTABLE NOW. WILL CONTINUE TO MONITOR THIS PT AND HEART RATE.
--- NOTE | 2017-10-03 01:20 | NUR ---
ICU/EP TECH PT GIVEN AM CARE ALONG WITH ORAL CARE, PT TOLERATED THIS WELL. PT WAS TURN AND REPOSITIONED FOR COMFORT AND CARE. WILL CONTINUE TO MONITOR THIS PT.
[2017-10-03] MEDS: IPRATROPIUM NEB FS 0.5 MG/2.5 ML AMPUL.NEB NEB SCH ×6 (03:04→23:30)
--- NOTE | 2017-10-03 04:50 | NUR ---
ICU/SUPERVISOR TITLE AM LABS DONE ALONG WITH PORTABLE CHEST XRAY, AWAIT FOR ANY CRITICAL LAB VALUES.
[2017-10-03 05:19] LABS: BASOPHILS # (AUTO) 0.1 /CMM (0.0-0.2); BASOPHILS % (AUTO) 0.3 % (0.0-2.0); HEMATOCRIT 23 % (39-51); HEMOGLOBIN 7.6 g/dL (13.5-17.5); LYMPHOCYTES # (AUTO) 1.7 /CMM (0.8-4.8); LYMPHOCYTES % (AUTO) 8.5 % (20.0-44.0); MEAN CORPUSCULAR HEMOGLOBIN 28 PG (26.0-33.0); MEAN CORPUSCULAR HGB CONC 33 g/dl (31.0-36.0); MEAN CORPUSCULAR VOLUME 86 fL (80-96); MONOCYTES # (AUTO) 0.9 /CMM (0.1-1.30); MONOCYTES % (AUTO) 4.5 % (2.0-12.0); NEUTROPHILS # (AUTO) 16.6 /CMM (1.8-8.9); NEUTROPHILS % (AUTO) 84.7 % (43.0-81.0); PLATELET COUNT (AUTO) 290 /CMM (150-450); RDW COEFFICIENT OF VARIATION 19.6 (11.5-15.0); RED BLOOD CELL COUNT(AUTO) 2.72 MIL/uL (4.5-6.0); WHITE BLOOD COUNT (AUTO) 19.5 K/uL (4.3-11.0)
[2017-10-03 05:37] LABS: CALCIUM, SERUM 8.9 mg/dL (8.5-10.1); CARBON DIOXIDE 28 mmol/L (21-32); CHLORIDE 108 mmol/L (98-107); CREATININE 1.1 mg/dL (0.6-1.3); GLUCOSE 78 mg/dL (74-106); POTASSIUM 4.7 mmol/L (3.5-5.1); SODIUM SERUM 139 mmol/L (136-145); UREA NITROGEN, BLOOD 21 mg/dL (7-18)
[2017-10-03] MEDS: IV NS 0.9% 1,000 ML IV PRN ×2 (05:45→21:47)
[2017-10-03] MEDS: GLUCERNA 1.2 1,000 ML BOTTLE GT PRN (05:45)
--- NOTE | 2017-10-03 07:45 | NUR ---
FORM SETTER HELPER RECEIVED PATIENT FROM THE PREVIOUS SHIFT. PATIENT IS IN BED. RESTING COMFORTABLY. NO ACUTE DISTRESS NOTED. EVEN AND NON LABORED BREATHING PATTERN. SINUS TACH ON MONITOR. VENT SETTINGS REVIEWED AND VERIFIED. RIZVI DRAINING URINE TO GRAVITY. OBTUNDED NEURO STATUS. WILL CONTINUE TO MONITOR AND PROVIDE CARE.
[2017-10-03] MEDS: ACETYLCYSTEINE 20% SOLN 800 MG/4 ML VIAL NEB SCH ×3 (07:50→23:30)
[2017-10-03] MEDS: HYDROGEL DRESSING 90 GM TUBE TP SCH (08:59)
[2017-10-03] MEDS: MULTIVITAMINS,THERAGRAN 1 UDTAB TABLET GT SCH (09:02)
[2017-10-03] MEDS: PANTOPRAZOLE 40 MG VIAL IV SCH ×2 (09:02→18:02)
[2017-10-03] MEDS: ASCORBIC ACID 500 MG TABLET GT SCH (09:02)
[2017-10-03] MEDS: LINEZOLID 600 MG TABLET PO SCH (09:02)
[2017-10-03] MEDS: MUPIROCIN OINT 2% 22 GM TUBE SCH ×2 (09:03→21:02)
[2017-10-03] MEDS: CEFEPIME 1 GM in IV D5W 50 ML IV SCH ×2 (09:03→21:01)
--- NOTE | 2017-10-03 09:38 | NUR ---
HAT BRAIDER PATIENT WAS LAID FLAT FOR 15 MINUTES TO ASSESS THE TOLERANCE FOR POSSIBLE NM WBC SCAN. WITHIN 15 MINUTES PATIENT NOTED TO DESAT DOWN TO 81% FROM 95%. PATIENT IS CURRENTLY 80% FIO2. PATIENT'S HEART RATE ALSO ELEVATED FROM 105 TO 135. SAP BW DEVELOPER MADE AWARE. PATIENT IS ALSO HAVING COPIOUS AMOUNTS OF THICK ORAL SECRETIONS.
[2017-10-03] MEDS: HALOPERIDOL 1 MG TABLET PO PRN (10:32)
[2017-10-03] MEDS: ACETAMINOPHEN 325 MG TABLET MC PRN (10:32)
--- NOTE | 2017-10-03 11:01 | NUR ---
CASKET COVERER RECEIVED CHILDREN TEACHER RECOMMENDATIONS TO HOLD NM SCAN TODAY.
[2017-10-03] MEDS: LACTOBACILLUS RHAMNOSUS GG 1 EACH CAP.SPRINK PO SCH ×2 (11:55→17:00)
[2017-10-03] MEDS: LORAZEPAM INJ 2 MG/ML VIAL IV PRN ×2 (11:59→21:05)
[2017-10-03] MEDS: HYDROCODONE/APAP 5/325MG 1 EACH TABLET GT PRN (12:02)
--- NOTE | 2017-10-03 17:10 | NUR ---
FOREMAN OR SUPERVISOR AND OPERATOR PATIENT'S NOTED TO BE LEAKING AND GT WAS HALF WAY OUT OF THE STOMA. RN REMOVED GT, PLACED A STERILE RIZVI CATH TO KEEP STOMA OPEN. RN CALLED THE HADOOP ADMINISTRATOR AND INFORMED. PER ME, HE WILL HAVE A LOOK AT IT TOMORROW. OLD GT WAS CLEANED AND SAVED AND PLACED AT BEDSIDE. DRESSING PLACED ON GT SITE. RN CALLED DAUGHTER MADELYN AND INFORMED.
--- NOTE | 2017-10-03 19:58 | NUR ---
PT RECEIVED TRACHED PTX 7 ON [facility] VENT. PT TOLERATING VENT SETTINGS. SX'D FOR MOD AMT OF THICK PINA SECRETIONS. VENT ALARMS SET AND AUDIBLE. AMBU BAG AT BEDSIDE. VENT PLUGGED INTO RED OUTLET. TRACH SECURED. WILL CONTINUE TO MONITOR. Addendum: 10/03/17 at 8 by BART DARNELL RT Amended: Links added.
--- NOTE | 2017-10-03 20:16 | NUR ---
CHURCH OFFICIAL. INITIAL ASSESSMENT. RECEIVED THE PT REST ON THE BED. TRACH TO VENT CONNECTED. PT AWAKE, ALERT, NONVERBAL. DOES NOT FOLLOW COMMANDS. PULL SOCKET ASSEMBLER SHOWING S TACH. RATE IS AT THIS TIME 116. TRACH IS PORTEX#7,AC 16,TV 400,FIO2 80%. SAT 99%. PT IS TACHYPNEIC,IV LT UPPER ARM MID LINE, IVF NS 125ML/H,FC PATENT, GT CAME OFF TODAY, DAY SHIFT. PLACED RIZVI, PT IS NPO. TEMPERATURE IS 99. HOB ELEVATED. PT IS CONTRACTED. WILL CONTINUE TO MONITOR VITALS.
[2017-10-03] MEDS ORDERED: FEE PK DOSING 1 MIN EA MC ONE (20:52)
[2017-10-03] MEDS: VANCOMYCIN 0.75 GM in IV D5W 250 ML IV SCH (21:01)
[2017-10-04] VITALS (36 sets, daily range): BP systolic 106–163; BP diastolic 52–79
--- NOTE | 2017-10-04 03:23 | NUR ---
BUS MECHANIC. AM CARE. ORAL CARE, BED BATH GIVEN. LINEN CHANGED. REMAINING SAME VENT SETTING ON. SAT 989%. STILL TACHYPNEIC RICE MILLING SUPERVISOR SHOWING S TACH. PT IS NPO. GT SITE RIZVI INTACT. HOB ELEVATED. TEMPERATURE 99.4. GC PATENT. URINE DRAINING. TURN AND REPOSITION Q2H. IV LT UPPER ARM PICC LINE IVF NS 125ML/H. WILL CONTINUE TO MONITOR VITALS.
[2017-10-04] MEDS: IPRATROPIUM NEB FS 0.5 MG/2.5 ML AMPUL.NEB NEB SCH ×6 (03:27→23:40)
[2017-10-04 04:43] LABS: BASOPHILS % (AUTO) 0.2 % (0.0-2.0); EOSINOPHILS % (AUTO) 1.6 % (0.0-6.0); HEMATOCRIT 23 % (39-51); HEMOGLOBIN 7.6 g/dL (13.5-17.5); LYMPHOCYTES # (AUTO) 1.6 /CMM (0.8-4.8); LYMPHOCYTES % (AUTO) 8.5 % (20.0-44.0); MEAN CORPUSCULAR HEMOGLOBIN 28 PG (26.0-33.0); MEAN CORPUSCULAR HGB CONC 33 g/dl (31.0-36.0); MEAN CORPUSCULAR VOLUME 85 fL (80-96); MONOCYTES # (AUTO) 0.8 /CMM (0.1-1.30); MONOCYTES % (AUTO) 4.4 % (2.0-12.0); NEUTROPHILS # (AUTO) 15.6 /CMM (1.8-8.9); NEUTROPHILS % (AUTO) 85.3 % (43.0-81.0); PLATELET COUNT (AUTO) 317 /CMM (150-450); RDW COEFFICIENT OF VARIATION 19.3 (11.5-15.0); RED BLOOD CELL COUNT(AUTO) 2.73 MIL/uL (4.5-6.0); WHITE BLOOD COUNT (AUTO) 18.2 K/uL (4.3-11.0)
[2017-10-04 04:57] LABS: CALCIUM, SERUM 8.9 mg/dL (8.5-10.1); CARBON DIOXIDE 28 mmol/L (21-32); CHLORIDE 106 mmol/L (98-107); CREATININE 1.1 mg/dL (0.6-1.3); GLUCOSE 77 mg/dL (74-106); MAGNESIUM 1.5 mg/dL (1.8-2.4); PHOSPHORUS 2.3 mg/dL (2.5-4.9); POTASSIUM 4.1 mmol/L (3.5-5.1); SODIUM SERUM 139 mmol/L (136-145); UREA NITROGEN, BLOOD 16 mg/dL (7-18)
[2017-10-04] MEDS: IV NS 0.9% 1,000 ML IV PRN ×2 (05:56→17:59)
--- NOTE | 2017-10-04 07:45 | NUR ---
ICU/RN: Pt received, calm, comfortable, communicative and follows commands. Pt refuses oral care and suctioning. Large amount of thick secretions cleared from trach. ST on monitor. IVF infusing well. Safety measures in place, will cont to monitor pt.
[2017-10-04] MEDS: ACETYLCYSTEINE 20% SOLN 800 MG/4 ML VIAL NEB SCH ×3 (07:47→23:40)
[2017-10-04] MEDS: LACTOBACILLUS RHAMNOSUS GG 1 EACH CAP.SPRINK PO SCH ×2 (09:00→16:44)
[2017-10-04] MEDS: MULTIVITAMINS,THERAGRAN 1 UDTAB TABLET GT SCH (09:00)
[2017-10-04] MEDS: ASCORBIC ACID 500 MG TABLET GT SCH (09:00)
[2017-10-04] MEDS: HYDROGEL DRESSING 90 GM TUBE TP SCH (09:37)
[2017-10-04] MEDS: CEFEPIME 1 GM in IV D5W 50 ML IV SCH ×2 (09:41→20:44)
[2017-10-04] MEDS: PANTOPRAZOLE 40 MG VIAL IV SCH ×2 (09:41→16:44)
[2017-10-04] MEDS: MUPIROCIN OINT 2% 22 GM TUBE SCH ×2 (09:42→21:14)
--- NOTE | 2017-10-04 10:30 | NUR ---
ICU/RN: Noted with large soft brown BM, wound care and complete bed bath rendered. Tolerated well. Cooling measures in place.
--- NOTE | 2017-10-04 11:00 | NUR ---
ICU/RN: Dr Hall rounds updated. FiO2 titrated from 80 to 60%. ABGs and labs reviewed.
[2017-10-04 11:06] LABS: ABG BASE EXCESS 1.2 mmol/L; ABG OXYGEN SATURATION 95.4 % (92.0-98.5); ABG PCO2 39.6 mmHg (35.0-45.0); ABG PH 7.429 (7.350-7.450); ABG PO2 84.6 mmHg (75.0-100.0); AaDO2 299.6 mmHg; COHb 0.3 % (0.5-1.5); MetHb 0.7 % (0.0-1.5); O2Hb 94.4 % (94.0-97.0); PEEP,BG 0 cm H2O; SITE, ABG Right Radial; VENT MODE, BG AC 16 400 60% +0; VT, ABG 400 mL
--- NOTE | 2017-10-04 11:15 | NUR ---
ICU/RN: Cr Carroll, SUPERVISOR FUR DRESSING at bedside; updated on pt status. "No need for WBC scan" per SUPERVISOR FUR DRESSING. Informed of T-max 100.1, cooling measures in place. No new orders.
[2017-10-04] MEDS: Magnesium 1GM/D5W 100ML PREMIX 100 ML IV SCH ×2 (11:39→12:42)
[2017-10-04] MEDS ORDERED: Sodium Phosphate 15 MMOL in IV D5W 250 ML IV ONE (13:00)
[2017-10-04 14:18] LABS: *SPE A/G RATIO 0.4 (0.7-1.7); *SPE ALBUMIN 1.8 g/dL (2.9-4.4); *SPE ALPHA-1-GLOBULIN 0.6 g/dL (0.0-0.4); *SPE ALPHA-2-GLOBULIN 1.1 g/dL (0.4-1.0); *SPE BETA GLOBULIN 0.8 g/dL (0.7-1.3); *SPE GLOBULIN, TOTAL 4.9 g/dL (2.2-3.9); *SPE M-SPIKE Not Observed g/dL (Not Observed); *SPEGAMMA GLOBULIN 2.4 g/dL (0.4-1.8)
--- NOTE | 2017-10-04 16:10 | NUR ---
ICU/RN: Dr Tse, GI at bedside for PEG replacement. Daughter Jillian consented to procedure. Updated. Stat KUB ordered to verify placement.
--- NOTE | 2017-10-04 17:22 | NUR ---
Received vidya pt on mechanical vent. Pt vidya is secure. Vent is plugged into a red outlet, alarms are set and audible, and BVM is at bedside. Addendum: 10/04/17 at 1723 by EDD QUIROS RT Amended: Links added.
[2017-10-04] MEDS: GLUCERNA 1.2 1,000 ML BOTTLE GT PRN (18:04)
--- NOTE | 2017-10-04 19:14 | NUR ---
BOARDING HOUSE COOK. INITIAL ASSESSMENT. RECEIVED THE PT REST ON THE BED. AWAKE, ALERT, NONVERBAL. TRACH TO VENT CONNECTED. PT IS TACHYPNEIC. PORTEX#7,AC 16,TV 400, FIO2 60%. SAT 98%. PACK WORKER SUPERVISOR SHOWING S TACH. FC PATENT. IV LT UPPER ARM PICC LINE IVF NS 125ML/H, GT INTACT. HOB ELEVATED. WILL CONTINUE TO MONITOR VITALS.
[2017-10-04] MEDS: VANCOMYCIN 0.75 GM in IV D5W 250 ML IV SCH (20:44)
[2017-10-05] VITALS (37 sets, daily range): BP systolic 111–173; BP diastolic 46–99
[2017-10-05] MEDS: LORAZEPAM INJ 2 MG/ML VIAL IV PRN (02:50)
[2017-10-05] MEDS: IV NS 0.9% 1,000 ML IV PRN ×3 (02:51→12:11)
--- NOTE | 2017-10-05 03:24 | NUR ---
INTERNATIONAL OPERATIONS MANAGER. AM CARE, ORAL CARE, BED BATH GIVEN. LINEN CHANGED, REMAINING SAME VENT SETTING TOLERATED WELL. SAT 98%. PT IS TACHYPNEIC, SALES FLOOR MANAGER SHOWING S TACH, FC PATENT, URINE DRAINING, GT FEEDING TOLERATED WELL. HOB ELEVATED. IV LT UPPERARM MID LINE. IVF NS 125ML/H, HOB ELEVATED. TURN AND REPOSITION Q2H. WILL CONTINUE TO MONITOR VITALS.
[2017-10-05] MEDS: IPRATROPIUM NEB FS 0.5 MG/2.5 ML AMPUL.NEB NEB SCH ×6 (03:31→23:56)
[2017-10-05 04:31] LABS: BASOPHILS % (AUTO) 0.2 % (0.0-2.0); EOSINOPHILS % (AUTO) 3.2 % (0.0-6.0); HEMATOCRIT 22 % (39-51); HEMOGLOBIN 7.3 g/dL (13.5-17.5); LYMPHOCYTES # (AUTO) 1.4 /CMM (0.8-4.8); LYMPHOCYTES % (AUTO) 9.3 % (20.0-44.0); MEAN CORPUSCULAR HEMOGLOBIN 28 PG (26.0-33.0); MEAN CORPUSCULAR HGB CONC 33 g/dl (31.0-36.0); MEAN CORPUSCULAR VOLUME 85 fL (80-96); MONOCYTES # (AUTO) 0.8 /CMM (0.1-1.30); MONOCYTES % (AUTO) 5.2 % (2.0-12.0); NEUTROPHILS # (AUTO) 12.2 /CMM (1.8-8.9); NEUTROPHILS % (AUTO) 82.1 % (43.0-81.0); PLATELET COUNT (AUTO) 309 /CMM (150-450); RDW COEFFICIENT OF VARIATION 18.4 (11.5-15.0); RED BLOOD CELL COUNT(AUTO) 2.61 MIL/uL (4.5-6.0); WHITE BLOOD COUNT (AUTO) 14.8 K/uL (4.3-11.0)
[2017-10-05 04:41] LABS: CALCIUM, SERUM 8.6 mg/dL (8.5-10.1); CARBON DIOXIDE 28 mmol/L (21-32); CHLORIDE 104 mmol/L (98-107); CREATININE 1.1 mg/dL (0.6-1.3); GLUCOSE 99 mg/dL (74-106); PHOSPHORUS 3.2 mg/dL (2.5-4.9); POTASSIUM 3.8 mmol/L (3.5-5.1); SODIUM SERUM 138 mmol/L (136-145); UREA NITROGEN, BLOOD 14 mg/dL (7-18)
[2017-10-05] MEDS: ACETYLCYSTEINE 20% SOLN 800 MG/4 ML VIAL NEB SCH ×3 (07:30→23:56)
--- NOTE | 2017-10-05 07:42 | NUR ---
RT PATIENT REC'D TRACHED ON [facility] VENT WITH ORDERED SETTINGS ERICK WELL. VENT ALARMS CHECKED + AUDIBLE. VENT PLUGGED INTO RED OUTLET. ALL VENT TUBING CONNECTIONS TIGHT AND IN PROPER POSITION. PATIENT TRACH CHECKED AND SECURE IN PROPER POSITION. CUFF PRESSURE CHECKED MILLING SUPERVISOR. AIRWAY SUCTIONED WITH SMALL/MODERATE AMOUNT OF PALE SEMITHICK SECRETIONS. B/S DIM COARSE. PATIENT APPEARS COMFORTABLE, NON RESPONSIVE TO VERBAL COMMANDS. NO SOB NOTED. AMBU BAG AND BACK UP TRACH AT HOB. CONT CURRENT PLAN OF RESPIRATORY CARE. Addendum: 10/05/17 at 1359 by IOANA LITTLE RT Amended: Links added.
--- NOTE | 2017-10-05 08:00 | NUR ---
ICU/RN INITIAL NOTES,AM RECEIVED REPORT FROM NIGHT NURSE. PT ALERT, OPENS EYES, DOES NOT FOLLOW COMMANDS. PT TRACH TO VENT, PORTEX 7, WITH VENT SETTINGS ORDERED BY MD. NO ACUTE DISTRESS NOTED AT THIS TIME. MODERATE TO LARGE SECRETIONS NOTED, PT SUCTIONED, DRESSING CHANGED. PT SINUS TACH ON TELE. NEW GTUBE INSERTED YESTERDAY, TUBE FEEDING INFUSING ORDERED, TOLERATING WELL, NO RESIDUAL NOTED. RIZVI CATH IN PLACE, DRAINING URINE. LEFT UPPER ARM MIDLINE PATENT AND INTACT, IV FLUIDS INFUSING ORDERED. PT TURNED AND REPOSITIONED. SAFETY MEASURES TAKEN, BED IN LOW POSITION, SIDE RAILS UP, CALL LIGHT WITHIN REACH. WILL CONTINUE CARE.
--- NOTE | 2017-10-05 08:30 | NUR ---
ICU/RN: TEMP 101.5, COOLING MEASURES TAKEN, PRN TYLENOL GIVEN. WILL REASSESS
[2017-10-05] MEDS: LACTOBACILLUS RHAMNOSUS GG 1 EACH CAP.SPRINK PO SCH ×2 (08:38→16:41)
[2017-10-05] MEDS: CEFEPIME 1 GM in IV D5W 50 ML IV SCH (08:38)
[2017-10-05] MEDS: PANTOPRAZOLE 40 MG VIAL IV SCH ×2 (08:38→16:40)
[2017-10-05] MEDS: MULTIVITAMINS,THERAGRAN 1 UDTAB TABLET GT SCH (08:38)
[2017-10-05] MEDS: ASCORBIC ACID 500 MG TABLET GT SCH (08:38)
[2017-10-05] MEDS: HYDROGEL DRESSING 90 GM TUBE TP SCH (08:39)
[2017-10-05] MEDS: MUPIROCIN OINT 2% 22 GM TUBE SCH ×2 (08:41→21:16)
[2017-10-05] MEDS: ACETAMINOPHEN 325 MG TABLET MC PRN (08:45)
[2017-10-05 09:38] LABS: ABG OXYGEN SATURATION 96.3 % (92.0-98.5); ABG PCO2 34.2 mmHg (35.0-45.0); ABG PH 7.502 (7.350-7.450); ABG PO2 84.2 mmHg (75.0-100.0); AaDO2 233.8 mmHg; COHb 0.3 % (0.5-1.5); MetHb 0.6 % (0.0-1.5); O2Hb 95.4 % (94.0-97.0); PEEP,BG 0 cm H2O; SITE, ABG Right Radial
--- NOTE | 2017-10-05 09:43 | NUR ---
PER DR DOBBINS PEEP +5 ADDED. RR LOWERED TO 12. VENT ALARMS CHECKED + AUDIBLE. ALL CONNECTIONS AND TUBING CHECKED + TIGHTENED. SUCTIONED WITH LARGE AMT OF PINA SEMITHICK SECRETIONS. AMBU BAG AT HOB Addendum: 10/05/17 at 0945 by IOANA LITTLE RT Amended: Links added.
[2017-10-05] MEDS ORDERED: CEFEPIME 1 GM in IV D5W 50 ML IV ONE (12:00)
[2017-10-05] MEDS: GLUCERNA 1.2 1,000 ML BOTTLE GT PRN (14:27)
--- NOTE | 2017-10-05 18:15 | NUR ---
PATIENT COMFORTABLE, ALERT, NO ACUTE DISTRESS. VITAL SIGNS STABLE, PATIENT'S SKIN CLEAN AND DRY. PATIENT DID WELL THROUGHOUT THE SHIFT. WILL REPORT TO PM SHIFT.
--- NOTE | 2017-10-05 20:00 | NUR ---
Received patient from AM shift nurse patient awake alert but not following commands.Continued on same prescribed vent settings on ac mode.With moderate thick secretions. Suction PRN.No distress noted.ST 117-120's.Temp 100.1.Cooling measures done.GT feeding in progress with small residual.Maintained HOB elevated.FC with moderate urine output.IVF infusing via FRANCY midline and site intact.Turned and repositioned.
[2017-10-05] MEDS: CEFEPIME 2 GM in IV D5W 100 ML IV SCH (21:06)
[2017-10-05] MEDS: VANCOMYCIN 0.75 GM in IV D5W 250 ML IV SCH (22:23)
[2017-10-06] VITALS (35 sets, daily range): BP systolic 119–172; BP diastolic 59–113
--- NOTE | 2017-10-06 | NUR ---
Patient febrile 101.9.Bed bath rendered and complete linens changed.PRN Tylenol administered. Continuous cooling measures done.Turned and repositioned.
[2017-10-06] MEDS: IPRATROPIUM NEB FS 0.5 MG/2.5 ML AMPUL.NEB NEB SCH ×6 (03:00→23:37)
[2017-10-06] MEDS: ACETAMINOPHEN 325 MG TABLET MC PRN (03:41)
[2017-10-06] MEDS: IV NS 0.9% 1,000 ML IV PRN ×2 (03:42→17:23)
[2017-10-06 04:30] LABS: BASOPHILS % (AUTO) 0.1 % (0.0-2.0); EOSINOPHILS % (AUTO) 4.1 % (0.0-6.0); HEMATOCRIT 24 % (39-51); HEMOGLOBIN 7.6 g/dL (13.5-17.5); LYMPHOCYTES # (AUTO) 2.4 /CMM (0.8-4.8); LYMPHOCYTES % (AUTO) 13.3 % (20.0-44.0); MEAN CORPUSCULAR HEMOGLOBIN 28 PG (26.0-33.0); MEAN CORPUSCULAR HGB CONC 32 g/dl (31.0-36.0); MEAN CORPUSCULAR VOLUME 86 fL (80-96); MONOCYTES # (AUTO) 1.1 /CMM (0.1-1.30); MONOCYTES % (AUTO) 6.2 % (2.0-12.0); NEUTROPHILS # (AUTO) 13.6 /CMM (1.8-8.9); NEUTROPHILS % (AUTO) 76.3 % (43.0-81.0); PLATELET COUNT (AUTO) 335 /CMM (150-450); RED BLOOD CELL COUNT(AUTO) 2.76 MIL/uL (4.5-6.0); WHITE BLOOD COUNT (AUTO) 17.9 K/uL (4.3-11.0)
[2017-10-06 04:45] LABS: CALCIUM, SERUM 8.4 mg/dL (8.5-10.1); CARBON DIOXIDE 30 mmol/L (21-32); CHLORIDE 103 mmol/L (98-107); CREATININE 1.1 mg/dL (0.6-1.3); GLUCOSE 108 mg/dL (74-106); POTASSIUM 4.4 mmol/L (3.5-5.1); SODIUM SERUM 135 mmol/L (136-145); UREA NITROGEN, BLOOD 16 mg/dL (7-18)
[2017-10-06] MEDS: GLUCERNA 1.2 1,000 ML BOTTLE GT PRN ×2 (04:45→16:39)
[2017-10-06 05:33] LABS: EOSINOPHILS % (MANUAL) 6 % (0-4); LYMPHOCYTES % (MANUAL) 10 % (16-48); METAMYELOCYTES % 1 % (0-0); MONOCYTES % (MANUAL) 4 % (0-11.0); NEUTROPHILS % (MANUAL) 79 (42-76)
--- NOTE | 2017-10-06 06:00 | NUR ---
Patient resting no distress noted.Remains ST 115-120.GT feeding well tolerated.All needs met.
[2017-10-06] MEDS: ACETYLCYSTEINE 20% SOLN 800 MG/4 ML VIAL NEB SCH ×3 (07:29→23:37)
--- NOTE | 2017-10-06 07:30 | NUR ---
RT PT RECEIVED WITH A PORTEX 7 TRACH ON THE VENT WITH NOTED SETTINGS. PT IS AWAKE AND APPEARS TO BE ALERT. VENT ALARMS ARE SET AND AUDIBLE WITH BVM BY BEDSIDE. INFORMATION SECURITY SPECIALIST CUFF PRESSURE NOTED. VENT IS PLUGGED INTO RED OUTLET. PT SX LARGE THICK PALE YELLOW SECRETIONS. NO RESPIRATORY DISTRESS NOTED AT THIS TIME, WILL CONTINUE TO MONITOR. Addendum: 10/06/17 at 1759 by JORGE LAFLEUR RT Amended: Links added.
[2017-10-06] MEDS: MULTIVITAMINS,THERAGRAN 1 UDTAB TABLET GT SCH (09:00)
[2017-10-06] MEDS: ASCORBIC ACID 500 MG TABLET GT SCH (09:00)
[2017-10-06] MEDS: PANTOPRAZOLE 40 MG VIAL IV SCH ×2 (09:00→16:40)
[2017-10-06] MEDS: LACTOBACILLUS RHAMNOSUS GG 1 EACH CAP.SPRINK PO SCH ×2 (09:00→16:40)
[2017-10-06] MEDS: CEFEPIME 2 GM in IV D5W 100 ML IV SCH ×2 (09:06→20:56)
[2017-10-06] MEDS: HYDROGEL DRESSING 90 GM TUBE TP SCH (09:27)
[2017-10-06] MEDS: MUPIROCIN OINT 2% 22 GM TUBE SCH ×2 (09:27→20:57)
[2017-10-06] MEDS: HYDROCODONE/APAP 5/325MG 1 EACH TABLET GT PRN (11:12)
[2017-10-06] MEDS: VANCOMYCIN 1 GM in IV D5W 250 ML IV SCH (17:20)
[2017-10-06] MEDS ORDERED: VANCOMYCIN 0.75 GM in IV D5W 250 ML IV SCH (18:00)
--- NOTE | 2017-10-06 18:55 | NUR ---
Spoke with patient's daughter who was very pleasant. Updated her on patient's progress today and overall condition. Patient visitor also at bedside. Patient re-positioned, skin clean and dry, no acute distress, Report to PM shift RN.
--- NOTE | 2017-10-06 19:30 | NUR ---
ICU NOTES RECEIVED PT.AWAKE ALERT,FOLLOWS SIMPLE VERBAL COMMANDS.ON VENT PER TRACH W/ FI02 50%TGJ273%.DENIES PAIN OR DISCOMFORT.W/LOW GRADE TEMP.BLOOD CULTURES ORDERED.
--- NOTE | 2017-10-06 22:00 | NUR ---
ICU/RN SUCTIONED FOR COPIOUS AMT OF PINK-TINGED SECRETIONS FROM TRACH.TRACH COLLAR CHANGED,SATURATED W/ SECRETIONS.ORAL CARE DONE.
[2017-10-07] VITALS (26 sets, daily range): BP systolic 91–158; BP diastolic 54–81
[2017-10-07] MEDS: IPRATROPIUM NEB FS 0.5 MG/2.5 ML AMPUL.NEB NEB SCH ×6 (02:59→23:57)
--- NOTE | 2017-10-07 04:00 | NUR ---
ICU/RN INCONTINENT OF LARGE AMT SEMI-FORMED STOOL,CLEANSED.BED BATH DONE.TRACH CARE DONE.REPOSITIONED AND TURN.MEPILEX TO SACRAL AREA CHANGED AND ALSO MEPILEX TO RT DORSUM.
[2017-10-07 04:31] LABS: BASOPHILS % (AUTO) 0.3 % (0.0-2.0); EOSINOPHILS % (AUTO) 6.4 % (0.0-6.0); HEMATOCRIT 21 % (39-51); HEMOGLOBIN 7.3 g/dL (13.5-17.5); LYMPHOCYTES # (AUTO) 1.9 /CMM (0.8-4.8); LYMPHOCYTES % (AUTO) 11.4 % (20.0-44.0); MEAN CORPUSCULAR HEMOGLOBIN 29 PG (26.0-33.0); MEAN CORPUSCULAR HGB CONC 35 g/dl (31.0-36.0); MEAN CORPUSCULAR VOLUME 83 fL (80-96); MONOCYTES # (AUTO) 0.9 /CMM (0.1-1.30); MONOCYTES % (AUTO) 5.3 % (2.0-12.0); NEUTROPHILS # (AUTO) 12.6 /CMM (1.8-8.9); NEUTROPHILS % (AUTO) 76.6 % (43.0-81.0); PLATELET COUNT (AUTO) 300 /CMM (150-450); RDW COEFFICIENT OF VARIATION 17.9 (11.5-15.0); WHITE BLOOD COUNT (AUTO) 16.4 K/uL (4.3-11.0)
[2017-10-07 04:39] LABS: CALCIUM, SERUM 8.7 mg/dL (8.5-10.1); CARBON DIOXIDE 31 mmol/L (21-32); CHLORIDE 103 mmol/L (98-107); CREATININE 1.1 mg/dL (0.6-1.3); GLUCOSE 110 mg/dL (74-106); POTASSIUM 4.9 mmol/L (3.5-5.1); SODIUM SERUM 136 mmol/L (136-145); UREA NITROGEN, BLOOD 18 mg/dL (7-18)
--- NOTE | 2017-10-07 07:40 | NUR ---
FLUORESCENT LIGHTING MODEL MAKER: pt.is without sedation, rest now, rigid/contracted, with eyes contact, but no really mandie following, grimacing 3-07/05, T101.0/will implement cool measures, ST 110-120, O2sat. over 94% on 50%FiO2, tachypneic, suctioned well with large w/y secretion amount, RT updated/checked TT leak, GTF residual 10ml, wounds care done per night nurse report
--- NOTE | 2017-10-07 07:50 | NUR ---
SUPERVISOR GRAPHITE: is in room, updated with all above, no new order now
[2017-10-07] MEDS: ACETYLCYSTEINE 20% SOLN 800 MG/4 ML VIAL NEB SCH ×3 (07:52→23:57)
--- NOTE | 2017-10-07 07:52 | NUR ---
RT PT RECEIVED WITH A PORTEX 7 TRACH ON THE VENT WITH NOTED SETTINGS. PT IS AWAKE AND RESPONDS TO STIMULI WHEN SX'D. VENT ALARMS ARE SET AND AUDIBLE WITH BVM BY BEDSIDE. DRYER OPERATOR CUFF PRESSURE NOTED. VENT IS PLUGGED INTO RED OUTLET. PT SX MODERATE THICK PALE YELLOW SECRETIONS. NO RESPIRATORY DISTRESS NOTED AT THIS TIME, WILL CONTINUE TO MONITOR. Addendum: 10/07/17 at 1936 by JORGE LAFLEUR RT Amended: Links added.
[2017-10-07] MEDS: HYDROCODONE/APAP 5/325MG 1 EACH TABLET GT PRN (08:55)
[2017-10-07] MEDS: ASCORBIC ACID 500 MG TABLET GT SCH (08:55)
[2017-10-07] MEDS: PANTOPRAZOLE 40 MG VIAL IV SCH ×2 (08:55→18:27)
[2017-10-07] MEDS: CEFEPIME 2 GM in IV D5W 100 ML IV SCH ×2 (08:55→21:52)
[2017-10-07] MEDS: MULTIVITAMINS,THERAGRAN 1 UDTAB TABLET GT SCH (08:55)
[2017-10-07] MEDS: LACTOBACILLUS RHAMNOSUS GG 1 EACH CAP.SPRINK PO SCH ×2 (08:56→18:27)
[2017-10-07] MEDS: IV NS 0.9% 1,000 ML IV PRN (09:01)
[2017-10-07] MEDS: GLUCERNA 1.2 1,000 ML BOTTLE GT PRN ×2 (09:02→22:05)
[2017-10-07] MEDS: HYDROGEL DRESSING 90 GM TUBE TP SCH (09:03)
[2017-10-07] MEDS: Z GUARD REMEDY 2 OZ OINT TP PRN (09:04)
[2017-10-07] MEDS: MUPIROCIN OINT 2% 22 GM TUBE SCH ×2 (09:04→21:53)
--- NOTE | 2017-10-07 09:30 | NUR ---
HEADLIGHT ASSEMBLER: BRITTANI Hankins is in room, updated with pt.current condition, VS, neurostatus, T101.0, I/O, IVF, GTF, O2sat./ suction amount, see new orders
--- NOTE | 2017-10-07 13:00 | NUR ---
ANDROID DEVELOPER: ID ZIGZAG ELASTIC ATTACHER is in room, updated with pt.current condition, VS, I/O, IVF, GTF, labs.
--- NOTE | 2017-10-07 13:20 | NUR ---
CLASSROOM TECHNOLOGY TECHNICIAN: was in room, updated with all above.
--- NOTE | 2017-10-07 16:00 | NUR ---
HEEL SLICKER: pt.is transferred to ULISES, report to HECTOR Friedman given
[2017-10-07] MEDS: VANCOMYCIN 1 GM in IV D5W 250 ML IV SCH (18:29)
--- NOTE | 2017-10-07 20:12 | NUR ---
RN ULISES INITIAL NOTES RECEIVED PT.AWAKE ALERT,FOLLOWS SIMPLE VERBAL COMMANDS, MAINTAINED ON VENT PER TRACH P# 7, AC 12, TV 400W/ FI02 50%, PEEP 5 ,[id number]%. DENIES PAIN OR DISCOMFORT. S/P EPISODE TEMP 101.5 . L-UA MIDLINE WITH NS@75ML, GTF GLUCERNA 1.2@70ML, WELL ERICK HOB ELEVATED, WELL REPOSITIONED, WILL CONT TO MONITOR.
[2017-10-07] MEDS: ACETAMINOPHEN 325 MG TABLET MC PRN (22:02)
[2017-10-07] MEDS: LORAZEPAM INJ 2 MG/ML VIAL IV PRN (22:02)
[2017-10-08] VITALS (8 sets, daily range): BP systolic 98–116; BP diastolic 55–66
[2017-10-08] MEDS: IV NS 0.9% 1,000 ML IV PRN ×2 (02:28→17:30)
[2017-10-08] MEDS: IPRATROPIUM NEB FS 0.5 MG/2.5 ML AMPUL.NEB NEB SCH ×6 (03:16→23:17)
--- NOTE | 2017-10-08 06:18 | NUR ---
RN ULISES CLOSING NOTES ENDORSED PT.ASLEEP IN BED, MAINTAINED ON VENT PER TRACH P# 7, AC 12, TV 400W/ FI02 50%, PEEP 5 ,[id number]%. NO SIGN OF DISCOMFORT NOTED. S/P EPISODE TEMP 101.5 , NOW 98.6. L-UA MIDLINE WITH NS@75ML, GTF GLUCERNA 1.2@70ML, WELL ERICK HOB ELEVATED, WELL REPOSITIONED, WILL CONT TO MONITOR.
[2017-10-08] MEDS: ACETYLCYSTEINE 20% SOLN 800 MG/4 ML VIAL NEB SCH ×3 (07:39→23:17)
--- NOTE | 2017-10-08 08:00 | NUR ---
CORE WINDING OPERATOR: pt.is awake, eyes contact+, uncooperative, contracted/rigid, weak, reactive by name/touch, unable to follow commands, SR, SBP over 90, T WNL, O2sat. over 94%, suctioned well with little bloody secretion, GTF residual 20ml, keep HOB over 40, Hb pending, no grimacing, rest
[2017-10-08 08:09] LABS: CALCIUM, SERUM 9.1 mg/dL (8.5-10.1); CARBON DIOXIDE 30 mmol/L (21-32); CHLORIDE 104 mmol/L (98-107); CREATININE 1.1 mg/dL (0.6-1.3); GLUCOSE 81 mg/dL (74-106); POTASSIUM 5.6 mmol/L (3.5-5.1); SODIUM SERUM 138 mmol/L (136-145); UREA NITROGEN, BLOOD 20 mg/dL (7-18)
[2017-10-08] MEDS: CEFEPIME 2 GM in IV D5W 100 ML IV SCH ×2 (08:21→21:26)
[2017-10-08] MEDS: ASCORBIC ACID 500 MG TABLET GT SCH (08:26)
[2017-10-08] MEDS: PANTOPRAZOLE 40 MG VIAL IV SCH ×2 (08:26→17:26)
[2017-10-08] MEDS: MULTIVITAMINS,THERAGRAN 1 UDTAB TABLET GT SCH (08:26)
[2017-10-08] MEDS: LACTOBACILLUS RHAMNOSUS GG 1 EACH CAP.SPRINK PO SCH ×2 (08:26→17:27)
[2017-10-08] MEDS: MUPIROCIN OINT 2% 22 GM TUBE SCH ×2 (08:29→21:29)
[2017-10-08] MEDS: Z GUARD REMEDY 2 OZ OINT TP PRN (08:29)
[2017-10-08] MEDS: HYDROGEL DRESSING 90 GM TUBE TP SCH (08:29)
--- NOTE | 2017-10-08 10:00 | NUR ---
CABLE TELEVISION ACCESS COORDINATOR: BRITTANI Hankins is in room, updated with pt.VS, suction amount, I/O, IVF, GTF, neuro status, meds, labs, see new orders
[2017-10-08 10:12] LABS: HEMATOCRIT 25 % (39-51); HEMOGLOBIN 7.7 g/dL (13.5-17.5); WHITE BLOOD COUNT (AUTO) 14.7 K/uL (4.3-11.0)
[2017-10-08 10:13] LABS: BASOPHILS % (AUTO) 0.5 % (0.0-2.0); LYMPHOCYTES # (AUTO) 2.2 /CMM (0.8-4.8); LYMPHOCYTES % (AUTO) 14.9 % (20.0-44.0); MEAN CORPUSCULAR HEMOGLOBIN 27 PG (26.0-33.0); MEAN CORPUSCULAR HGB CONC 31 g/dl (31.0-36.0); MEAN CORPUSCULAR VOLUME 85 fL (80-96); MONOCYTES # (AUTO) 0.8 /CMM (0.1-1.30); MONOCYTES % (AUTO) 5.7 % (2.0-12.0); NEUTROPHILS # (AUTO) 10.7 /CMM (1.8-8.9); NEUTROPHILS % (AUTO) 72.9 % (43.0-81.0); PLATELET COUNT (AUTO) 292 /CMM (150-450)
[2017-10-08 10:14] LABS: BASOPHILS # (AUTO) 0.1 /CMM (0.0-0.2)
--- NOTE | 2017-10-08 12:30 | NUR ---
RN ULISES: is in room/updated with pt.neuro status, VS, O2sat., TT suction amount, I/O, IVF, GTF,vent setting, wound care, Hb 7.7, labs, see new orders
--- NOTE | 2017-10-08 15:20 | NUR ---
EXTERMINATOR: pt.is suctioned well via TT with lavage, ST 100-115, SBP over 100, O2sat. over 94%, full PM/skin/wound care done, GT care done
--- NOTE | 2017-10-08 15:45 | NUR ---
SAND WHEELER: met visitor in room who introduced as PCG and took multiple photos inside room, was notified re HIPPA regulation/requests, notified charge nurse, charge nurse spoke with visitor and confirmed: saw this PCG before
[2017-10-08] MEDS ORDERED: SODIUM POLYSTYRENE SULFONATE 15 G/60 ML BOTTLE PO ONE (16:00)
--- NOTE | 2017-10-08 16:38 | NUR ---
CLINICAL CYTOGENETICIST: Pyxis is empty for Kayexalate, called pharmacy
[2017-10-08] MEDS: VANCOMYCIN 1 GM in IV D5W 250 ML IV SCH (17:27)
--- NOTE | 2017-10-08 17:53 | NUR ---
SKATE BOARDER: called kitchen to get Glucerna bag, called pharmacy to get Kayexelate
[2017-10-08] MEDS: GLUCERNA 1.2 1,000 ML BOTTLE GT PRN (18:36)
--- NOTE | 2017-10-08 19:16 | NUR ---
RN ULISES INITIAL NOTES RECEIVED PT.AWAKE ALERT, NON VERBAL, MAINTAINED ON VENT PER TRACH P# 7, AC 12, TV 400W/ FI02 50%, PEEP 5 ,BMC195%. DENIES PAIN OR DISCOMFORT . L-UA MIDLINE WITH NS@75ML, GTF GLUCERNA 1.2@70ML, WELL ERICK HOB ELEVATED, S/P KAYEXALATE WILL MONITOR FOR A/R. WELL REPOSITIONED, WILL CONT TO MONITOR.
[2017-10-09] VITALS (8 sets, daily range): BP systolic 109–151; BP diastolic 57–69
[2017-10-09] MEDS: IPRATROPIUM NEB FS 0.5 MG/2.5 ML AMPUL.NEB NEB SCH ×6 (03:54→23:02)
--- NOTE | 2017-10-09 06:04 | NUR ---
RN ULISES CLOSING NOTES ENDORSED PT.AWAKE ALERT, NON VERBAL, MAINTAINED ON VENT PER TRACH P# 7, AC 12, TV 400W/ FI02 50%, PEEP 5 ,WAF604%. DENIES PAIN OR DISCOMFORT . L-UA MIDLINE WITH NS@75ML, GTF GLUCERNA 1.2@70ML, WELL ERICK HOB ELEVATED, S/P KAYEXALATE WILL MONITOR FOR A/R. W/ LOOSE BM X2 LOOSE , KEPT CLEAN AND DRY ,WELL REPOSITIONED, WILL CONT TO MONITOR.
--- NOTE | 2017-10-09 07:12 | NUR ---
RN INITIAL NOTES: REC'D PT AWAKE ON BED, NOT IN ANY DISTRESS, A/O X 1. ON MV VIA TRACH, SATING AT 100%. ON TELEMONITOR, ST 117 BPM. HAS FRANCY MIDLINE, PL, W/ NS X 75 CC/HR INFUSING WELL, NO S/SX OF INFECTION/INFILTRATION NOTED. ON CONT GTF GLUCERNA 1.2 X 70 CC/HR INFUSING WELL, NO RESIDUAL NOTED UPON CHECKING. HAS FC DRAINING TO BSB W/ YELLOWISH URINE OUTPUT. PROVIDED COMFORT & SAFETY MEASURES. BED KEPT LOW & IN LOCKED POS. CALL LIGHT PLACED W/IN REACH. WILL CONT TO MONITOR & ATTEND PT NEEDS.
[2017-10-09] MEDS: ACETYLCYSTEINE 20% SOLN 800 MG/4 ML VIAL NEB SCH ×3 (07:27→23:02)
[2017-10-09] MEDS: HYDROGEL DRESSING 90 GM TUBE TP SCH (08:21)
[2017-10-09] MEDS: ASCORBIC ACID 500 MG TABLET GT SCH (08:21)
[2017-10-09] MEDS: PANTOPRAZOLE 40 MG VIAL IV SCH ×2 (08:21→17:44)
[2017-10-09] MEDS: LACTOBACILLUS RHAMNOSUS GG 1 EACH CAP.SPRINK PO SCH ×2 (08:21→17:45)
[2017-10-09] MEDS: CEFEPIME 2 GM in IV D5W 100 ML IV SCH ×2 (08:21→21:20)
[2017-10-09] MEDS: MULTIVITAMINS,THERAGRAN 1 UDTAB TABLET GT SCH (08:21)
[2017-10-09] MEDS: MUPIROCIN OINT 2% 22 GM TUBE SCH ×2 (08:22→21:20)
[2017-10-09] MEDS: Z GUARD REMEDY 2 OZ OINT TP PRN (08:22)
--- NOTE | 2017-10-09 10:00 | NUR ---
RN NOTES: BRITTANI PARSONS MADE AWARE THAT LABS WERE DRAWN LATE TODAY PT HAS BEEN REFUSING THIS AM & THAT PER PHLEB PT IS HARDSTICK. LABS WERE IN, K 4.4, DR. NEVAREZ ORDERED FOR KAYEXALATE 60 GMX1. PER ISSA, NOT TO ADMINISTER MED.
[2017-10-09] MEDS ORDERED: FUROSEMIDE 20 MG/2 ML VIAL IV ONE (10:10)
[2017-10-09] MEDS ORDERED: SODIUM POLYSTYRENE SULFONATE 15 G/60 ML BOTTLE PO ONE (10:15)
[2017-10-09] MEDS: IV NS 0.9% 1,000 ML IV PRN (10:34)
[2017-10-09 11:06] LABS: CALCIUM, SERUM 8.5 mg/dL (8.5-10.1); CARBON DIOXIDE 30 mmol/L (21-32); CHLORIDE 100 mmol/L (98-107); GLUCOSE 125 mg/dL (74-106); POTASSIUM 4.4 mmol/L (3.5-5.1); SODIUM SERUM 133 mmol/L (136-145); UREA NITROGEN, BLOOD 16 mg/dL (7-18)
[2017-10-09 11:09] LABS: BASOPHILS % (AUTO) 0.4 % (0.0-2.0); HEMATOCRIT 22 % (39-51); HEMOGLOBIN 7.2 g/dL (13.5-17.5); LYMPHOCYTES % (AUTO) 8.8 % (20.0-44.0); MEAN CORPUSCULAR HEMOGLOBIN 27 PG (26.0-33.0); MEAN CORPUSCULAR HGB CONC 33 g/dl (31.0-36.0); MEAN CORPUSCULAR VOLUME 84 fL (80-96); MONOCYTES % (AUTO) 4.6 % (2.0-12.0); NEUTROPHILS % (AUTO) 83.2 % (43.0-81.0); PLATELET COUNT (AUTO) 373 /CMM (150-450); RDW COEFFICIENT OF VARIATION 18.4 (11.5-15.0); RED BLOOD CELL COUNT(AUTO) 2.63 MIL/uL (4.5-6.0); WHITE BLOOD COUNT (AUTO) 23.6 K/uL (4.3-11.0)
--- NOTE | 2017-10-09 14:38 | NUR ---
CHARGE NOTE PATIENT TAKEN TO CT SCAN - ABDOMEN WITHOUT CONTRAST. Addendum: 10/09/17 at 1839 by MELVINA DUNCAN RN ADDENDUM: GABRIEL CastroDTAda) MADE AWARE OF THE CT SCAN PROCEDURE.
[2017-10-09] MEDS: VANCOMYCIN 1 GM in IV D5W 250 ML IV SCH (17:45)
[2017-10-09] MEDS: GLUCERNA 1.2 1,000 ML BOTTLE GT PRN (17:50)
--- NOTE | 2017-10-09 18:39 | NUR ---
RN CLOSING NOTES: NO ACUTE CHANGES NOTED W/IN SHIFT. PT TOLERATED MV SETTINGS VIA TRACH, NO DISTRESS. ON TELEMONITOR, STILL ST. FRANCY MIDLINE, PL, W/ NS X 75 CC/HR INFUSING WELL, KEPT C/D/I, NO S/SX OF INFECTION/INFILTRATION NOTED. PT TOLERATED CONT GTF GLUCERNA 1.2 X 70 CC/HR INFUSING WELL, NO RESIDUAL W/IN SHIFT. FC KEPT DRAINING TO BSB W/ YELLOWISH URINE OUTPUT. CT SCAN OF THE ABDOMEN/PELVIS TOLERATED WELL. KEPT WELL RESTED. NEEDS ATTENDED. ISOLATION PREC OBSERVED. BED KEPT LOW & IN LOCKED POS. CALL LIGHT PLACED W/IN REACH. WILL ENDORSE TO PM RN FOR CESAR.
--- NOTE | 2017-10-09 19:07 | NUR ---
PT RECEIVED WITH A PORTEX 7 TRACH ON THE VENT WITH NOTED SETTINGS. BREATHING TX GIVEN PER MD'S ORDER.NO ADVERSE REACTION NOTED. SUCTIONED LARGE AMOUNT OF YELLOW THICK SECRETIONS WITH BLOOD TINGED. VENT ALARMS ARE SET AND AUDIBLE WITH AMBU BAG AT BEDSIDE. CHECK CLERK CUFF PRESSURE NOTED. VENT IS PLUGGED INTO RED OUTLET NO RESPIRATORY DISTRESS NOTED AT THIS TIME, WILL CONTINUE TO MONITOR.
[2017-10-09] MEDS: HYDROCODONE/APAP 5/325MG 1 EACH TABLET GT PRN (21:52)
[2017-10-09] MEDS: LORAZEPAM INJ 2 MG/ML VIAL IV PRN (21:52)
[2017-10-10] VITALS (10 sets, daily range): BP systolic 103–144; BP diastolic 52–67
[2017-10-10] MEDS: IV NS 0.9% 1,000 ML IV PRN ×2 (01:18→22:12)
[2017-10-10] MEDS: IPRATROPIUM NEB FS 0.5 MG/2.5 ML AMPUL.NEB NEB SCH ×6 (03:14→23:00)
[2017-10-10] MEDS: GLUCERNA 1.2 1,000 ML BOTTLE GT PRN ×2 (06:49→22:12)
[2017-10-10] MEDS: ACETYLCYSTEINE 20% SOLN 800 MG/4 ML VIAL NEB SCH ×3 (07:02→23:00)
--- NOTE | 2017-10-10 07:35 | NUR ---
HYDROTEL OPERATOR RECEIVED PATIENT FORM THE PREVIOUS SHIFT. PATIENT IS AWAKE. NO ACUTE DISTRESS. STABLE VITAL SINGS. VENT SETTINGS REVIEWED AND VERIFIED. TURNED AND REPOSITIONED FOR COMFORT AND WOUND PREVENTION.
[2017-10-10 07:44] LABS: BASOPHILS # (AUTO) 0.1 /CMM (0.0-0.2); BASOPHILS % (AUTO) 0.4 % (0.0-2.0); EOSINOPHILS % (AUTO) 3.9 % (0.0-6.0); HEMATOCRIT 21 % (39-51); LYMPHOCYTES # (AUTO) 2.2 /CMM (0.8-4.8); LYMPHOCYTES % (AUTO) 10.9 % (20.0-44.0); MEAN CORPUSCULAR HEMOGLOBIN 28 PG (26.0-33.0); MEAN CORPUSCULAR HGB CONC 33 g/dl (31.0-36.0); MEAN CORPUSCULAR VOLUME 83 fL (80-96); MONOCYTES % (AUTO) 4.9 % (2.0-12.0); NEUTROPHILS # (AUTO) 15.7 /CMM (1.8-8.9); NEUTROPHILS % (AUTO) 79.9 % (43.0-81.0); PLATELET COUNT (AUTO) 349 /CMM (150-450); RDW COEFFICIENT OF VARIATION 17.9 (11.5-15.0); RED BLOOD CELL COUNT(AUTO) 2.51 MIL/uL (4.5-6.0); WHITE BLOOD COUNT (AUTO) 19.8 K/uL (4.3-11.0)
[2017-10-10 07:46] LABS: ALANINE AMINOTRANSFERASE 6 U/L (12-78); ALKALINE PHOSPHATASE 91 U/L (46-116); ASPARTATE AMINOTRANSFERASE 17 U/L (15-37); BILIRUBIN,TOTAL 0.2 mg/dL (0.2-1.0); CALCIUM, SERUM 8.6 mg/dL (8.5-10.1); CARBON DIOXIDE 30 mmol/L (21-32); CHLORIDE 100 mmol/L (98-107); CREATININE 1.1 mg/dL (0.6-1.3); GLUCOSE 111 mg/dL (74-106); MAGNESIUM 1.9 mg/dL (1.8-2.4); PHOSPHORUS 2.9 mg/dL (2.5-4.9); POTASSIUM 4.7 mmol/L (3.5-5.1); SODIUM SERUM 137 mmol/L (136-145); TOTAL PROTEIN, SERUM 7.9 g/dL (6.4-8.2); UREA NITROGEN, BLOOD 19 mg/dL (7-18)
[2017-10-10 07:47] LABS: ALBUMIN 1.3 g/dL (3.4-5.0)
[2017-10-10 07:55] LABS: HEMOGLOBIN 6.9 g/dL (13.5-17.5)
[2017-10-10] MEDS: MUPIROCIN OINT 2% 22 GM TUBE SCH ×2 (08:16→21:38)
[2017-10-10] MEDS: Z GUARD REMEDY 2 OZ OINT TP PRN (08:16)
[2017-10-10] MEDS: HYDROGEL DRESSING 90 GM TUBE TP SCH (08:16)
[2017-10-10] MEDS: ASCORBIC ACID 500 MG TABLET GT SCH (08:18)
[2017-10-10] MEDS: MULTIVITAMINS,THERAGRAN 1 UDTAB TABLET GT SCH (08:18)
[2017-10-10] MEDS: LACTOBACILLUS RHAMNOSUS GG 1 EACH CAP.SPRINK PO SCH ×2 (08:18→16:11)
[2017-10-10] MEDS: PANTOPRAZOLE 40 MG VIAL IV SCH ×2 (08:18→16:10)
[2017-10-10] MEDS: CEFEPIME 2 GM in IV D5W 100 ML IV SCH ×2 (08:34→21:37)
[2017-10-10] MEDS: HYDROCODONE/APAP 5/325MG 1 EACH TABLET GT PRN ×2 (09:54→21:42)
--- NOTE | 2017-10-10 11:30 | NUR ---
RN NOTE RECEIVED PT FROM KIMBERLY YOUNG, FOR CESAR, PT ON MECH VENT, G TUBE FEEDING RUNNING, NO RESIDUAL, IVF RUNNING, AWAITING FOR BLOOD TRANSFUSION, F/C IN PLACE, PALE YELLOW CLEAR URINE, SAFETY PRECAUTIONS IN PLACE, ISOLATION PRECAUTIONS IN PLACE. WILL MONITOR PT.
--- NOTE | 2017-10-10 11:30 | NUR ---
RN NOTE RECIVEED
[2017-10-10 12:07] LABS: EOSINOPHILS % (MANUAL) 12 % (0-4); LYMPHOCYTES % (MANUAL) 9 % (16-48); MONOCYTES % (MANUAL) 1 % (0-11.0); NEUTROPHILS % (MANUAL) 78 (42-76)
--- NOTE | 2017-10-10 15:00 | NUR ---
RN NOTE PT NOTED TO HAVE TEMP AXILLARY 100.1, HALF WAY THROUGH BLOOD TRANSFUSION, TYLENOL GIVEN, CALL CIRCUIT WORKER ISSA ELLISON NOTIFIED, HE STATED LIKELY REACTION IS NOT TRUE. OKAY TO CONTINUE TRANSFUSION. BP STABLE, HR STABLE, PT DENIES PAIN. URINE OUTPUT ADEQUATE. WILL MONITOR FURTHER.
[2017-10-10] MEDS: ACETAMINOPHEN 325 MG TABLET MC PRN (15:12)
[2017-10-10] MEDS: VANCOMYCIN 1 GM in IV D5W 250 ML IV SCH (17:32)
[2017-10-10] MEDS: LORAZEPAM INJ 2 MG/ML VIAL IV PRN (21:42)
--- NOTE | 2017-10-10 23:11 | NUR ---
PT RECEIVED TRACHED PTX 7 ON VENT. PT IS AWAKE NO DISTRESS. PT TOLERATING VENT SETTINGS. SX'D FOR MOD AMT OF TINGED THIN SECRETIONS. VENT ALARMS SET AND AUDIBLE. AMBU BAG AT BEDSIDE. WILL CONTINUE TO MONITOR. Addendum: 10/10/17 at 2316 by BART DARNELL RT Amended: Links added.
[2017-10-11] VITALS: BP 137/72
[2017-10-11] MEDS: IPRATROPIUM NEB FS 0.5 MG/2.5 ML AMPUL.NEB NEB SCH ×5 (03:12→19:37)
[2017-10-11 04:00] VITALS: BP 123/58
[2017-10-11 07:17] LABS: CALCIUM, SERUM 9.1 mg/dL (8.5-10.1); CARBON DIOXIDE 29 mmol/L (21-32); CHLORIDE 102 mmol/L (98-107); GLUCOSE 95 mg/dL (74-106); POTASSIUM 5.2 mmol/L (3.5-5.1); SODIUM SERUM 135 mmol/L (136-145); UREA NITROGEN, BLOOD 24 mg/dL (7-18)
[2017-10-11 07:18] LABS: BASOPHILS # (AUTO) 0.1 /CMM (0.0-0.2); BASOPHILS % (AUTO) 0.3 % (0.0-2.0); EOSINOPHILS % (AUTO) 6.2 % (0.0-6.0); HEMATOCRIT 24 % (39-51); HEMOGLOBIN 8.3 g/dL (13.5-17.5); MEAN CORPUSCULAR HEMOGLOBIN 28 PG (26.0-33.0); MEAN CORPUSCULAR HGB CONC 35 g/dl (31.0-36.0); MEAN CORPUSCULAR VOLUME 80 fL (80-96); MONOCYTES # (AUTO) 0.9 /CMM (0.1-1.30); MONOCYTES % (AUTO) 5.2 % (2.0-12.0); NEUTROPHILS # (AUTO) 12.9 /CMM (1.8-8.9); NEUTROPHILS % (AUTO) 76.3 % (43.0-81.0); PLATELET COUNT (AUTO) 380 /CMM (150-450); RDW COEFFICIENT OF VARIATION 19.7 (11.5-15.0); RED BLOOD CELL COUNT(AUTO) 2.99 MIL/uL (4.5-6.0); WHITE BLOOD COUNT (AUTO) 16.9 K/uL (4.3-11.0)
--- NOTE | 2017-10-11 07:30 | NUR ---
RN OPENING RECEIVED PATIENT NON VERBAL HOWEVER ALERT AWAKE AND FOLLOWS COMMANDS. PATIENT VENT TRACH DEPENDENT SETTINGS ORDERED TOLERATING WELL. NO SOB, DIFFICULTY BREATHING OR PAIN. PATIENT NSR 90 AT THIS TIME. RIZVI CATH IN PLACE DRAINING TO GRAVITY PATENT. FRANCY MIDLINE IN PLACE, CLEAN DRY AND PATENT RUNNING NS PER MD ORDER. NO /S DISTRESS AT THIS TIME. ASPIRATION, SKIN, AND SAFETY PRECAUTIONS ALL IN PLACE. WILL MONITOR PRN Addendum: 10/11/17 at 0748 by CHANTAL AGUILAR RN TUBE FEEDING RUNNING PER MD ORDER NO RESIDUAL NOTED AT THIS TIME.
[2017-10-11] MEDS: ACETYLCYSTEINE 20% SOLN 800 MG/4 ML VIAL NEB SCH ×2 (07:32→15:07)
[2017-10-11 08:00] VITALS: BP 124/64
--- NOTE | 2017-10-11 08:00 | NUR ---
DR BOWENS AWARE OF PATIENT LABS. K 5.2. WILL GIVE KAYEXALATE PER MD ORDER
[2017-10-11] MEDS: PANTOPRAZOLE 40 MG VIAL IV SCH ×2 (08:09→17:59)
[2017-10-11] MEDS: Z GUARD REMEDY 2 OZ OINT TP PRN ×2 (08:09→12:30)
[2017-10-11] MEDS: ASCORBIC ACID 500 MG TABLET GT SCH (08:09)
[2017-10-11] MEDS: MULTIVITAMINS,THERAGRAN 1 UDTAB TABLET GT SCH (08:09)
[2017-10-11] MEDS: CEFEPIME 2 GM in IV D5W 100 ML IV SCH ×2 (08:09→21:28)
[2017-10-11] MEDS: LACTOBACILLUS RHAMNOSUS GG 1 EACH CAP.SPRINK PO SCH ×2 (08:09→17:59)
[2017-10-11] MEDS: HYDROGEL DRESSING 90 GM TUBE TP SCH (08:09)
[2017-10-11] MEDS: MUPIROCIN OINT 2% 22 GM TUBE SCH ×2 (08:16→21:29)
[2017-10-11] MEDS ORDERED: SODIUM POLYSTYRENE SULFONATE 15 G/60 ML BOTTLE PO ONE (08:30)
--- NOTE | 2017-10-11 10:00 | NUR ---
CALLED PHARMACY TO F/U ON KAYEXALATE
--- NOTE | 2017-10-11 10:00 | NUR ---
URINE SAMPLE COLLECTED. SENT FOR LAB PICKUP
--- NOTE | 2017-10-11 11:15 | NUR ---
SPOKE WITH [facility] TO F/U ON KAYEXALATE. SAID THEY WILL DELIVER
[2017-10-11 12:00] VITALS: BP 133/60
[2017-10-11] MEDS: IV NS 0.9% 1,000 ML IV PRN (12:40)
[2017-10-11 13:41] LABS: CHLORIDE,URINE RANDOM 129 mmol/L (55-125); POTASSIUM RNDM,URINE 17 mmol/L (25-125); URINE SODIUM, RANDOM 136 mmol/l (40-220)
[2017-10-11 14:38] LABS: OSMOLALITY,URINE 383 mOS/kg (340-1090)
[2017-10-11 16:00] VITALS: BP 131/65
[2017-10-11] MEDS: GLUCERNA 1.2 1,000 ML BOTTLE GT PRN (16:16)
[2017-10-11] MEDS: VANCOMYCIN 1 GM in IV D5W 250 ML IV SCH (18:19)
--- NOTE | 2017-10-11 19:14 | NUR ---
all due meds given and all needs met. skin, safety, and aspiration precautions in place throughout day. care endorsed to rn for johnathan. patient stable
[2017-10-11] MEDS ORDERED: FEE PK DOSING 1 MIN EA MC ONE (19:53)
[2017-10-11 20:00] VITALS: BP 118/73
[2017-10-11] MEDS: LORAZEPAM INJ 2 MG/ML VIAL IV PRN (20:57)
[2017-10-11] MEDS: TOBRAMYCIN IV SCH (21:27)
[2017-10-11] MEDS: D5W IV SCH (21:27)
[2017-10-12] VITALS: BP 122/66
[2017-10-12] MEDS: IPRATROPIUM NEB FS 0.5 MG/2.5 ML AMPUL.NEB NEB SCH ×7 (00:23→23:45)
[2017-10-12] MEDS: ALBUTEROL HALF STRENGTH 1.25 MG/3 ML VIAL.NEB NEB PRN (00:23)
[2017-10-12] MEDS: ACETYLCYSTEINE 20% SOLN 800 MG/4 ML VIAL NEB SCH ×4 (00:24→23:45)
[2017-10-12] MEDS: HYDROCODONE/APAP 5/325MG 1 EACH TABLET GT PRN ×3 (02:13→22:28)
[2017-10-12] MEDS: LORAZEPAM INJ 2 MG/ML VIAL IV PRN ×2 (03:02→20:37)
[2017-10-12 04:00] VITALS: BP 107/62
[2017-10-12 06:28] LABS: BASOPHILS # (AUTO) 0.1 /CMM (0.0-0.2); BASOPHILS % (AUTO) 0.4 % (0.0-2.0); EOSINOPHILS % (AUTO) 3.7 % (0.0-6.0); HEMATOCRIT 26 % (39-51); HEMOGLOBIN 8.9 g/dL (13.5-17.5); LYMPHOCYTES # (AUTO) 1.7 /CMM (0.8-4.8); LYMPHOCYTES % (AUTO) 9.2 % (20.0-44.0); MEAN CORPUSCULAR HEMOGLOBIN 28 PG (26.0-33.0); MEAN CORPUSCULAR HGB CONC 34 g/dl (31.0-36.0); MEAN CORPUSCULAR VOLUME 81 fL (80-96); MONOCYTES % (AUTO) 5.5 % (2.0-12.0); NEUTROPHILS # (AUTO) 15.5 /CMM (1.8-8.9); NEUTROPHILS % (AUTO) 81.2 % (43.0-81.0); PLATELET COUNT (AUTO) 395 /CMM (150-450); RDW COEFFICIENT OF VARIATION 19.3 (11.5-15.0)
--- NOTE | 2017-10-12 07:01 | NUR ---
RN NOTE PATIENT IS STABLE, NO RESPIRATORY DISTRESS NOTED, ALL SAFETY MEASURES TAKEN, WILL ENDORSE TO AM SHIFT FOR CESAR
--- NOTE | 2017-10-12 07:10 | NUR ---
RN INITIAL NOTES: REC'D PT AWAKE ON BED, NOT IN ANY DISTRESS, A/O X 1. ON MV VIA TRACH, SATING AT 100%. ON TELEMONITOR, ST 107 BPM. HAS FRANCY MIDLINE, PL, W/ NS X 75 CC/HR INFUSING WELL, NO S/SX OF INFECTION/INFILTRATION NOTED. ON CONT GTF GLUCERNA 1.2 X 70 CC/HR INFUSING WELL, NO RESIDUAL NOTED UPON CHECKING. HAS FC DRAINING TO BSB W/ YELLOWISH URINE OUTPUT. PROVIDED COMFORT & SAFETY MEASURES. BED KEPT LOW & IN LOCKED POS. CALL LIGHT PLACED W/IN REACH. ISOLATION PREC OBSERVED. WILL CONT TO MONITOR & ATTEND PT NEEDS.
[2017-10-12 08:00] VITALS: BP 98/48
[2017-10-12 08:26] LABS: ALANINE AMINOTRANSFERASE 10 U/L (12-78); ALBUMIN 1.5 g/dL (3.4-5.0); ALKALINE PHOSPHATASE 96 U/L (46-116); ASPARTATE AMINOTRANSFERASE 24 U/L (15-37); BILIRUBIN,TOTAL 0.2 mg/dL (0.2-1.0); CALCIUM, SERUM 8.8 mg/dL (8.5-10.1); CARBON DIOXIDE 27 mmol/L (21-32); CHLORIDE 101 mmol/L (98-107); GLUCOSE 94 mg/dL (74-106); PHOSPHORUS 3.2 mg/dL (2.5-4.9); SODIUM SERUM 135 mmol/L (136-145); TOTAL PROTEIN, SERUM 8.6 g/dL (6.4-8.2); UREA NITROGEN, BLOOD 21 mg/dL (7-18)
[2017-10-12] MEDS: PANTOPRAZOLE 40 MG VIAL IV SCH ×2 (08:30→16:07)
[2017-10-12] MEDS: CEFEPIME 2 GM in IV D5W 100 ML IV SCH (08:31)
[2017-10-12] MEDS: ASCORBIC ACID 500 MG TABLET GT SCH (08:31)
[2017-10-12] MEDS: MULTIVITAMINS,THERAGRAN 1 UDTAB TABLET GT SCH (08:31)
[2017-10-12] MEDS: IV NS 0.9% 1,000 ML IV PRN (08:31)
[2017-10-12] MEDS: LACTOBACILLUS RHAMNOSUS GG 1 EACH CAP.SPRINK PO SCH ×2 (08:31→16:07)
[2017-10-12] MEDS: Z GUARD REMEDY 2 OZ OINT TP PRN (08:31)
[2017-10-12] MEDS: HYDROGEL DRESSING 90 GM TUBE TP SCH (08:32)
[2017-10-12] MEDS: MUPIROCIN OINT 2% 22 GM TUBE SCH ×2 (08:32→20:43)
[2017-10-12] MEDS: GLUCERNA 1.2 1,000 ML BOTTLE GT PRN ×2 (09:01→20:45)
[2017-10-12] MEDS: TOBRAMYCIN IV SCH (09:42)
[2017-10-12] MEDS: D5W IV SCH (09:42)
[2017-10-12 12:00] VITALS: BP 111/50
[2017-10-12] MEDS ORDERED: RXTOB XX (14:30)
[2017-10-12] MEDS ORDERED: ACET200V4 NEB (14:30)
[2017-10-12] MEDS ORDERED: CEFE2FRO IV (14:30)
[2017-10-12 16:00] VITALS: BP 111/59
--- NOTE | 2017-10-12 16:44 | NUR ---
REC'D CALL FROM DTAda RIOS STATING THAT SHE DOESN'T WANT TO DC HER FATHER BACK TO SNF WITHOUT TALKING TO THE DRKatarina FIRST. DR. LAU MADE AWARE, GAVE CONTACT# OF GABRIEL.
--- NOTE | 2017-10-12 18:48 | NUR ---
RN CLOSING NOTES: NO ACUTE CHANGES NOTED W/IN SHIFT. PT TOLERATED MV SETTINGS VIA TRACH, NO DISTRESS. ON TELEMONITOR, STILL ST/SR. FRANCY MIDLINE, PL, W/ NS X 75 CC/HR INFUSING WELL, KEPT C/D/I, NO S/SX OF INFECTION/INFILTRATION NOTED. PT TOLERATED CONT GTF GLUCERNA 1.2 X 70 CC/HR INFUSING WELL, NO RESIDUAL W/IN SHIFT. FC KEPT DRAINING TO BSB W/ YELLOWISH URINE OUTPUT. KEPT WELL RESTED. NEEDS ATTENDED. ISOLATION PREC OBSERVED. BED KEPT LOW & IN LOCKED POS. CALL LIGHT PLACED W/IN REACH. WILL ENDORSE TO PM RN FOR CESAR.
--- NOTE | 2017-10-12 19:30 | NUR ---
TD RN: RECEIVED CHRONIC VENT TO TRACH PT. ALERT AND AWAKE. NODS HEADS WHEN TALKS TO BUT UNABLE TO FOLLOW SIMPLE COMMANDS. VENT SETTINGS ORDERED, WT INTERMITTENT HIGH RESPIRATION RATE AND. NO FACIAL GRIMACE AT THIS TIME. SR-ST ON TELE WT HR IN THE 90s TO LOW 100s. AFEBRILE. GTF TOLERATING WELL WT 5CC RESIDUAL. F/C PATENT AND INTACT DRAINING CLEAR YELLOW URINE TO GRAVITY. HOB AT 45 DEGREES. SAFETY AND ASPIRATION PRECAUTION NOTED. WILL CONTINUE TO MONITOR.
[2017-10-12 20:00] VITALS: BP 125/72
[2017-10-12] MEDS: COLISTIMETHATE SODIUM 100 MG in IV NS 0.9% 50 ML IV SCH (20:42)
--- NOTE | 2017-10-12 21:00 | NUR ---
TD RN: [id number] INCREASED TO 50% WT EPISODES OF DESATURATION BET. 90-92%. REASSESSED AFTER GIVEN ATIVAN WT MINIMAL EFFECT. STILL NOTED WT INTERMITTENT HIGH RR AND HYPERVENTILATION. WILL ADMINISTER PAIN MEDS NEEDED.
[2017-10-13] VITALS: BP 105/55
[2017-10-13] MEDS: IV NS 0.9% 1,000 ML IV PRN ×2 (00:15→16:18)
[2017-10-13] MEDS: IPRATROPIUM NEB FS 0.5 MG/2.5 ML AMPUL.NEB NEB SCH ×6 (02:57→23:36)
[2017-10-13] MEDS: HYDROCODONE/APAP 5/325MG 1 EACH TABLET GT PRN ×2 (03:08→15:33)
[2017-10-13 04:00] VITALS: BP 114/52
--- NOTE | 2017-10-13 04:15 | NUR ---
TD RN: BED BATH GIVEN AND TOLERATED FAIRLY. REMAINED AT 50% FIO2 WT 02 SAT. BET. 94%-95%. CONTINUE ON NS AT 75ML/HR WT NO S/S OF INFILTRATION ON FRANCY MIDLINE. HOB AT 45 DEGREES AT ALL TIMES.
[2017-10-13 06:04] LABS: CALCIUM, SERUM 8.8 mg/dL (8.5-10.1); CARBON DIOXIDE 32 mmol/L (21-32); CHLORIDE 103 mmol/L (98-107); GLUCOSE 96 mg/dL (74-106); SODIUM SERUM 134 mmol/L (136-145); UREA NITROGEN, BLOOD 24 mg/dL (7-18)
--- NOTE | 2017-10-13 07:05 | NUR ---
RN OPENING NOTE RECEIVED REPORT FROM PM NURSE. PT SLEEPING ON BED, NOT IN ANY DISTRESS, A/O X 1. ON MV VIA TRACH, SATING AT 100%. ON TELEMONITOR, SR 84. BPM. HAS FRANCY MIDLINE, PL, W/ NS X 75 CC/HR INFUSING WELL, NO S/SX OF INFECTION/INFILTRATION NOTED. ON CONT GTF GLUCERNA 1.2 X 70 CC/HR INFUSING WELL. HAS FC DRAINING CLEAR YELLOW URINE . BED IS LOW & IN LOCKED POSITION. CALL LIGHT W/IN REACH. ON ISOLATION PRECAUTIONS.WILL CONT TO MONITOR .
[2017-10-13] MEDS: ACETYLCYSTEINE 20% SOLN 800 MG/4 ML VIAL NEB SCH ×3 (07:37→23:36)
[2017-10-13 08:00] VITALS: BP 142/57
--- NOTE | 2017-10-13 08:02 | NUR ---
REPORT GIVEN TO NURSE GARVEY FOR CESAR.
[2017-10-13] MEDS: COLISTIMETHATE SODIUM 100 MG in IV NS 0.9% 50 ML IV SCH ×2 (08:12→22:02)
[2017-10-13] MEDS: MULTIVITAMINS,THERAGRAN 1 UDTAB TABLET GT SCH (08:12)
[2017-10-13] MEDS: PANTOPRAZOLE 40 MG VIAL IV SCH ×2 (08:12→16:18)
[2017-10-13] MEDS: ASCORBIC ACID 500 MG TABLET GT SCH (08:12)
[2017-10-13] MEDS: LACTOBACILLUS RHAMNOSUS GG 1 EACH CAP.SPRINK PO SCH ×2 (08:12→16:18)
[2017-10-13] MEDS: MUPIROCIN OINT 2% 22 GM TUBE SCH (08:18)
[2017-10-13] MEDS: HYDROGEL DRESSING 90 GM TUBE TP SCH (08:20)
[2017-10-13 12:00] VITALS: BP 120/51
[2017-10-13] MEDS: GLUCERNA 1.2 1,000 ML BOTTLE GT PRN (14:02)
[2017-10-13 16:00] VITALS: BP 116/52
--- NOTE | 2017-10-13 19:12 | NUR ---
TD RN NOTES RECEIVED PT ON BED. A/O X1. ON MECH VENT SETTING SATURATING WELL. NO SOB NOTED. ON TELE MONITOR SR 90S. ON RIZVI CATH DRAINING WELL. IV ACCESS ON FRANCY MIDLINE PATENT AND INTACT, NS 75CC/HR RUNNING WELL. GTUBE FEEDING GLUCERNA 70ML/HR NO RESIDUAL. HEAD OF BED ELEVATED. SIDE RAILS UP. CALL LIGHT IS PLACED WITHIN REACH. WILL CONTINUE TO MONITOR PT CLOSELY.
--- NOTE | 2017-10-13 19:20 | NUR ---
[facility] RN NOTES: PT ON BED ASLEEP, WITH NO APPARENT DISTRESS NOTED. NO FACIAL GRIMACING OR ANY SIGNS OF PAIN NOTED. ON MECH VENT, SETTINGS ORDERED, SATURATING WELL. NO SOB. FRANCY MIDLINE INTACT AND PATENT WITH IVF RUNNING NS @ 75ML/HR. GT FEEDING INTACT, NO RESIDUAL NOTED, ABLE TO TOLERATE FEEDING. RIZVI CATH DRAINING CLEAR YELLOW URINE OUTPUT. TURNED AND REPOSITIONED Q2HRS AND NEEDED. WILL ENDORSE TO WORK STATION SUPPORT SPECIALIST FOR CESAR.
[2017-10-13 20:00] VITALS: BP 114/53
[2017-10-13] MEDS: LIDOCAINE 1% INJ 50 ML MDV IJ ONE ×2 (20:00→22:02)
--- NOTE | 2017-10-13 20:00 | NUR ---
RN NOTES RECEIVED PATIENT AWAKE IN BED WITH NO RESPIRATORY DISTRESS OR SHORTNESS OF BREATH. BREATHING EVEN AND UNLABORED. ALERT AND RESPONSIVE WITH EYE CONTACT, NON VERBAL. VENT SETTING WELL TOLERATED. NO PHYSICAL MANIFESTATION OF PAIN OR DISCOMFORT. KEPT CLEAN AND DRY. LIDOCAINE 500MG NOT ADMINISTERED AT 1999. NOT APPLICABLE OF THIS TIME. CALLED PHARMACY, NO INDICATION GIVEN. PATIENT HAS PROCEDURE IN AM, BONE MARROW BIOPSY AND ASPIRATION. CALLED DAUGHTER TO ASK FOR CONSENT FOR THE PROCEDURE. SPOKE WITH GABRIEL, REFUSED TO GIVE CONSENT UNLESS MD WILL EXPLAIN WHAT THE PROCEDURE IS FOR AND HOW IT WILL BE DONE. WILL ENDORSE TO AM SHIFT. NEEDS ATTENDED. WILL CONTINUE TO MONITOR.
[2017-10-14] VITALS (7 sets, daily range): BP systolic 73–129; BP diastolic 39–64
[2017-10-14] MEDS: LORAZEPAM INJ 2 MG/ML VIAL IV PRN ×2 (03:15→21:18)
[2017-10-14] MEDS: HYDROCODONE/APAP 5/325MG 1 EACH TABLET GT PRN ×2 (03:15→21:41)
[2017-10-14] MEDS: IPRATROPIUM NEB FS 0.5 MG/2.5 ML AMPUL.NEB NEB SCH ×6 (03:16→22:46)
[2017-10-14 06:13] LABS: BASOPHILS # (AUTO) 0.1 /CMM (0.0-0.2); BASOPHILS % (AUTO) 0.7 % (0.0-2.0); EOSINOPHILS % (AUTO) 6.8 % (0.0-6.0); HEMATOCRIT 26 % (39-51); HEMOGLOBIN 8.3 g/dL (13.5-17.5); LYMPHOCYTES # (AUTO) 2.4 /CMM (0.8-4.8); LYMPHOCYTES % (AUTO) 16.8 % (20.0-44.0); MEAN CORPUSCULAR HEMOGLOBIN 27 PG (26.0-33.0); MEAN CORPUSCULAR HGB CONC 33 g/dl (31.0-36.0); MEAN CORPUSCULAR VOLUME 83 fL (80-96); MONOCYTES # (AUTO) 1.1 /CMM (0.1-1.30); MONOCYTES % (AUTO) 7.6 % (2.0-12.0); NEUTROPHILS # (AUTO) 9.8 /CMM (1.8-8.9); NEUTROPHILS % (AUTO) 68.1 % (43.0-81.0); PLATELET COUNT (AUTO) 407 /CMM (150-450); RDW COEFFICIENT OF VARIATION 20.2 (11.5-15.0); RED BLOOD CELL COUNT(AUTO) 3.06 MIL/uL (4.5-6.0); WHITE BLOOD COUNT (AUTO) 14.4 K/uL (4.3-11.0)
[2017-10-14 06:33] LABS: INR 1.13 (0.87-1.13)
[2017-10-14] MEDS: IV NS 0.9% 1,000 ML IV PRN ×2 (06:38→21:25)
[2017-10-14 06:39] LABS: CARBON DIOXIDE 32 mmol/L (21-32); CHLORIDE 101 mmol/L (98-107); GLUCOSE 85 mg/dL (74-106); POTASSIUM 5.7 mmol/L (3.5-5.1); SODIUM SERUM 134 mmol/L (136-145); UREA NITROGEN, BLOOD 25 mg/dL (7-18)
--- NOTE | 2017-10-14 07:23 | NUR ---
RN CLOSING NOTES NO SIGNIFICANT CHANGE OF CONDITION. NO DISTRESS NOTED. ADMINISTERED ATIVAN AND GAVE NORCO AT 0300 FOR ANXIETY AND PAIN, WITH HELP AND RELIEF. VITAL SIGNS WNL. WILL ENDORSE TO AM SHIFT FOR CONTINUITY OF CARE.
[2017-10-14] MEDS: ACETYLCYSTEINE 20% SOLN 800 MG/4 ML VIAL NEB SCH ×3 (07:43→22:46)
[2017-10-14] MEDS: LACTOBACILLUS RHAMNOSUS GG 1 EACH CAP.SPRINK PO SCH ×2 (08:38→16:09)
[2017-10-14] MEDS: PANTOPRAZOLE 40 MG VIAL IV SCH ×2 (08:38→16:09)
[2017-10-14] MEDS: MULTIVITAMINS,THERAGRAN 1 UDTAB TABLET GT SCH (08:38)
[2017-10-14] MEDS: ASCORBIC ACID 500 MG TABLET GT SCH (08:39)
[2017-10-14] MEDS: HYDROGEL DRESSING 90 GM TUBE TP SCH (08:39)
[2017-10-14] MEDS: COLISTIMETHATE SODIUM 100 MG in IV NS 0.9% 50 ML IV SCH ×2 (09:26→21:18)
[2017-10-14] MEDS ORDERED: SODIUM POLYSTYRENE SULFONATE 15 G/60 ML BOTTLE PO ONE (09:30)
--- NOTE | 2017-10-14 12:00 | NUR ---
RN NOTES SEEN AND EXMINED BY BRITTANI LITTLE, NOTIFIED ABOUT CURRENT TEMPT 101. 2 AND BP OF 73/41. NO NEW ORDER FROM DECK ENGINEER COOLING MEASURES PROVIDED. PRN TYLENOL PROVIDED. WILL CONT TO MONITOR
--- NOTE | 2017-10-14 12:15 | NUR ---
RN NOTES NOTIFIED DR RAMIREZ THAT CONSENT FOR BONE MARROW BIOPSY AND ASPIRATION WAS NOT OBTAINED. PER PT'S DTR (GABRIEL), WANTS TO SPEAK WITH MD FIRST BEFORE GIVING CONSENT. GAVE PT'S DTR (GABRIEL) NUMBER TO DR RAMIREZ
[2017-10-14] MEDS: ACETAMINOPHEN 325 MG TABLET MC PRN ×2 (12:17→22:38)
--- NOTE | 2017-10-14 13:00 | NUR ---
RN NOTES RECHECKED PT'S TEMPT: 98.5. WILL CONT TO MONITOR
--- NOTE | 2017-10-14 17:43 | NUR ---
RT NOTE PT RECEIVED WITH A PORTEX 7 TRACH ON THE VENT WITH NOTED SETTINGS. SUCTIONED LARGE AMOUNT OF PINK, THIN AND THICK SECRETIONS WITH BLOOD TINGED. VENT ALARMS ARE SET AND AUDIBLE WITH AMBU BAG AT BEDSIDE. VENT IS PLUGGED INTO RED OUTLET NO RESPIRATORY DISTRESS NOTED AT THIS TIME, WILL CONTINUE TO MONITOR.
--- NOTE | 2017-10-14 19:10 | NUR ---
RN NOTES PT IN STABLE CONDITION. NO ACUTE DISTRESS NOTED THROUGHOUT SHIFT. AFEBRILE. SAFETY MEASURES AND ASPIRATION PRECAUTION OBSERVED AT ALL TIMES. ALL NEEDS ANTICIPATED. ENDORSED TO PM SHIFT NURSE FOR CESAR
--- NOTE | 2017-10-14 20:00 | NUR ---
RN INITIAL NOTES RECEIVED PT IN BED, ASLEEP BUT AROUSABLE TO NAME AND LIGHT TOUCH. NO SIGNS OF PAIN NOTED. WITH INTACT TRACH PORTEX 7, TOLERATING VENT SETTINGS: AC 12, TV 400, FIO2 20%, PEEP 5. NO SOB NOTED. WITH INTACT FC, DRAINING CLEAR YELLOW COLORED URINE BY GRAVITY. WITH CLAMPED GT, GT INTACT AND IN PLACED. WITH ONGOING IVF NS AT 75 ML/HR INFUSING WELL ON FRANCY MIDLINE. FRANCY MIDLINE INTACT AND PATENT, NO SIGNS OF INFECTION NOTED. HOB ELEVATED. SAFETY MEASURES AND ASPIRATION PRECAUTION IN PLACED. CALL LIGHT WITHIN REACH. WILL CONT TO MONITOR.
--- NOTE | 2017-10-14 21:30 | NUR ---
RN NOTES PT IS EXPERIENCING DECREASE SPO2 LOW 68, INCREASED HR. 148-168, INCREASED RR UP 48,TEMP 101.5. ATIVAN 0.5 GIVEN, TYLENOL 650, REPARATORY TREATMENT GIVEN. WILL CONT TO MONITOR.
--- NOTE | 2017-10-14 21:53 | NUR ---
PTS WOB increased, HR increased, saturation decreased. RN aware of status change. increased patients FIO2 to 100%, saturation is at 97%, nurse discharge planner notified. Addendum: 10/14/17 at 2157 by CHANCE ROTHMAN RT Amended: Links added.
--- NOTE | 2017-10-14 23:50 | NUR ---
EDI PROGRAMMER OPENING NOTES: RECEIVED PT FROM RN, SAEID. PT IS ASLEEP AT THIS TIME. PT OS ON VENT PORTEX #7, AC 12, TV 400, FI02 40%, AND PEEP 5. PT ON TELE BOX AND REACHING SHOWS ST 105 WITH ARTIFACT. PT HAS RIZVI CATH AND IS ATTACHED TO DRAINAGE BAG WITH YELLOW URINE DRAINING. PT HAS FRANCY MIDLINE AND IS BEING INFUSED WITH NS AT 75ML/HR. PT HAS G TUBE FEEDING. 5ML OF RESIDUAL NOTED. PT ON G TUBE FEEDING GLUCERNA 1.2 AT 70ML/HR. CALL LIGHT WITHIN PT'S REACH. BED KEPT IN LOW, LOCKED POSITION, AND SIDE RAILS X 2UP. WILL CONTINUE TO MONITOR PT.
--- NOTE | 2017-10-14 23:53 | NUR ---
RN CLOSING NOTES REPORT GIVEN TO THA FOR CESAR.
[2017-10-15] VITALS: BP 138/64
--- NOTE | 2017-10-15 01:58 | NUR ---
MARTIN YOUNG NOTES: PAGED EPIC SUPERVISOR KNITTING DR. RANDA Rush Addendum: 10/15/17 at 0204 by LASHELL THOMPSON RN AWAITING FOR CALL BACK.
[2017-10-15] MEDS: HYDROCODONE/APAP 5/325MG 1 EACH TABLET GT PRN (02:01)
--- NOTE | 2017-10-15 02:14 | NUR ---
CENTER MACHINE SET UP OPERATOR NOTES: INFORMED DR. TOLENTINO THAT PT IS USING ACCES. MUSCLES AND IS ON FI02 100% SATING AT LOW 90S. INFORMED HIM WELL THAT FI02% 60, HE IS SATING AT LOW 80S. RECTAL TEMP WAS 100.8; TYLENOL 650MG WAS GIVEN AT 2238. ALSO INFORMED HIM PT IS SINUS TACH 130S-140S INFORMED HIM BED BATH WAS GIVEN ALREADY AND COOLING MEASURES. GOT ORDER FOR COOLING BLANKETS, ABG, AND CHEST X RAY.
[2017-10-15] MEDS: IPRATROPIUM NEB FS 0.5 MG/2.5 ML AMPUL.NEB NEB SCH ×6 (02:16→23:44)
--- NOTE | 2017-10-15 02:26 | NUR ---
SYSTEM ADMIN NOTES: RT AT BEDSIDE FOR ABG.
[2017-10-15 02:32] LABS: ABG BASE EXCESS 2.5 mmol/L; ABG OXYGEN SATURATION 97.9 % (92.0-98.5); ABG PCO2 49.5 mmHg (35.0-45.0); ABG PH 7.374 (7.350-7.450); ABG PO2 133.2 mmHg (75.0-100.0); AaDO2 522.5 mmHg; COHb 0.3 % (0.5-1.5); MetHb 0.8 % (0.0-1.5); O2Hb 96.8 % (94.0-97.0)
[2017-10-15 04:00] VITALS: BP 94/45
[2017-10-15] MEDS: GLUCERNA 1.2 1,000 ML BOTTLE GT PRN (04:05)
[2017-10-15] MEDS: LORAZEPAM INJ 2 MG/ML VIAL IV PRN (04:46)
[2017-10-15] MEDS: ACETAMINOPHEN 325 MG TABLET MC PRN ×3 (04:46→20:26)
--- NOTE | 2017-10-15 04:51 | NUR ---
PROFESSOR OF ENGINEERING NOTES: TYLENOL 650MG WAS GIVEN VIA GTUBE FOR 100.5 TEMP; ATIVAN 0.5MG IV WAS GIVEN D/T ELEVATED HR 120S. WILL CONTINUE TO MONITOR.
[2017-10-15 06:30] LABS: BASOPHILS # (AUTO) 0.1 /CMM (0.0-0.2); BASOPHILS % (AUTO) 0.4 % (0.0-2.0); EOSINOPHILS % (AUTO) 2.8 % (0.0-6.0); HEMATOCRIT 25 % (39-51); HEMOGLOBIN 7.9 g/dL (13.5-17.5); LYMPHOCYTES % (AUTO) 9.6 % (20.0-44.0); MEAN CORPUSCULAR HEMOGLOBIN 27 PG (26.0-33.0); MEAN CORPUSCULAR HGB CONC 32 g/dl (31.0-36.0); MEAN CORPUSCULAR VOLUME 83 fL (80-96); MONOCYTES # (AUTO) 1.4 /CMM (0.1-1.30); MONOCYTES % (AUTO) 6.6 % (2.0-12.0); NEUTROPHILS # (AUTO) 17.1 /CMM (1.8-8.9); NEUTROPHILS % (AUTO) 80.6 % (43.0-81.0); PLATELET COUNT (AUTO) 374 /CMM (150-450); RDW COEFFICIENT OF VARIATION 19.8 (11.5-15.0); RED BLOOD CELL COUNT(AUTO) 2.95 MIL/uL (4.5-6.0); WHITE BLOOD COUNT (AUTO) 21.2 K/uL (4.3-11.0)
[2017-10-15 06:37] LABS: CALCIUM, SERUM 8.7 mg/dL (8.5-10.1); CARBON DIOXIDE 31 mmol/L (21-32); CHLORIDE 100 mmol/L (98-107); CREATININE 1.3 mg/dL (0.6-1.3); GLUCOSE 74 mg/dL (74-106); POTASSIUM 5.4 mmol/L (3.5-5.1); SODIUM SERUM 132 mmol/L (136-145); UREA NITROGEN, BLOOD 32 mg/dL (7-18)
--- NOTE | 2017-10-15 06:56 | NUR ---
PETAL CUTTER CLOSING NOTES: ALL NEEDS WERE ATTENDED AND ANTICIPATED FOR. PT IS ON VENT QND SETTINGS ARE PORTEX #7, AC 12, TV 400, FIO2 50%, AND PEEP 5. PT ON CONT PULSE OX. PT ON TELE BOX AND READING SHOWS ST 109. PT HAS RIZVI CATH AND IS ATTACHED TO DRAINAGE BAG. OUTPUT WAS 700ML. PT HAS G TUBE FEEDING AND IS ON GLUCERNA FEEDING AT 70ML/HR. NO RESIDUAL NOTED. PT HAS FRANCY MIDLINE AND IS BEING INFUSED AT NS 75ML/HR. CALL LIGHT WITHIN PT'S REACH. BED KEPT IN LOW, LOCKED POSITION, AND SIDE RAILS X 2UP. WILL ENDORSE TO AM NURSE FOR CESAR.
--- NOTE | 2017-10-15 07:30 | NUR ---
CLEANING PROFESSIONAL NOTE: RECEIVED PATIENT IN BED, ASLEEP, BUT AROUSABLE WITH TACTILE STIMULATION. VENT-TRACH DEPENDENT SATURATING 97% AND TOLERATING WELL. NOT ON ANY FORM OF DISTRESS. NO FACIAL GRIMACING NOTED. HOB ELEVATED. ON GT FEEDING OF GLUCERNA 1.2 @70ML.HR AND NO RESIDUAL NOTED. (L) UA MIDLINE NOTED IN PLACED PATENT AND INTACT INFUSING NS @75ML/HR. RIZVI CATHETER IN PLACED WITH YELLOW URINE DRAINING TO GRAVITY. ON DESIGN ENG ST HR= 108. BED ALARMED AND LOCKED AT ALL TIMES. CALL LIGHT WITHIN REACH. NEEDS ANTICIPATED.
[2017-10-15] MEDS: ACETYLCYSTEINE 20% SOLN 800 MG/4 ML VIAL NEB SCH ×3 (07:50→23:44)
[2017-10-15 08:00] VITALS: BP 107/53
[2017-10-15] MEDS: COLISTIMETHATE SODIUM 100 MG in IV NS 0.9% 50 ML IV SCH ×2 (08:35→20:25)
[2017-10-15] MEDS: PANTOPRAZOLE 40 MG VIAL IV SCH ×2 (09:15→16:15)
[2017-10-15] MEDS: ASCORBIC ACID 500 MG TABLET GT SCH (09:15)
[2017-10-15] MEDS: LACTOBACILLUS RHAMNOSUS GG 1 EACH CAP.SPRINK PO SCH ×2 (09:15→16:15)
[2017-10-15] MEDS: MULTIVITAMINS,THERAGRAN 1 UDTAB TABLET GT SCH (09:15)
[2017-10-15] MEDS: Z GUARD REMEDY 2 OZ OINT TP PRN (09:16)
[2017-10-15] MEDS: HYDROGEL DRESSING 90 GM TUBE TP SCH (09:16)
[2017-10-15 09:30] LABS: BAND % (MANUAL) 4 % (0.0-5.0); EOSINOPHILS % (MANUAL) 3 % (0-4); LYMPHOCYTES % (MANUAL) 13 % (16-48); MONOCYTES % (MANUAL) 5 % (0-11.0); NEUTROPHILS % (MANUAL) 75 (42-76)
--- NOTE | 2017-10-15 09:46 | NUR ---
AUTOMATION QA LEAD NOTE: INFORMED SIDNEY BRAUN NP RE: THE PATIENT'S POTASSIUM OF 5.4 AND SODIUM OF 132 TODAY. CURRENT MEDICATION LIST WAS RELAYED TO DREDGE ENGINEER. DREDGE ENGINEER WITH NO NEW ORDER AT THIS TIME.
[2017-10-15] MEDS ORDERED: SODIUM POLYSTYRENE SULFONATE 15 G/60 ML BOTTLE PO ONE (11:30)
[2017-10-15 12:00] VITALS: BP 87/48
[2017-10-15] MEDS: IV NS 0.9% 1,000 ML IV PRN (13:40)
--- NOTE | 2017-10-15 14:03 | NUR ---
CUPOLA TAPPER NOTE: JOHN ARMSTRONG NP (INFECTIOUS DISEASE) RE: THE PATIENT'S WBC 21.2. SIDNEY BRAUN NP WAS AWARE OF THE WBC. TYLENOL 650 MG VIA GT WAS USED TO MANAGE THE TEMPERATURE WITH COOLING MEASURES. BRITTANI LITTLE WAS AWARE THAT THE PATIENT'S MAX. TEMP OF TODAY WAS 99.6F VIA RECTAL. HR MANAGED TO BE WITHIN 95-99. WILL CONTINUE TO MONITOR.
[2017-10-15 16:00] VITALS: BP 100/45
--- NOTE | 2017-10-15 17:38 | NUR ---
FEED ELEVATOR WORKER NOTE: CALLED AND LEFT A VOICE MESSAGE FOR GABRIEL (DAUGHTER) RE: HER REQUEST TO SPEAK WITH DR. RAMIREZ (ONCOLOGIST). DR. RAMIREZ WAS PRESENT IN THE UNIT AND SHE WAS AWARE THAT DAUGHTER WANTED TO SPEAK WITH HER RE: THE PLANNED BONE MARROW BIOPSY. PER DR. RAMIREZ, SHE ALS0 TRIED TO CALL GABRIEL ON [phone] AND [phone], BUT NO ANSWER FROM THE DAUGHTER. THE CAREGIVER WAS ALSO PRESENT AT THE BEDSIDE AT THIS TIME AND ACCORDING TO HER, SHE'S BEEN TRYING TO REACH GABRIEL TODAY THRU TEXT MESSAGE AND THRU CALL, BUT SHE WAS NOT RESPONDING. AWAITING FOR HER RESPONSE ON THE VOICE MESSAGE. DR. RAMIREZ MADE AWARE.
--- NOTE | 2017-10-15 18:27 | NUR ---
UPHOLSTERED GOODS CRAFTER NOTE: RECEIVED A CALL BACK FROM GABRIEL AND SHE WAS GIVEN AN UPDATE RE: HER FATHER'S CURRENT CONDITION. SHE WAS ABLE TO SPEAK WITH DR. RAMIREZ RE: THE PLAN BONE MARROW BIOPSY. ACCORDING TO DR. RAMIREZ, THE DAUGHTER, GABRIEL SAID THAT SHE WANTED TO THINK ABOUT THE PROCEDURE IF HER FATHER REALLY NEEDS IT. AND SHE WILL CALL BACK TO THE NURSE TO INFORM HER DECISION ABOUT IT.
[2017-10-15 20:00] VITALS: BP 98/44
[2017-10-16] VITALS: BP 101/43
[2017-10-16] MEDS: LORAZEPAM INJ 2 MG/ML VIAL IV PRN ×2 (02:24→22:26)
[2017-10-16] MEDS: ACETAMINOPHEN 325 MG TABLET MC PRN ×3 (02:26→16:20)
[2017-10-16] MEDS: IPRATROPIUM NEB FS 0.5 MG/2.5 ML AMPUL.NEB NEB SCH ×5 (03:45→20:07)
[2017-10-16 04:00] VITALS: BP 107/44
[2017-10-16] MEDS: IV NS 0.9% 1,000 ML IV PRN ×2 (05:32→21:53)
[2017-10-16] MEDS: GLUCERNA 1.2 1,000 ML BOTTLE GT PRN ×2 (05:32→21:13)
[2017-10-16] MEDS: HYDROCODONE/APAP 5/325MG 1 EACH TABLET GT PRN (05:35)
--- NOTE | 2017-10-16 07:53 | NUR ---
RN NOTE RECEIVED PATIENT IN BED, ASLEEP, BUT AROUSABLE WITH TACTILE STIMULI. PATIENT IS VENT/TRACH WITH APPROPRIATE SETTINGS IN PLACE SATURATING WELL. NO DISTRESS NOTED. ON SUPERVISOR PARK WORKERS SINUS TACH HR 115. HOB ELEVATED WITH ONGOING GT FEEDING OF GLUCERNA 1.2 @70ML.HR, NO RESIDUAL NOTED AND TOLERATING WELL. LEFT UA MIDLINE NOTED INTACT AND PATENT INFUSING NS @75ML/HR. RIZVI CATHETER INTACT AND PATENT WITH ADEQUATE FLOW OF URINE. ALL SAFETY MEASURES DONE. BED ALARMED, LOW AND LOCKED POSITION. PLACED CALL LIGHT WITHIN REACH. WILL CONTINUE TO MONITOR.
[2017-10-16 08:00] VITALS: BP 141/65
[2017-10-16] MEDS: ACETYLCYSTEINE 20% SOLN 800 MG/4 ML VIAL NEB SCH ×2 (08:19→15:27)
--- NOTE | 2017-10-16 08:20 | NUR ---
RT PATIENT REC' TRACHED ON [facility] VENT WITH NOTED SETTINGS ERICK WELL. TRACH CHECKED + IN PROPER POSITION. VENT ALARMS CHECKED + AUDIBLE. CUFF PRESSURE CHECKED IMPORT CUSTOMER SERVICE MANAGER. AIRWAY SUCTIONED WITH MOD/LARGE AMT OF PINK FROTHY SECRETIONS. AMBU BAG AT [facility]. CONT CURRENT PLAN OF CARE. Addendum: 10/16/17 at 1744 by IOANA LITTLE RT Amended: Links added.
[2017-10-16] MEDS: PANTOPRAZOLE 40 MG VIAL IV SCH ×2 (08:54→16:08)
[2017-10-16] MEDS: LACTOBACILLUS RHAMNOSUS GG 1 EACH CAP.SPRINK PO SCH ×2 (08:54→16:08)
[2017-10-16] MEDS: MULTIVITAMINS,THERAGRAN 1 UDTAB TABLET GT SCH (08:54)
[2017-10-16] MEDS: ASCORBIC ACID 500 MG TABLET GT SCH (08:54)
[2017-10-16] MEDS: COLISTIMETHATE SODIUM 100 MG in IV NS 0.9% 50 ML IV SCH ×2 (08:54→20:23)
[2017-10-16] MEDS: HYDROGEL DRESSING 90 GM TUBE TP SCH (08:55)
[2017-10-16 09:02] LABS: BASOPHILS # (AUTO) 0.1 /CMM (0.0-0.2); BASOPHILS % (AUTO) 0.4 % (0.0-2.0); EOSINOPHILS % (AUTO) 2.9 % (0.0-6.0); HEMATOCRIT 24 % (39-51); HEMOGLOBIN 7.9 g/dL (13.5-17.5); LYMPHOCYTES # (AUTO) 2.3 /CMM (0.8-4.8); LYMPHOCYTES % (AUTO) 10.9 % (20.0-44.0); MEAN CORPUSCULAR HEMOGLOBIN 27 PG (26.0-33.0); MEAN CORPUSCULAR HGB CONC 32 g/dl (31.0-36.0); MEAN CORPUSCULAR VOLUME 83 fL (80-96); MONOCYTES # (AUTO) 1.3 /CMM (0.1-1.30); MONOCYTES % (AUTO) 6.1 % (2.0-12.0); NEUTROPHILS # (AUTO) 16.6 /CMM (1.8-8.9); NEUTROPHILS % (AUTO) 79.7 % (43.0-81.0); PLATELET COUNT (AUTO) 358 /CMM (150-450); RDW COEFFICIENT OF VARIATION 20.3 (11.5-15.0); RED BLOOD CELL COUNT(AUTO) 2.95 MIL/uL (4.5-6.0); WHITE BLOOD COUNT (AUTO) 20.8 K/uL (4.3-11.0)
[2017-10-16 09:21] LABS: CALCIUM, SERUM 9.2 mg/dL (8.5-10.1); CARBON DIOXIDE 28 mmol/L (21-32); CHLORIDE 106 mmol/L (98-107); CREATININE 1.7 mg/dL (0.6-1.3); GLUCOSE 55 mg/dL (74-106); POTASSIUM 4.3 mmol/L (3.5-5.1); SODIUM SERUM 140 mmol/L (136-145); UREA NITROGEN, BLOOD 33 mg/dL (7-18)
[2017-10-16 12:00] VITALS: BP 122/68
[2017-10-16 16:00] VITALS: BP 138/57
--- NOTE | 2017-10-16 19:11 | NUR ---
RN NOTE PATIENT REMAINED STABLE THROUGHOUT SHIFT. NO ACUTE CHANGES OR DISTRESS NOTED. WILL ENDORSE TO NEXT SHIFT TO CONTINUE CONTINUITY OF CARE.
--- NOTE | 2017-10-16 19:30 | NUR ---
LPN MEDICAL ASSISTANT NOTE, RECEIVED PATIENT IN BED, SLEEPING AT THIS TIME, BUT EASILY AROUSABLE, ON MECHANICAL VENTILATOR, TOLERATED SETTINGS WELL, O2 SAT AT THIS TIME 90%, SUCTIONING PROVIDED AND O2 SATURATION LEVEL WET UP TO 98-99%, NO DISTRESS NOTED AT THIS TIME, .SINUS TACH HR 109 ON CANE CUTTER, GT FEEDING OF GLUCERNA 1.2 @70ML.HR INFUSING WELL AND PATIENT TOLERATED WELL, NO RESIDUAL NOTED AT THIS TIME, HOB ELEVATED FOR ASPIRATION PRECAUTIONS, FRANCY MIDLINE IN PLACED INTACT AND PATENT INFUSING NS @75ML/HR AND PATIENT TOLERATED WELL, NO S/S OF INFILTRATION NOTED, RIZVI CATHETER IN PLACED , PATENCY INTACT DRAINING CLEAR YELLOW URINE BY GRAVITY, ALL NEEDS PROVIDED, BED LOCKED AND IN LOW POSITION, CALL LIGHT WITHIN REACH. WILL CONTINUE TO MONITOR CLOSELY.
[2017-10-16 20:00] VITALS: BP 98/52
[2017-10-17] VITALS (23 sets, daily range): BP systolic 90–166; BP diastolic 14–81
[2017-10-17] MEDS: ACETYLCYSTEINE 20% SOLN 800 MG/4 ML VIAL NEB SCH ×4 (00:03→23:41)
[2017-10-17] MEDS: IPRATROPIUM NEB FS 0.5 MG/2.5 ML AMPUL.NEB NEB SCH ×7 (00:03→23:41)
[2017-10-17] MEDS: HYDROCODONE/APAP 5/325MG 1 EACH TABLET GT PRN ×3 (00:13→13:55)
[2017-10-17] MEDS: LORAZEPAM INJ 2 MG/ML VIAL IV PRN ×2 (04:24→15:44)
[2017-10-17] MEDS: ACETAMINOPHEN 325 MG TABLET MC PRN ×2 (04:42→17:58)
--- NOTE | 2017-10-17 06:45 | NUR ---
ACCESS REGISTRAR NOTE, PATIENT IN BED, SLEEPING AT THIS TIME, BUT EASILY AROUSABLE, ON MECHANICAL VENTILATOR, PATIENT IS BEING TACHYCARDIC AND TACHYPNEIC THROUGH SHIFT, NEEDED CONSTANT SUCTIONING, ATIVAN PROVIDED TWICE DURING THIS SHIFT, WITH ELEVATED TEMP THE HIGHEST 100.7, TYLENOL ADMINISTERED ORDERED, ALONG WITH COOLING MEASURES, AT THIS TIME, NO ACUTE DISTRESS OR DISCOMFORT NOTED, .SINUS TACH HR 109-111 ON CLOTHING MAN, GT FEEDING OF GLUCERNA 1.2 @70ML.HR INFUSING WELL AND PATIENT TOLERATED WELL, NO RESIDUAL NOTED AT THIS TIME, HOB ELEVATED FOR ASPIRATION PRECAUTIONS, FRACNY MIDLINE IN PLACED INTACT AND PATENT INFUSING NS @75ML/HR AND PATIENT TOLERATED WELL, NO S/S OF INFILTRATION NOTED, RIZVI CATHETER IN PLACED , PATENCY INTACT DRAINING CLEAR YELLOW URINE BY GRAVITY, ALL NEEDS PROVIDED, BED LOCKED AND IN LOW POSITION, CALL LIGHT WITHIN REACH. WILL ENDORSE TO ONCOMING NURSE FOR CONTINUATION OF CARE.
[2017-10-17 06:46] LABS: BASOPHILS # (AUTO) 0.1 /CMM (0.0-0.2); BASOPHILS % (AUTO) 0.4 % (0.0-2.0); EOSINOPHILS % (AUTO) 7.1 % (0.0-6.0); HEMATOCRIT 21 % (39-51); LYMPHOCYTES # (AUTO) 1.7 /CMM (0.8-4.8); LYMPHOCYTES % (AUTO) 12.1 % (20.0-44.0); MEAN CORPUSCULAR HEMOGLOBIN 27 PG (26.0-33.0); MEAN CORPUSCULAR HGB CONC 32 g/dl (31.0-36.0); MEAN CORPUSCULAR VOLUME 84 fL (80-96); MONOCYTES # (AUTO) 0.8 /CMM (0.1-1.30); MONOCYTES % (AUTO) 5.8 % (2.0-12.0); NEUTROPHILS # (AUTO) 10.2 /CMM (1.8-8.9); NEUTROPHILS % (AUTO) 74.6 % (43.0-81.0); PLATELET COUNT (AUTO) 265 /CMM (150-450); RED BLOOD CELL COUNT(AUTO) 2.45 MIL/uL (4.5-6.0); WHITE BLOOD COUNT (AUTO) 13.7 K/uL (4.3-11.0)
[2017-10-17 06:49] LABS: CALCIUM, SERUM 8.4 mg/dL (8.5-10.1); CARBON DIOXIDE 30 mmol/L (21-32); CHLORIDE 111 mmol/L (98-107); GLUCOSE 97 mg/dL (74-106); POTASSIUM 4.4 mmol/L (3.5-5.1); SODIUM SERUM 145 mmol/L (136-145); UREA NITROGEN, BLOOD 41 mg/dL (7-18)
[2017-10-17 07:07] LABS: HEMOGLOBIN 6.6 g/dL (13.5-17.5)
--- NOTE | 2017-10-17 07:08 | NUR ---
TRANS ROUTER NOTES: RECEIVED A CALL FROM LAB REGARDING PATIENT'S HGB 6.6 AND HCT 21.
--- NOTE | 2017-10-17 07:28 | NUR ---
FIELD SALES AGENT NOTES: RECEIVED PT ON BED ASLEEP, IN NO ACUTE DISTRESS. NO FACIAL GRIMACING OR ANY SIGNS OF PAIN NOTED. ON MECH VENT, SETTINGS ORDERED, SATURATING WELL. FRANCY MIDLINE INTACT AND PATENT. GT FEEDING INTACT, ABLE TO TOLERATE FEEDING WELL. NO RESIDUAL NOTED AT THIS TIME. RIZVI CATH INTACT AND PATENT WITH CLEAR YELLOW URINE DRAINING. KEPT CLEAN, DRY AND COMFORTABLE. HOB ELEVATED. WILL CONTINUE TO MONITOR PT.
--- NOTE | 2017-10-17 07:35 | NUR ---
MINER PICK NOTES: PAGED DR. GRANADOS REGARDING PATIENT'S H/H, NEW ORDER TO INFUSE 1PRBC. ORDER CARRIED OUT.
[2017-10-17 08:02] LABS: EOSINOPHILS % (MANUAL) 1 % (0-4); LYMPHOCYTES % (MANUAL) 18 % (16-48); MONOCYTES % (MANUAL) 4 % (0-11.0); NEUTROPHILS % (MANUAL) 77 (42-76)
[2017-10-17] MEDS: LACTOBACILLUS RHAMNOSUS GG 1 EACH CAP.SPRINK PO SCH ×2 (08:05→17:58)
[2017-10-17] MEDS: MULTIVITAMINS,THERAGRAN 1 UDTAB TABLET GT SCH (08:06)
[2017-10-17] MEDS: PANTOPRAZOLE 40 MG VIAL IV SCH ×2 (08:06→17:58)
[2017-10-17] MEDS: ASCORBIC ACID 500 MG TABLET GT SCH (08:06)
[2017-10-17] MEDS: COLISTIMETHATE SODIUM 100 MG in IV NS 0.9% 50 ML IV SCH (08:20)
[2017-10-17] MEDS: HYDROGEL DRESSING 90 GM TUBE TP SCH (08:21)
[2017-10-17] MEDS: IV NS 0.9% 1,000 ML IV PRN (10:08)
[2017-10-17] MEDS: GLUCERNA 1.2 1,000 ML BOTTLE GT PRN (11:02)
--- NOTE | 2017-10-17 13:05 | NUR ---
BAKER BENCH NOTES: BLOOD TRANSFUSION STARTED. NO TRANSFUSION REACTION NOTED. VITAL SIGNS WNL. WILL CONTINUE TO MONITOR PT CLOSELY
--- NOTE | 2017-10-17 16:00 | NUR ---
CONSERVATION PLANNER NOTES: PATIENT'S O2 SAT STILL ON 91% ON 100% FIO2. VITAL SIGNS BP: 154/67, HR 137, RR 32, TEMP 99. DR. GILL NOTIFIED, ORDERED FOR CBC, BMP, MG AND STAT CXR.
--- NOTE | 2017-10-17 16:06 | NUR ---
SERVICE DESK LEAD NOTES: PATIENT HAD AN EPISODE OF DESATURATION AND TACHYPNEA, O2 SAT DROPPING TO 87% ON 100% O2. DR. GILL NOTIFIED AND ORDERED STAT ABG. ORDER CARRIED OUT. ON TELE MONITOR, SINUS TACHY HR 130s.
[2017-10-17 16:32] LABS: ABG BASE EXCESS 1.1 mmol/L; ABG OXYGEN SATURATION 66.8 % (92.0-98.5); ABG PCO2 58.3 mmHg (35.0-45.0); ABG PH 7.301 (7.350-7.450); ABG PO2 35.5 mmHg (75.0-100.0); AaDO2 182.7 mmHg; COHb 0.6 % (0.5-1.5); MetHb 0.6 % (0.0-1.5); SITE, ABG Left Radial; VENT MODE, BG AC 12 400 +5 50%
--- NOTE | 2017-10-17 17:20 | NUR ---
RN NOTES: PATIENT WAS TRANSFERRED TO ICU. DAUGHTER SCARLETT MADE AWARE.
--- NOTE | 2017-10-17 18:14 | NUR ---
Pt received by bed from [facility]. Obtunded, [id number], Sat [address] 135, 147/70, temp 101.8 abg results reported to Dr Hall peep increased to 8. Will obtain ABG in 2h. Dr. Dada escobar.
--- NOTE | 2017-10-17 18:21 | NUR ---
Tylenol via gt given cooling measures imitated.
[2017-10-17 18:25] LABS: BASOPHILS % (AUTO) 0.1 % (0.0-2.0); CALCIUM, SERUM 8.8 mg/dL (8.5-10.1); CARBON DIOXIDE 30 mmol/L (21-32); CHLORIDE 107 mmol/L (98-107); CREATININE 2.1 mg/dL (0.6-1.3); GLUCOSE 82 mg/dL (74-106); HEMATOCRIT 27 % (39-51); HEMOGLOBIN 8.6 g/dL (13.5-17.5); LYMPHOCYTES # (AUTO) 1.8 /CMM (0.8-4.8); LYMPHOCYTES % (AUTO) 9.3 % (20.0-44.0); MAGNESIUM 1.3 mg/dL (1.8-2.4); MEAN CORPUSCULAR HEMOGLOBIN 27 PG (26.0-33.0); MEAN CORPUSCULAR HGB CONC 32 g/dl (31.0-36.0); MEAN CORPUSCULAR VOLUME 84 fL (80-96); MONOCYTES # (AUTO) 0.9 /CMM (0.1-1.30); MONOCYTES % (AUTO) 4.5 % (2.0-12.0); NEUTROPHILS # (AUTO) 15.6 /CMM (1.8-8.9); NEUTROPHILS % (AUTO) 81.1 % (43.0-81.0); PLATELET COUNT (AUTO) 321 /CMM (150-450); POTASSIUM 4.8 mmol/L (3.5-5.1); RDW COEFFICIENT OF VARIATION 19.5 (11.5-15.0); RED BLOOD CELL COUNT(AUTO) 3.24 MIL/uL (4.5-6.0); SODIUM SERUM 142 mmol/L (136-145); UREA NITROGEN, BLOOD 44 mg/dL (7-18); WHITE BLOOD COUNT (AUTO) 19.3 K/uL (4.3-11.0)
[2017-10-17] MEDS ORDERED: Magnesium 1 GM/2 ML VIAL IV ONE (19:00)
--- NOTE | 2017-10-17 19:00 | NUR ---
Dr. Garland notified on labs so far available. lactic acid pending will give mag 4 gr IV.
[2017-10-17] MEDS: Magnesium 1GM/D5W 100ML PREMIX 100 ML IV SCH ×3 (19:50→21:30)
--- NOTE | 2017-10-17 21:00 | NUR ---
RECHARGER - REC'D PT. TRACHED/VENTED & PEGGED. PT.IS OBTUNDED, RESPONDS TO NAILBED STIMULUS. HEART MONITOR SHOWS ST/TEENS-120'S. SBP'S ARE 90-LOW 120'S. TRACH IS A PORTEX #7 W/VENT SETTINGS AT AC-12,TV-400,100% & PEEP OF 8. PEG IS CLAMPED. PT. HAS MULTIPLE SKIN ISSUES. LARRY OPERATOR- MICHAELA BATHED PT. AT BEGINNING OF SHIFT & COMPLETED PT'S WOUND CARE. LOW GRADE TEMPS W/COOLING MEASURES STARTED. DAYSHIFT RN SENT [facility]LL CX'S TODAY. ALL PULSES PALPABLE, BUT WEAK. PT.IS CACHETIC, BUT HAS LEFT FOOT EDEMA NOTED. LUE MIDLINE HAS ALL PORTS PATENT TO FLUSH. 0.9% NS INFUSING AT 75CC/HR. VIA BARONE PUMP. RIZVI CATH TO GRAVITY. CONT. POC.
[2017-10-17] MEDS: CEFEPIME 2 GM in IV D5W 50 ML IV SCH (21:31)
[2017-10-17] MEDS: COLISTIMETHATE SODIUM 150 MG VIAL NEB SCH (21:42)
[2017-10-17] MEDS: LINEZOLID RTU BAG 600 MG in PREMIX 1 EA IV SCH (21:58)
[2017-10-17 22:10] LABS: ABG BASE EXCESS 2.7 mmol/L; ABG OXYGEN SATURATION 97.5 % (92.0-98.5); ABG PCO2 52.6 mmHg (35.0-45.0); ABG PH 7.356 (7.350-7.450); ABG PO2 113.2 mmHg (75.0-100.0); AaDO2 547.2 mmHg; COHb 0.3 % (0.5-1.5); O2Hb 96.2 % (94.0-97.0); PEEP,BG 8 cm H2O; SITE, ABG Right Brachial; VENT MODE, BG AC 12 400 100% +8; VT, ABG 400 mL
[2017-10-18] VITALS (63 sets, daily range): BP systolic 64–150; BP diastolic 38–109
--- NOTE | 2017-10-18 | NUR ---
FURNITURE DIPPER - PT. HAD 4 GRAMS OF MAGNESIUM SULFATE INFUSED. ALSO, ABG WAS DONE AT 22:30. NOTED. pH=7.35, hS2=256.2,pCO2=52.6, HCO3-28.8. WILL REPEAT IN AM. ABG'S ARE TRENDING IN RIGHT DIRECTION. BETTER THAN LAST ABG NOTED. GOOD UOP VIA RIZVI. PEG IS LEAKING YELLOW GASTRIC FLUID WHEN REPOSITIONING PT. NOTED.
[2017-10-18] MEDS: IPRATROPIUM NEB FS 0.5 MG/2.5 ML AMPUL.NEB NEB SCH ×6 (03:41→23:00)
[2017-10-18 05:05] LABS: BASOPHILS # (AUTO) 0.1 /CMM (0.0-0.2); BASOPHILS % (AUTO) 0.5 % (0.0-2.0); EOSINOPHILS % (AUTO) 6.7 % (0.0-6.0); HEMATOCRIT 24 % (39-51); HEMOGLOBIN 7.8 g/dL (13.5-17.5); LYMPHOCYTES % (AUTO) 13.2 % (20.0-44.0); MEAN CORPUSCULAR HEMOGLOBIN 27 PG (26.0-33.0); MEAN CORPUSCULAR HGB CONC 32 g/dl (31.0-36.0); MEAN CORPUSCULAR VOLUME 84 fL (80-96); MONOCYTES # (AUTO) 0.9 /CMM (0.1-1.30); MONOCYTES % (AUTO) 5.9 % (2.0-12.0); NEUTROPHILS # (AUTO) 11.1 /CMM (1.8-8.9); NEUTROPHILS % (AUTO) 73.7 % (43.0-81.0); PLATELET COUNT (AUTO) 274 /CMM (150-450); RDW COEFFICIENT OF VARIATION 19.9 (11.5-15.0)
[2017-10-18 05:21] LABS: CALCIUM, SERUM 8.9 mg/dL (8.5-10.1); CARBON DIOXIDE 28 mmol/L (21-32); CHLORIDE 108 mmol/L (98-107); CREATININE 2.1 mg/dL (0.6-1.3); GLUCOSE 71 mg/dL (74-106); MAGNESIUM 1.9 mg/dL (1.8-2.4); PHOSPHORUS 4.6 mg/dL (2.5-4.9); POTASSIUM 4.6 mmol/L (3.5-5.1); SODIUM SERUM 143 mmol/L (136-145); UREA NITROGEN, BLOOD 46 mg/dL (7-18)
--- NOTE | 2017-10-18 06:17 | NUR ---
PAINTER HAND - WHEN CHECKING LAST ROUNDS, FOUND PT'S MIDLINE OUT OF HIS ARM, BUT STILL TAPED DOWN APPROPRIATELY. FORGAN MARK BRADSHAW RN PHONED & WAS TOLD OF SITUATION. HS STATED THAT HE WILL TEXT DR. SID GRANADOS, SINCE THERE ARE OTHERS IN THE ICU THAT NEED LINES. GOOD UOP VIA RIZVI. NOT LEAKING ANY MORE. 22G LEFT HAND PIV WAS PLACED BY VINAY RN. POSSIBLE BONE MARROW BX/ASPIRATION WHEN FAMILY AGREES TO CONSENT. VERBAL REPORT GIVEN TO DAY - SHIFT RN. CONT. POC.
--- NOTE | 2017-10-18 07:45 | NUR ---
PATIENT O2 SAT 83% ON 80% FI02. SUCTIONED, REPOSITIONED AND PULSE OX MONITOR CHANGED WITH NO CHANGE IN OXYGEN LEVEL. INCREASED TO FI02 TO 100% PATIENT SATTING 96%
[2017-10-18] MEDS: IV NS 0.9% 1,000 ML IV PRN (07:53)
[2017-10-18] MEDS: Z GUARD REMEDY 2 OZ OINT TP PRN ×2 (07:53→17:51)
[2017-10-18] MEDS: PANTOPRAZOLE 40 MG VIAL IV SCH ×2 (08:01→17:51)
[2017-10-18] MEDS: LACTOBACILLUS RHAMNOSUS GG 1 EACH CAP.SPRINK PO SCH ×2 (08:01→17:51)
[2017-10-18] MEDS: ASCORBIC ACID 500 MG TABLET GT SCH (08:02)
[2017-10-18] MEDS: GLUCERNA 1.2 1,000 ML BOTTLE GT PRN (08:02)
[2017-10-18] MEDS: HYDROGEL DRESSING 90 GM TUBE TP SCH (08:02)
[2017-10-18] MEDS: MULTIVITAMINS,THERAGRAN 1 UDTAB TABLET GT SCH (08:03)
[2017-10-18] MEDS: LINEZOLID RTU BAG 600 MG in PREMIX 1 EA IV SCH ×2 (08:03→21:03)
[2017-10-18] MEDS: ACETYLCYSTEINE 20% SOLN 800 MG/4 ML VIAL NEB SCH ×3 (08:06→23:00)
--- NOTE | 2017-10-18 08:40 | NUR ---
RT AT BEDSIDE. PLACED PATIENT ON 80% FI02 SATTING 93%
[2017-10-18] MEDS: COLISTIMETHATE SODIUM 150 MG VIAL NEB SCH ×2 (09:36→21:09)
[2017-10-18 10:42] LABS: ABG BASE EXCESS 2.2 mmol/L; ABG PCO2 54.1 mmHg (35.0-45.0); ABG PO2 61.9 mmHg (75.0-100.0); AaDO2 451.7 mmHg; COHb 0.1 % (0.5-1.5); MetHb 0.9 % (0.0-1.5); O2Hb 89.1 % (94.0-97.0); PEEP,BG 8 cm H2O; SITE, ABG Right Radial; VT, ABG 400 mL
--- NOTE | 2017-10-18 10:46 | NUR ---
VENT CHANGES BELLOW ORDER: PEEP +10 Addendum: 10/18/17 at 1047 by WILL SUNG RT Amended: Links added.
--- NOTE | 2017-10-18 10:52 | NUR ---
ABG RESULTS GIVEN TO DR DOBBINS. PER MD INCREASE PEEP TO 10. MD AWARE OF PATIENT SWELLING TO LEFT LOWER EXTREMITY AND WARMTH. PENDING DOPPLER.
[2017-10-18] MEDS: ALBUTEROL HALF STRENGTH 1.25 MG/3 ML VIAL.NEB NEB PRN (11:27)
[2017-10-18] MEDS: LORAZEPAM INJ 2 MG/ML VIAL IV PRN (11:28)
--- NOTE | 2017-10-18 11:31 | NUR ---
PATIENT APPEARS ANXIOUS, RR INCREASED, FIGHTING VENT AND THRASHING, AND BP ELEVATED. NODS YES TO ANXIOUS. PRN ATIVAN GIVEN. PATIENT TACHYPNEIC 40 AND PULSE OX 88% RT WILL AT BEDSIDE
--- NOTE | 2017-10-18 11:45 | NUR ---
dr blackwood at bedside. updated on patient condition, continues with temps 99-100.9, RR 30-40, tachycardic and bp labile. no new orders. Addendum: 10/18/17 at 1544 by CHANTAL AGUILAR RN md aware of prelim urine and resp cx results.
[2017-10-18] MEDS: ACETAMINOPHEN 325 MG TABLET MC PRN (13:34)
--- NOTE | 2017-10-18 14:00 | NUR ---
cooling blanket applied. temp decreasing. 100.9 at this time
--- NOTE | 2017-10-18 16:40 | NUR ---
patient hypotensive. paused feeding, lowered head elevated feet. no change in patient presentation, alert. message to dr blackwood notified of patient hypotension, tachycardia 100-120. per md please order levo and begin if needed to keep sbp 90 or over. order stat lactic acid.
--- NOTE | 2017-10-18 18:00 | NUR ---
per dr jaison alarcon for picc line insertion.
--- NOTE | 2017-10-18 18:50 | NUR ---
per jillian martínez replace jenkins cath
--- NOTE | 2017-10-18 18:50 | NUR ---
all due meds given and all needs met. patient alert awake. tolerating vent 100% at this time. sinus tach 101. afebrile. patient tube feeding on hold and supine. however during feeding today tolerated well with no residual or leaking around g tube. aspiration, safety, and skin precautions in place and monitored. jenkins cath in place draining to gravity. peripheral iv c/d/i/p ivf running per order. care endorsed to rn for johnathan.
--- NOTE | 2017-10-18 19:04 | NUR ---
jenkins cath replaced per order. sterile technique observed. dr garcia at bedside. per md holding bone marrow bx at this time.
--- NOTE | 2017-10-18 20:20 | NUR ---
RECEIVED PT TRACHED PTX 7 ON VENT. PT IS AWAKE NO RESP DISTRESS TOLERATING VENT SETTINGS. SX'D FOR MOD AMT OF THIN TINGED SECRETIONS. VENT ALARMS SET AND AUDIBLE AMBU BAG AT BEDSIDE. VENT PLUGGED INTO RED OUTLET. WILL CONTINUE TO MONITOR. Addendum: 10/18/17 at 2022 by BART DARNELL RT Amended: Links added.
[2017-10-18] MEDS: CEFEPIME 2 GM in IV D5W 50 ML IV SCH (20:35)
[2017-10-19] VITALS (87 sets, daily range): BP systolic 75–172; BP diastolic 46–92
[2017-10-19] MEDS: IV NS 0.9% 1,000 ML IV PRN ×2 (02:56→17:17)
[2017-10-19] MEDS: IPRATROPIUM NEB FS 0.5 MG/2.5 ML AMPUL.NEB NEB SCH ×5 (03:51→19:42)
--- NOTE | 2017-10-19 06:30 | NUR ---
ORGANIZATIONAL DEVELOPMENT MANAGER - REC'D PT. TRACH/VENT/PEGGED. THE NIGHT WAS STABLE FOR PT. UNTIL 0530. PT. BEGAN TO BECOME TACHYPNEIC IN THE 120'S, SBP'S ARE IN THE 150-16o's & TEMP IS CURRENTLY 100.3/RECTAL. PT. WAS ADM. A COMPLETE BEDBATH AT 02:00AM W/ORAL,TRACH,PEG,MIRELLA & SKIN/WOUND CARE ADM. PT. REC'D A LUE MIDLINE LAST NIGHT W/O INCIDENCE. VERIFIED BY PCXR, DIANNA RN (PICC LINE RN) STATED THAT LINE WAS GOOD. ALL PORTS ARE PATENT TO FLUSH. PT'S T-MAX FOR NOC'S WERE 98.9. HR-ST/ LOW 100'S. BUE'S ARE VERY CONTRACTED. NO LABS ORDERED FOR AM. GOOD UOP VIA RIZVI FOR SHIFT. NEPRO TF STARTED AT CHANGE OF SHIFT & IS INFUSING AT 20CC/HR. NO RESIDUALS NOTED, HOWEVER, PT'S PEG SITE IS LEAKING SEROSANG./YELLOW FLUIDS. NOTED. VERBAL REPORT ENDORSED TO MICHAEL YOUNG. CONT. POC.
[2017-10-19] MEDS: LORAZEPAM INJ 2 MG/ML VIAL IV PRN ×2 (07:22→11:34)
[2017-10-19] MEDS: ACETYLCYSTEINE 20% SOLN 800 MG/4 ML VIAL NEB SCH ×2 (07:29→15:14)
--- NOTE | 2017-10-19 07:30 | NUR ---
RECEIVED PATIENT VENT STABLE 96%. PATIENT TACHYPNEIC RR 35-44 APPEARS ANXIOUS. PRN ATIVAN GIVEN. RIZVI CATH TO GRAVITY C/D/I. PILL LINE LUE C/D/I/P GOOD BLOOD RETURN. PERIPHERAL LINE C/D/I/P. TUBE FEEDING RUNNING PER ORDER WITH NO RESIDUAL AT THIS TIME. IVF PER ORDER. TEMP 100.6 CORE. COOLING MEASURES IN PLACE; WILL MONITOR. ASPIRATION, SKIN, AND SAFETY PRECAUTIONS IN PLACE. WILL ROUND PRN.
[2017-10-19] MEDS: GLUCERNA 1.2 1,000 ML BOTTLE GT PRN (07:58)
[2017-10-19] MEDS: Z GUARD REMEDY 2 OZ OINT TP PRN ×2 (07:58→17:16)
[2017-10-19] MEDS: ASCORBIC ACID 500 MG TABLET GT SCH (08:06)
[2017-10-19] MEDS: PANTOPRAZOLE 40 MG VIAL IV SCH ×2 (08:06→17:16)
[2017-10-19] MEDS: LACTOBACILLUS RHAMNOSUS GG 1 EACH CAP.SPRINK PO SCH ×2 (08:06→17:16)
[2017-10-19] MEDS: MULTIVITAMINS,THERAGRAN 1 UDTAB TABLET GT SCH (08:06)
[2017-10-19] MEDS: HYDROGEL DRESSING 90 GM TUBE TP SCH (08:07)
[2017-10-19] MEDS: LINEZOLID RTU BAG 600 MG in PREMIX 1 EA IV SCH ×2 (08:08→21:18)
[2017-10-19 08:37] LABS: ABG OXYGEN SATURATION 91.3 % (92.0-98.5); ABG PCO2 48.6 mmHg (35.0-45.0); ABG PH 7.359 (7.350-7.450); ABG PO2 66.7 mmHg (75.0-100.0); AaDO2 452.7 mmHg; COHb 0.4 % (0.5-1.5); MetHb 0.9 % (0.0-1.5); O2Hb 90.1 % (94.0-97.0); PEEP,BG 10 cm H2O; SITE, ABG Left Radial; VT, ABG 400 mL
--- NOTE | 2017-10-19 09:04 | NUR ---
PLACED PATIENT ON COOLING BLANKET.
[2017-10-19] MEDS: COLISTIMETHATE SODIUM 150 MG VIAL NEB SCH ×2 (09:33→21:20)
[2017-10-19] MEDS: HALOPERIDOL 1 MG TABLET PO PRN (10:27)
--- NOTE | 2017-10-19 12:23 | NUR ---
NOTIFIED DR DOBBINS PATIENT BP DROPPING AND PATIENT CONTINUES TO BE ANXIOUS AND FIGHTING VENT. PER MD PLEASE GIVE NS 500ML BOLUS. OK TO START PATIENT ON DIPROVAN DRIP PER PROTOCOL
[2017-10-19] MEDS ORDERED: IV NS 0.9% 500 ML IV ONE (12:30)
[2017-10-19] MEDS: NOREPINEPHRINE 8 MG in IV D5W 500 ML IV PRN (12:43)
[2017-10-19] MEDS: PROPOFOL 100 ML IV PRN ×2 (12:46→20:03)
--- NOTE | 2017-10-19 12:54 | NUR ---
PER DR DOBBINS ORDER STARTED PROPOFOL PER PROTOCOL 5MGC/KG/MIN AND PATIENT BP STILL SYSTOLIC 77 DESPITE BOLUS RUNNING. STARTED LEVO PER PROTOCOL 2MCG WILL MONITOR CLOSELY
--- NOTE | 2017-10-19 15:21 | NUR ---
patient urine culture vanco resistant. called central for iso cart. isolation order added. patient susceptible to linezolid and already prescribed.
--- NOTE | 2017-10-19 18:43 | NUR ---
all due meds given and all needs met. sinus tach 111. afebrile. dip at 30mcg/kg/min awake to touch. levo running per order; see spreadsheet. aspiration, safety, and skin precautions in place and monitored. jenkins cath in place draining to gravity. lue picc running per order. care endorsed to rn for johnathan.
--- NOTE | 2017-10-19 19:00 | NUR ---
RN INITIAL NOTES RECEIVED THE PATIENT SEDATED ON BED WITH DIPRIVAN @ 30MCG/KG/MIN, EASILY AROUSABLE TO TOUCH. ON VENT WITH SETTINGS AC 12, TV 400, FIO2 80%, PEEP 12, PORTEX 7, SATURATING WELL, NO S/S OF RESP DISTRESS. CURRENTLY SINUS TACH ON THE MONITOR, HR 100-110'S. ON LEVO DRIP @ 6MCG/MIN. GTUBE TO GLUCERNA FEEDING @ 40MLS/HR, NO RESIDUALS, TOLERATING WELL. RIZVI CATH IN PLACE. LEFT HAND 22G AND LEFT UPPER ARM PICC WITH NS @ 75MLS/HR, BOTH FLUSHED AND PATENT, NO S/S OF INFILTRATION/INFECTION, DRESSINGS CDI. BED LOW AND LOCKED, SIDERAILS UP, BED ALARM ON. WILL MONITOR
[2017-10-19] MEDS: CEFEPIME 2 GM in IV D5W 50 ML IV SCH (20:03)
--- NOTE | 2017-10-19 20:09 | NUR ---
RECEIVED PT TRACHED PTX 7 ON VENT. PT IS AWAKE NO RESP DISTRESS TOLERATING VENT SETTINGS. SX'D FOR MOD AMT OF THIN TINGED SECRETIONS. VENT ALARMS SET AND AUDIBLE AMBU BAG AT BEDSIDE. VENT PLUGGED INTO RED OUTLET. WILL CONTINUE TO MONITOR. Addendum: 10/19/17 at 2009 by BART DARNELL RT Amended: Links added.
[2017-10-20] VITALS (72 sets, daily range): BP systolic 78–136; BP diastolic 41–80
[2017-10-20] MEDS: ACETYLCYSTEINE 20% SOLN 800 MG/4 ML VIAL NEB SCH ×4 (00:16→22:52)
[2017-10-20] MEDS: IPRATROPIUM NEB FS 0.5 MG/2.5 ML AMPUL.NEB NEB SCH ×7 (00:16→22:52)
[2017-10-20 04:48] LABS: BASOPHILS # (AUTO) 0.1 /CMM (0.0-0.2); BASOPHILS % (AUTO) 0.5 % (0.0-2.0); EOSINOPHILS % (AUTO) 5.6 % (0.0-6.0); HEMATOCRIT 23 % (39-51); HEMOGLOBIN 7.3 g/dL (13.5-17.5); LYMPHOCYTES # (AUTO) 1.6 /CMM (0.8-4.8); LYMPHOCYTES % (AUTO) 11.2 % (20.0-44.0); MEAN CORPUSCULAR HEMOGLOBIN 27 PG (26.0-33.0); MEAN CORPUSCULAR HGB CONC 32 g/dl (31.0-36.0); MEAN CORPUSCULAR VOLUME 84 fL (80-96); MONOCYTES # (AUTO) 0.6 /CMM (0.1-1.30); MONOCYTES % (AUTO) 4.1 % (2.0-12.0); NEUTROPHILS # (AUTO) 11.3 /CMM (1.8-8.9); NEUTROPHILS % (AUTO) 78.6 % (43.0-81.0); PLATELET COUNT (AUTO) 230 /CMM (150-450); RDW COEFFICIENT OF VARIATION 19.9 (11.5-15.0); RED BLOOD CELL COUNT(AUTO) 2.69 MIL/uL (4.5-6.0); WHITE BLOOD COUNT (AUTO) 14.4 K/uL (4.3-11.0)
[2017-10-20] MEDS: PROPOFOL 100 ML IV PRN ×5 (05:03→22:10)
[2017-10-20 05:07] LABS: ALANINE AMINOTRANSFERASE 10 U/L (12-78); ALKALINE PHOSPHATASE 97 U/L (46-116); ASPARTATE AMINOTRANSFERASE 18 U/L (15-37); BILIRUBIN,TOTAL 0.1 mg/dL (0.2-1.0); CALCIUM, SERUM 8.5 mg/dL (8.5-10.1); CARBON DIOXIDE 28 mmol/L (21-32); CHLORIDE 104 mmol/L (98-107); CREATININE 2.3 mg/dL (0.6-1.3); GLUCOSE 137 mg/dL (74-106); POTASSIUM 3.8 mmol/L (3.5-5.1); SODIUM SERUM 139 mmol/L (136-145); UREA NITROGEN, BLOOD 42 mg/dL (7-18)
[2017-10-20 05:14] LABS: ALBUMIN 1.1 g/dL (3.4-5.0)
[2017-10-20] MEDS: IV NS 0.9% 1,000 ML IV PRN ×2 (05:35→20:03)
--- NOTE | 2017-10-20 06:40 | NUR ---
RN CLOSING NOTES PT REMAINS STABLE OF THE MOMENT. ALL DUE MEDS GIVEN, AM CARE PROVIDED. WILL ENDORSE CESAR TO AM RN
--- NOTE | 2017-10-20 07:30 | NUR ---
ICU/RN: Pt received on trach/vent, tachypnea noted. Pt airway suctioned for clearance, sedated on 40mcg/kg/min of Diprivan. IVF infusing well through FRANCY PICC, SBP maintained by Levophed. FC draining well to gravity. Alarm sounds audible, will cont to monitor pt.
[2017-10-20] MEDS: LINEZOLID RTU BAG 600 MG in PREMIX 1 EA IV SCH ×2 (08:20→21:02)
[2017-10-20] MEDS: ASCORBIC ACID 500 MG TABLET GT SCH (08:21)
[2017-10-20] MEDS: PANTOPRAZOLE 40 MG VIAL IV SCH ×2 (08:21→16:14)
[2017-10-20] MEDS: MULTIVITAMINS,THERAGRAN 1 UDTAB TABLET GT SCH (08:21)
[2017-10-20] MEDS: LACTOBACILLUS RHAMNOSUS GG 1 EACH CAP.SPRINK PO SCH ×2 (08:21→16:14)
[2017-10-20] MEDS: HYDROGEL DRESSING 90 GM TUBE TP SCH (08:22)
[2017-10-20] MEDS: Z GUARD REMEDY 2 OZ OINT TP PRN (08:22)
--- NOTE | 2017-10-20 08:30 | NUR ---
ICU/RN: Dr Rafael carranza; updated on pt status. ABG results dw MD - vent changes, and OK to titrate Diprivan > 50mcg/kg/min to keep RR <30. Noted, carried out.
[2017-10-20] MEDS: GLUCERNA 1.2 1,000 ML BOTTLE GT PRN (08:31)
[2017-10-20 08:33] LABS: ABG BASE EXCESS -1.4 mmol/L; ABG OXYGEN SATURATION 96.3 % (92.0-98.5); ABG PCO2 56.3 mmHg (35.0-45.0); ABG PH 7.275 (7.350-7.450); ABG PO2 100.2 mmHg (75.0-100.0); AaDO2 411.1 mmHg; COHb 0.3 % (0.5-1.5); MetHb 0.6 % (0.0-1.5); O2Hb 95.4 % (94.0-97.0); PEEP,BG 12 cm H2O; SITE, ABG Left Radial; VENT MODE, BG AC 80%; VT, ABG 400 mL
[2017-10-20] MEDS: NOREPINEPHRINE 8 MG in IV D5W 500 ML IV PRN (09:45)
[2017-10-20] MEDS: COLISTIMETHATE SODIUM 150 MG VIAL NEB SCH ×2 (10:23→21:07)
[2017-10-20] MEDS: LORAZEPAM INJ 2 MG/ML VIAL IV PRN ×3 (11:43→18:49)
--- NOTE | 2017-10-20 15:00 | NUR ---
ICU/RN: Wound care, bed bath rendered, tolerated well. Bilat heels elevated.
--- NOTE | 2017-10-20 18:53 | NUR ---
ICU/RN: Dr Loza and BRITTANI Ruiz round for oncology and ID f/u. Updated on current status. Administered prn ativan for sedation.
--- NOTE | 2017-10-20 19:05 | NUR ---
ICU/RN: Pt resting comfortably in bed, no distress noted, RR maintained less than 30 breaths per min. IVF infusing well. FC draining to gravity. Safety measures in place. Care endorsed to PM RN for CESAR.
--- NOTE | 2017-10-20 19:30 | NUR ---
RN INITIAL NOTES RECEIVED THE PATIENT SEDATED ON BED WITH DIPRIVAN @ 70MCG/KG/MIN, EASILY AROUSABLE TO TOUCH. ON VENT WITH SETTINGS AC 12, TV 450, FIO2 65%, PEEP 12, PORTEX 7, SATURATING WELL, NO S/S OF RESP DISTRESS. CURRENTLY SINUS TACH ON THE MONITOR, HR 100'S. ON LEVO DRIP @ 5MCG/MIN. GTUBE TO GLUCERNA FEEDING @ 55MLS/HR, NO RESIDUALS, TOLERATING WELL. RIZVI CATH IN PLACE. LEFT HAND 22G AND LEFT UPPER ARM PICC WITH NS @ 75MLS/HR, BOTH FLUSHED AND PATENT, NO S/S OF INFILTRATION/INFECTION, DRESSINGS CDI. BED LOW AND LOCKED, SIDERAILS UP, BED ALARM ON. WILL MONITOR
[2017-10-20] MEDS: CEFEPIME 2 GM in IV D5W 50 ML IV SCH (20:03)
--- NOTE | 2017-10-20 20:58 | NUR ---
INCREASED FIO2 INITIALLY TO 80% SPO2 REMAINED AT 84%, AFTER 10 MINS; THAN INCREASED FIO2 100% SPO2 IMPROVED TO 94% Addendum: 10/20/17 at 2100 by BOLIVAR BALDERAS RT Amended: Links added.
[2017-10-21] VITALS (77 sets, daily range): BP systolic 75–124; BP diastolic 44–74
[2017-10-21] MEDS: PROPOFOL 100 ML IV PRN ×7 (01:39→22:03)
[2017-10-21] MEDS: IPRATROPIUM NEB FS 0.5 MG/2.5 ML AMPUL.NEB NEB SCH ×5 (04:08→19:31)
[2017-10-21] MEDS: GLUCERNA 1.2 1,000 ML BOTTLE NG PRN ×2 (05:33→15:56)
--- NOTE | 2017-10-21 06:40 | NUR ---
RN CLOSING NOTES PT REMAINS STABLE OF THE MOMENT. ALL DUE MEDS GIVEN, AM CARE PROVIDED. WILL ENDORSE CESAR TO AM RN
[2017-10-21] MEDS: ACETYLCYSTEINE 20% SOLN 800 MG/4 ML VIAL NEB SCH ×2 (07:44→16:49)
[2017-10-21] MEDS: LINEZOLID RTU BAG 600 MG in PREMIX 1 EA IV SCH ×2 (08:09→21:54)
[2017-10-21] MEDS: LACTOBACILLUS RHAMNOSUS GG 1 EACH CAP.SPRINK PO SCH ×2 (08:09→16:02)
[2017-10-21] MEDS: ASCORBIC ACID 500 MG TABLET GT SCH (08:09)
[2017-10-21] MEDS: MULTIVITAMINS,THERAGRAN 1 UDTAB TABLET GT SCH (08:09)
[2017-10-21] MEDS: PANTOPRAZOLE 40 MG VIAL IV SCH ×2 (08:09→16:02)
[2017-10-21] MEDS: Z GUARD REMEDY 2 OZ OINT TP PRN (08:10)
[2017-10-21] MEDS: HYDROGEL DRESSING 90 GM TUBE TP SCH (08:10)
--- NOTE | 2017-10-21 08:15 | NUR ---
ICU/RN: Dr Cross at bedside; updated on pt status, discussed abn labs, hgb down to 7.0, no active bleeding noted. Informed of mucoid stool, tolerating current TF. With orders for 1 U PRBC transfusion. Noted and carried out.
[2017-10-21 08:42] LABS: BASOPHILS % (AUTO) 0.1 % (0.0-2.0); EOSINOPHILS % (AUTO) 0.9 % (0.0-6.0); HEMATOCRIT 22 % (39-51); LYMPHOCYTES # (AUTO) 1.4 /CMM (0.8-4.8); LYMPHOCYTES % (AUTO) 7.3 % (20.0-44.0); MEAN CORPUSCULAR HEMOGLOBIN 26 PG (26.0-33.0); MEAN CORPUSCULAR HGB CONC 31 g/dl (31.0-36.0); MEAN CORPUSCULAR VOLUME 84 fL (80-96); MONOCYTES # (AUTO) 0.8 /CMM (0.1-1.30); MONOCYTES % (AUTO) 4.1 % (2.0-12.0); NEUTROPHILS % (AUTO) 87.6 % (43.0-81.0); PLATELET COUNT (AUTO) 209 /CMM (150-450); RDW COEFFICIENT OF VARIATION 19.4 (11.5-15.0); RED BLOOD CELL COUNT(AUTO) 2.67 MIL/uL (4.5-6.0); WHITE BLOOD COUNT (AUTO) 19.4 K/uL (4.3-11.0)
[2017-10-21 08:48] LABS: CALCIUM, SERUM 8.6 mg/dL (8.5-10.1); CARBON DIOXIDE 26 mmol/L (21-32); CHLORIDE 106 mmol/L (98-107); CREATININE 2.3 mg/dL (0.6-1.3); GLUCOSE 114 mg/dL (74-106); POTASSIUM 3.8 mmol/L (3.5-5.1); SODIUM SERUM 141 mmol/L (136-145); UREA NITROGEN, BLOOD 39 mg/dL (7-18)
[2017-10-21] MEDS: COLISTIMETHATE SODIUM 150 MG VIAL NEB SCH ×2 (09:25→21:26)
[2017-10-21] MEDS: LORAZEPAM INJ 2 MG/ML VIAL IV PRN ×2 (09:30→14:35)
[2017-10-21 10:12] LABS: ABG BASE EXCESS -3.8 mmol/L; ABG OXYGEN SATURATION 88.8 % (92.0-98.5); ABG PCO2 55.6 mmHg (35.0-45.0); ABG PH 7.245 (7.350-7.450); ABG PO2 60.7 mmHg (75.0-100.0); MetHb 0.7 % (0.0-1.5); O2Hb 88.2 % (94.0-97.0); PEEP,BG 12 cm H2O; SITE, ABG Left Radial; VT, ABG 450 mL
--- NOTE | 2017-10-21 11:05 | NUR ---
PT RECEIVED ON AC MODE SETTINGS ORDERED. ALARMS SET AND AUDIBLE. ZERO DISTRESS NOTED. MOD. AMOUNTS OF BLOOD TINGED SPUTUM. PT TRACH PATIENT. PLUGGED IN. TO EMERGENCY POWER
--- NOTE | 2017-10-21 12:00 | NUR ---
ICU/RN: Dr Hall at bedside; updated on pt status, vent settings currently with TV 500, PEEP 14, remains tachypneic. Informed MD of slight positional air leak from trach. Pending 1U PRBC transfusion. Per MD, admnister max dose of Diprivan for pt comfort. Will cont to monitor.
--- NOTE | 2017-10-21 13:30 | NUR ---
ICU/RN: Pt turned and repositioned, unable to tolerate turning with desaturation into low to mid 80's on FiO2 100%. HOB elevated with improvement into 94-96%. Wound precautions in place. computer forensic specialist updated. Will cont to monitor pt.
[2017-10-21] MEDS: NOREPINEPHRINE 8 MG in IV D5W 500 ML IV PRN (13:50)
--- NOTE | 2017-10-21 14:30 | NUR ---
ICU/RN: Blood transfusion complete, pt tolerated well, no AE noted.
[2017-10-21] MEDS: IV NS 0.9% 1,000 ML IV PRN (15:00)
--- NOTE | 2017-10-21 15:30 | NUR ---
ICU/RN: Pt increasingly tachypneic > 30 breaths/min, s/p ativan administration. Dr Hall notified with orders for Morphine 5mg IVP x1 and continuous Morphine drip. third loader updated. Orders noted and carried out.
[2017-10-21] MEDS ORDERED: MORPHINE SULFATE INJ 2 MG/ML DISP.SYRIN IV ONE (16:00)
--- NOTE | 2017-10-21 19:13 | NUR ---
ICU/RN: Pt in bed comfortable, receiving morphine 6mg/hr, sedated on max diprivan infusing through SHANI PICC. Airway cleared, O2 sat maintained over 92%. FC to gravity. Will endorse care to PM RN for CESAR.
--- NOTE | 2017-10-21 19:30 | NUR ---
SERVICE OR WORK DISPATCHER: RECEIVED VENT DEPENDENT PT WT SETTINGS ORDERED. SEDATED ON DIPRIVAN AT 100MCG/KG/MIN AND MORPHINE DRIP AT 6MG/HR. WITHDRAWS TO LOCALIZED PAIN. NO EVIDENCE OF DISCOMFORT SUCH FACIAL GRIMACE. 02 SAT 94% AND BELOW. AFEBRILE. ST WT HR IN LOW 100s. ALSO ON NS AT 75ML/HR WT LOW URINE OUTPUT VIA F/C. CONTINUE ON LEVOPHED AT 4MCG/MIN FOR BP SUPPORT. NO S/S OF FRANCY PICC LINE COMPLICATION. GTF RUNNING GLUCERNA 1.2 AT 55ML/HR WT NO RESIDUAL. HOB ON HIGH MARTINEZ'S. SAFETY AND ASPIRATION PRECAUTIONS NOTED. WILL CONTINUE TO MONITOR.
[2017-10-21] MEDS: CEFEPIME 2 GM in IV D5W 50 ML IV SCH (21:14)
--- NOTE | 2017-10-21 21:30 | NUR ---
FIRE EXTINGUISHER TECHNICIAN: PT UNABLE TO BE REPOSITIONED AT THIS TIME WT EPISODES OF DESATURATION IN THE HIGH 80s. DAUGHTER GABRIEL MADE AWARE AND VERBALIZED UNDERSTANDING.
--- NOTE | 2017-10-21 22:50 | NUR ---
COMMERCIAL OCEAN CLAMMER: FAMILY AT BEDSIDE. UPDATED STATUS.
[2017-10-22] VITALS (89 sets, daily range): BP systolic 81–140; BP diastolic 37–74
[2017-10-22] MEDS: IPRATROPIUM NEB FS 0.5 MG/2.5 ML AMPUL.NEB NEB SCH ×7 (00:02→23:11)
[2017-10-22] MEDS: ACETYLCYSTEINE 20% SOLN 800 MG/4 ML VIAL NEB SCH ×4 (00:02→23:11)
[2017-10-22] MEDS: PROPOFOL 100 ML IV PRN ×8 (00:22→20:48)
--- NOTE | 2017-10-22 02:15 | NUR ---
TIRE DUSTER: 02 SAT AT 84% WT FI02 100%. HOB AT 45 DEGREES. NO ACUTE DISTRESS, NO EVIDENCE OF DISCOMFORT. WILL CONTINUE TO MONITOR.
[2017-10-22] MEDS ORDERED: NOREPINEPHRINE 4 MG/4 ML AMPUL IV ONE (04:10)
[2017-10-22] MEDS: NOREPINEPHRINE 8 MG in IV D5W 500 ML IV PRN ×2 (04:41→14:07)
[2017-10-22 04:57] LABS: BASOPHILS % (AUTO) 0.2 % (0.0-2.0); EOSINOPHILS % (AUTO) 2.9 % (0.0-6.0); HEMATOCRIT 27 % (39-51); HEMOGLOBIN 8.7 g/dL (13.5-17.5); LYMPHOCYTES # (AUTO) 1.9 /CMM (0.8-4.8); LYMPHOCYTES % (AUTO) 9.3 % (20.0-44.0); MEAN CORPUSCULAR HEMOGLOBIN 28 PG (26.0-33.0); MEAN CORPUSCULAR HGB CONC 32 g/dl (31.0-36.0); MEAN CORPUSCULAR VOLUME 87 fL (80-96); MONOCYTES # (AUTO) 0.8 /CMM (0.1-1.30); NEUTROPHILS # (AUTO) 17.2 /CMM (1.8-8.9); NEUTROPHILS % (AUTO) 83.6 % (43.0-81.0); PLATELET COUNT (AUTO) 200 /CMM (150-450); RDW COEFFICIENT OF VARIATION 19.2 (11.5-15.0); RED BLOOD CELL COUNT(AUTO) 3.17 MIL/uL (4.5-6.0); WHITE BLOOD COUNT (AUTO) 20.6 K/uL (4.3-11.0)
[2017-10-22 05:10] LABS: CALCIUM, SERUM 8.9 mg/dL (8.5-10.1); CARBON DIOXIDE 23 mmol/L (21-32); CHLORIDE 101 mmol/L (98-107); CREATININE 2.9 mg/dL (0.6-1.3); GLUCOSE 104 mg/dL (74-106); POTASSIUM 4.5 mmol/L (3.5-5.1); SODIUM SERUM 133 mmol/L (136-145); UREA NITROGEN, BLOOD 44 mg/dL (7-18)
[2017-10-22 05:53] LABS: BAND % (MANUAL) 5 % (0.0-5.0); EOSINOPHILS % (MANUAL) 3 % (0-4); LYMPHOCYTES % (MANUAL) 11 % (16-48); MONOCYTES % (MANUAL) 9 % (0-11.0); NEUTROPHILS % (MANUAL) 72 (42-76)
[2017-10-22] MEDS: IV NS 0.9% 1,000 ML IV PRN (06:21)
--- NOTE | 2017-10-22 06:35 | NUR ---
PHOTO EDITOR: 02 SAT 86%, MORPHINE INCREASED TO MAX. RATE OF 10MG/HR FOR RR ABOVE 12. CONTINUE ON DIPRIVAN AT 100MCG/KG/MIN, WITHDRAWS TO PAIN. ON LEVOPHED 12MCG/MIN FOR BP SUPPORT AND NS AT 75ML/HR WT LOW URINE OUTPUT. HOB AT 45 DEGREES.
--- NOTE | 2017-10-22 07:15 | NUR ---
CODE ENFORCEMENT INSPECTOR NOTES RECEIVED PATIENT SEDATED , ON MECHANICAL VENT SETTINGS ORDERED WITH SPO2 OF 85-87% , ST 115 ON BEDSIDE MONITOR , FC DRAINING WELL VIA GRAVITY WITH CLEAR YELLOW URINE , GT OF GLUCERNA @ 55ML/HR WITH NO RESIDUALS NOTED , FRANCY MIDLINE WITH NS @ 75ML/HR , LEVOPHED @ 14MCG/MIN , MORPHINE @ 10MG , DIRPRIVAN @ 100MCG/KG/MIN INFUSING WELL , WILL CONTINUE TO MONITOR
[2017-10-22] MEDS: ASCORBIC ACID 500 MG TABLET GT SCH (08:09)
[2017-10-22] MEDS: PANTOPRAZOLE 40 MG VIAL IV SCH ×2 (08:09→16:32)
[2017-10-22] MEDS: LINEZOLID RTU BAG 600 MG in PREMIX 1 EA IV SCH ×2 (08:09→21:42)
[2017-10-22] MEDS: LACTOBACILLUS RHAMNOSUS GG 1 EACH CAP.SPRINK PO SCH ×2 (08:09→16:32)
[2017-10-22] MEDS: MULTIVITAMINS,THERAGRAN 1 UDTAB TABLET GT SCH (08:09)
[2017-10-22] MEDS: HYDROGEL DRESSING 90 GM TUBE TP SCH (08:10)
[2017-10-22] MEDS: HYDROCORTISONE SOD SUCCINATE 100 MG/2 ML VIAL IV SCH ×3 (09:11→16:32)
--- NOTE | 2017-10-22 10:49 | NUR ---
PROJECT DIRECTOR NOTES SEEN AND EVALUATED BY DR AVILEZ , DISCUSSED LABS , VENT SETTINGS OF AC 12 TV 500 , FIO2 OF 100% WITH PEEP OF 14 WITH SPO2 OF 85-90% , BLOODY SECRETIONS NOTED UPON SUCTIONING , ON LEVO @ 16MCG/MIN , DIPRIVAN @ 100MCGH/KG/MIN , AND MORPHINE @ 10MG/HR INFUSING WELL , RR OF 10-15CPM , HR OF 105-115BMP , MD AWARE .
[2017-10-22] MEDS: FLUDROCORTISONE 0.1 MG TABLET GT SCH ×3 (11:50→23:49)
[2017-10-22] MEDS: COLISTIMETHATE SODIUM 150 MG VIAL NEB SCH ×2 (11:51→19:48)
--- NOTE | 2017-10-22 13:30 | NUR ---
FIRER LOCOMOTIVE CRANE NOTES SEEN AND EVALUATED BY DR JACKSON , DISCUSSED LABS , ON LEVOPHED @ 14MCG/MIN , DIPRIVAN @ 100MCG/KG/MIN , AND MORPHINE @ 10MG/HR , AFEBRILE WITH LOW URINE OUTPUT , DISCUSSED COLISTIN IF SHE WANTS TO CONTINUE IT BUN 44 AND CREATININE 2.9
[2017-10-22] MEDS: GLUCERNA 1.2 1,000 ML BOTTLE NG PRN (13:50)
[2017-10-22] MEDS: NOREPINEPHRINE 16 MG in IV D5W 500 ML IV PRN (16:32)
--- NOTE | 2017-10-22 19:00 | NUR ---
INSOLE TACK PULLER HAND NOTES Received patient with tracheostomy to the ventilator on AC mode, sedated on Propofol drip and Morphine drip,with very minimal cough /gag when suctioned.Not in distress but patient O2 saturation in the 80's, easily desaturates when moving/turning patient. Midline via FRANCY ,.On Levophed drip for BP support. G tube with on going feeding, Aspiration Precaution observed,maintain on semi elias's position.Comfort care done.will titrate drips accordingly,to maintain adequate sedation and stable BP.
[2017-10-22] MEDS: CEFEPIME 2 GM in IV D5W 50 ML IV SCH (20:43)
--- NOTE | 2017-10-22 22:00 | NUR ---
FILM NUMBERER NOTES Status unchanged,saturating 87-90%,not in any distress ,patient sedated.BP stable with Levophed drip.
[2017-10-23] VITALS (51 sets, daily range): BP systolic 82–131; BP diastolic 44–78
--- NOTE | 2017-10-23 | NUR ---
DRY CHAIN WORKER NOTES Remains sedated,will try to wean down Propofol drip as long as patient does not become tachypneic.O2 satuation remains very labile between as low as 84 % to 89%.
--- NOTE | 2017-10-23 03:00 | NUR ---
COBBLER MCKAY NOTES Patient desaturates to as low as 81 %-83 %,.Patient too unstable to turn and move for AM care right now.will defer AM care ,patient still clean and dry,No BM noted.
[2017-10-23] MEDS: PROPOFOL 100 ML IV PRN ×8 (03:30→23:59)
[2017-10-23] MEDS ORDERED: NOREPINEPHRINE 4 MG/4 ML AMPUL IV ONE (03:43)
[2017-10-23] MEDS: NOREPINEPHRINE 16 MG in IV D5W 500 ML IV PRN ×2 (03:48→15:22)
[2017-10-23] MEDS: IPRATROPIUM NEB FS 0.5 MG/2.5 ML AMPUL.NEB NEB SCH ×5 (03:49→20:10)
[2017-10-23 05:21] LABS: BASOPHILS % (AUTO) 0.1 % (0.0-2.0); HEMATOCRIT 27 % (39-51); HEMOGLOBIN 9.1 g/dL (13.5-17.5); LYMPHOCYTES # (AUTO) 0.9 /CMM (0.8-4.8); LYMPHOCYTES % (AUTO) 2.4 % (20.0-44.0); MEAN CORPUSCULAR HEMOGLOBIN 29 PG (26.0-33.0); MEAN CORPUSCULAR HGB CONC 33 g/dl (31.0-36.0); MEAN CORPUSCULAR VOLUME 87 fL (80-96); MONOCYTES # (AUTO) 0.7 /CMM (0.1-1.30); MONOCYTES % (AUTO) 1.9 % (2.0-12.0); NEUTROPHILS # (AUTO) 33.6 /CMM (1.8-8.9); NEUTROPHILS % (AUTO) 95.6 % (43.0-81.0); PLATELET COUNT (AUTO) 257 /CMM (150-450); RDW COEFFICIENT OF VARIATION 19.8 (11.5-15.0); RED BLOOD CELL COUNT(AUTO) 3.17 MIL/uL (4.5-6.0)
[2017-10-23 05:30] LABS: CALCIUM, SERUM 8.2 mg/dL (8.5-10.1); CARBON DIOXIDE 20 mmol/L (21-32); CHLORIDE 89 mmol/L (98-107); CREATININE 3.6 mg/dL (0.6-1.3); GLUCOSE 147 mg/dL (74-106); POTASSIUM 6.1 mmol/L (3.5-5.1); UREA NITROGEN, BLOOD 51 mg/dL (7-18); WHITE BLOOD COUNT (AUTO) 35.2 K/uL (4.3-11.0)
[2017-10-23 05:36] LABS: SODIUM SERUM 120 mmol/L (136-145)
[2017-10-23] MEDS: FLUDROCORTISONE 0.1 MG TABLET GT SCH ×4 (05:42→23:08)
[2017-10-23 05:44] LABS: BAND % (MANUAL) 7 % (0.0-5.0); LYMPHOCYTES % (MANUAL) 1 % (16-48); MONOCYTES % (MANUAL) 2 % (0-11.0); NEUTROPHILS % (MANUAL) 90 (42-76)
--- NOTE | 2017-10-23 06:00 | NUR ---
DIRECTOR OF LOSS PREVENTION NOTES Noted a lot of feeding-like material drain out from the tracheostomy site(there's a big leakage underneath tracheostomy) after giving PO meds via G tube .Feeding held for now,no residuals from the G tube,even connected to suction but nothing came out from the G tube.Will hold feeding for now. 0700 Dr. Hernandez came to round the patient ,saw the leakage from the trache site.
--- NOTE | 2017-10-23 07:00 | NUR ---
REPORT GIVEN TO MELVINA YOUNG
--- NOTE | 2017-10-23 07:10 | NUR ---
RN INITIAL NOTES: Rec'd pt on bed w/ HOB elevated, sedated. On MV via trach, sating at 80-85%. On telemonitor, SR w/ 1' AVB HR 80-90's. Has GT, flushing well, clamped at this time d/t episode of TF leaking on the trach site per report. Has FRANCY Midline patent & intact w/ no s/sx of infection/infiltration noted, w/ ongoing Levophed Drip x 18 mcg/min, Propofol Drip x 90 mcg/kg/min, MoSO4 x 10 mg/hr all infusing well. Has L hand G22, SL, C/D/I. Has FC draining to BSB. On isolation. Provided comfort & safety environment. Bed kept low & in locked pos. Call light placed w/in reach. Will continue to monitor & attend pt needs.
[2017-10-23] MEDS: ACETYLCYSTEINE 20% SOLN 800 MG/4 ML VIAL NEB SCH ×2 (07:50→15:59)
[2017-10-23 08:16] LABS: HEMATOCRIT 28 % (39-51); HEMOGLOBIN 8.8 g/dL (13.5-17.5); LYMPHOCYTES # (AUTO) 0.8 /CMM (0.8-4.8); MEAN CORPUSCULAR HEMOGLOBIN 28 PG (26.0-33.0); MEAN CORPUSCULAR HGB CONC 32 g/dl (31.0-36.0); MEAN CORPUSCULAR VOLUME 87 fL (80-96); MONOCYTES % (AUTO) 2.5 % (2.0-12.0); NEUTROPHILS % (AUTO) 95.5 % (43.0-81.0); PLATELET COUNT (AUTO) 243 /CMM (150-450); RDW COEFFICIENT OF VARIATION 18.9 (11.5-15.0); RED BLOOD CELL COUNT(AUTO) 3.17 MIL/uL (4.5-6.0)
[2017-10-23 08:21] LABS: WHITE BLOOD COUNT (AUTO) 39.7 K/uL (4.3-11.0)
[2017-10-23 08:29] LABS: ALANINE AMINOTRANSFERASE 12 U/L (12-78); ALKALINE PHOSPHATASE 95 U/L (46-116); ASPARTATE AMINOTRANSFERASE 28 U/L (15-37); BILIRUBIN,TOTAL 0.3 mg/dL (0.2-1.0); CALCIUM, SERUM 8.9 mg/dL (8.5-10.1); CARBON DIOXIDE 15 mmol/L (21-32); CHLORIDE 90 mmol/L (98-107); CREATININE 3.8 mg/dL (0.6-1.3); GLUCOSE 108 mg/dL (74-106); MAGNESIUM 1.5 mg/dL (1.8-2.4); TOTAL PROTEIN, SERUM 7.8 g/dL (6.4-8.2); UREA NITROGEN, BLOOD 58 mg/dL (7-18)
[2017-10-23 08:36] LABS: PHOSPHORUS 8.3 mg/dL (2.5-4.9); POTASSIUM 6.3 mmol/L (3.5-5.1); SODIUM SERUM 120 mmol/L (136-145)
[2017-10-23 08:37] LABS: ALBUMIN 1.1 g/dL (3.4-5.0)
--- NOTE | 2017-10-23 08:42 | NUR ---
Called [facility] (communications marketing intern Dr. Mcnally) c/o CN to relay critical lab results & no urine output, cashier receptionist to anita LEON. Awaiting call back. Addendum: 10/23/17 at 0910 by MELVINA DUNCAN RN Rec'd call back from Dr. Mcnally w/ orders to start 3% Nacl x 30 cc/hr, give Kayexalate 60gm via GT x 1, consult w/ family re: SARAHI. will see pt later.
[2017-10-23] MEDS: LINEZOLID RTU BAG 600 MG in PREMIX 1 EA IV SCH ×2 (09:02→21:12)
[2017-10-23] MEDS: PANTOPRAZOLE 40 MG VIAL IV SCH ×2 (09:02→17:05)
[2017-10-23] MEDS: HYDROCORTISONE SOD SUCCINATE 100 MG/2 ML VIAL IV SCH ×3 (09:02→17:06)
[2017-10-23] MEDS ORDERED: SODIUM POLYSTYRENE SULFONATE 15 G/60 ML BOTTLE GT STA (09:06)
--- NOTE | 2017-10-23 09:10 | NUR ---
PATIENT DAUGHTER GABRIEL CALLED TO UPDATE ON PATIENT CONDITION. RECEIVED A CALL BACK FROM CASSIDY SHE WAS ASKED TO CALL PER SISTER GABRIEL. FAMILY UPDATED WITH PATIENT CONDITION. RE: DECREASED BP, FAILING KIDNEY FUNCTION, LOW OXYGEN LEVELS DESPITE HIGH VENT SETTINGS.
--- NOTE | 2017-10-23 09:15 | NUR ---
Called Jason to inform about re: plan to do Hemodialysis to the pt. Jason said that she will talk w/ Jillian to discuss this and will callback. Addendum: 10/23/17 at 1033 by MELVINA DUNCAN RN Left a VM to Jason/Jillian re: ffup for HD consent. Awaiting call back. Addendum: 10/23/17 at 1057 by MELVINA DUNCAN RN Rec'd call back from Jason and said that she & Jillian are both consenting for HD catheter placement & HD procedure. Consent secured and placed in the chart.
[2017-10-23] MEDS ORDERED: IV Sodium Chloride 3% 500 ML 500 ML IV PRN (09:30)
[2017-10-23] MEDS: MULTIVITAMINS,THERAGRAN 1 UDTAB TABLET GT SCH (09:46)
[2017-10-23] MEDS: LACTOBACILLUS RHAMNOSUS GG 1 EACH CAP.SPRINK PO SCH ×2 (09:46→16:54)
[2017-10-23] MEDS: ASCORBIC ACID 500 MG TABLET GT SCH (09:46)
[2017-10-23] MEDS: HYDROGEL DRESSING 90 GM TUBE TP SCH (09:47)
[2017-10-23] MEDS: COLISTIMETHATE SODIUM 150 MG VIAL NEB SCH ×2 (09:49→21:24)
--- NOTE | 2017-10-23 10:20 | NUR ---
Dr. Mcnally made aware that daughter Jimbo consented for HD. Per , Dr. Park to do the procedure.
--- NOTE | 2017-10-23 10:30 | NUR ---
Dr. Redman made aware re: episode of TF leak from the trach site c/o CN. Addendum: 10/23/17 at 1058 by MELVINA DUNCAN RN Pt seen & examined by Dr. Redman w/ orders to hold GTF at this time.
[2017-10-23 11:30] LABS: ABG BASE EXCESS -14.8 mmol/L; ABG OXYGEN SATURATION 84.9 % (92.0-98.5); ABG PCO2 54.9 mmHg (35.0-45.0); ABG PH 7.057 (7.350-7.450); ABG PO2 55.4 mmHg (75.0-100.0); AaDO2 602.7 mmHg; COHb 0.3 % (0.5-1.5); MetHb 0.9 % (0.0-1.5); O2Hb 83.9 % (94.0-97.0); PEEP,BG 12 cm H2O; SITE, ABG Right Brachial; VT, ABG 500 mL
[2017-10-23 12:00] LABS: INR 1.09 (0.87-1.13)
--- NOTE | 2017-10-23 12:00 | NUR ---
ABG results reviewed by Dr. Redman w/ NNO.
--- NOTE | 2017-10-23 12:13 | NUR ---
Dr. Redman ordered for KUB today d/t abdominal distention.
--- NOTE | 2017-10-23 12:49 | NUR ---
Dr. Park seen & examined pt, inserted HD catheter Fr 20 on R femoral. Pt tolerated the procedure well. Minimal bleeding noted.
[2017-10-23] MEDS ORDERED: SODIUM BICARBONATE SYR 50 MEQ/50 ML DISP.SYRIN IV STA (12:58)
[2017-10-23] MEDS ORDERED: Magnesium 1GM/D5W 100ML PREMIX PIGGYBACK IV ONE (13:00)
--- NOTE | 2017-10-23 13:01 | NUR ---
Dr. Mcnally seen & examined pt, labs reviewed w/ orders to give 2 amps of Na Bicarb, 2 gms of Mg. Per MD, HD scheduled today c/o Ahmed, stop NaCL IVF prior to starting the HD.
[2017-10-23] MEDS: Magnesium 1GM/D5W 100ML PREMIX 100 ML IV SCH ×2 (13:51→14:53)
--- NOTE | 2017-10-23 15:00 | NUR ---
Pt seen & examined by plastic surgeon (Dr. Vidales), made him aware re: unable to move pt to do wound care at this time d/t unstable condition. agreed.
--- NOTE | 2017-10-23 16:00 | NUR ---
Dr. Moore ordered to adjust vent settings to AC 20 c/o RT.
--- NOTE | 2017-10-23 18:39 | NUR ---
1st HD started c/o Ahmed. Made him aware of the lab results today. Levophed titrated accordingly. Will monitor closely.
--- NOTE | 2017-10-23 19:00 | NUR ---
RN CLOSING NOTES: HD ongoing, VS closely monitored. Pt tolerated MV settings via trach, sating at 88% at this time. On telemonitor, now ST w/ 1' AVB HR 113. GT, kept patent & intact, clamped the whole shift but no TF came out from trach site. FRANCY Midline kept patent & intact w/ no s/sx of infection/infiltration noted, w/ ongoing Levophed Drip x 25 mcg/min (while on HD), Propofol Drip x 90 mcg/kg/min, MoSO4 x 10 mg/hr all infusing well. Has L hand G22, SL, TKO. R femoral HD cath kept intact. FC draining to BSB, no urine output. Isolation prec observed. Kept well rested. Needs attended. Bed kept low & in locked pos. Call light placed w/in reach. Endorsed to PM RN for CESAR. 1850H Followed up w/ Martinez re: Diflucan IV, he said he will send it. Endorsed to PM RN to infuse.
[2017-10-23] MEDS: FLUCONAZOLE IN NS 100 MG in PREMIX 1 EA IV SCH ×2 (19:29)
--- NOTE | 2017-10-23 20:12 | NUR ---
hd completed 500 ml out, vss o2sat 92% bp 118/66, hr 115
[2017-10-23] MEDS: CEFEPIME 2 GM in IV D5W 50 ML IV SCH (21:12)
[2017-10-24] VITALS (103 sets, daily range): BP systolic 68–184; BP diastolic 34–118
[2017-10-24] MEDS: ACETYLCYSTEINE 20% SOLN 800 MG/4 ML VIAL NEB SCH ×4 (00:15→23:38)
[2017-10-24] MEDS: IPRATROPIUM NEB FS 0.5 MG/2.5 ML AMPUL.NEB NEB SCH ×7 (00:16→23:38)
--- NOTE | 2017-10-24 04:30 | NUR ---
PT IS VERY UNSTABLE, LEVO WAS BRIEFLY PAUSED TO DRAW BLOOD FROM PICC LINE AND PT HR DROPPED FROM 100S TO 40S ADILENE AND SBP DROPPED TO 60S. LEVO WAS RESTARTED AT HIGHER RATE TO COMPENSATE FOR LOW HR THEN PT HR WENT TO 130S AND THEN 180S VTACH FOR A COUPLE SECONDS, THEN LEVO WAS LOWERED TO ORIGINAL RATE 16 MCG AND HR LOWERED BACK TO 106, BP WNL
[2017-10-24] MEDS: FLUDROCORTISONE 0.1 MG TABLET GT SCH ×3 (05:16→17:14)
[2017-10-24 05:35] LABS: HEMATOCRIT 26 % (39-51); HEMOGLOBIN 8.4 g/dL (13.5-17.5); LYMPHOCYTES # (AUTO) 0.7 /CMM (0.8-4.8); LYMPHOCYTES % (AUTO) 2.5 % (20.0-44.0); MEAN CORPUSCULAR HEMOGLOBIN 27 PG (26.0-33.0); MEAN CORPUSCULAR HGB CONC 32 g/dl (31.0-36.0); MEAN CORPUSCULAR VOLUME 85 fL (80-96); MONOCYTES # (AUTO) 0.3 /CMM (0.1-1.30); MONOCYTES % (AUTO) 1.1 % (2.0-12.0); NEUTROPHILS # (AUTO) 25.9 /CMM (1.8-8.9); NEUTROPHILS % (AUTO) 96.4 % (43.0-81.0); PLATELET COUNT (AUTO) 194 /CMM (150-450); RDW COEFFICIENT OF VARIATION 19.6 (11.5-15.0); RED BLOOD CELL COUNT(AUTO) 3.05 MIL/uL (4.5-6.0); WHITE BLOOD COUNT (AUTO) 26.9 K/uL (4.3-11.0)
[2017-10-24 05:41] LABS: CALCIUM, SERUM 8.2 mg/dL (8.5-10.1); CARBON DIOXIDE 23 mmol/L (21-32); CHLORIDE 93 mmol/L (98-107); CREATININE 3.4 mg/dL (0.6-1.3); GLUCOSE 121 mg/dL (74-106); POTASSIUM 4.4 mmol/L (3.5-5.1); SODIUM SERUM 129 mmol/L (136-145); UREA NITROGEN, BLOOD 50 mg/dL (7-18)
[2017-10-24 06:05] LABS: NEUTROPHILS % (MANUAL) 86 (42-76)
[2017-10-24 06:06] LABS: BAND % (MANUAL) 12 % (0.0-5.0); LYMPHOCYTES % (MANUAL) 1 % (16-48); MONOCYTES % (MANUAL) 1 % (0-11.0)
[2017-10-24] MEDS: PROPOFOL 100 ML IV PRN ×3 (06:12→19:25)
[2017-10-24] MEDS: NOREPINEPHRINE 16 MG in IV D5W 500 ML IV PRN ×2 (06:52→23:50)
[2017-10-24] MEDS: ALBUTEROL HALF STRENGTH 1.25 MG/3 ML VIAL.NEB NEB PRN (07:42)
[2017-10-24] MEDS: ASCORBIC ACID 500 MG TABLET GT SCH (08:17)
[2017-10-24] MEDS: MULTIVITAMINS,THERAGRAN 1 UDTAB TABLET GT SCH (08:17)
[2017-10-24] MEDS: LACTOBACILLUS RHAMNOSUS GG 1 EACH CAP.SPRINK PO SCH ×2 (08:18→16:22)
[2017-10-24] MEDS: LINEZOLID RTU BAG 600 MG in PREMIX 1 EA IV SCH ×2 (08:20→21:34)
[2017-10-24] MEDS: PANTOPRAZOLE 40 MG VIAL IV SCH ×2 (08:20→16:21)
[2017-10-24] MEDS: HYDROCORTISONE SOD SUCCINATE 100 MG/2 ML VIAL IV SCH ×3 (08:20→16:21)
[2017-10-24] MEDS: HYDROGEL DRESSING 90 GM TUBE TP SCH (08:21)
--- NOTE | 2017-10-24 09:05 | NUR ---
CAR SALTER- DR. DOBBINS AT BEDSIDE. PER , ABGS TO BE DRAWN AFTER HD. HD IN PROCESS. BREN HEDRICK MADE AWARE. WILL CONTINUE TO MONITOR.
--- NOTE | 2017-10-24 10:40 | NUR ---
FEED RESEARCH AIDE- HD COMPLETED. 1L WAS REMOVED. PT TOLERATED WELL. WILL CONTINUE TO MONITOR.
[2017-10-24 11:08] LABS: ABG BASE EXCESS 1.9 mmol/L; ABG PCO2 80.2 mmHg (35.0-45.0); ABG PH 7.204 (7.350-7.450); ABG PO2 51.2 mmHg (75.0-100.0); AaDO2 581.6 mmHg; COHb 0.3 % (0.5-1.5); PEEP,BG 14 cm H2O; SITE, ABG Left Radial; VT, ABG 500 mL
--- NOTE | 2017-10-24 11:10 | NUR ---
QUALITY LAB TECHNICIAN- ABGS DONE POST DIALYSIS. RESULTS RELAYED TO DR. DOBBINS FOR REVIEW. PER MD, CHANGE RATE TO 26. ORDER PLACED. BREN HEDRICK MADE AWARE. WILL CONTINUE TO MONITOR.
[2017-10-24] MEDS: COLISTIMETHATE SODIUM 150 MG VIAL NEB SCH ×2 (11:53→21:20)
--- NOTE | 2017-10-24 14:40 | NUR ---
HEAVY EQUIPMENT OPERATOR- INFORMED DR. DOBBINS PT'S SATURATIONS SLOWLY DECREASING AFTER HD AND VENT CHANGES (INCREASED RATE TO 26). CURRENTLY SATURATIONS ARE IN THE 60S. DR. DOBBINS AT BEDSIDE EXAMINING PATIENT. PER MD, INCREASE PEEP TO 16 AND REPEAT ABGS IN 30 MINS POST VENT CHANGES. BREN HEDRICK MADE AWARE AND VENT CHANGES DONE. WILL CONTINUE TO MONITOR.
[2017-10-24 15:50] LABS: ABG BASE EXCESS -7.7 mmol/L; ABG OXYGEN SATURATION 57.9 % (92.0-98.5); ABG PCO2 69.3 mmHg (35.0-45.0); ABG PH 7.117 (7.350-7.450); ABG PO2 37.5 mmHg (75.0-100.0); AaDO2 606.2 mmHg; COHb 0.1 % (0.5-1.5); O2Hb 57.3 % (94.0-97.0); PEEP,BG 16 cm H2O; SITE, ABG Left Radial; VT, ABG 500 mL
--- NOTE | 2017-10-24 15:50 | NUR ---
SCRAP CUTTER- ABGS DONE AND RESULTS GIVEN TO DR. DOBBINS FOR REVIEW. MD AT BEDSIDE EVALUATING PT. PER MD, INCREASE PEEP TO 18 AND GIVE 2 AMPS OF BICARB. 1600- BREN RT MADE VENT CHANGES ORDERED BY MD. WILL CONTINUE TO MONITOR.
[2017-10-24] MEDS ORDERED: SODIUM BICARBONATE SYR 50 MEQ/50 ML DISP.SYRIN IV ONE (16:00)
[2017-10-24] MEDS: FLUCONAZOLE IN NS 100 MG in PREMIX 1 EA IV SCH ×2 (17:23)
--- NOTE | 2017-10-24 19:00 | NUR ---
PRECISION HONER- PT'S SP02 REMAINS IN THE 60-70%. DR. DOBBINS AWARE OF PT'S CURRENT CONDITION AND ALL LAB RESULTS. MORPHINE GTT REMAINS AT 10 MG/HR, DIPRIVAN AT 30 MCG/MIN AND LEVOPHED AT 14 MCG/MIN. ENDORSED TO NEXT SHIFT FOR CONTINUITY OF CARE.
--- NOTE | 2017-10-24 19:35 | NUR ---
RN NOTES RECEIVED PT SEDATED ON BED. SATURATION 69% WITH TRACH PORTEX 7 VENT SETTING AC 26 TV 500 FIO2 100% PEEP 18, ST ON TELE MONITOR. DR. DOBBINS AND FAMILY AWARE OF PT'S CURRENT CONDITION PER PREVIOUS NURSE. CODE STATUS REMAINED FULL CODE. IV SITE ON FRANCY MIDLINE RUNNING WITH MORPHINE @ 1GTT 10 MG/HR, DIPRIVAN AT 30 MCG/MIN AND LEVOPHED AT 14 MCG/MIN. LEFT HAND TKO. RIGHT FEMORAL HD CATH CLEANED AND DRY. KEPT PT CLEAN AND DRY. REPOSITIONED FOR SKIN MANAGEMENT. WILL CONTINUE TO MONITOR.
--- NOTE | 2017-10-24 20:16 | NUR ---
PT RECEIVED TRACHED ON VENT ON NOTED SETTINGS. SX'D FOR SML AMT OF WHITE SECRETIONS. O2 SAT 70-75% RN AWARE. PT IS ON 100% FIO2 AND PEEP OF 18. VENT ALARMS SET AND AUDIBLE. AMBU BAG AT BEDSIDE. VENT PLUGGED INTO RED OUTLET. WILL CONTINUE TO MONITOR. Addendum: 10/24/17 at 2019 by BART DARNELL RT Amended: Links added.
[2017-10-24] MEDS: CEFEPIME 2 GM in IV D5W 50 ML IV SCH (21:35)
--- NOTE | 2017-10-24 21:45 | NUR ---
RN NOTES PT SUSTAINED A- FIB HR 120S - 140'S CALLED AND SPOKE WITH BRITTANI GIANG ON THE FLOOR SHOWN EKG RESULT OF A- FIB HR 138, UPDATE REGARDING PT STATUS THAT SATURATION IS BEEN LOW 80'S HR IS 120'S -140'S. INFORMED MD THAT FAMILY JUST CALLED AND UPDATED ABOUT THE PT UNSTABLE CONDITION, ASKED DAUGHTER IF THEY STILL WANT PT TO BE FULL CODE DESPITE OF ALL VS AND TREATMENT AND UNSTABLE CONDITION, FAMILY INSIST TO BE FULL CODE. RESPECTED FAMILY DECISION. BRITTANI GIANG AWARE., NNO AT THIS TIME.
--- NOTE | 2017-10-24 22:48 | NUR ---
RN NOTES GABRIEL DAUGHTER CALLED UPDATED ABOUT PT STATUS AT THIS TIME, VERIFIED CODE STATUS OF THE PT. PER DAUGHTER THEY KNOW ABOUT THEY'RE DADS UNSTABLE CONDITION. JUST DO WHATEVER WE CAN DO, AND THEY DON'T WANT TO CHANGE THE CODE STATUS OF THE PATIENT BECAUSE OF THEIR CATHOLIC.
--- NOTE | 2017-10-24 23:16 | NUR ---
RN NOTES ISSA ELLISON CLOTHING AND TEXTILES TEACHER AT BEDSIDE, WITH ORDER FOR STAT EKG, AND DIGOXIN 0.25MG IVP X1 NOW
[2017-10-24] MEDS ORDERED: DIGOXIN INJ 0.5 MG/2 ML AMPUL IV ONE (23:30)
--- NOTE | 2017-10-24 23:30 | NUR ---
RN NOTES 23:10 PM - DELIVER 1ST SHOCK @ 200 JOULES BY BRITTANI ELLISON PT CONVERT TO SINUS HR 112 23:12 PM - BACK TO A- FIB 144 2ND SHOCK DELIVER @ 200 JOULES BY BRITTANI ELLISON NO CONVERSION 23:16 PM - WITH ORDER OF EKG AND 0.25 DIG IVP GIVEN AT 23:30PM
--- NOTE | 2017-10-24 23:39 | NUR ---
RN NOTES EKG DONE BEHAVIORAL PSYCHOLOGIST TERRA STILL ON THE FLOOR RESULT A- FIB NNO AT THIS TIME. WILL CONTINUE TO MONITOR.
[2017-10-25] VITALS (102 sets, daily range): BP systolic 71–120; BP diastolic 26–72
[2017-10-25] MEDS: IPRATROPIUM NEB FS 0.5 MG/2.5 ML AMPUL.NEB NEB SCH ×6 (03:11→23:30)
--- NOTE | 2017-10-25 03:55 | NUR ---
RN NOTES PT CONVERTED TO SINUS TACH HR 115 AT THIS TIME. BP 101/60 SATURATION REMAINED LOW AT 83% CONTINEU WITH MORPHINE @ 30 MG/HR , LEVO@ 15 MCG/MIN AND DIPRIVAN @ 35 MCG/KG/MIN.
[2017-10-25] MEDS: PROPOFOL 100 ML IV PRN ×2 (04:40→11:36)
[2017-10-25 04:50] LABS: EOSINOPHILS % (AUTO) 0.1 % (0.0-6.0); HEMATOCRIT 22 % (39-51); HEMOGLOBIN 7.1 g/dL (13.5-17.5); LYMPHOCYTES # (AUTO) 1.3 /CMM (0.8-4.8); LYMPHOCYTES % (AUTO) 4.7 % (20.0-44.0); MEAN CORPUSCULAR HEMOGLOBIN 27 PG (26.0-33.0); MEAN CORPUSCULAR HGB CONC 32 g/dl (31.0-36.0); MEAN CORPUSCULAR VOLUME 85 fL (80-96); MONOCYTES # (AUTO) 0.5 /CMM (0.1-1.30); MONOCYTES % (AUTO) 1.8 % (2.0-12.0); NEUTROPHILS # (AUTO) 26.5 /CMM (1.8-8.9); NEUTROPHILS % (AUTO) 93.4 % (43.0-81.0); PLATELET COUNT (AUTO) 144 /CMM (150-450); RDW COEFFICIENT OF VARIATION 19.5 (11.5-15.0); RED BLOOD CELL COUNT(AUTO) 2.59 MIL/uL (4.5-6.0); WHITE BLOOD COUNT (AUTO) 28.4 K/uL (4.3-11.0)
[2017-10-25 05:10] LABS: CALCIUM, SERUM 8.6 mg/dL (8.5-10.1); CARBON DIOXIDE 21 mmol/L (21-32); CHLORIDE 95 mmol/L (98-107); GLUCOSE 126 mg/dL (74-106); POTASSIUM 4.5 mmol/L (3.5-5.1); SODIUM SERUM 133 mmol/L (136-145); UREA NITROGEN, BLOOD 50 mg/dL (7-18)
[2017-10-25 05:20] LABS: BAND % (MANUAL) 21 % (0.0-5.0); LYMPHOCYTES % (MANUAL) 5 % (16-48); MONOCYTES % (MANUAL) 1 % (0-11.0); NEUTROPHILS % (MANUAL) 72 (42-76)
[2017-10-25 05:21] LABS: METAMYELOCYTES % 1 % (0-0)
[2017-10-25] MEDS: FLUDROCORTISONE 0.1 MG TABLET GT SCH ×4 (06:00→17:00)
[2017-10-25] MEDS ORDERED: DIGOXIN INJ 0.5 MG/2 ML AMPUL IV ONE (06:00)
--- NOTE | 2017-10-25 06:30 | NUR ---
RN NOTES BED BATH DONE WOUND DRESSING CHANGED, PT TOLERATED IT WELL. NO ACUTE RESP DISTRESS. TRACH AND VENT SETTING TOLERATED WELL SATURATING 87%, AFEBRILE. CONTINUE ON SEDATION DIPRIVAN @ 35 MCG/KG/MIN , MORPHINE @ 10 MG/HR AND LEVOPHED 15 MCG/MIN. SINUS TACH 113 AT THIS TIME,. GT STILL CLAMPED WITH 60 ML RESIDUAL. F/C INTACT W/ 20 CC URINE OUTPUT THROUGHOUT THE SHIFT. CONTINUE FOR CLOSELY MONITOR . FAMILY CALLS AND UPDATED ABOUT UNSTABLE CONDITION, PT REMAINED FULL CODE.
--- NOTE | 2017-10-25 07:29 | NUR ---
RECEIVED REPORT ON PATIENT. ON SEDATION DIPRIVAN @ 35 MCG/KG/MIN , MORPHINE @ 10 MG/HR AND LEVOPHED 15 MCG/MIN. SINUS TACH 113 AT THIS TIME S/P CARDIOVERSION X2 LAST NIGHT. NO DIFFICULTY BREATHING AT THIS TIME, SOB. PATIENT CALM AND COOPERATIVE NO LEAKING OF TRACH AT THIS TIME. G TUBE CLAMPED S/T POSSIBLE T-E FISTULA PER MD KEEPING NPO FOR CONSERVATIVE TREATMENT. IV SITES C/D/I/P. HD CATH C/D/I PENDING HD TREATMENT. RIZVI CATH IN PLACE MINIMAL OUTPUT PATENT. PATIENT OXYGEN SATURATION 86-88% PRN SUCTIONING AND ASPIRATION PRECAUTIONS IN PLACE. SAFETY AND SKIN PRECAUTIONS IN PLACE AND MONITORING. PATIENT FULL CODE. FREQUENT MONITORING. Addendum: 10/25/17 at 0744 by CHANTAL AGUILAR RN VENT SETTINGS PER DR FINE.
[2017-10-25] MEDS: LACTOBACILLUS RHAMNOSUS GG 1 EACH CAP.SPRINK PO SCH ×2 (08:04→16:21)
[2017-10-25] MEDS: LINEZOLID RTU BAG 600 MG in PREMIX 1 EA IV SCH ×2 (08:04→21:11)
[2017-10-25] MEDS: HYDROCORTISONE SOD SUCCINATE 100 MG/2 ML VIAL IV SCH ×3 (08:04→16:57)
[2017-10-25] MEDS: MULTIVITAMINS,THERAGRAN 1 UDTAB TABLET GT SCH (08:04)
[2017-10-25] MEDS: ASCORBIC ACID 500 MG TABLET GT SCH (08:04)
[2017-10-25] MEDS: PANTOPRAZOLE 40 MG VIAL IV SCH ×2 (08:04→16:56)
[2017-10-25] MEDS: HYDROGEL DRESSING 90 GM TUBE TP SCH (08:05)
[2017-10-25] MEDS: Z GUARD REMEDY 2 OZ OINT TP PRN ×2 (08:05→17:00)
[2017-10-25] MEDS: ACETYLCYSTEINE 20% SOLN 800 MG/4 ML VIAL NEB SCH ×3 (08:06→23:30)
--- NOTE | 2017-10-25 08:09 | NUR ---
PT REC'D TRACHED ON VENT VIA PORTEX#7 CUFFED TRACH. PT VENT SETTINGS PER DR. DOBBINS. PT IS ON A PEEP OF 18 AND 100% FIO2 SATURATING 88%. DR. DOBBINS AWARE. HECTOR CORNEJO AWARE. MONONITROTOLUENE OPERATOR DONE. VENT ALARMS SET AND AUDIBLE PER POLICY. AMBU BAG AT HOB. Addendum: 10/25/17 at 0814 by SARA SHAW RT Amended: Links added.
--- NOTE | 2017-10-25 08:15 | NUR ---
DR JONES AT BEDSIDE. UPDATED ON PATIENT CONDITION AND CURRENT MEDICATIONS. NO NEW ORDERS
[2017-10-25] MEDS: COLISTIMETHATE SODIUM 150 MG VIAL NEB SCH ×2 (08:19→22:00)
--- NOTE | 2017-10-25 09:15 | NUR ---
DR DOBBINS AT BEDSIDE. UPDATED ON PATIENT VS AND CURRENT MEDICATIONS. PER MD PLEASE OBTAIN ABG PROIR TO HD.
[2017-10-25 09:54] LABS: ABG BASE EXCESS -2.2 mmol/L; ABG OXYGEN SATURATION 86.8 % (92.0-98.5); ABG PCO2 59.3 mmHg (35.0-45.0); ABG PH 7.247 (7.350-7.450); ABG PO2 62.2 mmHg (75.0-100.0); AaDO2 591.5 mmHg; COHb 0.3 % (0.5-1.5); MetHb 1.1 % (0.0-1.5); O2Hb 85.6 % (94.0-97.0); PEEP,BG 18 cm H2O; SITE, ABG Right Radial; VT, ABG 500 mL
--- NOTE | 2017-10-25 10:01 | NUR ---
HD RN AT BEDSIDE FOR TREATMENT.
--- NOTE | 2017-10-25 10:08 | NUR ---
NOTIFIED DR DOBBINS OF ABG RESULTS. PER MD IMPROVED. NO CHANGES TO VENT.
--- NOTE | 2017-10-25 12:50 | NUR ---
DR VANESSA AT BEDSIDE. UPDATED ON PATIENT CONDITION, LABS, VS. NOTIFIED MD PATIENT TELE AND PER MD ASCULTATION SOUNDS IRREGULAR. EKG ORDERED. PATIENT HD COMPLETE. BP STABLE.
[2017-10-25] MEDS: NOREPINEPHRINE 16 MG in IV D5W 500 ML IV PRN (15:56)
[2017-10-25] MEDS: FLUCONAZOLE IN NS 100 MG in PREMIX 1 EA IV SCH ×2 (17:00)
--- NOTE | 2017-10-25 18:40 | NUR ---
all due meds given. patient vent settings no change tolerating well. saturating at this time 86%. dip drop held at 1300. morphine drip at 10mg/hour and levo at 9mcg/min bp currently 103/54. jnekins cath in place patient anuric less than 15ml output. iv sites c/d/i/p. patient aspiration, skin, and safety precautions in place and monitored throughout day. will endorse care to rn for johnathan
--- NOTE | 2017-10-25 19:15 | NUR ---
RN NOTES PT ON BED, STRICTLY OBSERVED FOR ISOLATION FOR VRE URINE AND PSEUDOMONAS SPUTUM.AGONAL BREATHING PRESENT NO MORE SEDATION. SATURATION 85% BP 112/59 ST HR 102 ON TELE MONITOR. IV SITE ON FRANCY MIDLINE WITH MORPHINE @ 10 MG/HR , LEVOPHED @ 9 MCG/MIN WILL TITRATE ORDERED. RIGHT FEMORAL HD CATH CLEANED AND DRY. S/P HD TODAY WILL MONITOR FOR ANY CHANGES. GT CLAMPED F/C INTACT AND PATENT. FAMILY AWARE ABOUT UNSTABLE CONDITION OF PT, PT REMAINS FULL CODE. REPOSITIONED FOR SKIN MANAGEMENT. WILL CONTINUE TO MONITOR.
--- NOTE | 2017-10-25 20:06 | NUR ---
PT RECEIVED TRACHED ON VENT ON NOTED SETTINGS. SX'D FOR MOD AMT OF TINGED SECRETIONS. PT IS ON 100% FIO2 AND PEEP OF 18. O2 SAT 85%. VENT ALARMS SET AND AUDIBLE. AMBU BAG AT BEDSIDE. VENT PLUGGED INTO RED OUTLET. WILL CONTINUE TO MONITOR. Addendum: 10/25/17 at 2007 by BART DARNELL RT Amended: Links added.
[2017-10-25] MEDS: CEFEPIME 2 GM in IV D5W 50 ML IV SCH (21:11)
[2017-10-26] VITALS (29 sets, daily range): BP systolic 48–165; BP diastolic 25–133
[2017-10-26] MEDS: FLUDROCORTISONE 0.1 MG TABLET GT SCH
--- NOTE | 2017-10-26 00:13 | NUR ---
10/25/17 @0215 CALLED CODE BLUE. RT'S AND RN'S AT BEDSIDE. PHILLIP LEON AT BEDSIDE RUNNING THE CODE. @4536 PT HAS PULSE. PT PLACED BACK ON VENT. Addendum: 10/26/17 at 0019 by BART DARNELL RT Amended: Links added.
[2017-10-26] MEDS ORDERED: PHENYLEPHRINE 10 MG/ML VIAL ONE (00:17)
[2017-10-26] MEDS ORDERED: PHENYLEPHRINE 40 MG in IV D5W 250 ML IV PRN (00:30)
--- NOTE | 2017-10-26 00:40 | NUR ---
RN NOTES 10/25/17 23:21 PM - PEA NOTED BLEEDING LARGE AMT OF FRESH BLOOD ON THE TRACH. BP 105/54, HR 71, RESP 26, SATURATION 83% AND EVERY THINGS GOING DOWN, CODE BLUE INITIATE, UNABLE TO PALPITATE PT TO ALL PULSES SITE, FIXED EYES #6, PT IS NON RESPONSIVE. TRACH AND VENT SETTING CONNECTED WELL. CPR STARTED, BRITTANI MATHEW AND DR. DELCID FROM ER, RT'S AND RN'S CAME. 23:26 PM - FIRST EPI GIVEN, PT STILL PEA ON THE MONITOR HR 31 SATURATION 59% CPR CONTINUE, BRITTANI MATHEW CALLED AND SPOKE TO THE FAMILY VIA PHONE 23:29 PM - 2ND EPI GIVEN , PEA ON MONITOR BP 38/17 SATURATION 60%. BS 117 MG/DL 23:33 PM - 3RD EPI GIVEN BP 38/17 RR 131 SATURATION 38%. 23:36 PM - MONITOR REVEALS ST HR 135, BP 86/32 RR 34 SATURATION 48% CODE ENDED SUCCESSFUL. 00:25 AM - CALLED AND INFORMED PRIYANKA CORRECTIONAL SECURITY OFFICER THAT PT BP STILL IN A LOW 60'70'S WITH NEW ORDER NEOSYNEPHRINE NOTED AND CARRIED OUT ORDERS,
--- NOTE | 2017-10-26 00:50 | NUR ---
RN NOTES PRIYANKA WET PROCESS ASSISTANT HEAD MILLER SPOKE TO FAMILY AT BEDSIDE, UPDATE ABOUT THE PT STATUS AND PLAN OF CARE.
--- NOTE | 2017-10-26 01:15 | NUR ---
RN NOTES 00:55 AM - CREDIT CARD CLERK PRIYANKA AT BEDSIDE WITH ORDER TO STOPPED MORPHINE DRIP, SECONDARY TO LOW BP, WITH NEW ORDER OF CBC, BMP, PT/INR, IL NS BOLUS, ABG STAT AND GIVE 1 UNIT PRBC. NOTED AND CARRIED OUT ORDERS.
[2017-10-26 01:27] LABS: ABG BASE EXCESS -22.6 mmol/L; ABG OXYGEN SATURATION 67.6 % (92.0-98.5); ABG PH 6.729 (7.350-7.450); ABG PO2 62.5 mmHg (75.0-100.0); AaDO2 558.5 mmHg; COHb 0.3 % (0.5-1.5); MetHb 1.6 % (0.0-1.5); O2Hb 66.3 % (94.0-97.0); PEEP,BG 18 cm H2O; SITE, ABG Left Radial
--- NOTE | 2017-10-26 01:28 | NUR ---
STAT ABG DONE PER PRIYANKA. NOTIFIED RN WITH THE RESULT.
[2017-10-26 01:29] LABS: EOSINOPHILS % (AUTO) 0.2 % (0.0-6.0); HEMATOCRIT 21 % (39-51); LYMPHOCYTES # (AUTO) 1.5 /CMM (0.8-4.8); LYMPHOCYTES % (AUTO) 6.2 % (20.0-44.0); MEAN CORPUSCULAR HEMOGLOBIN 27 PG (26.0-33.0); MEAN CORPUSCULAR HGB CONC 31 g/dl (31.0-36.0); MEAN CORPUSCULAR VOLUME 87 fL (80-96); MONOCYTES # (AUTO) 0.6 /CMM (0.1-1.30); MONOCYTES % (AUTO) 2.5 % (2.0-12.0); NEUTROPHILS % (AUTO) 91.1 % (43.0-81.0); PLATELET COUNT (AUTO) 117 /CMM (150-450); RDW COEFFICIENT OF VARIATION 20.2 (11.5-15.0); RED BLOOD CELL COUNT(AUTO) 2.38 MIL/uL (4.5-6.0); WHITE BLOOD COUNT (AUTO) 24.2 K/uL (4.3-11.0)
[2017-10-26] MEDS ORDERED: IV NS 0.9% 1,000 ML IV PRN (01:30)
[2017-10-26 01:31] LABS: HEMOGLOBIN 6.5 g/dL (13.5-17.5)
[2017-10-26 01:42] LABS: CALCIUM, SERUM 7.5 mg/dL (8.5-10.1); CARBON DIOXIDE 13 mmol/L (21-32); CHLORIDE 99 mmol/L (98-107); CREATININE 2.3 mg/dL (0.6-1.3); GLUCOSE 122 mg/dL (74-106); POTASSIUM 5.1 mmol/L (3.5-5.1); SODIUM SERUM 134 mmol/L (136-145); UREA NITROGEN, BLOOD 42 mg/dL (7-18)
--- NOTE | 2017-10-26 01:49 | NUR ---
RN NOTES EDUCATIONAL RESOURCE COORDINATOR PRIYANKA MADE AWARE ABOUT ABG RESULT Ph 6.729 PcO2 92, Po2 62.5 HCO3 11.9 AND HEMOGLOBIN 6.5 WITH ORDERED BICARBONATE.
[2017-10-26 01:50] LABS: INR 1.4 (0.87-1.13)
[2017-10-26] MEDS ORDERED: SODIUM BICARBONATE SYR 50 MEQ/50 ML DISP.SYRIN IV ONE ×2 (02:00→02:18)
[2017-10-26] MEDS ORDERED: NS 0.9% IV PRN (02:00)
[2017-10-26] MEDS ORDERED: SODIUM BICARBONATE IV PRN (02:00)
--- NOTE | 2017-10-26 02:00 | NUR ---
THERAPIST IN ATTENDANCE FOR CPR/ CODE BLUE (20MIN)
[2017-10-26 02:03] LABS: BAND % (MANUAL) 16 % (0.0-5.0); LYMPHOCYTES % (MANUAL) 10 % (16-48); METAMYELOCYTES % 1 % (0-0); MONOCYTES % (MANUAL) 4 % (0-11.0); NEUTROPHILS % (MANUAL) 69 (42-76)
[2017-10-26] MEDS ORDERED: EPINEPHRINE (1:10,000) SYRINGE 1 MG/10 ML DISP.SYRIN IVP ONE ×2 (02:18)
--- NOTE | 2017-10-26 02:35 | NUR ---
@0159 CODE BLUE. PHILLIP LEON AT BEDSIDE RUNNING THE CODE. @0212 PT . PHILLIP LEON CONFIRMED. Addendum: 10/26/17 at 0237 by BART DARNELL RT Amended: Links added.
--- NOTE | 2017-10-26 03:00 | NUR ---
RN NOTES 02:19 AM - JASS HYDRAULIC PLUMBER AWARE , HYDRAULIC PLUMBER ON THE FLOOR 02:20 AM - OPERATOR GROUND BASED AIR DEFENCE PRIYANKA INFORMED ABOUT THE PT 02:30 AM - ADMITTING RYAN PORRAS AWARE
--- NOTE | 2017-10-26 03:30 | NUR ---
RN NOTES 01:59 AM - PATIENT PEA ON MONITOR. FAMILY AT BEDSIDE.CODE BLUE STARTED STARTED CPR AND MANUALLY VENTILATED PT . ER MD DR. DELCID AT BEDSIDE RUNNING THE CODE. FIRST EPI GIVEN AND SODIUM BICARB @ 0200 AM PT IS ASYSTOLE CONTINUE WITH CPR 02:04 2ND EPI GIVEN HR 94 PEA CONTINUE BAGGING THE PT. 02:07 ASYSTOLE 3RD EPI GIVEN CHECKED PULSE WITH DOPPLER CONT. BAGGING AND CPR ,DR. DELCID SPOKE TO FAMILY WHILE AT BEDSIDE, FAMILY WANTS TO CONTINUE FULL CODE STATUS. 02:10 AM - 4TH EPI GIVEN PULSELESS, PT REMAINED ASYSTOLE, 02:13 AM - 5TH EPI GIVEN , STILL ASYSTOLE CODE ONGOING., 6TH EPI GIVEN PT REMAINED ASYSTOLE, PT PUPIL FIXED AND DILATED . CODE ENDED @ 02:[address] DELCID. 02:51 CALLED AND SPOKE TO [facility], SPOKE TO DANIE AND GIVE INFO ABOUT THE PATIENT, CASE # [id number]
--- NOTE | 2017-10-26 05:00 | NUR ---
RN NOTES ACCOMPANIED PT WITH SECURITY AND BRING THE PATIENT TO [facility], FAMILY WILL CALL SPECIAL MAKEUP FX ARTIST INSTRUCTOR IN THE MORNING TO LET US KNOW ABOUT MORTUARY, INSTRUCTION GIVEN TO DAUGHTERS.
[2017-10-26] MEDS ORDERED: DIGOXIN INJ 0.5 MG/2 ML AMPUL IV SCH (13:00)
== END 2017-10-26 02:19 | disposition expired | DRG 853 ==
LOC: ER 00:14 → TELE1 02:02 → TELE-TD 03:42 → TELE1 09-15 16:52 → TELE-TD 09-15 21:04 → TELE1 09-16 09:34 → ICU 10-02 04:16 → TELE1 10-07 15:49 → TELE-TD 10-07 15:51 → TELE1 10-14 17:21 → ICU 10-17 17:23
PROVIDERS: ADMIT Nurse Practitioner Acute Care; ATTEND Nurse Practitioner Acute Care
PROC: 5A1955Z Respiratory Ventilation, Greater than 96 Consecutive Hours (ICD-10-PCS; principal; 2017-09-10)
PROC: 0JB70ZZ Excision of Back Subcutaneous Tissue and Fascia, Open Approach (ICD-10-PCS; 2017-09-13)
PROC: 0JBQ0ZZ Excision of Right Foot Subcutaneous Tissue and Fascia, Open Approach (ICD-10-PCS; 2017-09-13)
PROC: 30233N1 Transfusion of Nonautologous Red Blood Cells into Peripheral Vein, Percutaneous Approach (ICD-10-PCS; 2017-09-17)
PROC: 05H633Z Insertion of Infusion Device into Left Subclavian Vein, Percutaneous Approach (ICD-10-PCS; 2017-09-27)
PROC: B547ZZA Ultrasonography of Left Subclavian Vein, Guidance (ICD-10-PCS; 2017-09-27)
PROC: 0D20XUZ Change Feeding Device in Upper Intestinal Tract, External Approach (ICD-10-PCS; 2017-10-04)
PROC: 0QB10ZZ Excision of Sacrum, Open Approach (ICD-10-PCS; 2017-10-14)
PROC: 02HV33Z Insertion of Infusion Device into Superior Vena Cava, Percutaneous Approach (ICD-10-PCS; 2017-10-18)
PROC: B548ZZA Ultrasonography of Superior Vena Cava, Guidance (ICD-10-PCS; 2017-10-18)
PROC: 06HM33Z Insertion of Infusion Device into Right Femoral Vein, Percutaneous Approach (ICD-10-PCS; 2017-10-23)
PROC: 5A12012 Performance of Cardiac Output, Single, Manual (ICD-10-PCS; 2017-10-26)
DX: A41.9 Sepsis, unspecified organism (principal); L89.154 Pressure ulcer of sacral region, stage 4; R53.2 Functional quadriplegia; E43 Unspecified severe protein-calorie malnutrition; G92 Toxic encephalopathy; I50.33 Acute on chronic diastolic (congestive) heart failure; J15.6 Pneumonia due to other Gram-negative bacteria; J96.21 Acute and chronic respiratory failure with hypoxia; N17.0 Acute kidney failure with tubular necrosis; R65.21 Severe sepsis with septic shock; J86.0 Pyothorax with fistula; Z99.11 Dependence on respirator [ventilator] status; L03.116 Cellulitis of left lower limb; D68.59 Other primary thrombophilia; N39.0 Urinary tract infection, site not specified; E87.2 Acidosis; J93.81 Chronic pneumothorax; R64 Cachexia; E22.2 Syndrome of inappropriate secretion of antidiuretic hormone; Z43.1 Encounter for attention to gastrostomy; J44.0 Chronic obstructive pulmonary disease with (acute) lower respiratory infection; J95.851 Ventilator associated pneumonia; J98.11 Atelectasis; K56.7 Ileus, unspecified; E03.9 Hypothyroidism, unspecified; Z93.0 Tracheostomy status; D63.8 Anemia in other chronic diseases classified elsewhere; E11.9 Type 2 diabetes mellitus without complications; E83.39 Other disorders of phosphorus metabolism; E83.42 Hypomagnesemia; E86.1 Hypovolemia; E87.5 Hyperkalemia; I48.91 Unspecified atrial fibrillation; K21.9 Gastro-esophageal reflux disease without esophagitis; R13.10 Dysphagia, unspecified; Z86.73 Personal history of transient ischemic attack (TIA), and cerebral infarction without residual deficits; R62.7 Adult failure to thrive; Z86.74 Personal history of sudden cardiac arrest; B35.1 Tinea unguium; Z22.322 Carrier or suspected carrier of Methicillin resistant Staphylococcus aureus; L98.8 Other specified disorders of the skin and subcutaneous tissue; E88.09 Other disorders of plasma-protein metabolism, not elsewhere classified; Z68.21 Body mass index [BMI] 21.0-21.9, adult; S91.301A Unspecified open wound, right foot, initial encounter; X58.XXXA Exposure to other specified factors, initial encounter; Y93.9 Activity, unspecified; Y92.129 Unspecified place in nursing home as the place of occurrence of the external cause; R00.0 Tachycardia, unspecified; D47.3 Essential (hemorrhagic) thrombocythemia; B96.4 Proteus (mirabilis) (morganii) as the cause of diseases classified elsewhere; B95.1 Streptococcus, group B, as the cause of diseases classified elsewhere; I70.0 Atherosclerosis of aorta; K76.89 Other specified diseases of liver; N28.1 Cyst of kidney, acquired; B95.2 Enterococcus as the cause of diseases classified elsewhere; Z16.21 Resistance to vancomycin; E11.65 Type 2 diabetes mellitus with hyperglycemia; I11.0 Hypertensive heart disease with heart failure; Y84.8 Other medical procedures as the cause of abnormal reaction of the patient, or of later complication, without mention of misadventure at the time of the procedure; Z74.01 Bed confinement status; I70.8 Atherosclerosis of other arteries
CPT/HCPCS: 31720; 36415; 36569; 36600; 71045-TC; 71260-TC; 74018; 80048-TC; 80053-TC; 80061-TC; 80076-TC; 80202-TC; 81000-TC; 82272-TC; 82436-TC; 82533; 82570-TC; 82728-TC; 82746; 82784; 82803-TC; 82962-TC; 83540-TC; 83605-TC; 83615-TC; 83735-TC; 83880; 83935-TC; 84100-TC; 84133-TC; 84134-TC; 84155; 84165; 84300-TC; 84443-TC; 84484-TC; 84550-TC; 85025-TC; 85027-TC; 85610-TC; 85652-TC; 85730-TC; 86334; 86850-TC; 86921-TC; 87040-TC; 87070-TC; 87081-TC; 87086-TC; 87186-TC; 90935-TC; 92950-TC; 93307-TC; 93970-TC; 93971-TC; 94002-TC; 94003-TC; 94640-TC; 94760-TC; 94762-TC; 94799-TC; 99082-TC; A4216; A4217; A4349; A4606; A4623; A6248; A6253; A6402; A6403; A9563; C1750; C1751; C9113; J0171; J0692; J0770; J1160; J1450; J1650; J1720; J1940; J2020; J2060; J2185; J2270; J2274; J2370; J2543; J3260; J3370; J3475; J3490; J7030; J7040; J7050; J7060; P9016-BL; Q9967; Z7610